=== PATIENT | male | born 1960 | race Caucasian/White ===

== ENCOUNTER → 2018-02-08 13:00 | Outpatient (CLI) | payer MEDICARE, MEDICAID, SELFPAY ==
--- NOTE | 2018-02-08 13:19 | RAD_ITS ---
STUDY: X-RAY CHEST REASON FOR EXAM: Male, 57 years old. Pre-op. No chest complaints. TECHNIQUE: PA and lateral views of the chest. COMPARISON: February 26, 2015. FINDINGS: The lungs are well-expanded. There is minimal linear density at the right lung base unchanged from prior study suggesting persistent atelectasis versus scarring. There is no demonstrated pleural abnormality. Normal size heart. Normal mediastinum and alexander. Normal visualized pulmonary arteries. Normal visualized aortic arch and descending thoracic aorta. There are diffuse degenerative changes of the visualized thoracic spine. Normal visualized ribs, clavicles, and shoulders. There is no demonstrated abnormality of the visualized soft tissue structures of the upper abdomen. RAD/Chest PA and Lateral IMPRESSION: No acute cardiopulmonary disease or interval change. Electronically Signed: Shakir Moore DO at 15:56 EDT Tel [phone], Service support ,
[2018-02-08 15:38] LABS: Anion Gap 9 (5-15); BUN 5 mg/dL (7-18); BUN/Creat Ratio 7.3 RATIO (10-20); Calcium,Total 8.6 mg/dL (8.5-10.1); Chloride 95 mmol/L (98-107); Creatinine, Serum 0.68 mg/dL (0.70-1.30); EST Glomerular Filtration Rate 126 mL/min (>60); Est Glom Filt Rate - Afr Amer 153 mL/min (>60); Glucose 232 mg/dL (74-106); Sodium Level 132 mmol/L (136-145)
[2018-02-08 15:45] LABS: Absolute Lymphocyte Count 5.95 X10^3/ul (0.83-4.51); Absolute Neutrophil Count 7.9 X10^3/uL (2.0-7.7); Basophil# 0.02 X10^3/uL; Basophil% 0.1 % (0-1); Eosinophil# 0.34 X10^3/uL; Eosinophils% 2.3 % (0-5); Hematocrit 48.6 % (40-54); Lymphocyte # 5.95 X10^3/ul (4.0); Lymphocyte % 39.8 % (19-41); Mean Corp Hgb Conc 32.9 g/gl (32-36); Mean Corpuscular Hgb 28.5 pg (27.0-32.0); Mean Corpuscular Volume 86.5 fL (80-94); Mean Platelet Vol. 9.8 fl (6.2-12.0); Monocyte# 0.73 X10^3/uL; Monocyte% 4.9 % (0-10); Neutrophil # 7.88 X10^3/uL (2.7-7.7); Neutrophil % 52.8 % (47-70); Platelet Count 187 K/mm3 (150-450); RBC Distribution Width SD 47.9 fl (35.1-43.9); Red Blood Count 5.62 M/mm3 (4.6-6.2); White Blood Count 14.9 K/mm3 (4.4-11.0)
[2018-02-08 15:50] LABS: Differential Indicated SCAN CRITERIA MET; POSITIVE COUNT NO; POSITIVE DIFFERENTIAL YES; POSITIVE MORPHOLOGY NO
[2018-02-08 16:11] LABS: Differential Comment SCANNED
== END ==
PROVIDERS: Family Provider Family Medicine; PCP Family Medicine; Visit Provider Family Medicine
DX: J44.9 Chronic obstructive pulmonary disease, unspecified (principal); E11.65 Type 2 diabetes mellitus with hyperglycemia; I25.10 Atherosclerotic heart disease of native coronary artery without angina pectoris
CPT/HCPCS: 36415; 71046; 80048; 85025

== ENCOUNTER 2019-02-05 11:54 | Emergency (ER) | payer MEDICARE, MEDICAID, SELFPAY ==
[2018-08-25 09:45] VITALS: BMI 29.8
[2019-02-05 11:58] VITALS: BP 150/75; PULSE 107; RESP 16; TEMP 36.6; O2SAT 96; BMI 29.7
--- NOTE | 2019-02-05 12:47 | EKG12_ITS ---
Test Reason : CHEST OTHER Blood Pressure : / mmHG Vent. Rate : 090 BPM Atrial Rate : 090 BPM P-R Int : 160 ms QRS Dur : 080 ms QT Int : 368 ms P-R-T Axes : 033 008 025 degrees QTc Int : 450 ms Normal sinus rhythm Normal ECG Confirmed by YUSRA BRANTLEY ([id number]), video effects editor ANTONIO STILES ([id number]) on 02/08/2019 1:47:41 PM Referred By: Confirmed By:YUSRA BRANTLEY
--- NOTE | 2019-02-05 13:04 | RAD_ITS ---
STUDY: X-RAY CHEST REASON FOR EXAM: Male, 58 years old. TECHNIQUE: 2 views COMPARISON: February 08, 2018 FINDINGS: The lungs are clear and expanded. There is no demonstrated pleural abnormality. Normal size heart. Normal mediastinum and alexander. Normal visualized pulmonary arteries. Normal visualized aortic arch and descending thoracic aorta. Normal visualized thoracic spine. Normal visualized ribs, clavicles, and shoulders. There is no demonstrated abnormality of the visualized soft tissue structures of the upper abdomen. RAD/Chest PA and Lateral IMPRESSION: Normal x-ray examination of the chest unchanged since February 08, 2018. Electronically Signed: Jelly Loza, at 13:52 EDT Tel , Service support ,
[2019-02-05 13:14] LABS: Absolute Neutrophil Count 7.4 X10^3/uL (2.0-7.7); Basophil# 0.03 X10^3/uL; Basophil% 0.3 % (0-1); Eosinophil# 0.35 X10^3/uL; Eosinophils% 2.9 % (0-5); Hematocrit 44.6 % (40-54); Hemoglobin 15.3 g/dl (13.0-16.5); Lymphocyte % 28.4 % (19-41); Mean Corp Hgb Conc 34.3 g/gl (32-36); Mean Corpuscular Hgb 29.7 pg (27.0-32.0); Mean Corpuscular Volume 86.4 fL (80-94); Mean Platelet Vol. 11.1 fl (6.2-12.0); Monocyte# 0.82 X10^3/uL; Monocyte% 6.8 % (0-10); Neutrophil # 7.35 X10^3/uL (2.7-7.7); Neutrophil % 61.3 % (47-70); POSITIVE COUNT NO; POSITIVE DIFFERENTIAL NO; POSITIVE MORPHOLOGY NO; Platelet Count 192 K/mm3 (150-450); RBC Distribution Width CV 14.8 % (11.6-14.6); RBC Distribution Width SD 46.7 fl (35.1-43.9); Red Blood Count 5.16 M/mm3 (4.6-6.2)
--- NOTE | 2019-02-05 13:21 | ED.VISSUMM ---
- ER Visit Summary Date of Service: 02/05/19 Chief Complaint: Chest tightness History of Present Illness: The patient is a 58 M who presents with a four-day history of chest tightness. Patient has a history of hypertension diabetes hypercholesterolemia and known coronary artery disease that is managed with medical therapy. He is a smoker. He states that approximately 4 days ago while ambulating without his cane he lost his balance and fell into the wall. Scraped his left hand and right forearm. Proceeded down to the ground striking his chest. He denies striking his head and neck. Since that time he notes a chest tightness. States it began medially after the fall and is been progressive throughout that first day and now constant. He notes no change in his chronic cough. No fevers. No dyspnea on exertion. Physical Examination: Afebrile vital signs are stable Gen: Well-nourished well-developed Head: Normocephalic atraumatic Eyes: Perrl EOMI ENT: TMs clear no rhinorrhea moist mucous membranes Neck: Supple no lymphadenopathy no JVD nontender CVS: Regular rate rhythm no murmurs normal S1-S2 Respiratory: No distress clear to auscultation bilaterally chest nontender no contusions noted on the chest wall Abdomen: Soft nontender nondistended normal bowel sounds no masses Back: Nontender Extremity: Nontender no edema Skin: Normal color no rash Neuro: alert orientated ?3 CN II-XII intact normal strength sensation Psych: Normal affect normal mood Test Results: EKG demonstrated normal sinus rhythm at a rate of 90. White count nonspecifically elevated at 12. Troponin less than 0.015. Glucose 327. Chest x-ray showed no acute findings or change from prior. Emergency Department Course and Treatment: At this point patient has had 4 days of constant symptoms. His troponin is negative. His EKG demonstrates no concerning features of ACS. Chest x-ray demonstrates no pulmonary embolism widened mediastinum or evidence of pulmonary contusion. There is no pleural effusions or obvious rib fractures. I do not have a clear etiology for the patient's discomfort in his chest pain do not find evidence of any emergent condition that should require hospitalization. Patient encouraged to follow-up with his doctor if symptoms persist. Impression: 1. Acute chest pain This note was generated with [employer] dictation software. It may contain incorrect words, spelling, and punctuation that were not noted in review of the chart prior to signing ED Disposition - Plan for ED Patient: Disposition: Home or Assisted Living Instructions: CHEST PAIN, Uncertain Cause Referrals: Edilia Remy MD [Primary Care Provider] - 3-5 Days if not improving
[2019-02-05 13:26] LABS: Anion Gap 5 (5-15); BUN 7 mg/dL (7-18); BUN/Creat Ratio 9.8 RATIO (10-20); Calcium,Total 8.6 mg/dL (8.5-10.1); Chloride 99 mmol/L (98-107); Creatinine, Serum 0.72 mg/dL (0.70-1.30); EST Glomerular Filtration Rate 120 mL/min (>60); Est Glom Filt Rate - Afr Amer 145 mL/min (>60); Estimated Creatinine Clearance 119.11 ml/min; Glucose 327 mg/dL (74-106); Potassium 4.1 mmol/L (3.5-5.1); Sodium Level 132 mmol/L (136-145)
[2019-02-05 14:29] VITALS: BP 166/94; PULSE 90; RESP 16; O2SAT 96
== END 2019-02-05 14:30 | disposition home or self-care (01) ==
PROVIDERS: Emergency Provider Emergency Medicine; Family Provider Family Medicine; PCP Family Medicine
DX: R07.89 Other chest pain (principal); W19.XXXA Unspecified fall, initial encounter; Y93.9 Activity, unspecified; Y92.9 Unspecified place or not applicable; R05 Cough; I10 Essential (primary) hypertension; E11.9 Type 2 diabetes mellitus without complications; E78.00 Pure hypercholesterolemia, unspecified; I25.10 Atherosclerotic heart disease of native coronary artery without angina pectoris; Z79.82 Long term (current) use of aspirin; Z79.84 Long term (current) use of oral hypoglycemic drugs; Z79.899 Other long term (current) drug therapy; F17.200 Nicotine dependence, unspecified, uncomplicated
CPT/HCPCS: 71046; 80048; 84484; 85025; 93005; 99284; A4216

== ENCOUNTER 2019-03-20 17:02 | Emergency (ER) | payer MEDICARE, OTHER, SELFPAY ==
[2019-02-13 09:35] VITALS: BMI 29.7
[2019-03-20 17:09] VITALS: BP 160/90; PULSE 94; RESP 18; TEMP 36.7; O2SAT 95; BMI 31.9
--- NOTE | 2019-03-20 17:47 | EKG12_ITS ---
Test Reason : CP Blood Pressure : / mmHG Vent. Rate : 093 BPM Atrial Rate : 093 BPM P-R Int : 152 ms QRS Dur : 084 ms QT Int : 374 ms P-R-T Axes : 036 022 013 degrees QTc Int : 465 ms Normal sinus rhythm Low Voltage QRS (Limb Leads) Septal LA, age undetermined, cannot be excluded Confirmed by LIBAN GAN, NATI ([id number]), associate editor MARIA R DALY ([id number]) on 03/22/2019 10:11:49 AM Referred By: CK Confirmed By:NATI LOUIE MD
--- NOTE | 2019-03-20 17:48 | ED.VIS.GEN ---
History of Present Illness Chief Complaint: Chest Pain Informant: Patient Onset: Today Current Severity: Mild Maximum Severity: Mild Narrative: Patient presents with a 2-hour history of back pain that radiates through to his chest. He has chronic back pain but states it does not usually radiate to his chest. He reports that 2 years ago he had a heart cath performed at [place]. The doctor there told him he needed to have a cardiac bypass surgery. Information was reviewed with Dr. Lu and Dr. Lu did not feel the patient needed acute intervention. Patient has been following with Dr. uL since that time. He has not had repeat stress test or imaging. Patient denies any recent change in activity tolerance. Past Medical History - Allergies and Home Meds Allergies/Adverse Reactions: Allergies bee pollen Adverse Reaction (Severe, Verified 02/05/19 11:59) Unknown adhesive tape Adverse Reaction (Intermediate, Verified 02/05/19 11:59) Unknown hornets Adverse Reaction (Severe, Uncoded 02/05/19 11:59) Unknown wasps Adverse Reaction (Severe, Uncoded 02/05/19 11:59) Unknown Primary Care Physician: Edilia Remy MD [Primary Care Provider] - Doctors: Dr. Lu Prior records reviewed: Yes Past Medical History: - - Reviewed Lives: Spouse/ Significant Other Smoking Status: Current every day smoker Review of Systems General: Denies: Chills, Fever Eyes: Denies: Visual changes - bilaterally ENT: Denies: Bilateral ear pain Cardiovascular: Reports: Chest pain Respiratory: Denies: Dyspnea, Cough Gastrointestinal: Denies: Abdominal pain, Nausea, Vomiting Genitourinary: Denies: Dysuria Musculoskeletal: Reports: Back pain. Denies: Myalgias Skin: Denies: Rash Neurological: Denies: Headache, Weakness, Parasthesia Endocrine: Denies: Polyuria, Polydipsia Hematologic: Denies: Easy bruising Allergy: Denies: Uticaria Physical Exam Vital Signs/Narrative: Vital Signs Temp Pulse Resp BP Pulse Ox 03/20/19 17:09 98.0 F 94 18 160/90 H 95 Inital Vital Signs reviewed: Yes General: Well nourished, Well developed Head: Normocephalic ENT: Moist mucous membranes Neck: Supple Cardiovascular: Regular rate, Regular rhythm Respiratory: No distress, CTA bilaterally. Negative for: Chest tenderness Abdomen: Soft, Nontender Back: - - Tenderness in the left thoracic paraspinal muscles. Extremities: Nontender Skin: Normal color Neurological: Alert, Oriented x3 Psychological: Normal affect Diagnostic/Tx/Re-eval Impressions Chest X-Ray 03/20/19 17:50 IMPRESSION: 1. No acute cardiorespiratory disease. [ ] Electronically Signed: Aminah Elise, at 18:17 EDT Tel , Service support , 03/20/19 17:50 Chest 1 View (Portable) [RAD] Stat Laboratory Results 03/20/19 03/20/19 18:50 18:50 WBC 10.5 RBC 5.39 Hgb 15.9 Hct 48.1 MCV 89.2 MCH 29.5 MCHC 33.1 RDW Std Deviation 44.4 H RDW Coeff of Parul 13.7 Plt Count 174 MPV 11.8 Immature Gran % (Auto) 0.400 Neut % (Auto) 52.7 Lymph % (Auto) 38.7 [place] % (Auto) 5.2 Eos % (Auto) 2.7 Baso % (Auto) 0.3 Absolute Neuts (auto) 5.6 Absolute Lymphs (auto) 4.08 Nucleated RBC % 0 Sodium 138 Potassium 4.6 Chloride 104 Carbon Dioxide 31.0 Anion Gap 3 L BUN 10 Creatinine 0.80 Estim Creat Clear Calc 107.20 Est GFR (MDRD) Af Amer 128 Est GFR (MDRD) Non-Af 106 BUN/Creatinine Ratio 12.5 Glucose 270 H Calcium 8.9 Troponin I < 0.015 - EKG Initial EKG Interpretation: Sinus Rhythm - Sinus at 93 bpm with no acute ischemia. - Medical Decision Making Patient presents with back pain radiating in his chest. He does have known cardiac disease. Patient was hypertensive but refused blood pressure medication stating that his doctor told him not to worry about his blood pressure unless it is over 200 systolic. On repeat evaluation patient is sitting at bedside. He states he is ready to leave. I discussed with him that my preference is to keep the patient and do further testing for his heart. He is refusing at this time. He will sign out AGAINST MEDICAL ADVICE. He was encouraged to return if he changes his mind or has any other concerns. ED Disposition - Plan for ED Patient: Disposition: Home or Assisted Living Diagnosis: Chest pain Instructions: CHEST PAIN, Uncertain Cause Referrals: Emmanuel Lu MD [STAFF PHYSICIAN] - As soon as possible
--- NOTE | 2019-03-20 17:50 | RAD_ITS ---
STUDY: X-RAY CHEST REASON FOR EXAM: Male, 58 years old. Chest pain TECHNIQUE: Frontal view of the chest was performed COMPARISON: 05 February 2019 FINDINGS: Lungs are clear. There is no pneumothorax, pulmonary edema, pleural effusions or cardiomegaly. Osseous structures are intact. There is no gas under the diaphragms. [ ] RAD/Chest 1 View (Portable) IMPRESSION: 1. No acute cardiorespiratory disease. [ ] Electronically Signed: Aminah Elise, at 18:17 EDT Tel , Service support ,
[2019-03-20 18:48] VITALS: BP 181/99; PULSE 84; RESP 13; O2SAT 96
[2019-03-20] MEDS: 0.9% Normal Saline 1,000 ML 150 ML IV (18:52)
[2019-03-20] MEDS: Aspirin 81 MG TAB.CHEW 243 MG PO (18:52)
[2019-03-20 19:02] LABS: Absolute Lymphocyte Count 4.08 X10^3/uL (0.83-4.51); Absolute Neutrophil Count 5.6 X10^3/uL (2.0-7.7); Basophil# 0.03 X10^3/uL; Basophil% 0.3 % (0-1); Eosinophil# 0.28 X10^3/uL; Eosinophils% 2.7 % (0-5); Hematocrit 48.1 % (40-54); Hemoglobin 15.9 g/dL (13.0-16.5); Lymphocyte # 4.08 X10^3/ul (4.0); Lymphocyte % 38.7 % (19-41); Mean Corp Hgb Conc 33.1 g/dL (32-36); Mean Corpuscular Hgb 29.5 pg (27.0-32.0); Mean Corpuscular Volume 89.2 fL (80-94); Mean Platelet Vol. 11.8 fl (6.2-12.0); Monocyte# 0.55 X10^3/uL; Monocyte% 5.2 % (0-10); NRBC Flagged by Analyzer 0 % (0-5); Neutrophil # 5.55 X10^3/uL (2.7-7.7); Neutrophil % 52.7 % (47-70); Platelet Count 174 K/mm3 (150-450); RBC Distribution Width CV 13.7 % (11.6-14.6); RBC Distribution Width SD 44.4 fl (35.1-43.9); Red Blood Count 5.39 M/mm3 (4.6-6.2); White Blood Count 10.5 K/mm3 (4.4-11.0)
[2019-03-20 19:03] VITALS: BP 181/83; PULSE 92; RESP 22; O2SAT 98
[2019-03-20 19:45] LABS: Anion Gap 3 (5-15); BUN 10 mg/dL (7-18); BUN/Creat Ratio 12.5 RATIO (10-20); Calcium,Total 8.9 mg/dL (8.5-10.1); Chloride 104 mmol/L (98-107); EST Glomerular Filtration Rate 106 mL/min (>60); Est Glom Filt Rate - Afr Amer 128 mL/min (>60); Glucose 270 mg/dL (74-106); Potassium 4.6 mmol/L (3.5-5.1); Sodium Level 138 mmol/L (136-145)
[2019-03-20 20:06] VITALS: BP 174/101; PULSE 87; RESP 20; O2SAT 98
[2019-03-20 20:36] VITALS: BP 200/98; PULSE 83; RESP 18; O2SAT 99
== END 2019-03-20 20:37 | disposition home or self-care (01) ==
PROVIDERS: Emergency Provider Emergency Medicine; Family Provider Family Medicine; PCP Family Medicine
DX: R07.9 Chest pain, unspecified (principal); I11.9 Hypertensive heart disease without heart failure; M54.9 Dorsalgia, unspecified; G89.29 Other chronic pain; Z53.21 Procedure and treatment not carried out due to patient leaving prior to being seen by health care provider; Z79.82 Long term (current) use of aspirin; Z79.899 Other long term (current) drug therapy; F17.200 Nicotine dependence, unspecified, uncomplicated
CPT/HCPCS: 71045; 80048; 84484; 85025; 93005; 96360; 96361; 99285; J7030; A4216

== ENCOUNTER → 2019-03-28 | Outpatient (CLI) | payer MEDICARE, OTHER, SELFPAY ==
[2019-02-13 09:35] VITALS: BMI 29.7
[2019-03-28 09:47] VITALS: BMI 31.9
--- NOTE | 2019-03-28 13:39 | ART_ITS ---
Reason For Study: atherosclerosis of the Aorta Left Segmental Pressures Left brachial= 163mmHg. Left posterior tibial artery = 170mmHg. Left dorsalis pedis artery = 159mmHg. Left digit = 164 mmHg. The left dorsalis pedis waveforms are triphasic. The left posterior tibial artery waveforms are triphasic. Right Segmental Pressures Right brachial= 163mmHg. Right posterior tibial artery = 203mmHg. Right dorsalis pedis artery = 173mmHg. Right digit = 145 mmHg. The right dorsalis pedis waveforms are triphasic. The right posterior tibial artery waveforms are triphasic. Indices The right ankle brachial index by the dorsalis pedis is 1.06. The right ankle brachial index by the posterior tibial artery is 1.25. The right digital-brachial index is .89. The left ankle brachial index by the dorsalis pedis is .98. The left ankle brachial index by the posterior tibial artery is 1.04. The left digital-brachial index is 1.01. Interpretation Summary Triphasic Doppler waveforms are noted at ankle level bilaterally. Pulse-volume recording waveform amplitudes appear satisfactory at all levels bilaterally, including low-thigh, calf, ankle, and digital levels. Resting ankle-brachial indices are normal bilaterally. Digital-brachial indices are normal bilaterally. There is no evidence of significant arterial occlusive disease in the lower extremities bilaterally. Ordering Physician: DANYELLE POOL Performed By: LEVY STROUD T
== END | disposition home or self-care (01) ==
LOC: CVS 13:35
PROVIDERS: Family Provider Family Medicine; PCP Family Medicine
DX: M51.36 Other intervertebral disc degeneration, lumbar region (principal); F17.200 Nicotine dependence, unspecified, uncomplicated; I70.0 Atherosclerosis of aorta; M99.53 Intervertebral disc stenosis of neural canal of lumbar region
CPT/HCPCS: 93923

== ENCOUNTER → 2019-03-28 | Outpatient (CLI) | payer MEDICARE, OTHER, SELFPAY ==
[2019-03-28 09:47] VITALS: BMI 31.9
--- NOTE | 2019-03-28 10:03 | RAD_ITS ---
STUDY: X-RAY - RIGHT SHOULDER REASON FOR EXAM: Right shoulder pain, fall one month ago. TECHNIQUE: 4 view(s) of the shoulder. COMPARISON: None. FINDINGS: Normal glenohumeral articulation. There is acromioclavicular arthrosis. Normal acromion. Normal humeral head and visualized proximal humerus. The soft tissue structures are unremarkable. Normal visualized pulmonary apex. RAD/Shoulder min 2 Views IMPRESSION: Acromioclavicular arthrosis. Electronically Signed: Lenard Martin MD at 10:41 EDT Tel , Service support ,
== END | disposition home or self-care (01) ==
LOC: HPRAD 10:03
PROVIDERS: Family Provider Family Medicine; PCP Family Medicine; Referring Provider Orthopaedic Surgery; Visit Provider Orthopaedic Surgery
DX: M25.511 Pain in right shoulder (principal); M51.36 Other intervertebral disc degeneration, lumbar region; F17.200 Nicotine dependence, unspecified, uncomplicated; I70.0 Atherosclerosis of aorta; M99.53 Intervertebral disc stenosis of neural canal of lumbar region
CPT/HCPCS: 73030; 93923

== ENCOUNTER → 2019-08-24 08:50 | Outpatient (CLI) | payer MEDICARE, SELFPAY ==
[2019-04-21 12:43] VITALS: BMI 31.5
[2019-08-24 12:44] LABS: ALB/GLOB Ratio 0.8 RATIO (0.9-2.4); AST(SGOT) 19 U/L (15-37); Alanine Aminotransfer ALT/SGPT 36 U/L (16-61); Albumin, Serum 3.6 g/dL (3.2-5.0); Alkaline Phosphatase 102 U/L (45-117); Anion Gap 5 (5-15); BUN 10 mg/dL (7-18); BUN/Creat Ratio 12.3 RATIO (10-20); Calcium,Total 9.1 mg/dL (8.5-10.1); Chloride 100 mmol/L (98-107); Cholesterol 111 mg/dL (200); Creatinine, Serum 0.82 mg/dL (0.70-1.30); EST Glomerular Filtration Rate 103 mL/min (>60); Est Glom Filt Rate - Afr Amer 124 mL/min (>60); Globulin 4.5 g/dL (2.2-4.2); Glucose 172 mg/dL (74-106); High Density Lipoprotein 24 mg/dL; Protein, Total 8.1 g/dL (6.4-8.2); Sodium Level 133 mmol/L (136-145); Triglycerides 644 mg/dL
[2019-08-24 12:54] LABS: Microalbumin,Random Urine 10.3 mg/L (NO RANGE EST.); Microalbumin:Creatinine Ratio 24.6 mg/g CRE (<30 mg/g CRE)
== END ==
LOC: BFHLAB 08:51
PROVIDERS: Family Provider Family Medicine; PCP Family Medicine; Visit Provider Family Medicine
DX: E11.65 Type 2 diabetes mellitus with hyperglycemia (principal)
CPT/HCPCS: 36415; 80053; 80061; 82043; 82570

== ENCOUNTER → 2020-03-05 11:55 | Outpatient (CLI) | payer MEDICARE, SELFPAY ==
[2019-04-21 12:43] VITALS: BMI 31.5
[2020-03-05 15:15] LABS: Absolute Lymphocyte Count 4.25 X10^3/uL (0.83-4.51); Absolute Neutrophil Count 6.8 X10^3/uL (2.0-7.7); Basophil# 0.04 X10^3/uL; Basophil% 0.3 % (0-1); Eosinophil# 0.46 X10^3/uL; Eosinophils% 3.8 % (0-5); Hematocrit 47.5 % (40-54); Hemoglobin 15.4 g/dL (13.0-16.5); Lymphocyte # 4.25 X10^3/ul (4.0); Lymphocyte % 34.8 % (19-41); Mean Corp Hgb Conc 32.4 g/dL (32-36); Mean Corpuscular Hgb 29.4 pg (27.0-32.0); Mean Corpuscular Volume 90.6 fL (80-94); Mean Platelet Vol. 12.4 fl (6.2-12.0); Monocyte# 0.65 X10^3/uL; Monocyte% 5.3 % (0-10); NRBC Flagged by Analyzer 0 % (0-5); Neutrophil # 6.75 X10^3/uL (2.7-7.7); Neutrophil % 55.4 % (47-70); Platelet Count 204 K/mm3 (150-450); RBC Distribution Width SD 48.7 fl (35.1-43.9); Red Blood Count 5.24 M/mm3 (4.6-6.2); White Blood Count 12.2 K/mm3 (4.4-11.0)
[2020-03-05 15:48] LABS: ALB/GLOB Ratio 0.9 RATIO (0.9-2.4); AST(SGOT) 14 U/L (15-37); Alanine Aminotransfer ALT/SGPT 22 U/L (16-61); Albumin, Serum 4.1 g/dL (3.2-5.0); Alkaline Phosphatase 97 U/L (45-117); Anion Gap 4 (5-15); BUN 9 mg/dL (7-18); BUN/Creat Ratio 14.1 RATIO (10-20); Calcium,Total 9.2 mg/dL (8.5-10.1); Chloride 101 mmol/L (98-107); Cholesterol 115 mg/dL (200); Creatinine, Serum 0.64 mg/dL (0.70-1.30); EST Glomerular Filtration Rate 136 mL/min (>60); Est Glom Filt Rate - Afr Amer 165 mL/min (>60); Globulin 4.5 g/dL (2.2-4.2); Glucose 120 mg/dL (74-106); High Density Lipoprotein 31 mg/dL; Potassium 4.1 mmol/L (3.5-5.1); Protein, Total 8.6 g/dL (6.4-8.2); Sodium Level 137 mmol/L (136-145); Triglycerides 259 mg/dL; Very Low Density Lipoprotein 52 mg/dL (5-40)
== END ==
LOC: BFHLAB 11:56
PROVIDERS: PCP Family Medicine; Visit Provider Family Medicine
DX: E11.65 Type 2 diabetes mellitus with hyperglycemia (principal); I25.10 Atherosclerotic heart disease of native coronary artery without angina pectoris
CPT/HCPCS: 36415; 80053; 80061; 85025

== ENCOUNTER → 2020-09-05 10:07 | Outpatient (CLI) | payer MEDICARE, SELFPAY ==
[2019-04-21 12:43] VITALS: BMI 31.5
[2020-09-05 12:30] LABS: Absolute Lymphocyte Count 3.69 X10^3/uL (0.83-4.51); Absolute Neutrophil Count 5.8 X10^3/uL (2.0-7.7); Basophil# 0.04 X10^3/uL; Basophil% 0.4 % (0-1); Eosinophil# 0.34 X10^3/uL; Eosinophils% 3.3 % (0-5); Hematocrit 46.8 % (40-54); Hemoglobin 15.4 g/dL (13.0-16.5); Lymphocyte # 3.69 X10^3/ul (4.0); Lymphocyte % 35.4 % (19-41); Mean Corp Hgb Conc 32.9 g/dL (32-36); Mean Corpuscular Hgb 29.6 pg (27.0-32.0); Mean Platelet Vol. 11.7 fl (6.2-12.0); Monocyte# 0.53 X10^3/uL; Monocyte% 5.1 % (0-10); NRBC Flagged by Analyzer 0 % (0-5); Neutrophil # 5.77 X10^3/uL (2.7-7.7); Neutrophil % 55.4 % (47-70); Platelet Count 225 K/mm3 (150-450); RBC Distribution Width CV 15.2 % (11.6-14.6); RBC Distribution Width SD 49.9 fl (35.1-43.9); White Blood Count 10.4 K/mm3 (4.4-11.0)
[2020-09-05 12:57] LABS: ALB/GLOB Ratio 0.8 RATIO (0.9-2.4); AST(SGOT) 17 U/L (15-37); Alanine Aminotransfer ALT/SGPT 24 U/L (16-61); Albumin, Serum 3.8 g/dL (3.2-5.0); Alkaline Phosphatase 120 U/L (45-117); Anion Gap 5 (5-15); BUN 7 mg/dL (7-18); BUN/Creat Ratio 9.1 RATIO (10-20); Calcium,Total 8.7 mg/dL (8.5-10.1); Chloride 102 mmol/L (98-107); Creatinine, Serum 0.77 mg/dL (0.70-1.30); EST Glomerular Filtration Rate 110 mL/min (>60); Est Glom Filt Rate - Afr Amer 133 mL/min (>60); Globulin 4.5 g/dL (2.2-4.2); Glucose 146 mg/dL (74-106); Potassium 4.2 mmol/L (3.5-5.1); Protein, Total 8.3 g/dL (6.4-8.2); Sodium Level 137 mmol/L (136-145)
== END ==
PROVIDERS: PCP Family Medicine; Visit Provider Family Medicine
DX: I25.10 Atherosclerotic heart disease of native coronary artery without angina pectoris (principal); E11.65 Type 2 diabetes mellitus with hyperglycemia
CPT/HCPCS: 36415; 80053; 85025

== ENCOUNTER → 2022-11-18 | Outpatient (CLI) | payer MEDICARE, SELFPAY ==
--- NOTE | 2022-11-18 07:55 | CT_ITS ---
STUDY: LOW DOSE CT LUNG CANCER SCREENING REASON FOR EXAM: Male, 62 years old. Current smoker. Patient smokes between 2 and 3 packs per day for 49 years. RADIATION DOSAGE (If Supplied By Facility): CTDIvol = ( 4.02 ) mGy, DLP = ( 126.37 ) mGycm TECHNIQUE: No contrast was administered. Low dose technique was utilized (average mAS-38 and kVp 120). 1.25 mm axial source images with a slice interval of 1.25-mm were reconstructed in lung windows. 2.5 mm axial source images with a slice interval of 2.5-mm were reconstructed in lung windows. 5.0 mm axial source images with a slice interval of 5.0-mm were reconstructed in soft tissue windows. COMPARISON: None. NODULES: No suspicious nodules are seen. Emphysema: Hyperinflation. Emphysematous changes. Linear scarring at the lung bases in keeping with fibrosis. Endobronchial lesion: Unremarkable. Aorta: Atherosclerotic plaque formation of the aortic arch. CORONARY ARTERIES: Coronary artery calcification is seen. Heart: Unremarkable. Pulmonary artery: Unremarkable Mediastinal nodes: Benign-appearing mediastinal lymph nodes. Other chest and abdominal findings: CT/Low Dose CT Lung Screening IMPRESSION: Lung-RADS category 2 - Continue annual screening with LDCT in 12 months. IMPORTANT NOTES FOR USE: ACR Lung-RADS Version 1.1 Assessment Categories Release Date: 2018 Category: Coded 0-4 bases on nodule(s) with highest degree of suspicion. Negative screen is defined as categories 1 and 2; a positive screen is defined as categories 3 and 4. Category 3 and 4A nodules that are unchanged on interval CT should be coded as category 2, and individuals returned to screening in 12 months. Category 4X: Category 3 or 4 nodules with additional imaging findings that increase the suspicion of lung cancer, such as spiculation, GGN that doubles in size in 1 year, enlarged lymph notes, etc. Category Modifiers: S (significant finding unrelated to lung cancer) Electronically Signed: Yosi Calderon MD at 15:05 EDT ,
== END | disposition home or self-care (01) ==
LOC: CT 07:50
PROVIDERS: PCP Family Medicine; Visit Provider Family Medicine
DX: F17.210 Nicotine dependence, cigarettes, uncomplicated (principal)
CPT/HCPCS: 71271

== ENCOUNTER 2022-12-17 09:00 | Outpatient (RCR) | payer MEDICARE, SELFPAY ==
--- NOTE | 2022-11-24 16:46 | HP.OTEVAL ---
Patient's Visit Information JEANNE RIVERS is a 62 year old M, referred to Occupational Therapy by Dr. Que Turcios MD, with a diagnosis of right wrist pain. Date of Evaluation: 11/18/22 Occupational Therapist: Sirisha Khan, KATHLEEN/Axel, CHT - Subjective This 62 year old male was seen for OT eval with dx of right wrist pain. Pt states he went deer hunting this season. pt states when he pulled the trigger his gun kicked back hurt his wrist . and thumb Pt states this was back in Jul. Pt states he continues to have wrist pain. Pt states pain with driving and daily tasks.- pt states he has a wrist brace but it bothers him more. pt states he will put hector wrap on to decrease pain. pt is right handed. 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 pt states he is driving with his left because his right wrist hurts. pt would like to return to using his right hand with ADLs and driving. - Pain right hand 0 Pain Intensity Range: 8, 9 - ROM Forearm: right WNL left WNL Wrist: right 45/40 left 55/60 ROM Comments: pt reports pain around wrist. right RD [address] 10 UD 25 - Strength Director Financial Planning: right 20# left 75# Lateral Pinch: right 10 left 16# Tripod Pinch: right 6# left 14# Strength Comments: pain with resistive hospital staff pharmacist and pinch testing - Sensation Sensation Comments: denies - Quick DASH-Disab of Arm,Shoulder& Hand Quick DASH Score: 58.3325 - Goals Goal:: pt will demo a increase in right hospital staff pharmacist strength to 40# or greater by d.c to increase pts ind. with ADL and IADLs. Goal:: pt will demo increase in right wrist ROM by 20* without pain to increase pts ind. with ADls by d.c Goal:: pt will report a pain no greater than 3/10 with use of right hand with ADLs and IADLs by d.c Goal:: Pt will demo understanding of work/lifting and carry ergonomics to decrease stress on tendons to increase pts independent with ADLs, IADLS and work tasks by d/c. Pt will demo understanding of using supportive bracing 80% of workday/ADLS to decrease stress on tendon origin to allow healing and decrease pain by end of 2nd session. - Rehabilitation General Assessment: pt demo painful ROM and weakness limiting pt with ADLS and work tasks. pt tender around right CMC and panful with TFCC and proximal row palpation-no palpation instability of carpal right it actually tighter than left_ possible strain in Dec. with out proper healing/support No pt demo painful right wrist and right hospital staff pharmacist weakness with ADls. Pt demo need for skilled OT services 2x week for 4 weeks to decrease pain, ed. pt on joint protection halina. use of bracing and return pt to [place] level with ADLs and IADLS. PT demo understanding and agrees with POC. Rehabilitation Potential: Good - Anticipated Interventions A/AAROM/PROM, Strengthening, Modalities, Orthoses, Joint Protection/Energy Conservation, Ergonomic Education, Education re assistive Equipment, Education re Diagnosis, Home Program - Visit Plan Frequency: 2x /Week Duration: 4 Weeks TEXT: Thank you for the opportunity to evaluate your patient. For Medicare and Medicare HMO plans, please review the plan of care and approve it. It will need to be FAXED BACK to us at [phone] for Medicare purposes. Please let me know if there are questions or concerns regarding this plan of care. Physician Signature: Date:
--- NOTE | 2022-12-17 09:23 | HP.OTDCSUM_ITS ---
It has been my pleasure to treat JEANNE RIVERS under orders from Dr. Que Turcios MD, for the diagnosis of right wrist pain for a total of 8 visit(s). Please see the following information for a summary of their discharge status. % Improvement: 10 Objective/Function: pt demo with a decrease in right wrist ROM from 45/40 to 40/30 at 15* loss of ROM pt has pain with ROM. pt demo full forearm supination/pronation (not pain). right pattern mechanic strength did go up from 25# to 40# left is 75#. pt has pain on ulnar side. pt states wrist pain does continue to stop him with all his ADLs and IADLs. pt has been ed. on ad. eq. to decrease stress on joints. therapist ed. pt on use of steering knob, wrist brace and decrease prolonged pattern mechanic on objects. Patient Goals: Decrease Pain, Use Hand/Wrist/Arm Normally Again, Be More Independent in ADLS Goal:: pt will demo a increase in right pattern mechanic strength to 40# or greater by d.c to increase pts ind. with ADL and IADLs.( goal met but painful) Goal:: pt will demo increase in right wrist ROM by 20* without pain to increase pts ind. with ADls by d.c (pt decreased in ROM) Goal:: pt will report a pain no greater than 3/10 with use of right hand with ADLs and IADLs by d.c ( did not meet) Goal:: Pt will demo understanding of work/lifting and carry ergonomics to decrease stress on tendons to increase pts independent with ADLs, IADLS and work tasks by d/c. Pt will demo understanding of using supportive bracing 80% of workday/ADLS to decrease stress on tendon origin to allow healing and decrease pain by end of 2nd session. Plan: D/C Discharge Comments: due to limited gains in progress therapist d/c pt to return to the for further evaluation. pt demo understanding to schedule with . pt agrees with POC. If there are questions or concerns regarding this patient's occupational therapy, please fell free to call me at [phone]. Thank you for the referral of this patient. Sincerely, Sirisha Khan, OTR/L, CHT
== END 2022-12-17 14:33 | disposition home or self-care (01) ==
LOC: OT 09:00
PROVIDERS: PCP Family Medicine; Referring Provider Orthopaedic Surgery Sports Medicine; Visit Provider Orthopaedic Surgery Sports Medicine
DX: M25.531 Pain in right wrist (principal)
CPT/HCPCS: 97035; 97110; 97166; 97530

== ENCOUNTER 2023-05-14 22:40 | Emergency (ER) | payer MEDICARE, SELFPAY ==
[2023-05-14 22:40] VITALS: BP 171/92; PULSE 99; RESP 18; TEMP 36.1; O2SAT 95; BMI 34.0
[2023-05-14 22:43] VITALS: BP 171/92; PULSE 96; RESP 16; TEMP 36.1; O2SAT 99
--- NOTE | 2023-05-14 22:55 | CT_ITS ---
INDICATION: RLQ pain -- IV PO Contrast EXAMINATION: CT Abdomen And Pelvis W/ Contrast Injection TECHNIQUE: Helically acquired images were obtained of the abdomen and pelvis with sagittal and coronal reconstructed images. Individualized dose optimization techniques were used for this CT. IV contrast dosage and agent: 100 mL of Isovue-370. Oral contrast: Contrast seen in the small bowel. No contrast in the colon. COMPARISON: 12/12/2014 CT. FINDINGS: VESSELS: No abdominal aortic aneurysm or dissection. LIVER: No evidence of a mass. No intrahepatic or extrahepatic biliary duct dilation. Nodular contour of the liver. Calcifications consistent with benign old granulomatous disease. Diffuse decreased attenuation. Left lobe hepatic cyst. GALLBLADDER: No calcified stones. Gallbladder wall thickening. PANCREAS: No focal solid or cystic mass. No evidence of pancreatitis. SPLEEN: Calcifications consistent with benign old granulomatous disease. ADRENAL GLANDS: Normal. KIDNEYS AND URETERS: No urinary tract stone. No hydronephrosis or hydroureter. No significant asymmetric perinephric stranding. URINARY BLADDER: Unremarkable. BOWEL: Diverticulosis with no evidence of diverticulitis. Appendix appears normal. No evidence of bowel obstruction. REPRODUCTIVE ORGANS: No evidence of a pelvic mass. PERITONEUM: No intraabdominal free fluid or free air. LYMPH NODES: No pathologically enlarged mesenteric or retroperitoneal lymph nodes. ABDOMINAL WALL: No abdominal or pelvic wall hernia. BONES: No acute abnormality. LOWER CHEST: Mild diffuse septal thickening. Small bilateral pleural effusions. CT/Abdomen/Pelvis WITH Contrast IMPRESSION: 1. Gallbladder wall thickening. Recommend follow-up with right upper quadrant ultrasound if there is a clinical concern for cholecystitis. 2. Normal appendix. 3. Nodular contour of the liver which may represent hepatic cirrhosis. 4. Fatty infiltration of the liver. 5. Small bilateral pleural effusions and probable interstitial edema. Electronically Signed: Andrez Ron DO at 1:24 EDT ,
--- NOTE | 2023-05-14 22:56 | EDS_ITS ---
HPI HPI - GI History of Present Illness Chief Complaint: Abd Pain Informant: patient Narrative Narrative: Presents the ED for evaluation of worsening right lower quadrant pain. States that pain for months, he states he was at [facility] emergency department 2 days ago had image studies told he had UTIs on potassium replacement. Is currently taking Keflex. Denies any dysuria. Denies any abdominal surgeries. He states he was told to follow-up with his PCP. However there is discussion reason to return to the ED stating the pain is worsening. Denies fevers however states he does not run fevers with infections. Denies vomiting or diarrhea. 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 Nicotine abuse Right carpal tunnel syndrome Right wrist pain Home Medications cyclobenzaprine 10 mg tablet 10 mg PO BID muscle spasms 02/27/15 [History Last Taken 03/20/19] gabapentin 300 mg capsule 300 mg PO TIDCM 02/27/15 [History Last Taken 03/19/19] aspirin 81 mg tablet,delayed release (Adult Aspirin Regimen) 81 mg PO DAILY 01/14/18 [History Last Taken 03/20/19] lisinopril 20 mg tablet 20 mg PO DAILY bp 01/14/18 [History Last Taken 03/20/19] morphine 15 mg tablet,extended release 15 mg PO Q12H 01/14/18 [History Last Taken 03/19/19] pioglitazone 15 mg tablet (Actos) 15 mg PO DAILY 01/14/18 [History Last Taken 03/20/19] glipizide 5 mg tablet 5 mg PO BID 08/25/18 [History Last Taken 03/20/19] albuterol sulfate 90 mcg/actuation aerosol inhaler 2 puff inhalation BID sob 03/20/19 [History Last Taken 03/20/19] lidocaine 5 % topical ointment 1 applic topical TID #30 grams 05/08/19 [Rx Last Taken Unknown] atorvastatin 40 mg tablet 40 mg PO DAILY #90 tabs 10/21/22 [Rx Last Taken Unknown] oxycodone-acetaminophen 5 mg-325 mg tablet (Percocet) 1 tab PO Q6H pain 3 days #12 tabs 05/15/23 [Rx Last Taken Unknown] Allergy/AdvReac Type Severity Reaction Status Date / Time bee pollen AdvReac Severe Unknown Verified 05/14/23 22:40 hornet venom AdvReac Severe NEEDS Verified 05/14/23 22:40 FOLLOW-UP venom-wasp [wasp venom] AdvReac Severe NEEDS Verified 05/14/23 22:40 FOLLOW-UP adhesive tape AdvReac Intermediate Unknown Verified 05/14/23 22:40 Family History Mother Diabetes Hypertension Father Diabetes Hypertension Brother Hypertension Surgical History H/O repair of rotator cuff S/P right knee arthroscopy Social History Smoking Status: Never smoker alcohol intake: never caffeine: Yes Type: carbonated beverages Number of servings: 6 what type of physical activity do you participate in: none ROS ROS ED Constitutional Constitutional ED: Denies chills, fever(s) or sweats Eyes Eyes: Denies change in vision ENT ENT ED: Denies dysphagia or sore throat Cardiovascular Cardiovascular: Denies chest pain, leg edema, palpitations or racing heartbeat Respiratory/Chest Respiratory/Chest: Denies cough, dyspnea or dyspnea on exertion Gastrointestinal Gastrointestinal: Reports abdominal pain; Denies diarrhea, nausea or vomiting Genitourinary Genitourinary ED: Denies dysuria, hematuria or urinary frequency Musculoskeletal Musculoskeletal: Denies back pain, extremity pain or neck pain Integumentary Denies rash or wounds Neurologic Neurologic: Denies headache(s), paresthesias or weakness EXAM Physical Exam Const Vital Signs: 05/14/23 22:40 05/14/23 22:43 05/15/23 00:53 Temperature 96.9 F L 96.9 F L 98.5 F Temperature Source Temporal Temporal Oral Pulse Rate 99 96 92 Respiratory Rate 18 16 18 Blood Pressure 171/92 H 171/92 H 140/89 H Blood Pressure Mean 118 118 106 Pulse Ox 95 99 92 Oxygen Delivery Method Room Air Positive well nourished and well developed General Appearance ED: well developed and NAD HEENT Reports moist mucous membranes normocephalic and atraumatic Eyes PERRL, EOMs intact bilaterally and conjunctivae normal General Eye ED: Yes normal appearance of both eyes Neck no lymphadenopathy and supple General: Negative for tenderness Chest Wall Chest: Negative for tenderness Resp normal respiratory effort and normal air movement Effort and Inspection: symmetric chest movement; Negative for respiratory distress Cardio regular rate, regular rhythm and no murmurs Peripheral Pulses: pulses 2+ throughout GI normal to inspection, nondistended, normoactive bowel sounds GI Narrative: Tender palpation right lower quadrant, no rash, no hernias. Palpation: Negative for guarding or rebound tenderness present Back/Spine no CVA tenderness and no thoracic nor lumbar tenderness Extremity normal to inspection General Extremety ED: Negative for edema or tenderness General Extremity: Negative for edema Neuro oriented x3 and no sensory deficits noted Sensorium / Orientation: awake and alert Skin no rashes or lesions noted and no wounds MDM MDM MDM Narrative Medical decision making narrative: Interventions / MDM: Differential diagnosis: Abdominal pain Diagnosis considered but do not suspect: Appendicitis however negative CT scan; shingles however 2 months of symptoms without a rash My EKG interpretation: N/A Imaging independently reviewed and interpreted by myself: CT abdomen pelvis with p.o. and IV contrast: Normal appendix. Thickening around the gallbladder. External documents reviewed: I obtained records through [facility] confirms he was seen yesterday morning at 3 AM at [facility]. Similar story, CT abdomen pelvis had a retrocecal appendix that was normal. CT scan noting only mild lobulated prostate. He also had a right upper quadrant ultrasound that was normal with normal structures with CBD 3.6 mm. Test considered but not ordered:N/A ED course: Patient nontoxic reports worsening pain right lower quadrant since being seen 2 days ago but has pain for months. Reported no acute findings, discussed with patient due to worsening pain right lower quadrant need to reimage. He understands this. Contrast studies obtained with labs urine. Morphine for pain control. Patient labs stable slightly elevated glucose 218 normal WBC of 9.1. Urine with leukocytes 100, significant proving from his labs 2 days ago, from records note cultures pending. However with improving urine likely sensitive. CT scan results normal appendix noted thickening gallbladder however normal gallbladder ultrasound from 2 days ago with no gallstones. Normal, bile duct also. No pain in the right upper quadrant. 0145: Symptoms controlled soft abdomen on reevaluation. 2 months of ongoing symptoms, GI follow-up given. Short prescription for pain control as he currently does not follow pain management. Last time seen 2 years ago for back pain. He will finish his antibiotics. All questions were answered. Re-evaluation: stable Disposition discussed with patient/family/significant other: Patient and significant other Case discussed with consulting clinician: N/A This note was generated with [employer] dictation software. It may contain incorrect words, spelling, and punctuation that were not noted in checking the note before signing. Lab Data Attestation: I reviewed the patient's lab results. Labs: Laboratory Results - last 24 hr 05/14/23 05/14/23 23:00 23:11 WBC 9.1 RBC 4.61 Hgb 13.2 Hct 42.3 MCV 91.8 MCH 28.6 MCHC 31.2 L RDW Std Deviation 50.4 H RDW Coeff of Parul 15.0 H Plt Count 182 MPV 11.3 Immature Gran % (Auto) 0.300 Neut % (Auto) 60.2 Lymph % (Auto) 31.8 [place] % (Auto) 6.0 Eos % (Auto) 1.4 Baso % (Auto) 0.3 Absolute Neuts (auto) 5.5 Absolute Lymphs (auto) 2.88 Nucleated RBC % 0 Sodium 135 L Potassium 3.2 L Chloride 99 Carbon Dioxide 32.0 Anion Gap 4 L BUN 11 Creatinine 0.83 Estim Creat Clear Calc 97.02 Est GFR (MDRD) Af Amer 120 Est GFR (MDRD) Non-Af 99 BUN/Creatinine Ratio 13.2 Glucose 218 H Calcium 8.5 Total Bilirubin 0.50 AST 16 ALT 17 Alkaline Phosphatase 121 H Total Protein 7.8 Albumin 3.1 L Globulin 4.7 H Albumin/Globulin Ratio 0.7 L Lipase 45 Urine Color Yellow Urine Clarity Clear Urine pH 6.5 Ur Specific [place] 1.015 Urine Protein 30 H Urine Glucose (UA) Normal Urine Ketones Negative Urine Occult Blood 10 H Urine Nitrite Negative Urine Bilirubin Negative Urine Urobilinogen 4 H Ur Leukocyte Esterase 100 H Urine RBC 0 SEEN Urine WBC 0-5 SEEN Ur Squamous Epith Cells 0 SEEN Urine Bacteria 0 SEEN Urine Mucus 0 SEEN Radiography Diagnostic Testing: Clinical Impression(s) from Imaging Studies Abdomen/Pelvis CT 05/14/23 22:55 IMPRESSION: 1. Gallbladder wall thickening. Recommend follow-up with right upper quadrant ultrasound if there is a clinical concern for cholecystitis. 2. Normal appendix. 3. Nodular contour of the liver which may represent hepatic cirrhosis. 4. Fatty infiltration of the liver. 5. Small bilateral pleural effusions and probable interstitial edema. Electronically Signed: Andrez Ron DO at 1:24 EDT Reading Location ID and State: [facility] / [place] Tel , Service support , Discharge Plan Triage Chief Complaint: Abd Pain ED Provider: Ortega Diana Dx/Rx/DC Orders Clinical Impression: Diabetes, Abdominal pain Instructions: ED Abdominal Pain Unkn Cause Male... Prescriptions: New oxycodone-acetaminophen [Percocet] 5-325 mg tablet 1 tab PO Q6H 3 Days Qty: 12 0RF No Action aspirin [Adult Aspirin Regimen] 81 mg tablet,delayed release (DR/EC) 81 mg PO DAILY lisinopril 20 mg tablet 20 mg PO DAILY morphine 15 mg tablet extended release 15 mg PO Q12H pioglitazone [Actos] 15 mg tablet 15 mg PO DAILY cyclobenzaprine 10 MG tablet 10 mg PO BID gabapentin 300 MG capsule 300 mg PO TIDCM glipizide 5 mg tablet 5 mg PO BID albuterol sulfate 18 GM HFA aerosol inhaler 2 puff inhalation BID Patient Comments: INHALE 2 PUFFS EVERY 4 HOURS NEEDED lidocaine 5 % ointment 1 applic TOPICAL TID Qty: 30 1RF atorvastatin 40 mg tablet 40 mg PO DAILY Qty: 90 3RF Primary Care Provider: Edilia Remy Referrals: Edilia Remy MD [Primary Care Provider] - 3-5 Days Marty Paz DO [Med Staff - Active Staff] - 1-2 Weeks Activity Restrictions/Additional Instructions: Your CT scan abdomen pelvis today normal appendix. Reported slight thickened gallbladder however ultrasound from 2 days ago reviewed normal gallbladder structures. Take and finish your antibiotics for your continued treatment for your UTI findings. You have been having pain for [address] scans[address] Follow-up with GI as an outpatient. Disposition Disposition: Home, Self Care
[2023-05-14 23:06] LABS: Bacteria 0 SEEN /hpf (None Seen); Mucous, Urine 0 SEEN /hpf (<or=2+); Red Blood Cells-Urine 0 SEEN /hpf (0-5); Squamous Epithelial Cells - UA 0 SEEN /hpf (0-5)
[2023-05-14] MEDS: Morphine 4 MG/ML Syringe IV (23:12)
[2023-05-14] MEDS: 0.9% Normal Saline (1000mL) 1,000 ML 125 ML IV (23:16)
[2023-05-14 23:19] LABS: Absolute Lymphocyte Count 2.88 X10^3/uL (0.83-4.51); Absolute Neutrophil Count 5.5 X10^3/uL (2.0-7.7); Basophil# 0.03 X10^3/uL; Basophil% 0.3 % (0-1); Eosinophil# 0.13 X10^3/uL; Eosinophils% 1.4 % (0-5); Hematocrit 42.3 % (40-54); Hemoglobin 13.2 g/dL (13.0-16.5); Lymphocyte # 2.88 X10^3/ul (0.83-4.51); Lymphocyte % 31.8 % (19-41); Mean Corp Hgb Conc 31.2 g/dL (32-36); Mean Corpuscular Hgb 28.6 pg (27.0-32.0); Mean Corpuscular Volume 91.8 fL (80-94); Mean Platelet Vol. 11.3 fl (6.2-12.0); Monocyte# 0.54 X10^3/uL; NRBC Flagged by Analyzer 0 % (0-5); Neutrophil # 5.46 X10^3/uL (2.7-7.7); Neutrophil % 60.2 % (47-70); Platelet Count 182 K/mm3 (150-450); RBC Distribution Width SD 50.4 fl (35.1-43.9); Red Blood Count 4.61 M/mm3 (4.6-6.2); White Blood Count 9.1 K/mm3 (4.4-11.0)
[2023-05-14 23:22] LABS: Glucose, Dipstick Normal (Normal); Ketone-Dipstick Negative (Negative); Leukocyte Esterase-Dipstick 100 /ul (Negative); Nitrite-Dipstick Negative (Negative); Occult Blood-Urine 10 /ul (Negative); Protein-Dipstick 30 mg/dl (Negative); Specific Gravity, Urine 1.015 (1.002-1.030); Urine Bilirubin Dipstick Negative (Negative); Urine Urobilinogen 4 mg/dl (Normal); Urine pH 6.5 (5.0 - 8.0)
[2023-05-14 23:23] LABS: Color, Urine Yellow (Yellow); Urine Clarity Clear (Clear)
[2023-05-14 23:30] LABS: White Blood Cells 0-5 SEEN /hpf (0-5)
[2023-05-14 23:35] LABS: ALB/GLOB Ratio 0.7 RATIO (0.9-2.4); AST(SGOT) 16 U/L (15-37); Alanine Aminotransfer ALT/SGPT 17 U/L (16-61); Albumin, Serum 3.1 g/dL (3.2-5.0); Alkaline Phosphatase 121 U/L (45-117); Anion Gap 4 (5-15); BUN 11 mg/dL (7-18); BUN/Creat Ratio 13.2 RATIO (10-20); Calcium,Total 8.5 mg/dL (8.5-10.1); Chloride 99 mmol/L (98-107); Creatinine, Serum 0.83 mg/dL (0.70-1.30); EST Glomerular Filtration Rate 99 mL/min (>60); Est Glom Filt Rate - Afr Amer 120 mL/min (>60); Estimated Creatinine Clearance 97.02 ml/min; Globulin 4.7 g/dL (2.2-4.2); Glucose 218 mg/dL (74-106); Lipase 45 U/L (13-75); Potassium 3.2 mmol/L (3.5-5.1); Protein, Total 7.8 g/dL (6.4-8.2); Sodium Level 135 mmol/L (136-145)
[2023-05-15 00:53] VITALS: BP 140/89; PULSE 92; RESP 18; TEMP 36.9; O2SAT 92
== END 2023-05-15 01:50 | disposition home or self-care (01) ==
PROVIDERS: Emergency Provider Emergency Medicine; PCP Family Medicine; Visit Provider Emergency Medicine
DX: R10.31 Right lower quadrant pain (principal); E11.9 Type 2 diabetes mellitus without complications; I10 Essential (primary) hypertension; I25.10 Atherosclerotic heart disease of native coronary artery without angina pectoris; E78.5 Hyperlipidemia, unspecified; Z79.899 Other long term (current) drug therapy; Z79.82 Long term (current) use of aspirin
CPT/HCPCS: 74177; 80053; 81001; 83690; 85025; 96361; 96374; 99282; J7030; Q9967; A4216

== ENCOUNTER 2023-05-29 09:08 | Emergency (ER) | payer MEDICARE, SELFPAY ==
[2023-05-29 09:10] VITALS: BP 166/104; PULSE 91; RESP 20; TEMP 36.4; O2SAT 98
[2023-05-29 09:21] VITALS: BMI 33.4
--- NOTE | 2023-05-29 09:31 | ED.RN ---
Patient states history of anxiety 20 years ago and feels the same today. States he has increased stress due to a new truck purchase. Denies cp, sob or any other concern. States he has not been sleeping well in the last few days.
--- NOTE | 2023-05-29 09:38 | CT_ITS ---
INDICATION: headache EXAMINATION: CT BRAIN - CT Head or Brain W/O Contrast Injection TECHNIQUE: Multiple axial images were obtained of the head without intravenous contrast. A radiation dose optimization technique was used for this scan. IV Contrast dosage and agent: None. RADIATION DOSAGE (If Supplied By Facility): CTDIvol = ( 44.99 ) mGy, DLP = ( 812.98 ) mGycm COMPARISON: FINDINGS: BRAIN PARENCHYMA: No intra- or extra-axial hemorrhage. No evidence of acute infarct. No intracranial mass or mass effect. There is preservation of the garcia/white matter interface. Posterior fossa structures are unremarkable. Chronic microvascular ischemic change periventricular white matter. CSF SPACES: Appropriate for age. No hydrocephalus. Basal cisterns are patent. CALVARIUM, SKULL BASE, PARANASAL SINUSES AND MASTOID AIR CELLS: Clear. No discrete lytic or blastic abnormalities. ORBITS: Both globes, extraocular muscles, optic nerves and retrobulbar fat appear unremarkable. ASPECTS Score for Acute Strokes: 10 CT/Brain/Head without Contrast IMPRESSION: Moderate chronic microvascular ischemic change. Electronically Signed: Felton Cornelius MD at 10:56 EDT ,
--- NOTE | 2023-05-29 09:39 | EDS_ITS ---
HPI History of Present Illness Chief Complaint: General Illness Informant: patient and spouse/S.O. Narrative Narrative: 63-year-old male presenting to the emergency department with multiple complaints. Issue #1 is that he continues to have right lower abdominal pain x3 months. He states the pain is continued to worsen. He notes that is constant. It is worse with coughing and bending over. He has had several CAT scans that have been negative and blood and urine test which at one point showed a urinary tract infection. He states he saw his doctor earlier this week and they poked in parotid but nothing more. He states that last evening around 1730 hrs. he developed a generalized headache. He has not taken anything for this headache because my body is unlike any other person and that regular medicines do not work for me. Only morphine seems to help me. The patient states that because of his pain he was unable to sleep last night. He states he does not get fevers. He states the last time he had a headache like this he was very anxious and that was about 20 years ago. He states he has been having some stress because he bought a new truck and he is worried about being able to care for it. He denies any rashes. There are no new abdominal symptoms other than the pain seems to be getting worse over 3 months. He notes that he is at diabetic with a history of hypertension. Noted history of hypercholesterolemia. 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 Nicotine abuse Right carpal tunnel syndrome Right wrist pain Home Medications cyclobenzaprine 10 mg tablet 10 mg PO BID muscle spasms 02/27/15 [History Last Taken 03/20/19] gabapentin 300 mg capsule 300 mg PO TIDCM 02/27/15 [History Last Taken 03/19/19] aspirin 81 mg tablet,delayed release (Adult Aspirin Regimen) 81 mg PO DAILY 01/14/18 [History Last Taken 03/20/19] lisinopril 20 mg tablet 20 mg PO DAILY bp 01/14/18 [History Last Taken 03/20/19] morphine 15 mg tablet,extended release 15 mg PO Q12H 01/14/18 [History Last Taken 03/19/19] pioglitazone 15 mg tablet (Actos) 15 mg PO DAILY 01/14/18 [History Last Taken 03/20/19] glipizide 5 mg tablet 5 mg PO BID 08/25/18 [History Last Taken 03/20/19] albuterol sulfate 90 mcg/actuation aerosol inhaler 2 puff inhalation BID sob 03/20/19 [History Last Taken 03/20/19] lidocaine 5 % topical ointment 1 applic topical TID #30 grams 05/08/19 [Rx Last Taken Unknown] atorvastatin 40 mg tablet 40 mg PO DAILY #90 tabs 10/21/22 [Rx Last Taken Unknown] oxycodone-acetaminophen 5 mg-325 mg tablet (Percocet) 1 tab PO Q6H pain 3 days #12 tabs 05/15/23 [Rx Last Taken Unknown] potassium chloride 20 mEq tablet,extended release 40 meq (2 x 20 mEq) PO DAILY #14 tabs 05/29/23 [Rx Last Taken Unknown] Allergy/AdvReac Type Severity Reaction Status Date / Time bee pollen AdvReac Severe Unknown Verified 05/29/23 09:13 hornet venom AdvReac Severe NEEDS Verified 05/29/23 09:13 FOLLOW-UP venom-wasp [wasp venom] AdvReac Severe NEEDS Verified 05/29/23 09:13 FOLLOW-UP adhesive tape AdvReac Intermediate Unknown Verified 05/29/23 09:13 Family History Mother Diabetes Hypertension Father Diabetes Hypertension Brother Hypertension Surgical History H/O repair of rotator cuff S/P right knee arthroscopy Social History Smoking Status: Never smoker alcohol intake: never caffeine: Yes Type: carbonated beverages Number of servings: 6 what type of physical activity do you participate in: none ROS ROS ED Constitutional Constitutional ED: Denies chills, fever(s) or weight loss Eyes Eyes: Denies blurry vision, change in vision or diplopia ENT ENT ED: Denies ear pain, rhinorrhea or sore throat Cardiovascular Cardiovascular: Denies chest pain, orthopnea, palpitations or racing heartbeat Respiratory/Chest Respiratory/Chest: Denies cough, dyspnea or orthopnea Gastrointestinal Gastrointestinal: Reports abdominal pain; Denies constipation, diarrhea, melena, nausea or vomiting Genitourinary Genitourinary ED: Denies dysuria, hematuria or urinary frequency Musculoskeletal Musculoskeletal: Denies arthralgias or myalgias Integumentary Denies abscess or rash Neurologic Neurologic: Reports headache(s); Denies paresthesias or weakness Psychiatric Psychiatric: Reports anxiety; Denies depression, suicidal ideation or suicidal thoughts Endocrine Endocrinology: Denies polydipsia, polyphagia or polyuria Allergic/Immunologic Allergic/Immunologic ED: Denies mouth swelling, tongue swelling or urticaria EXAM Physical Exam Const Vital Signs: 05/29/23 09:10 05/29/23 09:21 05/29/23 11:26 Temperature 97.6 F L Temperature Source Temporal Pulse Rate 91 92 Respiratory Rate 20 H 15 Respiratory Effort Normal Respiratory Pattern Normal Blood Pressure 166/104 H 161/104 H Blood Pressure Mean 124 123 Pulse Ox 98 98 Oxygen Delivery Method Room Air Room Air Positive well nourished and well developed General Appearance ED: well developed HEENT Reports normocephalic, head/scalp atraumatic and moist mucous membranes Eyes PERRL and EOMs intact bilaterally Neck no lymphadenopathy, supple and no JVD Resp normal respiratory effort and clear to auscultation bilaterally Cardio regular rate, regular rhythm and no murmurs GI Inspection: Negative for abdominal distention Auscultation: normoactive bowel sounds Palpation: soft and tender RLQ; Negative for guarding or rebound tenderness present Back/Spine no CVA tenderness and normal ROM Extremity normal to inspection General Extremety ED: Negative for edema General Extremity: Negative for edema Neuro oriented x3, CN's II-XII intact bilaterally and no sensory deficits noted Sensorium / Orientation: alert Motor Exam: strength 5/5 throughout; Negative for general weakness Psych mental status grossly normal Mood & Affect: Negative for depressed or tearful Skin no rashes or lesions noted and no wounds MDM MDM MDM Narrative Medical decision making narrative: White count is normal at 6.4. CMP shows a potassium of 2.9 anion gap of 6 BUN of 3. Liver enzymes are normal except for alk phos of 125. Urinalysis is normal. Glucose 203. CT of the brain was obtained which demonstrates no acute findings. The patient informed me on repeat examination that he is feeling some chest pressure. He again reiterates that he is feeling anxious. EKG was obtained which demonstrates a normal sinus rhythm with no concerning ACS findings. Patient states he has had this chest pressure at times of anxiety in his life but not recently. He was advised that should his anxiety continue to progress and start interfere or with daily life he may require a daily medication at minimum a visit with his doctor. His abdominal pain is chronic (greater than 3 months in duration) and constant. He has a normal white count of 6.4. He had 2 prior CTs for the same pain and I do not think we need to repeat imaging today. Patient states that regular pain medication does not help him but morphine does. I do not think it is appropriate to prescribe morphine for his chronic abdominal pain and his acute headache today. I would recommend ibuprofen or Tylenol. I will write for potassium supplementation. History & Record Review Additional record(s) reviewed:: Prior outpatient record, Prior ED visit and Prior labs Lab Data Attestation: I reviewed the patient's lab results. Labs: Laboratory Results - last 24 hr 05/29/23 05/29/23 10:05 10:20 WBC 6.4 RBC 4.88 Hgb 13.8 Hct 44.3 MCV 90.8 MCH 28.3 MCHC 31.2 L RDW Std Deviation 48.9 H RDW Coeff of Parul 14.6 Plt Count 172 MPV 11.5 Immature Gran % (Auto) 0.200 Neut % (Auto) 63.1 Lymph % (Auto) 27.5 [place] % (Auto) 7.3 Eos % (Auto) 1.4 Baso % (Auto) 0.5 Absolute Neuts (auto) 4.0 Absolute Lymphs (auto) 1.76 Nucleated RBC % 0 Sodium 136 Potassium 2.9 L Chloride 98 Carbon Dioxide 32.0 Anion Gap 6 BUN 3 L Creatinine 0.79 Estim Creat Clear Calc 101.94 Est GFR (MDRD) Af Amer 127 Est GFR (MDRD) Non-Af 105 BUN/Creatinine Ratio 3.8 L Glucose 203 H Calcium 8.7 Total Bilirubin 0.50 AST 14 L ALT 17 Alkaline Phosphatase 125 H Total Protein 8.2 Albumin 3.2 Globulin 5.0 H Albumin/Globulin Ratio 0.6 L Urine Color Yellow Urine Clarity Clear Urine pH 7.0 Ur Specific [place] 1.005 Urine Protein 30 H Urine Glucose (UA) Normal Urine Ketones Negative Urine Occult Blood 10 H Urine Nitrite Negative Urine Bilirubin Negative Urine Urobilinogen Normal Ur Leukocyte Esterase Negative Urine RBC 0 SEEN Urine WBC 0 SEEN Ur Squamous Epith Cells 0 SEEN Urine Bacteria 0 SEEN Urine Mucus 0 SEEN Radiography Diagnostic Testing: Clinical Impression(s) from Imaging Studies Brain CT 05/29/23 09:38 IMPRESSION: Moderate chronic microvascular ischemic change. Electronically Signed: Felton Cornelius MD at 10:56 EDT Reading Location ID and State: [facility] / [place] Tel , Service support , EKG Initial EKG: Attestation: I personally reviewed and interpreted this EKG as follows: Comments: Normal sinus rhythm with a ventricular rate of 89 bpm. No concerning features of ACS noted. Discharge Plan Triage Chief Complaint: General Illness ED Provider: Joss Orozco Dx/Rx/DC Orders Clinical Impression: Headache, Abdominal pain, chronic, right lower quadrant, Hypokalemia Instructions: Abdominal Pain, Hypokalemia Dc Prescriptions: New potassium chloride 20 mEq tablet extended release 40 meq PO DAILY Qty: 14 0RF No Action aspirin [Adult Aspirin Regimen] 81 mg tablet,delayed release (DR/EC) 81 mg PO DAILY lisinopril 20 mg tablet 20 mg PO DAILY morphine 15 mg tablet extended release 15 mg PO Q12H pioglitazone [Actos] 15 mg tablet 15 mg PO DAILY cyclobenzaprine 10 MG tablet 10 mg PO BID gabapentin 300 MG capsule 300 mg PO TIDCM glipizide 5 mg tablet 5 mg PO BID albuterol sulfate 18 GM HFA aerosol inhaler 2 puff inhalation BID Patient Comments: INHALE 2 PUFFS EVERY 4 HOURS NEEDED oxycodone-acetaminophen [Percocet] 5-325 mg tablet 1 tab PO Q6H 3 Days Qty: 12 0RF lidocaine 5 % ointment 1 applic TOPICAL TID Qty: 30 1RF atorvastatin 40 mg tablet 40 mg PO DAILY Qty: 90 3RF Primary Care Provider: Edilia Remy Referrals: Edilia Remy MD [Primary Care Provider] - 3-5 Days Disposition Disposition: Home, Self Care
[2023-05-29] MEDS: Ketorolac 30 MG/ML Syringe IV (10:06)
[2023-05-29 10:21] LABS: Absolute Lymphocyte Count 1.76 X10^3/uL (0.83-4.51); Basophil# 0.03 X10^3/uL; Basophil% 0.5 % (0-1); Eosinophil# 0.09 X10^3/uL; Eosinophils% 1.4 % (0-5); Hematocrit 44.3 % (40-54); Hemoglobin 13.8 g/dL (13.0-16.5); Lymphocyte # 1.76 X10^3/ul (0.83-4.51); Lymphocyte % 27.5 % (19-41); Mean Corp Hgb Conc 31.2 g/dL (32-36); Mean Corpuscular Hgb 28.3 pg (27.0-32.0); Mean Corpuscular Volume 90.8 fL (80-94); Mean Platelet Vol. 11.5 fl (6.2-12.0); Monocyte# 0.47 X10^3/uL; Monocyte% 7.3 % (0-10); NRBC Flagged by Analyzer 0 % (0-5); Neutrophil # 4.04 X10^3/uL (2.7-7.7); Neutrophil % 63.1 % (47-70); Platelet Count 172 K/mm3 (150-450); RBC Distribution Width CV 14.6 % (11.6-14.6); RBC Distribution Width SD 48.9 fl (35.1-43.9); Red Blood Count 4.88 M/mm3 (4.6-6.2); White Blood Count 6.4 K/mm3 (4.4-11.0)
[2023-05-29 10:26] LABS: ALB/GLOB Ratio 0.6 RATIO (0.9-2.4); AST(SGOT) 14 U/L (15-37); Alanine Aminotransfer ALT/SGPT 17 U/L (16-61); Albumin, Serum 3.2 g/dL (3.2-5.0); Alkaline Phosphatase 125 U/L (45-117); Anion Gap 6 (5-15); BUN 3 mg/dL (7-18); BUN/Creat Ratio 3.8 RATIO (10-20); Calcium,Total 8.7 mg/dL (8.5-10.1); Chloride 98 mmol/L (98-107); Creatinine, Serum 0.79 mg/dL (0.70-1.30); EST Glomerular Filtration Rate 105 mL/min (>60); Est Glom Filt Rate - Afr Amer 127 mL/min (>60); Estimated Creatinine Clearance 101.94 ml/min; Glucose 203 mg/dL (74-106); Potassium 2.9 mmol/L (3.5-5.1); Protein, Total 8.2 g/dL (6.4-8.2); Sodium Level 136 mmol/L (136-145)
[2023-05-29 10:28] LABS: Bacteria 0 SEEN /hpf (None Seen); Mucous, Urine 0 SEEN /hpf (<or=2+); Red Blood Cells-Urine 0 SEEN /hpf (0-5); Squamous Epithelial Cells - UA 0 SEEN /hpf (0-5); White Blood Cells 0 SEEN /hpf (0-5)
[2023-05-29 11:03] LABS: Color, Urine Yellow (Yellow); Glucose, Dipstick Normal (Normal); Ketone-Dipstick Negative (Negative); Leukocyte Esterase-Dipstick Negative /ul (Negative); Nitrite-Dipstick Negative (Negative); Occult Blood-Urine 10 /ul (Negative); Protein-Dipstick 30 mg/dl (Negative); Specific Gravity, Urine 1.005 (1.002-1.030); Urine Bilirubin Dipstick Negative (Negative); Urine Clarity Clear (Clear); Urine Urobilinogen Normal (Normal)
[2023-05-29 11:26] VITALS: BP 161/104; PULSE 92; RESP 15; O2SAT 98
--- NOTE | 2023-05-29 11:35 | EKG12_ITS ---
Test Reason : CP Blood Pressure : / mmHG Vent. Rate : 089 BPM Atrial Rate : 089 BPM P-R Int : 176 ms QRS Dur : 088 ms QT Int : 408 ms P-R-T Axes : 025 -11 043 degrees QTc Int : 496 ms Normal sinus rhythm Inferior infarct , age undetermined Cannot rule out Anterior infarct , age undetermined Abnormal ECG Confirmed by SHRUTI GAN, CIRA ([id number]), medical transcription editor ANTONIO STILES ([id number]) on 05/31/2023 2:25:47 PM Referred By: Confirmed By:CIRA BAHENA MD
[2023-05-29 11:57] VITALS: BP 147/87; PULSE 92; RESP 14; O2SAT 97
== END 2023-05-29 12:18 | disposition home or self-care (01) ==
PROVIDERS: Emergency Provider Emergency Medicine; PCP Family Medicine; Visit Provider Emergency Medicine
DX: E87.6 Hypokalemia (principal); E11.9 Type 2 diabetes mellitus without complications; R51.9 Headache, unspecified; I25.10 Atherosclerotic heart disease of native coronary artery without angina pectoris; I10 Essential (primary) hypertension; R10.31 Right lower quadrant pain; E78.00 Pure hypercholesterolemia, unspecified; Z79.82 Long term (current) use of aspirin; Z79.899 Other long term (current) drug therapy
CPT/HCPCS: 70450; 80053; 81001; 85025; 93005; 96374; 99282; A4216

== ENCOUNTER → 2023-06-03 | Outpatient (CLI) | payer MEDICARE, SELFPAY ==
--- NOTE | 2023-06-03 14:09 | VDLE_ITS ---
Reason For Study: Left leg edema RIGHT LEFT CFV is compressible, spontaneous, phasic, GSV is normal. competent and demonstrates normal CFV is compressible, spontaneous, phasic, augmentation. competent, and demonstrates normal Procedure augmentation. This is a venous duplex using B-mode, color FV is compressible, spontaneous, phasic, flow and spectral Doppler. competent and demonstrates normal Exam performed in department. augmentation. A preliminary report was called and/or faxed POP V is compressible, spontaneous, phasic, to Dr. Remy. competent and demonstrates normal augmentation. T/P Trunk is compressible. PTV is compressible. LT PerV is compressible. VL/Venous Duplex US, Unilateral Interpretation Summary There is no evidence of left lower extremity deep vein thrombosis. Left great s aphenous vein appears patent and compressible segmentally. Normal flow patterns right common femoral vein Ordering Physician: Edilia Remy Referring Physician: Edilia Remy Performed By: Myrna Alejandro RVT
== END | disposition home or self-care (01) ==
LOC: CVS 14:08
PROVIDERS: PCP Family Medicine; Referring Provider Family Medicine; Visit Provider Family Medicine
DX: R60.0 Localized edema (principal)
CPT/HCPCS: 93971

== ENCOUNTER → 2023-11-02 | Outpatient (CLI) | payer MEDICARE, SELFPAY ==
--- NOTE | 2023-11-02 07:31 | US_ITS ---
INDICATION: RUQ abd pain EXAMINATION: Ultrasound US Abdomen Limited (quadrant) TECHNIQUE: Conte scale and color doppler imaging was performed of the right upper quadrant. COMPARISON: CT scan of the abdomen and pelvis of 05/15/2023. FINDINGS: LIVER: The liver is somewhat heterogeneous in texture which may reflect fatty infiltration measuring about 17.8 cm in length. There is a 2 x 1.5 x 1.7 cm hypoechoic lesion in the left lobe of the liver. There is no free fluid. GALLBLADDER AND BILIARY TREE: Distended gallbladder without evidence of gallstones. The gallbladder wall is mildly thickened measuring about 4 mm. The proximal common bile duct measures 6 mm, which is within normal limits for the patient''s age. Sonographic Chapa''s sign: Negative. PANCREAS: The pancreas is obscured by bowel gas and not visualized. RIGHT KIDNEY: The right kidney measures about 14 cm in length. The renal cortex measures about 1.8 cm. No evidence of hydronephrosis. US/Gallbladder IMPRESSION: 1. Heterogeneous liver likely due to fatty infiltration. 2. Distended gallbladder with mild thickening of the gallbladder wall without evidence of gallstones. Electronically Signed: Edgardo Jasso MD at 14:43 EDT ,
== END | disposition home or self-care (01) ==
PROVIDERS: PCP Family Medicine; Referring Provider Surgery; Visit Provider Surgery
DX: R10.11 Right upper quadrant pain (principal)
CPT/HCPCS: 76705

== ENCOUNTER → 2023-11-17 | Outpatient (CLI) | payer MEDICARE, SELFPAY | END | disposition home or self-care (01) | PROVIDERS: PCP Family Medicine; Referring Provider Surgery; Visit Provider Surgery | DX: K82.8 Other specified diseases of gallbladder (principal) ==

== ENCOUNTER → 2024-03-30 | Outpatient (CLI) | payer MEDICARE, SELFPAY ==
--- NOTE | 2024-03-29 12:00 | LES_PTH ---
PATIENT: JEANNE RIVERS LOC: [facility] U#:[id number] AGE/SX: 63/M ROOM: RE03/30/[address]: Dr. Edilia Remy MD : 1960 BED: DIS: 03/30/2024 SPEC #: [id number] RECD: 03/30/24 15:00 STATUS: DAWN NEVESJuan Carlos #: [id number] FABBY: 03/29/24 12:[address]: Edilia Remy DEPT: SURGICAL PATHOLOGY RECD BY: Court Romero Tissues: Skin of scalp, NOS Procedures: Surgery Specimen Level IV HEADER OPERATION: Shave biopsy scalp PRE-OP DIAGNOSIS: Irritated nevus TISSUE SUBMITTED: Scalp lesion MICROSCOPIC DIAGNOSIS Scalp lesion, shave biopsy: Moderate chronic inflammation, mild acute inflammation and focal changes suggestive of granuloma formation. Focal acanthosis and hyperkeratosis. Mild solar elastosis. Negative for malignancy. See comment. SJ/mr 04/03/2024 COMMENT Special stains for acid fast bacilli and fungi are negative for organisms; matched controls are appropriate. Clinical correlation and appropriate follow up are necessary. MICROSCOPIC DESCRIPTION Slides are reviewed. GROSS DESCRIPTION Received in fixative is one container labeled with the patient's name and designated Scalp lesion. The specimen consists of shave biopsy of gil-white skin measuring 0.6 x 0.3 x 0.1cm. The specimen is inked, serially sectioned and submitted entirely in one cassette. . 03/31/2024 TC:3 CPT:87776,83923g1
== END | disposition home or self-care (01) ==
LOC: LABSPEC 15:46
PROVIDERS: PCP Family Medicine; Referring Provider Family Medicine; Visit Provider Family Medicine
DX: R69 Illness, unspecified (principal)
CPT/HCPCS: 88305

== ENCOUNTER → 2024-06-23 | Outpatient (CLI) | payer MEDICARE, SELFPAY ==
[2024-06-23 17:25] LABS: Absolute Lymphocyte Count 2.37 X10^3/uL (0.83-4.51); Absolute Neutrophil Count 6.2 X10^3/uL (2.0-7.7); Basophil# 0.02 X10^3/uL; Basophil% 0.2 % (0-1); Eosinophil# 0.12 X10^3/uL; Eosinophils% 1.3 % (0-5); Hematocrit 44.1 % (40-54); Hemoglobin 14.3 g/dL (13.0-16.5); Lymphocyte # 2.37 X10^3/ul (0.83-4.51); Lymphocyte % 25.6 % (19-41); Mean Corp Hgb Conc 32.4 g/dL (32-36); Mean Corpuscular Hgb 30.3 pg (27.0-32.0); Mean Corpuscular Volume 93.4 fL (80-94); Monocyte# 0.52 X10^3/uL; Monocyte% 5.6 % (0-10); NRBC Flagged by Analyzer 0 % (0-5); Neutrophil # 6.19 X10^3/uL (2.7-7.7); Neutrophil % 66.9 % (47-70); Platelet Count 196 K/mm3 (150-450); RBC Distribution Width CV 15.5 % (11.6-14.6); RBC Distribution Width SD 53.5 fl (35.1-43.9); Red Blood Count 4.72 M/mm3 (4.6-6.2); White Blood Count 9.3 K/mm3 (4.4-11.0)
[2024-06-23 17:41] LABS: ALB/GLOB Ratio 0.7 RATIO (0.9-2.4); AST(SGOT) 21 U/L (15-37); Alanine Aminotransfer ALT/SGPT 27 U/L (16-61); Albumin, Serum 3.2 g/dL (3.2-5.0); Alkaline Phosphatase 106 U/L (45-117); Anion Gap 5 (5-15); BUN 13 mg/dL (7-18); BUN/Creat Ratio 13.4 RATIO (10-20); Calcium,Total 8.6 mg/dL (8.5-10.1); Chloride 98 mmol/L (98-107); Creatinine, Serum 0.97 mg/dL (0.70-1.30); EST Glomerular Filtration Rate 83 mL/min (>60); Est Glom Filt Rate - Afr Amer 100 mL/min (>60); Globulin 4.4 g/dL (2.2-4.2); Glucose 201 mg/dL (74-106); Lipase 38 U/L (13-75); Potassium 3.8 mmol/L (3.5-5.1); Protein, Total 7.6 g/dL (6.4-8.2); Sodium Level 132 mmol/L (136-145)
[2024-06-23 18:35] LABS: Hemoglobin A1c 8.2 % (3.8-5.6)
== END | disposition home or self-care (01) ==
LOC: BFHLAB 14:27
PROVIDERS: PCP Family Medicine; Referring Provider Family Medicine; Visit Provider Family Medicine
DX: R10.11 Right upper quadrant pain (principal); E11.65 Type 2 diabetes mellitus with hyperglycemia
CPT/HCPCS: 36415; 80053; 83036; 83690; 85025

== ENCOUNTER → 2024-06-29 | Outpatient (CLI) | payer MEDICARE, SELFPAY ==
--- NOTE | 2024-06-29 13:54 | CT_ITS ---
STUDY: CT ABDOMEN AND PELVIS WITHOUT CONTRAST REASON FOR EXAM: Male, 64 years old. RUQ ABD PAIN/DISTENTION,EARLY SATIETY,POSS ASCITES RADIATION DOSAGE (If Supplied By Facility): CTDIvol = ( 21.89 ) mGy, DLP = ( 1263.12 ) mGycm TECHNIQUE: Transaxial images were obtained from the dome of the diaphragm to the symphysis pubis without oral contrast, and without intravenous contrast. Sagittal and coronal images were reconstructed. Individualized dose optimization techniques were used for this CT. COMPARISON: None. FINDINGS: The visualized lung bases are unremarkable. The visualized portions of the heart are within normal limits. Granulomatous calcifications in the spleen and liver. Slightly heterogeneous hypoattenuated left hepatic 1.7 cm nodule. Correlate with ultrasound if needed. Normal gallbladder and extrahepatic biliary system. Normal spleen. Calcification in the pancreas. Normal bilateral adrenal glands. Normal right kidney. Normal left kidney. Normal visualized stomach. Normal small intestine. Diverticulosis of the colon. The appendix is visualized and appears normal. Calcified abdominal aorta. Normal inferior vena cava. Normal retroperitoneum. Normal urinary bladder. Normal abdominal wall. Normal osseous structures. CT/Abdomen/Pelvis without Cont IMPRESSION: heterogeneous hypoattenuated left hepatic 1.7 cm nodule. Correlate with ultrasound if needed. Diverticulosis. Electronically Signed: Santos Morse DO at 9:52 EST ,
== END | disposition home or self-care (01) ==
PROVIDERS: PCP Family Medicine; Referring Provider Family Medicine; Visit Provider Family Medicine
DX: R10.11 Right upper quadrant pain (principal); R14.0 Abdominal distension (gaseous)
CPT/HCPCS: 74176

== ENCOUNTER → 2024-08-17 | Outpatient (CLI) | payer MEDICARE, SELFPAY ==
[2024-08-17 16:24] LABS: Absolute Lymphocyte Count 2.69 X10^3/uL (0.83-4.51); Absolute Neutrophil Count 6.3 X10^3/uL (2.0-7.7); Basophil# 0.05 X10^3/uL; Basophil% 0.5 % (0-1); Eosinophil# 0.19 X10^3/uL; Hematocrit 48.3 % (40-54); Hemoglobin 15.5 g/dL (13.0-16.5); Lymphocyte # 2.69 X10^3/ul (0.83-4.51); Lymphocyte % 27.9 % (19-41); Mean Corp Hgb Conc 32.1 g/dL (32-36); Mean Corpuscular Hgb 29.9 pg (27.0-32.0); Mean Corpuscular Volume 93.2 fL (80-94); Mean Platelet Vol. 10.2 fl (6.2-12.0); Monocyte# 0.43 X10^3/uL; Monocyte% 4.5 % (0-10); NRBC Flagged by Analyzer 0 % (0-5); Neutrophil # 6.27 X10^3/uL (2.7-7.7); Neutrophil % 64.9 % (47-70); Platelet Count 216 K/mm3 (150-450); RBC Distribution Width CV 15.7 % (11.6-14.6); RBC Distribution Width SD 53.5 fl (35.1-43.9); Red Blood Count 5.18 M/mm3 (4.6-6.2); White Blood Count 9.7 K/mm3 (4.4-11.0)
[2024-08-17 16:34] LABS: Erythrocyte Sedimentation Rate 23 mm/hr (0-20)
[2024-08-17 16:37] LABS: Prothrombin Time (Protime)PT. 13.8 SECONDS (11.7-14.9)
[2024-08-17 17:12] LABS: ALB/GLOB Ratio 0.7 RATIO (0.9-2.4); AST(SGOT) 22 U/L (15-37); Alanine Aminotransfer ALT/SGPT 29 U/L (16-61); Albumin, Serum 3.5 g/dL (3.2-5.0); Alkaline Phosphatase 104 U/L (45-117); Anion Gap 5 (5-15); BUN 13 mg/dL (7-18); BUN/Creat Ratio 11.9 RATIO (10-20); CRP < 2.90 mg/L (0.0-3.0); Calcium,Total 8.9 mg/dL (8.5-10.1); Chloride 95 mmol/L (98-107); Cholesterol 109 mg/dL (200); Creatinine, Serum 1.09 mg/dL (0.70-1.30); EST Glomerular Filtration Rate 72 mL/min (>60); Est Glom Filt Rate - Afr Amer 88 mL/min (>60); Ferritin 51 ng/mL (26-388); Globulin 4.9 g/dL (2.2-4.2); Glucose 225 mg/dL (74-106); High Density Lipoprotein 38 mg/dL; Iron Binding Capacity,Total 394 ug/dL (250-450); LDH 247 U/L (87-241); Potassium 3.7 mmol/L (3.5-5.1); Protein, Total 8.4 g/dL (6.4-8.2); Sodium Level 134 mmol/L (136-145); Triglycerides 242 mg/dL; Very Low Density Lipoprotein 48 mg/dL (5-40)
[2024-08-17 17:14] LABS: Hemoglobin A1c 8.2 % (3.8-5.6)
[2024-08-21 14:07] LABS: Anti-Centromere B Ab <0.2 AI (0.0-0.9); Anti-Chromatin <0.2 AI (0.0-0.9); Anti-Jo <0.2 AI (0.0-0.9); Anti-Mitochondrial AB 57.8 Units (0.0-20.0); Anti-Scleroderma-70 AB <0.2 AI (0.0-0.9); Anti-dsDNA Ab <1 IU/mL (0-9); RNP Ab 0.2 AI (0.0-0.9); SJOGREN'S Anti-SS-A test < 0.2 AI (0.0-0.9); SJOGREN'S Anti-SS-B test < 0.2 AI (0.0-0.9); Smith Ab <0.2 AI (0.0-0.9)
[2024-08-23 02:07] LABS: Angiotensin Convert Enzyme < 15 U/L (14-82); Anti-Smooth Muscle ABS 4 Units (0-19); Ceruloplasmin 29.5 mg/dL (16.0-31.0); Copper, Serum or Plasma 100 ug/dL (69-132); Cytoplasmic Ab (C-ANCA) <1:20 titer (Neg:<1:20); HEPATITIS B SURFACE AG Negative (Negative); Haptoglobin 266 mg/dL (32-363); Hep C Antibodies Non Reactive (Non Reactive); Hepatitis A IgM Antibody Negative (Negative); Hepatitis B Core AB IgM Negative (Negative); Perinuclear Ab (P-ANCA) <1:20 titer (Neg:<1:20); Transferrin 307 mg/dL (177-329)
== END | disposition home or self-care (01) ==
LOC: LAB 15:52
PROVIDERS: PCP Family Medicine; Referring Provider Student in an Organized Health Care Education/Training Program; Visit Provider Student in an Organized Health Care Education/Training Program
DX: K76.0 Fatty (change of) liver, not elsewhere classified (principal); E11.9 Type 2 diabetes mellitus without complications; R10.11 Right upper quadrant pain
CPT/HCPCS: 36415; 80053; 80061; 80074; 82140; 82164; 82390; 82525; 82728; 83010; 83036; 83516; 83550; 83615; 84466; 85025; 85610; 85652; 86037; 86140; 86225; 86235

== ENCOUNTER → 2024-08-29 | Outpatient (CLI) | payer MEDICARE, SELFPAY ==
--- NOTE | 2024-08-29 08:41 | US_ITS ---
STUDY: ABDOMINAL ULTRASOUND - RIGHT UPPER QUADRANT; ELASTOGRAPHY REASON FOR VISIT: Male, 64 years old. Fatty infiltration of the liver. TECHNIQUE: Ultrasound evaluation of the right upper quadrant was performed with real-time and static garcia-scale imaging. Point quantification shear wave elastography was performed (Addepar). TECHNICAL QUALITY: Adequate. COMPARISON: Comparison is made with prior study dated November 02, 2023. FINDINGS: Liver: The liver is mildly enlarged and measures 18.1 cm. There is increased echogenicity consistent with fatty infiltration. The bile ducts are within normal limits. There is hepatic color flow. The direction of portal flow is hepatopetal. There is no demonstrated mass lesion. Median liver stiffness measured 10.5 kPa. Gallbladder: Normal distended gallbladder. The gallbladder wall measures 3 mm. There is a negative sonographic Chapa''s sign. There is no pericholecystic fluid. There are no gallstones. Common Bile Duct (C.B.D.): The common bile duct measures 6 mm. Pancreas: There is normal echogenicity of the visualized pancreas. There is no demonstrated pancreatic mass or cyst. Right Kidney: Normal size of the right kidney. The right kidney measures 13.6 cm x 6.7 cm x 5.9 cm. Normal renal cortex. The right cortex measures 1.4 cm. There is no demonstrated renal mass or cyst. There is no right hydronephrosis. US/ABD Limited w/ Elastography IMPRESSION: 1. Liver stiffness measures 10.5 kPa compatible with F2-F3 (Mild to moderate liver fibrosis) Metavir score. Electronically Signed: Yosi Calderon MD at 14:35 EST ,
== END | disposition home or self-care (01) ==
LOC: US 08:37
PROVIDERS: PCP Family Medicine; Referring Provider Student in an Organized Health Care Education/Training Program; Visit Provider Student in an Organized Health Care Education/Training Program
DX: K76.0 Fatty (change of) liver, not elsewhere classified (principal)
CPT/HCPCS: 76705; 76981

== ENCOUNTER → 2024-09-14 | Outpatient (CLI) | payer MEDICARE, SELFPAY ==
[2024-09-14] VITALS (13 sets, daily range): BP systolic 138–197; BP diastolic 53–93; PULSE 87–93; RESP 11–15; TEMP 36.4; O2SAT 88–99; BMI 36.4
[2024-09-14 09:06] LABS: Platelet Count 171 K/mm3 (150-450)
[2024-09-14 09:35] LABS: Partial Thromboplast Time 31.4 Seconds (24.1-36.2); Prothrombin Time (Protime)PT. 13.3 SECONDS (11.7-14.9)
[2024-09-14] MEDS: Midazolam 2 MG/2 ML Syringe IV ×2 (10:36→10:50)
[2024-09-14] MEDS: fentaNYL 100 MCG/2 ML Ampul IV ×2 (10:38→10:52)
[2024-09-14] MEDS: 0.9% Saline Lock 10 ML Syringe IV ×2 (10:42→10:54)
[2024-09-14] MEDS: Lidocaine 2% (20 ml mdv) 20 ML Vial INFILT (10:50)
--- NOTE | 2024-09-14 10:55 | LIVB_PTH ---
PATIENT: JEANNE RIVERS LOC: CT U#:[id number] AGE/SX: 64/M ROOM: RE09/14/[address]: GORDON Vieira : 1960 BED: DIS: 09/14/2024 SPEC #: [id number] RECD: 09/14/24 11:10 STATUS: DAWN REJuan Carlos #: [id number] FABBY: 09/14/24 10:[address]: Marjorie Marti DEPT: SURGICAL PATHOLOGY RECD BY: Court Romero ENTERED: 09/14/24 11:33 SP TYPE: LIVER BX OTHR DR: Dr. Edilia Remy MD Tissues: Liver, NOS Procedures: Surgery Specimen Level V HEADER OPERATION: CT guided liver biopsy PRE-OP DIAGNOSIS: Fatty liver TISSUE SUBMITTED: 18 cores x4 cores MICROSCOPIC DIAGNOSIS Liver Core Biopsies, CT Guided: a. 3 Large liver core biopsies and smaller fragments with adequate portal tracts for evaluation b. Predominant Pattern: Steatotic, both macro- and micro- c. Lymphocytic inflammation in portal tracts with very little interface hepatitis (Stage 2) d. Bridging Fibrosis (Grade 3) e. Occasional bile duct proliferation is present f. No hepatocyte necrosis or malignancy (See Microscopic Description and Comment) FLOYD, 09/14/2024 COMMENT The differential diagnosis for the steatotic pattern includes non-alcoholic steatohepatitis (MAJOR), drug induced hepatitis, and Stanley disease. Correlation should be made with patient history, radiologic studies, and laboratory findings. Dr. Amalia Harrison has reviewed this case and agrees with the diagnosis. MICROSCOPIC DESCRIPTION Slides are reviewed. No cholestasis identified. A reticulin stain with controls shows the hepatocyte plates to be of appropriate thickness. An Iron stain with controls shows no iron deposition. PAS stains with and without diastase and appropriate controls shows glycogen and no PAS positive/diastase resistant material. A trichrome stain shows some periportal fibrosis. GROSS DESCRIPTION Received in fixative is one container labeled with the patient's name and designated Liver biopsy. The specimen consists of three cores of red tissue and several smaller fragments. The main cores measure in aggregate 1.3 x 0.1cm, 1.5 x 0.1cm and 1.3 x 0.1cm. The smaller fragments measuring in aggregate 1 x 0.5 x 0.1cm. The entire specimen is submitted in two cassettes. 09/14/2024 TC:3 CPT:68769
--- NOTE | 2024-09-14 11:04 | OP.PCM_ITS ---
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 Fatty liver. PROVIDER: Leydi Moncada CNP CONSENT: Written informed consent was obtained having explained the risks, benefits and alternatives in detail with the patient who accepted the risks and agreed to proceed. Laboratory review and clinical assessment was performed. PRE-PROCEDURE SEDATION ASSESSMENT: Current history and physical dictated by referring provider and reviewed. No clinical changes since date of exam. Patient has a Mallampati Score of Class 3 and ASA Class of 3. PROCEDURAL SEDATION PROTOCOL: The Drugs used were: 2 mg Versed, IV, and 100 mcg Fentanyl, IV. The sedation time was: starting at 10:36 AM and terminated at 10:57 AM. The procedural sedation protocol was independently monitored by the department nurse. RADIATION DOSAGE (If Supplied By Facility): CTDIvol = 22.06 mGy, DLP = 556.51 mGycm Individualized dose optimization techniques were used for this CT. TECHNIQUE The patient was placed in a supine position. Using CT image guidance with image documentation, a suitable location in the left lobe of the liver was identified. The skin surface was prepped with chlorhexidine and draped in a sterile fashion. 2% lidocaine was used for local anesthesia. Using an anterior approach, puncture of the liver was uneventful with an 18-gauge core needle system. 4, 18-gauge core samples were obtained, and submitted in formalin to the pathologist for further assessment. The needle was removed. An occlusive sterile dressing was applied. Patient tolerated the procedure well, and returned to the holding bay for nursing monitoring. IMPRESSION: CT directed core needle biopsy of the liver, using CT image guidance with image documentation as described. Procedural Sedation protocol utilized with independent monitoring. Surgical Findings: None Complications Complications: No
== END | disposition home or self-care (01) ==
PROVIDERS: Nurse Practitioner Acute Care; PCP Family Medicine; Referring Provider Student in an Organized Health Care Education/Training Program; Visit Provider Student in an Organized Health Care Education/Training Program
DX: K76.0 Fatty (change of) liver, not elsewhere classified (principal)
CPT/HCPCS: 47000; 36415; 77012; 85049; 85610; 85730; 88307; 99156; A4216

== ENCOUNTER 2024-09-21 12:27 | Emergency (ER) | payer MEDICARE, SELFPAY ==
[2024-09-21 12:28] VITALS: BP 130/78; PULSE 98; RESP 18; TEMP 36.6; O2SAT 100; BMI 36.7
--- NOTE | 2024-09-21 14:14 | CT_ITS ---
EXAM: CT Abdomen and Pelvis With Intravenous Contrast CLINICAL INDICATION: TECHNIQUE: Axial computed tomography images of the abdomen and pelvis with intravenous contrast. This CT exam was performed using one or more of the following dose reduction techniques: automated exposure control, adjustment of the mA and/or kV according to patient size, and/or use of iterative reconstruction technique. COMPARISON: No relevant prior studies available. FINDINGS: LUNG BASES: Unremarkable. No mass. No consolidation. ABDOMEN: LIVER: Hepatomegaly with fatty infiltration. GALLBLADDER AND BILE DUCTS: Unremarkable. No calcified stones. No ductal dilation. PANCREAS: Unremarkable. No mass. No ductal dilation. SPLEEN: Unremarkable. No splenomegaly. ADRENALS: Unremarkable. No mass. KIDNEYS AND URETERS: Unremarkable. No stones within either kidney. No hydronephrosis. STOMACH AND BOWEL: Colonic diverticulosis without acute diverticulitis. No obstruction. PELVIS: APPENDIX: No findings to suggest acute appendicitis. BLADDER: Unremarkable. No mass. REPRODUCTIVE: Unremarkable as visualized. ABDOMEN and PELVIS: INTRAPERITONEAL SPACE: Unremarkable. No free air. No significant fluid collection. BONES/JOINTS: No acute fracture. No dislocation. SOFT TISSUES: Umbilical hernia containing fat. VASCULATURE: Scattered calcified atherosclerotic disease of aorta. No abdominal aortic aneurysm. LYMPH NODES: Unremarkable. No enlarged lymph nodes. CT/Abdomen/Pelvis W IV Cont ONLY IMPRESSION: 1. Hepatomegaly with fatty infiltration. 2. Umbilical hernia containing fat. 3. No obstructive uropathy. 4. Colonic diverticulosis without acute diverticulitis. Reading Location: [facility]
[2024-09-21] MEDS: Morphine 4 MG/ML Syringe IV ×2 (14:24→17:05)
[2024-09-21 14:27] VITALS: BP 152/82; PULSE 88; RESP 18; O2SAT 96
[2024-09-21 14:35] LABS: Absolute Lymphocyte Count 2.45 X10^3/uL (0.83-4.51); Absolute Neutrophil Count 5.6 X10^3/uL (2.0-7.7); Basophil# 0.03 X10^3/uL; Basophil% 0.3 % (0-1); Eosinophil# 0.16 X10^3/uL; Eosinophils% 1.8 % (0-5); Hematocrit 47.1 % (40-54); Hemoglobin 15.1 g/dL (13.0-16.5); Lymphocyte # 2.45 X10^3/ul (0.83-4.51); Lymphocyte % 28.2 % (19-41); Mean Corp Hgb Conc 32.1 g/dL (32-36); Mean Corpuscular Hgb 30.2 pg (27.0-32.0); Mean Corpuscular Volume 94.2 fL (80-94); Mean Platelet Vol. 10.7 fl (6.2-12.0); Monocyte# 0.45 X10^3/uL; Monocyte% 5.2 % (0-10); NRBC Flagged by Analyzer 0 % (0-5); Neutrophil # 5.58 X10^3/uL (2.7-7.7); Neutrophil % 64.3 % (47-70); Platelet Count 175 K/mm3 (150-450); RBC Distribution Width CV 15.1 % (11.6-14.6); RBC Distribution Width SD 52.6 fl (35.1-43.9); White Blood Count 8.7 K/mm3 (4.4-11.0)
[2024-09-21 14:50] LABS: AST(SGOT) 21 U/L (15-37); Alanine Aminotransfer ALT/SGPT 31 U/L (16-61); Albumin, Serum 3.4 g/dL (3.2-5.0); Alkaline Phosphatase 108 U/L (45-117); Anion Gap 7 (5-15); BUN 12 mg/dL (7-18); BUN/Creat Ratio 11.1 RATIO (10-20); Bilirubin, Direct 0.14 mg/dL (0.00-0.30); Calcium,Total 9.1 mg/dL (8.5-10.1); Chloride 95 mmol/L (98-107); Creatinine, Serum 1.08 mg/dL (0.70-1.30); EST Glomerular Filtration Rate 73 mL/min (>60); Est Glom Filt Rate - Afr Amer 88 mL/min (>60); Estimated Creatinine Clearance 91.52 ml/min; Globulin 4.7 g/dL (2.2-4.2); Glucose 236 mg/dL (74-106); Potassium 4.5 mmol/L (3.5-5.1); Protein, Total 8.1 g/dL (6.4-8.2); Sodium Level 135 mmol/L (136-145)
--- NOTE | 2024-09-21 15:48 | ED.RN ---
PT. 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 PT. RESPONSE I CAN'T NOT DRINK. MY MOUTH GETS REALLY DRY. OFFERED MOUTH SWABS BUT DECLINED AT THIS TIME.
[2024-09-21 16:00] VITALS: BP 145/69; PULSE 88; RESP 16; O2SAT 98
[2024-09-21 16:12] LABS: Bacteria 0 SEEN /hpf (None Seen); Mucous, Urine 0 SEEN /hpf (<or=2+); Red Blood Cells-Urine 0 SEEN /hpf (0-5); Squamous Epithelial Cells - UA 0 SEEN /hpf (0-5)
[2024-09-21 16:18] LABS: Color, Urine Yellow (Yellow); Glucose, Dipstick Normal (Normal); Ketone-Dipstick Negative (Negative); Leukocyte Esterase-Dipstick 25 /ul (Negative); Nitrite-Dipstick Negative (Negative); Occult Blood-Urine Negative /ul (Negative); Protein-Dipstick 15 mg/dl (Negative); Specific Gravity, Urine 1.005 (1.002-1.030); Urine Bilirubin Dipstick Negative (Negative); Urine Clarity Clear (Clear); Urine Urobilinogen Normal (Normal)
[2024-09-21 16:29] LABS: White Blood Cells 0-5 SEEN /hpf (0-5)
--- NOTE | 2024-09-21 16:55 | EDS_ITS ---
HPI HPI - GI History of Present Illness Chief Complaint: Abd Pain Informant: patient Narrative Narrative: Patient is a 64-year-old male with history of fatty liver, type 2 diabetes mellitus, hyperlipidemia, hypertension, coronary artery disease presenting with right-sided abdominal pain. Patient states he had a recent liver biopsy is concerned he could have some type of internal bleeding or trauma to his liver which is causing his pain. The pain seems to move to his right lower abdomen. He notes the next day after the biopsy he had a headache and abdominal pain has been worsening. He states his blood pressures been a lot higher than normal. He has had continued stabbing and sharp right upper quadrant/flank pain and came in for further evaluation. He states his body does not normally react like others would and he is worried that he could have some infection or internal bleeding. He denies any urinary symptoms. No fever or chills reported. Denies any changes bowel movements. No nausea or vomiting reported. No other complaints or concerns reported at this time. Does not report any association of pain with eating. [facility] Medical History RUQ abdominal pain Right carpal tunnel syndrome Right wrist pain FDC use of drug Diabetes mellitus type II, controlled Nicotine abuse HLD (hyperlipidemia) Essential (primary) hypertension Atherosclerotic heart disease of [place] coronary artery with other forms of angina pectoris Home Medications ?Medication ?Instructions ?Recorded ?Last Taken ?Type cyclobenzaprine 10 mg tablet 10 mg PO BID muscle spasm s 02/27/15 03/20/19 History aspirin 81 mg tablet,delayed 81 mg PO DAILY 01/14/18 0 03/20/19 History release (Adult Aspirin Regimen) lisinopril 20 mg tablet 20 mg PO DAILY bp 01/14/18 0 03/20/19 History pioglitazone 15 mg tablet (Actos) 15 mg PO DAILY 01/1403/20/19 History glipizide 5 mg tablet 5 mg PO BID 08/25/18 9 History albuterol sulfate 90 mcg/actuation 2 puff inhalation B ID sob 03/20/19 03/20/19 History aerosol inhaler atorvastatin 40 mg tablet 40 mg PO DAILY #90 tabs 04/07 Unknown Rx albuterol sulfate 90 mcg/actuation 2 puff inhalation Q 6H PRN 06/18/23 Unknown History aerosol inhaler (Ventolin HFA) shortness of breath or wheezing Held on 09/14/24. Instructions: Order Completed furosemide 20 mg tablet (Lasix) 20 mg PO BID 10/27/23 Unknown History dicyclomine 10 mg capsule 10 mg PO BID PRN abdominal p ain 08/17/24 Unknown Rx #20 caps pantoprazole 40 mg tablet,delayed 40 mg PO QDAY #60 ta bs 09/08/24 Unknown Rx release Allergy/AdvReac Type Severity Reaction Status Date / Time bee pollen AdvReac Severe Anaphylaxis Verified 09/21/24 12:32 hornet venom AdvReac Severe Anaphylaxis Verified 09/21/24 12:32 venom-wasp (wasp venom) AdvReac Severe Anaphylaxis Verified 09/21/24 12:32 adhesive tape AdvReac Intermediate Rash Verified 09/21/24 12:32 Family History Mother Diabetes Hypertension Father Diabetes Hypertension Brother Hypertension Heart disease Surgical History History of carpal tunnel surgery S/P right knee arthroscopy H/O repair of rotator cuff Social History household members: spouse current occupational status: disabled Smoking Status: Current every day smoker tobacco type: cigarettes alcohol intake: never caffeine: Yes Type: carbonated beverages Number of servings: 6 what type of physical activity do you participate in: none ROS ROS ED Constitutional Constitutional ED: Denies chills or fever(s) Cardiovascular Cardiovascular: Denies chest pain Respiratory/Chest Respiratory/Chest: Denies cough or dyspnea Gastrointestinal Gastrointestinal: Reports abdominal pain; Denies diarrhea, nausea or vomiting Genitourinary Genitourinary ED: Denies dysuria or hematuria Musculoskeletal Musculoskeletal: Reports back pain; Denies arthralgias or myalgias Integumentary Denies rash Neurologic Neurologic: Denies paresthesias or weakness Hematologic/Lymphatic Hematologic/Lymphatic: Denies easy bleeding or easy bruising EXAM Physical Exam Const Vital Signs: 09/21/24 12:28 09/21/24 14:27 09/21/24 16:00 Temperature 97.8 F Temperature Source Temporal Pulse Rate 98 88 88 Respiratory Rate 18 18 16 Blood Pressure 130/78 H 152/82 H 145/69 H Blood Pressure Mean 95 105 94 Pulse Ox 100 96 98 Oxygen Delivery Method Room Air Room Air Room Air Positive well nourished and well developed General Appearance ED: well developed and NAD; Negative for pallor HEENT Reports moist mucous membranes Eyes PERRL Neck supple and no JVD Resp normal respiratory effort and clear to auscultation bilaterally Cardio regular rate and regular rhythm Cardio Narrative: 2+ radial and DP pulses GI GI Narrative: Protuberant abdomen. No mass, hernia or fluid wave appreciated. Auscultation: normoactive bowel sounds Palpation: soft and tender RLQ and RUQ; Negative for guarding or rigid Back/Spine General Back: CVA tenderness right Neuro Sensorium / Orientation: alert, oriented to person, oriented to place and orien spenser to time Motor Exam: general weakness Psych mental status grossly normal and thought process normal Skin Skin Narrative: Pinpoint biopsy site of the upper abdomen to the right of midline with some minimal surrounding bruising but no associated hematoma, drainage or erythema. General Skin Exam: Negative for jaundice or pallor MDM MDM MDM Narrative Medical decision making narrative: Patient evaluated for abdominal pain. Differential includes hemorrhage of the liver, abdominal wall hematoma, intra- abdominal infection, cholecystitis, renal colic, anemia and acute decompensated liver disease, as well as muscle skeletal pain. The pain is worse with movement as well as direct palpation. Patient is given morphine for pain control with improvement. CBC, BMP, liver panel and urinalysis is obtained. These are all largely normal. Patient is not have a leukocytosis and his hemoglobin is 15.1 so very low suspicion for an acute intra-abdominal infection as well as any signs of hemorrhage. BMP and liver panel largely normal. He has some chronic appearing elevation of his bicarb with a normal anion gap, normal bilirubin. Urinalysis not consistent with blood or infection. CT abdomen pelvis shows hepatomegaly with fatty infiltration, umbilical hernia containing fat and no obstructive uropathy with no findings of acute diverticulitis. Patient is reevaluated. He states he is feeling much better. He then goes on to tell me that he has had a more of a longstanding issue with his right side abdominal pain that like it really works from his morphine. Sounds like he was in pain management at 1 point and has previously been on morphine sulfate. I did agency legal counsel the patient that I would not prescribe him morphine. At this time I suspect the pain is more muscle skeletal or possible thoracic radiculopathy. He does not have any overlying rash concerning for shingles. Will be given a second dose of morphine for his request and discharged home. Counseled need to follow-up with his primary care doctor or pain management. Exact cause of his pain is not clear at this time I do think it safe for him to be discharged home with her does not appear to be complication associate with his recent biopsy. He verbalized agreement understand with this plan. Discharged home in stable condition. Lab Data Attestation: I reviewed the patient's lab results. Labs: Laboratory Results - last 24 hr 09/21/24 09/21/24 13:45 16:05 WBC 8.7 RBC 5.00 Hgb 15.1 Hct 47.1 MCV 94.2 H MCH 30.2 MCHC 32.1 RDW Std Deviation 52.6 H RDW Coeff of Parul 15.1 H Plt Count 175 MPV 10.7 Immature Gran % (Auto) 0.200 Neut % (Auto) 64.3 Lymph % (Auto) 28.2 [place] % (Auto) 5.2 Eos % (Auto) 1.8 Baso % (Auto) 0.3 Absolute Neuts (auto) 5.6 Absolute Lymphs (auto) 2.45 Nucleated RBC % 0 Sodium 135 L Potassium 4.5 Chloride 95 L Carbon Dioxide 33.0 H Anion Gap 7 BUN 12 Creatinine 1.08 Estim Creat Clear Calc 91.52 Est GFR (MDRD) Af Amer 88 Est GFR (MDRD) Non-Af 73 BUN/Creatinine Ratio 11.1 Glucose 236 H Calcium 9.1 Total Bilirubin 0.40 Direct Bilirubin 0.14 AST 21 ALT 31 Alkaline Phosphatase 108 Total Protein 8.1 Albumin 3.4 Globulin 4.7 H Urine Color Yellow Urine Clarity Clear Urine pH 7.0 Ur Specific [place] 1.005 Urine Protein 15 H Urine Glucose (UA) Normal Urine Ketones Negative Urine Occult Blood Negative Urine Nitrite Negative Urine Bilirubin Negative Urine Urobilinogen Normal Ur Leukocyte Esterase 25 H Urine RBC 0 SEEN Urine WBC 0-5 SEEN Ur Squamous Epith Cells 0 SEEN Urine Bacteria 0 SEEN Urine Mucus 0 SEEN Radiography Diagnostic Testing: Clinical Impression(s) from Imaging Studies Abdomen/Pelvis CT 09/21/24 14:14 IMPRESSION: 1. Hepatomegaly with fatty infiltration. 2. Umbilical hernia containing fat. 3. No obstructive uropathy. 4. Colonic diverticulosis without acute diverticulitis. Reading Location: [facility] Discharge Plan Triage Chief Complaint: Abd Pain ED Provider: Dunia Swenson Dx/Rx/DC Orders Clinical Impression: Right sided abdominal pain Instructions: ED Flank Pain, Uncertain Cause, ED Abdominal Pain Unkn Cause Male... Prescriptions: No Action aspirin [Adult Aspirin Regimen] 81 mg tablet,delayed release (DR/EC) 81 mg PO DAILY lisinopril 20 mg tablet 20 mg PO DAILY pioglitazone [Actos] 15 mg tablet 15 mg PO DAILY albuterol sulfate [Ventolin HFA] 90 mcg/actuation HFA aerosol inhaler 2 puff inhalation Q6H PRN (Reason: shortness of breath or wheezing) furosemide [Lasix] 20 mg tablet 20 mg PO BID dicyclomine 10 mg capsule 10 mg PO BID PRN (Reason: abdominal pain) Qty: 20 2RF cyclobenzaprine 10 MG tablet 10 mg PO BID glipizide 5 mg tablet 5 mg PO BID albuterol sulfate 18 GM HFA aerosol inhaler 2 puff inhalation BID Patient Comments: INHALE 2 PUFFS EVERY 4 HOURS NEEDED atorvastatin 40 mg tablet 40 mg PO DAILY Qty: 90 3RF pantoprazole 40 mg tablet,delayed release (DR/EC) 40 mg PO QDAY Qty: 60 1RF Primary Care Provider: Edilia Remy Referrals: Edilia Remy MD [Primary Care Provider] - Activity Restrictions/Additional Instructions: Please follow-up with your primary care doctor. The cause of your symptoms is not clear today however there is not appear to be any acute complication from your recent biopsy. There does not appear to be any acute kidney stone or bladder/kidney infection. 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 Print Language: Maori Disposition Disposition: Home, Self Care
[2024-09-21 17:04] VITALS: BP 133/85; PULSE 78; RESP 14; TEMP 36.6; O2SAT 97
[2024-09-21 17:13] LABS: Lipase 42 U/L (73-393)
== END 2024-09-21 17:26 | disposition home or self-care (01) ==
PROVIDERS: Emergency Provider Emergency Medicine; PCP Family Medicine; Referring Provider Emergency Medicine; Visit Provider Emergency Medicine
DX: R10.11 Right upper quadrant pain (principal); E11.9 Type 2 diabetes mellitus without complications; I10 Essential (primary) hypertension; F17.210 Nicotine dependence, cigarettes, uncomplicated; I25.10 Atherosclerotic heart disease of native coronary artery without angina pectoris; E78.5 Hyperlipidemia, unspecified; Z79.899 Other long term (current) drug therapy; Z79.82 Long term (current) use of aspirin; Z79.84 Long term (current) use of oral hypoglycemic drugs
CPT/HCPCS: 74177; 80048; 80076; 81001; 83690; 85025; 96374; 96375; 99283; Q9967; A4216

== ENCOUNTER 2024-11-10 12:07 | Day surgery (SDC) | payer MEDICARE, SELFPAY ==
--- NOTE | 2024-11-07 12:57 | PAT.ANE_ITS ---
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 When Was Last Pacemaker Check QUESTION #4 FULL TEXT: You/Your Family Experience fever (hyperthermia) with Anesthesia Last Oral Intake Last Oral intake: Last Oral Intake NPO since Meds taken in AM with sips of water? 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 PONV - operations support manager: PONV - operations support manager Female No 11/07/24 12:35 HX of Motion Sickness No 11/07/24 12:35 HX of N/V After Surgery No 11/07/24 12:35 Non-Smoker No 11/07/24 12:35 Duration of Surgery greater No 11/07/24 12:35 than 60 minutes Number of Risk Factors PONV Score Height & Weight Height & Weight: Anesthesia: Height & Weight Height 5 ft 11.5 in 09/21/24 12:28 Respiratory Assessment Respiratory Assessment - operations support manager: Respiratory Tract Infection Hx - operations support manager Hx Respiratory Tract Infection No 11/07/24 12:35 STOP Sleep Apnea STOP Sleep Apnea - operations support manager: STOP Sleep Apnea - operations support manager Hx Hypertension Yes: CONTROLLED WITH MED 11/07/24 12:35 Hx Sleep Apnea No 11/07/24 12:35 CPAP No 02/13/19 09:35 BIPAP No 02/13/19 09:35 Do you snore loudly (louder No 11/07/24 12:35 than talking or can be heard Do you often feel tired/ No 11/07/24 12:35 fatigued/ sleepy during daytime? Has anyone observed you stop Yes 11/07/24 12:35 breathing during sleep? STOP Results Positive 11/07/24 12:35 QUESTION #5 FULL TEXT : Do you snore loudly (louder than talking or can be heard through closed doors)? 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 confused, unrespo /Reproduction History /Reproductive History - operations support manager: /Reproductive Hx- operations support manager Hx Now No 11/07/24 12:35 Gestational Age (in weeks): EDC: Hx Hx Para Hx Section SAB No 11/07/24 12:35 PFSH Medical History (Updated 11/07/24 @ 12:45 by Ca Grimaldo) Loss of hearing Diabetes Ambulates with cane Arthritis Fatty liver Easy bruising Back pain Migraine headache Dietary restriction History of diverticulitis Gastric reflux COPD (chronic obstructive pulmonary disease) Shortness of breath on exertion Smoker History of pain when walking History of edema Cellulitis Cardiology follow-up encounter RUQ abdominal pain shelter use of drug Nicotine abuse HLD (hyperlipidemia) Essential (primary) hypertension Atherosclerotic heart disease of [place] coronary artery with other forms of angina pectoris Home Medications ?Medication ?Instructions ?Recorded ?Last Taken ?Type cyclobenzaprine 10 mg tablet 10 mg PO BID muscle spasm s 02/27/15 03/20/19 History aspirin 81 mg tablet,delayed 81 mg PO DAILY 01/14/18 0 03/20/19 History release (Adult Aspirin Regimen) lisinopril 20 mg tablet 20 mg PO DAILY bp 01/14/18 0 03/20/19 History pioglitazone 15 mg tablet (Actos) 15 mg PO DAILY 01/1403/20/19 History glipizide 5 mg tablet 5 mg PO BID 08/25/18 9 History albuterol sulfate 90 mcg/actuation 2 puff inhalation B ID PRN sob 03/20/19 03/20/19 History aerosol inhaler furosemide 20 mg tablet (Lasix) 20 mg PO BID 10/27/23 Unknown History pantoprazole 40 mg tablet,delayed 40 mg PO QDAY #60 ta bs 09/08/24 Unknown Rx release atorvastatin 40 mg tablet 40 mg PO QHS 11/07/24 Unknow n History Allergy/AdvReac Type Severity Reaction Status Date / Time bee pollen AdvReac Severe Anaphylaxis Verified 11/07/24 12:33 hornet venom AdvReac Severe Anaphylaxis Verified 11/07/24 12:33 venom-wasp (wasp venom) AdvReac Severe Anaphylaxis Verified 11/07/24 12:33 adhesive tape AdvReac Intermediate Rash Verified 11/07/24 12:33 Family History Mother Diabetes Hypertension Father Diabetes Hypertension Brother Hypertension Heart disease Surgical History (Updated 11/07/24 @ 12:45 by Ca Grimaldo) History of carpal tunnel surgery of right wrist S/P right knee arthroscopy H/O repair of rotator cuff Social History household members: spouse current occupational status: disabled Smoking Status: Current every day smoker tobacco type: cigarettes alcohol intake: never caffeine: Yes Type: carbonated beverages Number of servings: 6 what type of physical activity do you participate in: none Audit: Pertinent Findings Pertinent Findings EKG Perinent findings: May 29, 2023. Normal sinus rhythm. Inferior infarct, age undetermined. Cannot rule out anterior infarct, age undetermined. No change in EKG from March 20, 2019. Consult pertinent findings: April 05, 2019. 1. ONE episode of chest pain is concerning for progressive coronary artery disease. Patient seen in the ED. Cardiac enzymes and EKG were negative. Patient refused stress test. He has a negative stress test in the past. 2. [id number]. Recommendation Anesthesia Recommendation Anesthesia recommendation: OPTIMIZED for anesthesia
[2024-11-10] VITALS (8 sets, daily range): BP systolic 110–163; BP diastolic 68–86; PULSE 94–105; RESP 14–18; TEMP 36.4–36.7; O2SAT 84–96; BMI 36.1
--- NOTE | 2024-11-10 12:28 | PRE.ANES_ITS ---
ASA Classification* ASA Classification ASA Classification: 3 Assessment & Plan Anesthesia* Anesthesia Assessment Anesthesia Assessment: Discussed sedation and/or anesthesia options, risks, benefits, and alternatives with patient/parents/legal guardian/POA. Questions invited. The patient/parents/legal guardian/POA seems to understand and agrees to proceed with anesthesia plan. Reviewed the physical assessment, medical history, allergy history and patient home medications list prior to surgery/procedure/anesthetic and documented any changes. Performed airway and anesthesia risk assessments. Anesthesia Type Anesthesia Type: MAC Anesthesia Focused Assessment* Airway Assessment Mouth opens: >3 cm Mallampati Score: II Focused Labs Anesthesia Preop lab: CBC WBC 8.7 K/mm3 (4.4-11.0) 09/21/24 13:45 09/21/24 RBC 5.00 M/mm3 (4.6-6.2) 09/21/24 13:45 09/21/24 Hgb 15.1 g/dL (13.0-16.5) 09/21/24 13:45 09/21/24 Hct 47.1 % (40-54) 09/21/24 13:45 09/21/24 Plt Count 175 K/mm3 (150-450) 09/21/24 13:45 09/21/24 CHEMISTRY Potassium 4.5 mmol/L (3.5-5.1) 09/21/24 13:45 09/21/24 Sodium 135 mmol/L (136-145) L 09/21/24 13:45 09/21/24 BUN 12 mg/dL (7-18) 09/21/24 13:45 09/21/24 Creatinine 1.08 mg/dL (0.70-1.30) 09/21/24 13:45 09/21/24 Glucose 236 mg/dL (74-106) H 09/21/24 13:45 09/21/24 POC Glucose 198 mg/dL (70-110) H 02/26/15 20:37 02/26/15 COAG PT 13.3 SECONDS (11.7-14.9) 09/14/24 08:48 Pre-Assessment Diagnosis/Proposed Procedure Planned Operative Procedure(s): EGD Anesthesia History Anesthesia History - communications station manager: Anesthesia History - communications station manager Hx Hospitalization No 11/07/24 12:35 Any Problems With Anesthesia No 11/07/24 12:35 Cholinesterase deficiency No 11/07/24 12:35 You/Your Family Experience No 11/07/24 12:35 fever (hyperthermia) with Relationship Recent Exposure to Contagious No 02/13/19 09:35 Disease Does patient have nerve No 11/07/24 12:35 stimulator Patient instructed to have device shut off --Does patient have Pacemaker or ICD? When Was Last Pacemaker Check QUESTION #4 FULL TEXT: You/Your Family Experience fever (hyperthermia) with Anesthesia Last Oral Intake Last Oral intake: Last Oral Intake NPO since Meds taken in AM with sips of water? 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 PONV - communications station manager: PONV - communications station manager Female No 11/07/24 12:35 HX of Motion Sickness No 11/07/24 12:35 HX of N/V After Surgery No 11/07/24 12:35 Non-Smoker No 11/07/24 12:35 Duration of Surgery greater No 11/07/24 12:35 than 60 minutes Number of Risk Factors PONV Score Height & Weight Height & Weight: Anesthesia: Height & Weight Height 5 ft 11.5 in 09/21/24 12:28 Respiratory Assessment Respiratory Assessment - communications station manager: Respiratory Tract Infection Hx - communications station manager Hx Respiratory Tract Infection No 11/07/24 12:35 STOP Sleep Apnea STOP Sleep Apnea - communications station manager: STOP Sleep Apnea - communications station manager Hx Hypertension Yes: CONTROLLED WITH MED 11/07/24 12:35 Hx Sleep Apnea No 11/07/24 12:35 CPAP No 02/13/19 09:35 BIPAP No 02/13/19 09:35 Do you snore loudly (louder No 11/07/24 12:35 than talking or can be heard Do you often feel tired/ No 11/07/24 12:35 fatigued/ sleepy during daytime? Has anyone observed you stop Yes 11/07/24 12:35 breathing during sleep? STOP Results Positive 11/07/24 12:35 QUESTION #5 FULL TEXT : Do you snore loudly (louder than talking or can be heard through closed doors)? Tobacco Use History Tobacco Use History - communications station manager: Tobacco Use History - communications station manager Tobacco Use Smoking Status Current every day smoker 11/07/24 12:35 Hx Tobacco Use Yes 11/07/24 12:35 Years Smoking Packs Smoked per Day Smoking Cessation Date was within the last 15 years Hx Smoking Cessation Date Hx Smoking Cessation Counseling Hematologic Medial History Hematologic Hx - communications station manager: Hematologic Medical Hx - supervisor endless track vehicle Hx of Blood Transfusion No 11/07/24 12:35 Hx of Transfusion in last 3 No 11/07/24 12:35 Months Date of Last Transfusion (if within last 3 months) Ever experience any problems No 11/07/24 12:35 with transfusion(s)? 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 confused, unrespo /Reproduction History /Reproductive History - communications station manager: /Reproductive Hx- communications station manager Hx Now No 11/07/24 12:35 Gestational Age (in weeks): EDC: Hx Hx Para Hx Section SAB No 11/07/24 12:35 PFSH Medical History Loss of hearing Diabetes Ambulates with cane Arthritis Fatty liver Easy bruising Back pain Migraine headache Dietary restriction History of diverticulitis Gastric reflux COPD (chronic obstructive pulmonary disease) Shortness of breath on exertion Smoker History of pain when walking History of edema Cellulitis Cardiology follow-up encounter 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 Nicotine abuse HLD (hyperlipidemia) Essential (primary) hypertension Atherosclerotic heart disease of [place] coronary artery with other forms of angina pectoris Home Medications ?Medication ?Instructions ?Recorded ?Last Taken ?Type cyclobenzaprine 10 mg tablet 10 mg PO BID muscle spasm s 02/27/15 03/20/19 History aspirin 81 mg tablet,delayed 81 mg PO DAILY 01/14/18 0 03/20/19 History release (Adult Aspirin Regimen) lisinopril 20 mg tablet 20 mg PO DAILY bp 01/14/18 0 03/20/19 History pioglitazone 15 mg tablet (Actos) 15 mg PO DAILY 01/1403/20/19 History glipizide 5 mg tablet 5 mg PO BID 08/25/18 9 History albuterol sulfate 90 mcg/actuation 2 puff inhalation B ID PRN sob 03/20/19 03/20/19 History aerosol inhaler furosemide 20 mg tablet (Lasix) 20 mg PO BID 10/27/23 Unknown History pantoprazole 40 mg tablet,delayed 40 mg PO QDAY #60 ta bs 09/08/24 Unknown Rx release atorvastatin 40 mg tablet 40 mg PO QHS 11/07/24 Unknow n History Allergy/AdvReac Type Severity Reaction Status Date / Time bee pollen AdvReac Severe Anaphylaxis Verified 11/07/24 12:33 hornet venom AdvReac Severe Anaphylaxis Verified 11/07/24 12:33 venom-wasp (wasp venom) AdvReac Severe Anaphylaxis Verified 11/07/24 12:33 adhesive tape AdvReac Intermediate Rash Verified 11/07/24 12:33 Family History Mother Diabetes Hypertension Father Diabetes Hypertension Brother Hypertension Heart disease Surgical History History of carpal tunnel surgery of right wrist S/P right knee arthroscopy H/O repair of rotator cuff Social History household members: spouse current occupational status: disabled Smoking Status: Current every day smoker tobacco type: cigarettes alcohol intake: never caffeine: Yes Type: carbonated beverages Number of servings: 6 what type of physical activity do you participate in: none Review of Systems (Anesthesia) ROS Narrative System reviewed and no additional complaints, except as documented.
[2024-11-10 13:19] LABS: Bedside Glucose 215 mg/dL (74-106)
--- NOTE | 2024-11-10 13:30 | EGD_PTH ---
PATIENT: JEANNE RIVERS LOC: EN U#:[id number] AGE/SX: 64/M ROOM: RE11/10/[address]: Dr. Marty Paz DO : 1960 BED: DIS: 11/10/2024 SPEC #: [id number] RECD: 11/10/24 17:05 STATUS: DAWN REQ #: [id number] FABBY: 11/10/24 13:[address]: Marty Paz DEPT: SURGICAL PATHOLOGY RECD BY: Court Romero ENTERED: 11/13/24 07:56 SP TYPE: EGD BIOPSY OT DR: Dr. Edilia Remy MD Tissues: Gastric mucous membrane Procedures: Immunohistochemical Stains Surgery Specimen Level IV HEADER OPERATION: EGD with biopsy PRE-OP DIAGNOSIS: Fatty liver, hernia, abdominal pain, right upper quadrant abdominal pain TISSUE SUBMITTED: A- Gastric body biopsy MICROSCOPIC DIAGNOSIS A. Stomach, antrum, biopsy: * Oxyntic mucosa with slight chronic inflammation. * Negative for Helicobacter-like organisms (H&E). MICROSCOPIC DESCRIPTION Slides are reviewed. GROSS DESCRIPTION A. Received in formalin in a container labeled with the patient's name, date of , and gastric body biopsy are 3 gil-pink fragments of mucosa ranging from 0.2 x 0.2 x 0.1 cm to 0.5 x 0.3 x 0.2 cm. Entirely submitted in A1. [facility] 11-13-2024 CPT:91250,38838
--- NOTE | 2024-11-10 13:52 | PCM.HP.STD ---
HPI - General General Date of Admission: 11/10/24 Date of Service: 11/10/24 Chief Complaint: Abdominal pain HPI Narrative JEANNE RIVERS, is a 64 M who presents for the evaluation of abdominal pain. Pt has had abd pain for 6 months now after getting into his trunk. Pain is constant but can become worse at times with certain movements. It is not associated with eating food. He feels his abd is bloated and hard. He is gaining weigh but has not had any changed in his diet or lifestyle. He tells me he was an alcoholic in the past but no longer drinks. He does smoke cigarettes. He denies all other GI symptoms including n/v, constipation, diarrhea, melena, or heartburn. CT abd/pelvis 06.29.24;heterogeneous hypoattenuated left hepatic 1.7 cm nodule. Correlate with ultrasound if needed. Diverticulosis. Ammonia Today K76.0 - Fatty (change of) liver, not elsewhere classified DIDI Comprehensive Panel Today K76.0 - Fatty (change of) liver, not elsewhere classified ANCA Today K76.0 - Fatty (change of) liver, not elsewhere classified Angiotensin Convert Enzyme Today K76.0 - Fatty (change of) liver, not elsewhere classified Anti-Mitochondrial AB Today K76.0 - Fatty (change of) liver, not elsewhere classified Anti-Smooth Muscle ABS Today K76.0 - Fatty (change of) liver, not elsewhere classified CBC W/Diff, Automated Today K76.0 - Fatty (change of) liver, not elsewhere classified, R10.11 - Right upper quadrant pain Hemoglobin A1c Today E11.9 - Type 2 diabetes mellitus without complications, K76.0 - Fatty (change of) liver, not elsewhere classified Haptoglobin Today K76.0 - Fatty (change of) liver, not elsewhere classified Ferritin Today E11.9 - Type 2 diabetes mellitus without complications, K76.0 - Fatty (change of) liver, not elsewhere classified Erythrocyte Sed Rate Today K76.0 - Fatty (change of) liver, not elsewhere classified CRP Today K76.0 - Fatty (change of) liver, not elsewhere classified Copper, Serum or Plasma Today K76.0 - Fatty (change of) liver, not elsewhere classified Comprehensive Metabolic Profil Today K76.0 - Fatty (change of) liver, not elsewhere classified Ceruloplasmin Today K76.0 - Fatty (change of) liver, not elsewhere classified Hepatitis Panel Acute Today K76.0 - Fatty (change of) liver, not elsewhere classified, R10.11 - Right upper quadrant pain LDH Today K76.0 - Fatty (change of) liver, not elsewhere classified Iron Binding Capacity,Total Today K76.0 - Fatty (change of) liver, not elsewhere classified Transferrin Today K76.0 - Fatty (change of) liver, not elsewhere classified Prothrombin Time w/INR Today K76.0 - Fatty (change of) liver, not elsewhere classified Lipid Profile Today K76.0 - Fatty (change of) liver, not elsewhere classified ABD Limited w/ Elastography Today K76.0 - Fatty (change of) liver, not elsewhere classified Medications: New dicyclomine 10 mg PO BID PRN 20 caps 2RF abdominal pain PFSH Medical History Loss of hearing Diabetes Ambulates with cane Arthritis Fatty liver Easy bruising Back pain Migraine headache Dietary restriction History of diverticulitis Gastric reflux COPD (chronic obstructive pulmonary disease) Shortness of breath on exertion Smoker History of pain when walking History of edema Cellulitis Cardiology follow-up encounter 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 Nicotine abuse HLD (hyperlipidemia) Essential (primary) hypertension Atherosclerotic heart disease of [place] coronary artery with other forms of angina pectoris Home Medications ?Medication ?Instructions ?Recorded ?Last Taken ?Type cyclobenzaprine 10 mg tablet 10 mg PO BID muscle spasms 02/27/15 11/10/24 10:30 History aspirin 81 mg tablet,delayed 81 mg PO DAILY 01/14/18 11/09/24 History release (Adult Aspirin Regimen) lisinopril 20 mg tablet 20 mg PO DAILY bp 01/14/18 11/10/24 10:30 History pioglitazone 15 mg tablet (Actos) 15 mg PO DAILY 01/14/18 03/20/19 History glipizide 5 mg tablet 5 mg PO BID 08/25/18 03/20/19 History albuterol sulfate 90 mcg/actuation 2 puff inhalation BID PRN sob 03/20/19 03/20/19 History aerosol inhaler furosemide 20 mg tablet (Lasix) 20 mg PO BID 10/27/23 Unknown History pantoprazole 40 mg tablet,delayed 40 mg PO QDAY #60 tabs 09/08/24 Unknown Rx release atorvastatin 40 mg tablet 40 mg PO QHS 11/07/24 Unknown History Allergy/AdvReac Type Severity Reaction Status Date / Time bee pollen AdvReac Severe Anaphylaxis Verified 11/10/24 12:42 hornet venom AdvReac Severe Anaphylaxis Verified 11/10/24 12:42 venom-wasp (wasp venom) AdvReac Severe Anaphylaxis Verified 11/10/24 12:42 adhesive tape AdvReac Intermediate Rash Verified 11/10/24 12:42 Family History Mother Diabetes Hypertension Father Diabetes Hypertension Brother Hypertension Heart disease Surgical History History of carpal tunnel surgery of right wrist S/P right knee arthroscopy H/O repair of rotator cuff Social History household members: spouse current occupational status: disabled Smoking Status: Current every day smoker tobacco type: cigarettes alcohol intake: never caffeine: Yes Type: carbonated beverages Number of servings: 6 what type of physical activity do you participate in: none ROS Constitutional Constitutional: Denies fatigue, fever(s), poor appetite, weight gain or weight loss Gastrointestinal Gastrointestinal: Denies belching, bloating, change in bowel habits, change in stool character, chewing difficulty, coffee ground emesis, constipation, cramping, diarrhea, dyspepsia, dysphagia, early satiety, excessive flatus, fecal incontinence, heartburn, hematemesis, hematochezia, hemorrhoids, loose stools, melena, nausea, odynophagia, rectal bleeding, tenesmus, vomiting or weight changes Vital Signs Vital Signs Vital Signs: 11/10/24 12:44 11/10/24 12:44 Temperature 97.5 F L Temperature Source Temporal Pulse Rate 95 Respiratory Rate 16 Respiratory Pattern Normal Blood Pressure 163/86 H Blood Pressure Mean 111 Blood Pressure Source Monitor Blood Pressure Position Semi-Fowlers Blood Pressure Location Left Arm Pulse Ox 96 Oxygen Delivery Method Room Air Weight Weight: 259 lb 0.69 oz Body Mass Index (BMI) 36.1 Physical Exam Const alert, oriented x3, no apparent distress and healthy appearing General Appearance: cooperative GI normal to inspection, nondistended, normoactive bowel sounds, soft to palpation, non-tender and non-distended Percussion: normal to percussion Rectal Exam: deferred Results Lab / Micro Data Labs: Laboratory Results - last 24 hr 11/10/24 12:46: POC Glucose 215 H Assessment & Plan Assessment/Plan (1) Fatty liver: (2) Hernia: (3) Abdominal pain: (4) RUQ abdominal pain: PLAN: Assessment and Plan Assessment and Plan (1) Fatty liver: Status: Acute (2) RUQ abdominal pain: Status: Acute Plan: This is a 64 yo male pt here today for abd pain. Pt has had abd pain for about 6 months now. Recent imaging of the abd showed a cyst on the liver. Gallbladder US with moderate thickening. On exam, pt abd is hard and distended. I have concern for cirrhosis as he tells me he was an alcoholic years ago. He is no longer drinking. Will order work up for liver and elastography. His pain is exacerbated by certain movements and coughing. His pain may be musculoskeletal in nature but the etiology is not clear. Will trial dicyclomine for his pain. -Liver work up -Liver elastography -Start dicyclomine for pain -f/u in 3 months Orders: Orders
--- NOTE | 2024-11-10 14:23 | OP.EGD_ITS ---
Patient Name: Cheo Dias Procedure Date: 11/10/2024 1:54 PM Date of : 1960 Age: 64 Procedure: Upper GI endoscopy Indications: Epigastric abdominal pain Providers: Marty Paz DO Referring MD: Edilia Remy Medicines: Monitored Anesthesia Care Patient Profile: This is a 64 year old male. Refer to note in patient chart for documentation of history and physical. Patient has symptoms of acute right upper quadrant abdominal pain, chronic right lower quadrant abdominal pain and acute epigastric abdominal pain. Complications: No immediate complications. Procedure: Pre-Anesthesia Assessment: - Prior to the procedure, a History and Physical was performed, and patient medications and allergies were reviewed. The patient is competent. The risks and benefits of the procedure and the sedation options and risks were discussed with the patient. All questions were answered and informed consent was obtained. Patient identification and proposed procedure were verified by the physician. Mental Status Examination: alert and oriented. Airway Examination: normal oropharyngeal airway and neck mobility. Respiratory Examination: clear to auscultation. CV Examination: normal. ASA Grade Assessment: II - A patient with mild systemic disease. After reviewing the risks and benefits, the patient was deemed in satisfactory condition to undergo the procedure. The anesthesia plan was to use moderate sedation / analgesia (conscious sedation). Immediately prior to administration of medications, the patient was re-assessed for adequacy to receive sedatives. The heart rate, respiratory rate, oxygen saturations, blood pressure, adequacy of pulmonary ventilation, and response to care were monitored throughout the procedure. The physical status of the patient was re-assessed after the procedure. After obtaining informed consent, the endoscope was passed under direct vision. Throughout the procedure, the patient's blood pressure, pulse, and oxygen saturations were monitored continuously. The Endoscope was introduced through the mouth, and advanced to the third part of the duodenum. Small bowel enteroscopy was deemed necessary. The patient tolerated the procedure well. Scope In: 2:06:23 PM Scope Out: 2:09:28 PM Total Procedure Duration Time 0 hours 3 minutes 5 seconds Findings: No gross lesions were noted in the entire esophagus. Multiple dispersed 5 mm erosions with no stigmata of recent bleeding were found in the entire examined stomach. Biopsies were taken with a cold forceps for histology. Biopsies were taken with a cold forceps for histology. Verification of patient identification for the specimen was done. Biopsies were taken with a cold forceps for Helicobacter pylori testing. Verification of patient identification for the specimen was done. Estimated blood loss was minimal. Moderate portal hypertensive gastropathy was found in the entire examined stomach. No gross lesions were noted in the third portion of the duodenum. Impression: - No gross lesions in the entire esophagus. - Erosive gastropathy with no stigmata of recent bleeding. Biopsied. - Portal hypertensive gastropathy. - No gross lesions in the third portion of the duodenum. Recommendation: - Discharge patient to home. - Resume previous diet. - Continue present medications. - Await pathology results. Procedure Code(s): --- Professional --- 90198, Small intestinal endoscopy, enteroscopy beyond second portion of duodenum, not including ileum; with biopsy, single or multiple CPT copyright 2021 [employer]. All rights reserved. The codes documented in this report are preliminary and upon machining manager review may be revised to meet current compliance requirements. Marty Paz DO 11/10/2024 2:23:08 PM This report has been signed electronically. Number of Addenda: 0 Note Initiated On: 11/10/2024 1:54 PM
--- NOTE | 2024-11-10 14:23 | OP.CCLET_ITS ---
11/10/2024 Edilia Remy [id number] [facility] [address] [address] Re : Upper GI endoscopy procedure for Cheo Dias Dear Dr. Remy This procedure was performed on Sunday, November 10, 2024. My impressions and recommendations are as follows: Impressions : - No gross lesions in the entire esophagus. - Erosive gastropathy with no stigmata of recent bleeding. Biopsied. - Portal hypertensive gastropathy. - No gross lesions in the third portion of the duodenum. Recommendations : - Discharge patient to home. - Resume previous diet. - Continue present medications. - Await pathology results. My findings are described in the full procedure note, which is enclosed. If I can be of further assistance, please feel free to contact me at . Sincerely, Marty Paz, 11/10/2024 2:23:08 PM This report has been signed electronically.
--- NOTE | 2024-11-10 14:27 | PCM.POST.ANE ---
Anesthesia: Postop Eval I Current Vital Signs Temperature: 98.1 F Pulse Rate: 104 Blood Pressure: 135/78 Respiratory Rate: 18 Pulse Ox: 94 Oxygen Delivery Method: Room Air Assessment Airway patent: Yes Spontaneous unlabored respirations: Yes Mental status: Asleep nausea: No Vomiting: No Anesthesia Complication: No Fluid Hydration Crystalloid volume administer (ml): 30 Total IV fluid infused: 30 Progress Note Anesthesia document: Postop Eval 1 completed: Yes
--- NOTE | 2024-11-10 14:36 | PCM.POSTANE2 ---
Anesthesia Postop Eval I Sum Postop Eval Completion status Anesthesia document: Postop Eval 1 completed: Yes Anesthesia Postop Eval I Summary Anesthesia Postop Eval I Summary: Anesthesia Postop Eval I: Assessment Summary Airway patent Yes 11/10/24 14:28 [email or web address] Spontaneous unlabored Yes 11/10/24 14:28 [email or web address] respirations Mental status Asleep 11/10/24 14:28 [email or web address] nausea No 11/10/24 14:28 [email or web address] Vomiting No 11/10/24 14:28 [email or web address] Anesthesia Postop Eval I: Fluid Summary Crystalloid volume administer 30 11/10/24 14:28 [email or web address] (ml) Colloids volume administered ( ml) Blood Product volume administered (ml) Total IV fluid infused 30 11/10/24 14:28 [email or web address] Anesthesia Postop Eval I: Summary Notes Anesthesia Complication No 11/10/24 14:28 [email or web address] Anesthesia Complication Comment: Post-operative progress note Anesthesia: Postop Eval II Evaluation Mental status: Awake Pain Level: 0 nausea: No Vomiting: No
== END 2024-11-10 15:00 | disposition home or self-care (01) ==
LOC: EN 12:08 → AC 12:14
PROVIDERS: PCP Family Medicine; Referring Provider Family Medicine; Visit Provider Internal Medicine Gastroenterology
PROC: 0DJ08ZZ Inspection of Upper Intestinal Tract, Via Natural or Artificial Opening Endoscopic (ICD-10-PCS; CPT 43235; principal; 2024-11-10 13:25)
DX: R10.11 Right upper quadrant pain (principal); K76.6 Portal hypertension; J44.9 Chronic obstructive pulmonary disease, unspecified; E11.9 Type 2 diabetes mellitus without complications; R10.13 Epigastric pain; K76.0 Fatty (change of) liver, not elsewhere classified; Z79.82 Long term (current) use of aspirin; Z79.84 Long term (current) use of oral hypoglycemic drugs; E78.5 Hyperlipidemia, unspecified; I25.10 Atherosclerotic heart disease of native coronary artery without angina pectoris; F17.210 Nicotine dependence, cigarettes, uncomplicated; I10 Essential (primary) hypertension; Z79.899 Other long term (current) drug therapy; K21.9 Gastro-esophageal reflux disease without esophagitis; K46.9 Unspecified abdominal hernia without obstruction or gangrene; K31.89 Other diseases of stomach and duodenum; K29.50 Unspecified chronic gastritis without bleeding
CPT/HCPCS: 43239; 82962; 88305; 88342; A4216; J2405

== ENCOUNTER 2024-11-11 17:19 | Emergency (ER) | payer MEDICARE, SELFPAY ==
[2024-11-11 17:19] VITALS: BP 136/67; PULSE 108; RESP 18; TEMP 37.1; O2SAT 92; BMI 36.7
--- NOTE | 2024-11-11 17:29 | CT_ITS ---
PROCEDURE: ABDOMEN/PELVIS W IV CONT ONLY 11/11/2024 REASON FOR EXAM: ABD PAIN TECHNIQUE: Abdomen and pelvis CT with intravenous contrast. Coronal and Sagittal reconstruction series were provided. One or more dose reduction techniques were used (e.g., Automated exposure control, adjustment of the mA and/or kV according to patient size, use of iterative reconstruction technique. COMPARISON: 09/21/2024; 06/29/2024 FINDINGS: Lower chest: Mild peripheral interstitial opacities in the lung bases. Liver: Lesion in the left hepatic lobe with poorly defined subtle enhancement and a cluster of hypodense cystic components which was seen on the July 05, 2024 exam and does not appear significantly changed. There is an area of adjacent hepatic capsular retraction. Hepatic steatosis is present. Irregular hepatic contour, suggestive of cirrhosis. Biliary/gallbladder: Unremarkable. Pancreas: Unremarkable. Spleen: A couple of punctate hypodense lesions are present in the spleen, likely due to remote granulomatous disease. Adrenal glands: Unremarkable. Kidneys: There is a small cyst in the left kidney which appear stable. Gastrointestinal/peritoneum: No acute abnormality.Moderate colonic diverticulosis is present.The appendix is unremarkable.No free air or free fluid. Vascular: Advanced scattered atherosclerotic calcifications. Lymph nodes: No enlarged lymph nodes by CT size criteria. Pelvic organs: Unremarkable. Bladder: Unremarkable. Bones: Mild to moderate multilevel degenerative changes are present. Soft tissues: Unremarkable. CT/Abdomen/Pelvis W IV Cont ONLY IMPRESSION: 1. No acute abnormality of the abdomen and pelvis. 2. Hepatic steatosis with an irregular hepatic contour, suggestive of cirrhosis . 3. Poorly defined subtly enhancing lesion in the left hepatic lobe with cluster ed cystic change and adjacent capsular retraction. Benign or malignant considerations are possible, however, cholangiocarcinoma ca n have this appearance. In the setting of cirrhosis, HCC should also be excluded. Multiphase CT or MRI evaluation or bio psy is recommended. 4. Moderate colonic diverticulosis. 5. Peripheral interstitial opacities in the lung bases, which may be due to int erstitial edema or fibrotic change. Reading Location: [facility]
--- NOTE | 2024-11-11 17:30 | EDS_ITS ---
HPI HPI - GI History of Present Illness Chief Complaint: Abd Pain Informant: patient Narrative Narrative: Referred in after discussing with GI today for worsening abdominal pain. He status post upper endoscopy yesterday that was an elective procedure. He was not an ERCP. He did not have a bowel movement since prior to procedure. He is passing gas. No abdominal surgeries. Denies any sick alcohol history. No history of pancreatitis. Denies nausea or vomiting. Denies fevers. He states he was not started on any medications post his procedure. [facility] Medical History Loss of hearing Diabetes Ambulates with cane Arthritis Fatty liver Easy bruising Back pain Migraine headache Dietary restriction History of diverticulitis Gastric reflux COPD (chronic obstructive pulmonary disease) Shortness of breath on exertion Smoker History of pain when walking History of edema Cellulitis Cardiology follow-up encounter RUQ abdominal pain snf use of drug Nicotine abuse HLD (hyperlipidemia) Essential (primary) hypertension Atherosclerotic heart disease of [place] coronary artery with other forms of angina pectoris Home Medications ?Medication ?Instructions ?Recorded ?Last Taken ?Type cyclobenzaprine 10 mg tablet 10 mg PO BID muscle spasm s 02/27/15 11/10/24 10:30 History aspirin 81 mg tablet,delayed 81 mg PO DAILY 01/14/18 0 11/09/24 History release (Adult Aspirin Regimen) lisinopril 20 mg tablet 20 mg PO DAILY bp 01/14/18 0 11/10/24 10:30 History pioglitazone 15 mg tablet (Actos) 15 mg PO DAILY 01/1403/20/19 History glipizide 5 mg tablet 5 mg PO BID 08/25/18 9 History albuterol sulfate 90 mcg/actuation 2 puff inhalation B ID PRN sob 03/20/19 03/20/19 History aerosol inhaler furosemide 20 mg tablet (Lasix) 20 mg PO BID 10/27/23 Unknown History pantoprazole 40 mg tablet,delayed 40 mg PO QDAY #60 ta bs 09/08/24 Unknown Rx release atorvastatin 40 mg tablet 40 mg PO QHS 11/07/24 Unknow n History sucralfate 1 gram tablet (Carafate) 1 g PO BID #30 tab s 11/11/24 Unknown Rx Allergy/AdvReac Type Severity Reaction Status Date / Time bee pollen AdvReac Severe Anaphylaxis Verified 11/11/24 17:20 hornet venom AdvReac Severe Anaphylaxis Verified 11/11/24 17:20 venom-wasp (wasp venom) AdvReac Severe Anaphylaxis Verified 11/11/24 17:20 adhesive tape AdvReac Intermediate Rash Verified 11/11/24 17:20 Family History Mother Diabetes Hypertension Father Diabetes Hypertension Brother Hypertension Heart disease Surgical History History of carpal tunnel surgery of right wrist S/P right knee arthroscopy H/O repair of rotator cuff Social History household members: spouse current occupational status: disabled Smoking Status: Current every day smoker tobacco type: cigarettes alcohol intake: never caffeine: Yes Type: carbonated beverages Number of servings: 6 what type of physical activity do you participate in: none ROS ROS ED Constitutional Constitutional ED: Denies chills, fever(s) or sweats ENT ENT ED: Denies sore throat Cardiovascular Cardiovascular: Denies chest pain, leg edema, palpitations or racing heartbeat Respiratory/Chest Respiratory/Chest: Denies cough, dyspnea or dyspnea on exertion Gastrointestinal Gastrointestinal: Reports abdominal pain; Denies diarrhea, nausea or vomiting Genitourinary Genitourinary ED: Denies dysuria, hematuria or urinary frequency Musculoskeletal Musculoskeletal: Denies back pain, extremity pain or neck pain Integumentary Denies rash or wounds Neurologic Neurologic: Denies headache(s), paresthesias or weakness EXAM Physical Exam Const Vital Signs: 11/11/24 17:19 11/11/24 19:19 Temperature 98.7 F 98.3 F Temperature Source Oral Oral Pulse Rate 108 H Respiratory Rate 18 22 H Blood Pressure 136/67 H 156/89 H Blood Pressure Mean 90 111 Pulse Ox 92 90 Oxygen Delivery Method Room Air Room Air Positive well nourished and well developed General Appearance ED: well developed and NAD HEENT Reports moist mucous membranes normocephalic and atraumatic Eyes General Eye ED: Yes normal appearance of both eyes Neck full ROM Chest Wall Chest: Negative for tenderness Resp normal respiratory effort and normal air movement Effort and Inspection: symmetric chest movement; Negative for respiratory distress Cardio regular rate, regular rhythm and no murmurs Peripheral Pulses: pulses 2+ throughout GI normal to inspection, nondistended, normoactive bowel sounds GI Narrative: Mid abdominal and epigastric tenderness. No guarding or rebound. Negative Chapa's or McBurney's tenderness. Palpation: Negative for guarding or rebound tenderness present Extremity normal to inspection General Extremety ED: Negative for edema or tenderness General Extremity: Negative for edema Neuro oriented x3 and no sensory deficits noted Sensorium / Orientation: awake and alert Skin no rashes or lesions noted and no wounds MDM MDM MDM Narrative Medical decision making narrative: Interventions / MDM: Differential diagnosis: Postprocedure abdominal pain, gastritis, hepatic cyst, fatty liver Diagnosis considered but do not suspect: Pneumoperitoneum however CT negative. Pancreatitis however labs and CT negative. My EKG interpretation: N/A Imaging independently reviewed and interpreted by myself: CT abdomen pelvis with IV contrast: No pneumoperitoneum no ascites. Reported hepatic steatosis contour suggestive of cirrhosis per radiology. Stable hepatic cyst. Per radiology hepatocellular carcinoma should be ruled out. External documents reviewed: EGD procedure performed from yesterday erosive gastroscopy and no stigmata of bleeding with multiple biopsies from cold forceps were taken. Test considered but not ordered:N/A ED course: Worse abdominal pain post endoscopy. Will check abdominal labs, CT scan ordered for any complications. IV fluids given. Patient declines any medications. 1930: Abdominal labs were normal. Normal lipase and liver enzymes. White count normal hemoglobin normal. CT scan negative for any complicated issues with EGD and biopsy. Reported hepatic steatosis contour suggestive of cirrhosis with stable liver cysts. Reported hepatic cellular carcinoma should be excluded. He does not drink alcohol. I did update his GI doctor Dr. Paz of the report today. He will follow-up with this. Per patient's spouse he had liver biopsy performed 3 weeks ago was reported stage III liver disease from his diabetes. Will place him on Carafate twice a day. He will follow-up with GI as an outpatient. All questions were answered. Re-evaluation: stable Disposition discussed with patient/family/significant other: Patient and spouse Case discussed with consulting clinician: Gastroenterology This note was generated with [employer] dictation software. It may contain incorrect words, spelling, and punctuation that were not noted in checking the note before signing. Lab Data Attestation: I reviewed the patient's lab results. Labs: Laboratory Results - last 24 hr 11/11/24 17:47 WBC 9.6 RBC 4.50 L Hgb 14.0 Hct 41.3 MCV 91.8 MCH 31.1 MCHC 33.9 RDW Std Deviation 50.2 H RDW Coeff of Parul 15.0 H Plt Count 173 MPV 10.6 Immature Gran % (Auto) 0.700 Neut % (Auto) 62.8 Lymph % (Auto) 27.9 Schleicher % (Auto) 5.5 Eos % (Auto) 2.7 Baso % (Auto) 0.4 Absolute Neuts (auto) 6.0 Absolute Lymphs (auto) 2.66 Nucleated RBC % 0 Sodium 136 Potassium 4.2 Chloride 96 L Carbon Dioxide 28.4 Anion Gap 12 BUN 12 Creatinine 0.97 Estim Creat Clear Calc 101.19 Est GFR (MDRD) Non-Af 87 BUN/Creatinine Ratio 12.7 Glucose 205 H Calcium 8.4 Total Bilirubin 0.41 Direct Bilirubin 0.21 AST 27 ALT 21 Alkaline Phosphatase 109 Total Protein 7.3 Albumin 3.7 Globulin 3.6 Lipase 32 Radiography Diagnostic Testing: Clinical Impression(s) from Imaging Studies Abdomen/Pelvis CT 11/11/24 17:29 IMPRESSION: 1. No acute abnormality of the abdomen and pelvis. 2. Hepatic steatosis with an irregular hepatic contour, suggestive of cirrhosis. 3. Poorly defined subtly enhancing lesion in the left hepatic lobe with clustered cystic change and adjacent capsular retraction. Benign or malignant considerations are possible, however, cholangiocarcinoma can have this appearance. In the setting of cirrhosis, HCC should also be excluded. Multiphase CT or MRI evaluation or biopsy is recommended. 4. Moderate colonic diverticulosis. 5. Peripheral interstitial opacities in the lung bases, which may be due to interstitial edema or fibrotic change. Reading Location: [facility] Discharge Plan Triage Chief Complaint: Abd Pain ED Provider: Ortega Diana Dx/Rx/DC Orders Clinical Impression: Other acute postprocedural pain, Hepatic steatosis, Status post endoscopy, Gastritis, Hepatic cyst Instructions: NAFLD, ED Gastritis (Adult) Prescriptions: New sucralfate [Carafate] 1 gram tablet 1 g PO BID Qty: 30 0RF No Action aspirin [Adult Aspirin Regimen] 81 mg tablet,delayed release (DR/EC) 81 mg PO DAILY lisinopril 20 mg tablet 20 mg PO DAILY pioglitazone [Actos] 15 mg tablet 15 mg PO DAILY furosemide [Lasix] 20 mg tablet 20 mg PO BID cyclobenzaprine 10 MG tablet 10 mg PO BID glipizide 5 mg tablet 5 mg PO BID albuterol sulfate 18 GM HFA aerosol inhaler 2 puff inhalation BID PRN (Reason: sob) Patient Comments: INHALE 2 PUFFS EVERY 4 HOURS NEEDED atorvastatin 40 mg tablet 40 mg PO QHS pantoprazole 40 mg tablet,delayed release (DR/EC) 40 mg PO QDAY Qty: 60 1RF Primary Care Provider: Edilia Remy Referrals: Edilia Remy MD [Primary Care Provider] - Marty Paz DO [Med Staff - Active Staff] - 1-2 Weeks Activity Restrictions/Additional Instructions: Abdominal labs normal CT scan negative for any complications from your upper endoscopy. Fatty liver with signs of cirrhosis and liver cyst. This chest with Dr. Paz in the ED, and follow-up with him in the office. Take Carafate as prescribed continue your pantoprazole. Print Language: Hungarian Disposition Disposition: Home, Self Care
[2024-11-11] MEDS: 0.9% Normal Saline (1000mL) 1,000 ML 999 ML IV (17:47)
[2024-11-11 17:56] LABS: Absolute Lymphocyte Count 2.66 X10^3/uL (0.83-4.51); Basophil# 0.04 X10^3/uL; Basophil% 0.4 % (0-1); Eosinophil# 0.26 X10^3/uL; Eosinophils% 2.7 % (0-5); Hematocrit 41.3 % (40-54); Lymphocyte # 2.66 X10^3/ul (0.83-4.51); Lymphocyte % 27.9 % (19-41); Mean Corp Hgb Conc 33.9 g/dL (32-36); Mean Corpuscular Hgb 31.1 pg (27.0-32.0); Mean Corpuscular Volume 91.8 fL (80-94); Mean Platelet Vol. 10.6 fl (6.2-12.0); Monocyte# 0.53 X10^3/uL; Monocyte% 5.5 % (0-10); NRBC Flagged by Analyzer 0 % (0-5); Neutrophil # 5.99 X10^3/uL (2.7-7.7); Neutrophil % 62.8 % (47-70); Platelet Count 173 K/mm3 (150-450); RBC Distribution Width SD 50.2 fl (35.1-43.9); White Blood Count 9.6 K/mm3 (4.4-11.0)
[2024-11-11 18:14] LABS: AST(SGOT) 27 U/L (<=37); Alanine Aminotransfer ALT/SGPT 21 U/L (<=46); Albumin, Serum 3.7 g/dL (3.4-4.8); Alkaline Phosphatase 109 U/L (40-129); Anion Gap 12 (5-15); BUN 12 mg/dL (4-19); BUN/Creat Ratio 12.7 RATIO (10-20); Bilirubin, Direct 0.21 mg/dL (0.00-0.30); Calcium,Total 8.4 mg/dL (7.6-11.0); Carbon Dioxide 28.4 mmol/L (21.0-32.0); Chloride 96 mmol/L (98-108); Creatinine, Serum 0.97 mg/dL (0.70-1.20); EST Glomerular Filtration Rate 87 (>60); Estimated Creatinine Clearance 101.19 ml/min (50-250); Globulin 3.6 g/dL (2.2-4.2); Glucose 205 mg/dL (70-99); Lipase 32 U/L (13-75); Potassium 4.2 mmol/L (3.3-5.1); Protein, Total 7.3 g/dL (5.9-8.4); Sodium Level 136 mmol/L (133-145); Total Bilirubin 0.41 mg/dL (0.00-1.30)
[2024-11-11 19:19] VITALS: BP 156/89; RESP 22; TEMP 36.8; O2SAT 90
[2024-11-11 20:10] VITALS: BP 149/87; PULSE 89; RESP 18; TEMP 36.7; O2SAT 95
== END 2024-11-11 20:11 | disposition home or self-care (01) ==
PROVIDERS: Emergency Provider Emergency Medicine; PCP Family Medicine; Visit Provider Emergency Medicine
DX: G89.18 Other acute postprocedural pain (principal); J44.9 Chronic obstructive pulmonary disease, unspecified; E11.9 Type 2 diabetes mellitus without complications; K29.70 Gastritis, unspecified, without bleeding; I25.10 Atherosclerotic heart disease of native coronary artery without angina pectoris; E78.5 Hyperlipidemia, unspecified; K76.0 Fatty (change of) liver, not elsewhere classified; I10 Essential (primary) hypertension; F17.210 Nicotine dependence, cigarettes, uncomplicated; R10.9 Unspecified abdominal pain; Z79.82 Long term (current) use of aspirin; Z79.899 Other long term (current) drug therapy; Z79.84 Long term (current) use of oral hypoglycemic drugs; K21.9 Gastro-esophageal reflux disease without esophagitis
CPT/HCPCS: 74177; 80048; 80076; 83690; 85025; 96360; 99283; Q9967

== ENCOUNTER → 2024-11-15 | Outpatient (CLI) | payer MEDICARE, SELFPAY ==
[2024-11-17 10:08] LABS: AFP, Tumor Marker < 1.8 ng/mL (0.0-8.4)
== END | disposition home or self-care (01) ==
LOC: LAB 14:36
PROVIDERS: PCP Family Medicine; Referring Provider Student in an Organized Health Care Education/Training Program; Visit Provider Student in an Organized Health Care Education/Training Program
DX: K74.60 Unspecified cirrhosis of liver (principal); K76.89 Other specified diseases of liver
CPT/HCPCS: 36415; 82105

== ENCOUNTER → 2024-12-11 | Outpatient (CLI) | payer MEDICARE, SELFPAY ==
--- NOTE | 2024-12-11 15:46 | CT_ITS ---
PROCEDURE: ABDOMEN W/WO IV CONTRAST (procedure code CTABDWW), 12/11/2024 REASON FOR EXAM: LIVER LESION TECHNIQUE: CT abdomen was performed with and without IV contrast. Multiplanar reformats were generated. CONTRAST: IV Isovue-300 VOLUME: 100mL RADIATION DOSE SUMMARY: CTDlvol: 27.95+ 24.11+ 24.11+ 33.57 mGy DLP: 2792.83 mGycm One or more dose reduction techniques were used (e.g., Automated exposure control, adjustment of the mA and/or kV according to patient size, use of iterative reconstruction technique). COMPARISON: 11/11/2024 FINDINGS: Lung bases: Atelectasis/scarring. Coronary atherosclerosis and/or stents. Slightly elevated LEFT hemidiaphragm.. Liver: Hepatic steatosis with lobulated somewhat macronodular contours including slight LEFT lobe and caudate hypertrophy.. Redemonstrated clustered LEFT lobe low-density foci up to 9 mm in segments II/III, too small to definitively characterize by CT. There is again subtle anterior capsular retraction. Extremely vague surrounding hyperattenuation appears to be present on noncontrast images, with questionable superimposed extremely faint/vague enhancement on postcontrast sequences, persisting into delayed phase, difficult to measure but spanning roughly up to 3.0 cm. Granulomas. Spleen: Mild splenomegaly, 13.3 cm coronal. Granulomas. Gallbladder: Unremarkable. Pancreas: Unremarkable. Adrenals: Unremarkable. Kidneys: Tiny hypodensities on the LEFT too small to characterize, likely cysts.. Visualized GI tract: Diverticulosis.. Normal caliber appendix. Lymph nodes: Unremarkable. Vasculature: Advanced atherosclerosis.. Included peritoneum: Unremarkable. Body Wall: Unremarkable. Bones: Multilevel spondylosis.. CT/Abdomen W/WO IV Contrast IMPRESSION: 1. Hepatic steatosis and morphologic features again suggesting fibrosis/early c irrhosis. Correlate with clinical and laboratory evaluation. Mild splenomegaly may reflect the presence of portal hypertension. No ascites within the field of view. 2. Clustered subcentimeter hypodensities in the LEFT lobe with extremely vague/ ill-defined surrounding hyperattenuation and questionable associated enhancement. Findings are nonspecific, not definitely changed from earliest available study of 06/29/2024 allowing for the lack of IV contrast on that exam. If cirrhosis is known to be present, this would be borderline but best considered LI-RADS 3. Consider also sequelae of previous LEFT lobe liver biopsy with resultant scarring/perfusional changes in the region, if there is an appropriate history. Recommend clinical follow-u p to evaluate short-term stability, optimally with multiphase hepatic protocol MRI with and without contrast which could provide a dditional diagnostic information, in particular on diffusion sequences. Additionally, correlation with tumor markers such as AFP and CEA may be helpful. 3. Additional description as above. Reading Location: [id number]
== END | disposition home or self-care (01) ==
LOC: CT 15:44
PROVIDERS: PCP Family Medicine; Referring Provider Student in an Organized Health Care Education/Training Program; Visit Provider Student in an Organized Health Care Education/Training Program
DX: K76.9 Liver disease, unspecified (principal)
CPT/HCPCS: 74170; Q9967

== ENCOUNTER → 2025-01-17 | Outpatient (CLI) | payer MEDICARE, SELFPAY ==
--- NOTE | 2025-01-17 08:34 | US_ITS ---
PROCEDURE: ABDOMEN LIMITED 01/17/2025 REASON FOR EXAM: TO R/O ASCITS OR CAUSE OF DITENSION TECHNIQUE: Targeted abdominal imaging to assess for ascites. Grayscale images. COMPARISON: None US/Abdomen Limited IMPRESSION: No significant fluid within the 4 abdominal quadrants. Reading Location: [id number]
== END | disposition home or self-care (01) ==
LOC: US 08:30
PROVIDERS: PCP Family Medicine; Referring Provider Internal Medicine; Visit Provider Internal Medicine
DX: K74.60 Unspecified cirrhosis of liver (principal); R10.9 Unspecified abdominal pain
CPT/HCPCS: 76705

== ENCOUNTER 2025-03-02 01:04 | Emergency (ER) | payer MEDICARE, SELFPAY ==
[2025-03-02 01:04] VITALS: BP 157/73; PULSE 92; RESP 22; TEMP 36.9; O2SAT 93; BMI 34.3
--- NOTE | 2025-03-02 01:21 | RAD_ITS ---
PROCEDURE: LUMBAR SPINE 2 OR 3 VIEWS 03/02/2025 REASON FOR EXAM: PAIN TECHNIQUE: LUMBAR SPINE 2 OR 3 VIEWS COMPARISON: No FINDINGS: Diffuse facet arthritis. Multilevel anterior osteophyte formation. At L4, mild superior endplate deformity with no evidence of acuity. At L5-S1, mild disc space narrowing and grade 1 retrolisthesis. No acute bone or soft tissue pathology. Extensive aortoiliac calcifications. RAD/Lumbar Spine 2 or 3 Views IMPRESSION: Lumbar spine degeneration. Reading Location: [id number]
--- OUTSIDE RECORDS SUMMARY | 2025-03-02 01:42 | XMS RPT_ITS | CCD ---
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 Edilia Remy Primary Care Provider [phone] Edilia Remy Referring Provider MD Que Turcios Attending Provider Dr. Emmanuel Lu Attending Provider EDILIA REMY Primary Care Unavailable Dr. Edilia Remy Primary Care Provider [phone] Dr. Rusty Diaz Attending Provider [phone] EDILIA REMY Referring Unavailable CIERRA BOLTON MD Admitting Unavailable CIERRA BOLTON MD Primary Care Unavailable CIERRA BOLTON MD Attending Unavailable EDILIA REMY Consulting Unavailable PROVIDER, UNKNOWN Consulting Unavailable PROVIDER, UNKNOWN Consulting Unavailable EDILIA REMY Consulting Unavailable EDILIA REMY Referring Unavailable LAINALORETTA SESAY Admitting Unavailable LAINA LORETTA Tray Primary Care Unavailable LAINALORETTA SESAY Attending Unavailable PROVIDER, UNKNOWN Consulting Unavailable PROVIDER, UNKNOWN Consulting Unavailable WENDY ASIF DO Admitting Unavailable WENDY AISF DO Primary Care Unavailable EDLIIA REMY Referring Unavailable WENDY ASIF DO Attending Unavailable EDILIA REMY Consulting Unavailable PROVIDER, UNKNOWN Consulting Unavailable PROVIDER, UNKNOWN Consulting Unavailable Dr. Edilia Remy Primary Care Provider [phone] Dr. Edilia Remy Referring Provider [phone] Dr. Brooks Rangel Attending Provider [phone] Sandrita GAN, Dr. Yeboah Primary Care Provider Dr. 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 Duque Attending Provider Dr. Dunia Swenson DO Referring Provider Leela RUANO, Dr. Duque Emergency Provider Brandi RUANO, Dr. Ferguson Attending Provider Brandi RUANO, Dr. Ferguson Other Provider Dr. Ortega Diana DO Emergency Provider Adalgisa RUANO, Dr. Vivas Attending Provider Sandrita GAN, Dr. Yeboah Primary Care Provider Marjorie Paul Attending Provider Marjorie Paul Referring Provider Dr. Edilia Remy MD Referring Provider Dr. Brennen Hickey MD Attending Provider Dr. Edilia Remy MD Primary Care Provider Marjorie Paul Attending Provider Marjorie Paul Referring Provider Dr. Brennen Hickey MD Referring Provider Edilia Remy Primary Care Unavailable Marjorie Marti Attending Unavailable Marjorie Marti Referring Unavailable Marjorie Marti Referring Unavailable Josh Martino Attending Unavailable Edilia Remy Primary Care Unavailable Marjorie Marti Referring Unavailable Miedel, Edilia Primary Care Unavailable Marjorie Marti Consulting Unavailable Leydi Moncada NP Attending Unavailable Miedel, Edilia Referring Unavailable Marty Paz Attending Unavailable Miedel, Edilia Primary Care Unavailable Miedel, Edilia Primary Care Unavailable Marjorie Marti Attending Unavailable Marjorie Marti Referring Unavailable Miedel, Edilia Primary Care Unavailable Marjorie Marti Attending Unavailable Marjorie Marti Referring Unavailable Miedel, Edilia Primary Care Unavailable Brennen Hickey Referring Unavailable Brennen Hickey Attending Unavailable Miedel, Edilia Primary Care Unavailable Brooks Rangel Referring Unavailable CalabrBrooks malave Attending Unavailable Miedel, Edilia Referring Unavailable FriendGiancarloMarty Attending Unavailable Friend, Marty Consulting Unavailable Miedel, Edilia Primary Care Unavailable Miedel, Ediila Primary Care Unavailable Miedel, Edilia Referring Unavailable Marjorie Marti Attending Unavailable Dunia Swenson Referring Unavailable Dunia Swenson Attending Unavailable Miedel, Edilia Primary Care Unavailable Miedel, Edilia Referring Unavailable Miedel, Edilia Attending Unavailable Miedel, Edilia Primary Care Unavailable Miedel, Edilia Referring Unavailable Miedel, Edilia Attending Unavailable Miedel, Edilia Primary Care Unavailable Miedel, Edilia Referring Unavailable Miedel, Edilia Attending Unavailable Miedel, Edilia Primary Care Unavailable Miedel, Edilia Referring Unavailable Miedel, Edilia Primary Care Unavailable Brennen Hickey Attending Unavailable Miedel, Edilia Referring Unavailable Miedel, Edilia Primary Care Unavailable Marjorie Marti Attending Unavailable Marjorie Marti Referring Unavailable Miedel, Edilia Primary Care Unavailable Marjorie Marti Attending Unavailable Marjorie Marti Referring Unavailable Miedel, Edilia Primary Care Unavailable Marjorie Marti Attending Unavailable Miedel, Edilia Primary Care Unavailable Ortega Diana Attending Unavailable Allergies Allergy Classification Reported Allergen(s) Allergy Type Date of Onset Reaction(s) Facility (2 sources) Adhesive bandage; Translations: [ADHESIVE BANDAGES] allergy to substance 7 unknown [facility] Work Phone: (2 sources) Bee drug allergy 4 [facility] Work Phone: (2 sources) HORNETS drug allergy 4 [facility] Work Phone: (2 sources) WASPS drug allergy 4 [facility] Work Phone: (11 sources) Adhesive Tape; Translations: [adhesive tape] Propensity to adverse reactions 3 Unknown, Rash [facility] (10 sources) Bee pollen Drug Allergy 3 Unknown, Anaphylaxis [facility] (11 sources) Hornet venom; Translations: [hornet venom] Propensity to adverse reactions 3 NEEDS FOLLOW-UP, Anaphylaxis [facility] (10 sources) venom-wasp Propensity to adverse reactions 3 NEEDS FOLLOW-UP, Anaphylaxis [facility] (1 source) ADHESIVE TAPE-SILICONES; Translations: [ADHESIVE TAPE-SILICONES] Propensity to adverse reactions to drug (disorder) 3 [facility] (1 source) Adhesive agent; Translations: [ADHESIVE] Propensity to adverse reactions (disorder) [facility] (1 source) BEE STING; Translations: [BEE STING] Propensity to adverse reactions (disorder) [facility] (1 source) Bee pollen Drug allergy (disorder) 5 [facility] (1 source) venom-wasp Drug allergy (disorder) 5 [facility] Medications Current Medications Medication Drug Class(es) Dates Sig (Normalized) Sig (Original) aspirin 81 mg delayed release oral tablet (20 sources) Nonsteroidal Anti-inflammatory Drug Start: 01-14-2018 take 1 tablet by mouth once daily Aspirin (Adult Aspirin Regimen) 81 mg tablet,delayed release (DR/EC) Active 81 mg PO DAILY January 14, 2018 12:00am Start: 04-04-2014 End: 01-14-2018 take 1 tablet by mouth once daily Aspirin 325 MG tablet Discontinued 325 mg PO DAILY@0800 February 27, 2015 12:00am January 14, 2018 10:22am Start: 04-04-2014 ASPIRIN EC [address] [facility] ASPIRIN [id number] Emmanuel Lu MD carvedilol 6.25 mg oral tablet (1 source) alpha-Adrenergic Nancy, beta-Adrenergic Nancy Start: 01-02-2025 take 1 tablet by mouth twice daily at mealtime Carvedilol 6.25 mg tablet Active 6.25 mg PO TWICE A DAY 60 January 02, 2025 12:00am must administer with a meal/food furosemide 20 mg oral tablet (14 sources) Loop Diuretic Start: 10-27-2023 take 1 tablet by mouth twice daily Furosemide (Lasix) 20 mg tablet Active 20 mg PO TWICE A DAY October 27, 2023 12:00am Start: 06-18-2023 End: 10-27-2023 take 1 tablet by mouth once daily Furosemide 40 mg tablet Discontinued 40 mg PO DAILY June 18, 2023 12:00am October 27, 2023 2:29pm glipiZIDE 5 mg oral tablet (20 sources) Sulfonylurea Start: 02-27-2015 End: 08-25-2018 take 1 tablet by mouth twice daily Glipizide 5 mg tablet Active 5 mg PO TWICE A DAY August 25, 2018 10:46am lisinopril 20 mg oral tablet (20 sources) Angiotensin Converting Enzyme Inhibitor Start: 01-14-2018 take 1 tablet by mouth once daily Lisinopril 20 mg tablet Active 20 mg PO DAILY January 14, 2018 12:00am Start: 04-04-2014 End: 01-14-2018 take 1 tablet by mouth once daily Lisinopril 10 MG tablet Discontinued 10 mg PO DAILY February 27, 2015 12:00am January 14, 2018 10:23am Start: 04-04-2014 take 1 tablet by rajendra once daily LISINOPRIL 20 MG TABS One tablet by mouth daily LISINOPRIL [id number] Helena Pena RN pantoprazole 40 mg delayed release oral tablet (7 sources) Proton Pump Inhibitor Start: 09-08-2024 take 1 tablet by mouth once daily Pantoprazole 40 mg tablet,delayed release (DR/EC) Active 40 mg PO daily 60 September 08, 2024 1:00am Start: 04-04-2014 PROTONIX 20 MG TBEC once daily PANTOPRAZOLE SODIUM [id number] Rene Ingram pioglitazone 15 mg oral tablet (10 sources) Peroxisome Proliferator Receptor alpha Agonist, Peroxisome Proliferator Receptor gamma Agonist, Thiazolidinedione Start: 01-14-2018 take 1 tablet by mouth once daily Pioglitazone (Actos) 15 mg tablet Active 15 mg PO DAILY January 14, 2018 12:00am spironolactone 25 mg oral tablet (1 source) Aldosterone Antagonist Start: 01-02-2025 Spironolactone 25 mg tablet Active 12.5 mg PO DAILY January 02, 2025 12:00am Hold for serum potassium more than 5.0 sucralfate 1000 mg oral tablet (4 sources) Aluminum Complex Start: 11-11-2024 take 1 tablet by mouth twice daily Sucralfate (Carafate) 1 gram tablet Active 1 g PO TWICE A DAY November 11, 2024 12:00am Completed/Discontinued Medications Medication Drug Class(es) Dates Sig (Normalized) Sig (Original) acetaminophen 325 mg / oxyCODONE hydrochloride 5 mg oral tablet (9 sources) Opioid Agonist Start: 05-15-2023 End: 09-14-2024 Oxycodone-Acetamino phen (Percocet) 5-325 mg tablet Discontinued 1 {tbl} PO EVERY 6 HOURS 07 18May 15, 2023 September 14, 2024 10:28am [id number] actuat albuterol 0.09 mg/actuat metered dose inhaler (17 sources) beta2-Adrenergic Agonist Start: 06-18-2023 End: 11-07-2024 Albuterol Sulfate (Ventolin Hfa) 90 mcg/actuation HFA aerosol inhaler Discontinued 2 NMA INHALATION EVERY 6 HOURS as needed for shortness of breath or wheezing June 18, 2023 12:00am November 07, 2024 12:34pm On Hold: Order Completed Start: 06-18-2023 take 1 puff(s) by in halation every six hours Albuterol Sulfate (Ventolin Hfa) 90 mcg/actuation HFA aerosol inhaler Active 2 PUFF INHALATION EVERY 6 HOURS June 18, 2023 12:00am Start: 03-20-2019 Albuterol Sulf ate 18 GM HFA aerosol inhaler Active 2 NMA INHALATION TWICE A DAY as needed for sob March 20, 2019 12:00am Start: 03-20-2019 take 1 puff(s) by in halation twice daily Albuterol Sulfate Active 2 PUFF INHALATION TWICE A DAY March 20, 2019 12:00am atorvastatin 40 mg oral tablet (20 sources) HMG-CoA Reductase Inhibitor Start: 04-08-2018 End: 11-07-2024 take 1 tablet by mouth once daily Atorvastatin 40 mg tablet Discontinued 40 mg PO DAILY October 21, 2022 10:54am November 07, 2024 12:35pm Start: 01-14-2018 End: 04-08-2018 Atorvastatin 40 mg tablet Discontinued 20 mg PO daily January 14, 2018 12:00am April 08, 2018 11:05am Start: 01-14-2018 End: 04-08-2018 take 20 mg by mouth once daily Atorvastatin Discontinu ed 20 MG PO daily January 14, 2018 12:00am April 08, 2018 11:05am Start: 10-28-2017 End: 01-14-2018 take 1 tablet by mouth once daily Atorvastatin 20 mg tablet Discontinued 20 mg PO daily October 28, 2017 3:38pm January 14, 2018 10:23am Start: 07-07-2017 take 0.5 tablet by m out once daily LIPITOR 40 MG TABS 1/2 tablet by mouth daily ATORVASTATIN CALCIUM [id number] Helena Pena RN cyclobenzaprine hydrochloride 10 mg oral tablet (12 sources) Muscle Relaxant Start: 07-07-2017 take 1 tablet by mouth three times daily as needed CYCLOBENZAPRINE HCL 10 MG TABS One tablet by mouth three times daily as needed CYCLOBENZAPRINE HCL [id number] Helena Pena RN Start: 02-27-2015 take 1 tablet by rajendra twice daily Cyclobenzaprine 10 MG tablet Active 10 mg PO TWICE A DAY February 27, 2015 12:00am dexamethasone 1 mg/ml / neomycin 3.5 mg/ml / polymyxin b [id number] unt/ml ophthalmic suspension (7 sources) Aminoglycoside Antibacterial, Polymyxin-class Antibacterial, Corticosteroid Start: 06-18-2023 End: 09-14-2024 Neomycin-Polymyxin B-Dexameth 3.5mg/mL-10,000 unit/mL-0.1 % drops,suspension Discontinued 1 NMA OPHTHALMIC Q12H June 18, 2023 12:00am September 14, 2024 10:28am Start: 06-18-2023 Neomycin-Polym yxin B-Dexameth Active 1 DRP OPHTHALMIC Q12H June 18, 2023 12:00am dicyclomine hydrochloride 10 mg oral capsule (5 sources) Anticholinergic Start: 08-17-2024 End: 11-07-2024 take 1 capsule by mouth twice daily as needed for pain Dicyclomine 10 mg capsule Discontinued 10 mg PO TWICE A DAY as needed for abdominal pain August 17, 2024 1:00am November 07, 2024 12:34pm docusate sodium 100 mg oral capsule (7 sources) Start: 06-18-2023 End: 08-14-2024 take 1 capsule by mouth twice daily Docusate Sodium 100 mg capsule Discontinued 100 mg PO TWICE A DAY June 18, 2023 12:00am August 14, 2024 5:25pm gabapentin 300 mg oral capsule (14 sources) Anti-epileptic Agent Start: 02-27-2015 End: 06-18-2023 take 1 capsule by mouth three times daily at mealtime Gabapentin 300 MG capsule Discontinued 300 mg PO 3 TIMES DAILY WITH MEALS February 27, 2015 12:00am June 18, 2023 10:51am Start: 04-04-2014 take 1 tablet by rajendra th four times daily GABAPENTIN TABS One tablet by mouth four times daily GABAPENTIN TABS [id number] Helena Pena RN Start: 04-04-2014 GABAPENTIN TAB S as directed GABAPENTIN TABS [id number] Rene Ingram gemfibrozil 600 mg oral tablet (14 sources) Peroxisome Proliferator Receptor alpha Agonist Start: 04-04-2014 End: 01-14-2018 take 1 tablet by mouth twice daily before mealtime Gemfibrozil 600 MG tablet Discontinued 600 mg PO TWICE DAILY BEFORE MEALS February 27, 2015 12:00am January 14, 2018 10:23am lidocaine 0.05 mg/mg topical ointment (20 sources) Antiarrhythmic, Amide Local Anesthetic Start: 04-21-2019 End: 09-14-2024 Lidocaine 5 % ointment Discontinued 1 NMA TOPICAL THREE TIMES A DAY May 08, 2019 12:21pm September 14, 2024 10:28am meloxicam 15 mg oral tablet (10 sources) Nonsteroidal Anti-inflammatory Drug Start: 03-20-2019 End: 04-05-2019 take 1 tablet by mouth once daily Meloxicam 15 MG tablet Discontinued 15 mg PO DAILY March 20, 2019 12:00am April 05, 2019 3:31pm metFORMIN hydrochloride 1000 mg oral tablet (14 sources) Biguanide Start: 04-04-2014 End: 01-14-2018 take 1 tablet by mouth twice daily at mealtime Metformin 1,000 MG tablet Discontinued 1000 mg PO TWICE DAILY WITH MEALS February 27, 2015 12:00am January 14, 2018 10:23am mineral oil 0.15 mg/mg / petrolatum 0.83 mg/mg ophthalmic ointment (10 sources) Start: 02-27-2015 End: 01-14-2018 White Petrolatum-Mineral Oil 1 APPLIC ointment Discontinued 1 NMA RIGHT EYE TWICE A DAY February 27, 2015 12:00am January 14, 2018 10:25am Start: 02-27-2015 End: 01-14-2018 White Petrolatum-Mineral Oil Discontinued 1 APPLIC RIGHT EYE TWICE A DAY February 27, 2015 12:00am January 14, 2018 10:25am morphine sulfate 15 mg extended release oral tablet (14 sources) Opioid Agonist Start: 01-14-2018 End: 06-18-2023 take 1 tablet by mouth every twelve hours Morphine 15 mg tablet extended release Discontinued 15 mg PO Q12H January 14, 2018 12:00am June 18, 2023 10:52am Start: 04-04-2014 take 2 tablets by mo [facility] once daily at bedtime MORPHINE SULFATE 15 MG TABS Two tablets by mouth daily at bedtime MORPHINE SULFATE [id number] Helena Pena RN Start: 04-04-2014 MORPHINE SULFA TE 15 MG TABS as needed MORPHINE SULFATE [id number] Rene Ingram naproxen 500 mg oral tablet (10 sources) Nonsteroidal Anti-inflammatory Drug Start: 02-27-2015 End: 01-14-2018 take 1 tablet by mouth twice daily Naproxen 500 MG tablet Discontinued 500 mg PO TWICE A DAY February 27, 2015 12:00am January 14, 2018 10:24am omeprazole 20 mg delayed release oral capsule (2 sources) Proton Pump Inhibitor Start: 04-04-2014 take 1 tablet by mouth once daily OMEPRAZOLE 20 MG CPDR One tablet by mouth daily OMEPRAZOLE [id number] Helena Pena RN potassium chloride 20 meq extended release oral tablet (9 sources) Start: 05-29-2023 End: 09-14-2024 take 2 tablets by mouth once daily Potassium Chloride 20 mEq tablet extended release Discontinued 40 meq PO DAILY May 29, 2023 12:00am September 14, 2024 10:28am Start: 05-29-2023 take 40 mEq by mouth once eleazar y Potassium Chloride Active 40 MEQ PO DAILY May 29, 2023 12:00am Problems Active Problems Problem Classification Problem Date Documented Date Episodic/Chronic Abdominal hernia (13 sources) Unspecified abdominal hernia without obstruction or gangrene; Translations: [Hernia] Onset: 5 10-27-2023 Episodic Abdominal pain (20 sources) Right lower quadrant pain; Translations: [Right lower quadrant pain] Onset: 5 05-29-2023 Episodic Coronary atherosclerosis and other heart disease (13 sources) Atherosclerotic heart disease of [place] coronary artery without angina pectoris; Translations: [Coronary atherosclerosis] Onset: 7 07-07-2017 Chronic Diabetes mellitus without complication (20 sources) Type 2 diabetes mellitus; Translations: [Type 2 diabetes mellitus without complications] Onset: 7 07-07-2017 Chronic Disorders of lipid metabolism (12 sources) Hyperlipidemia; Translations: [Hyperlipidemia, unspecified] Onset: 7 07-07-2017 Chronic Comment on above: ON MED Disorders of lipid metabolism (1 source) Pure hypercholesterolemia, unspecified; Translations: [PURE HYPERCHOLESTEROLEMIA, UNSPECIFIED] Onset: Essential hypertension (13 sources) Hypertensive disorder; Translations: [Essential (primary) hypertension] Onset: 7 07-07-2017 Chronic Comment on above: CONTROLLED WITH MED External cause codes: Fall (1 source) Other fall on same level, initial encounter; Translations: [OTHER FALL ON SAME LEVEL, INITIAL ENCOUNTER] Onset: External cause codes: Place of occurrence (1 source) Other specified places as the place of occurrence of the external cause; Translations: [OTH PLACES THE PLACE OF OCCURRENCE OF THE EXTERNAL CAUSE] Onset: External cause codes: Unspecified (2 sources) Activity, other specified; Translations: [Unspecified external cause status] Onset: Fluid and electrolyte disorders (9 sources) Hypokalemia; Translations: [Hypokalemia] 05-29-2023 Episodic Gastritis and duodenitis (4 sources) Gastritis; Translations: [Gastritis, unspecified, without bleeding] 11-11-2024 Episodic Headache; including migraine (9 sources) Headache; Translations: [Headache] 05-29-2023 Episodic Joint disorders and dislocations; trauma-related (4 sources) Derangement of knee; Translations: [Chondromalacia patellae, unspecified knee] Onset: 4 07-04-2014 Chronic Nonspecific chest pain (10 sources) Chest pain; Translations: [Chest pain, unspecified] 03-21-2019 Episodic Osteoarthritis (1 source) Unspecified osteoarthritis, unspecified site; Translations: [UNSPECIFIED OSTEOARTHRITIS, UNSPECIFIED SITE] Onset: 7 Chronic Other aftercare (12 sources) Patient encounter status; Translations: [Other half-way (current) drug therapy] 01-14-2018 Episodic Other aftercare (5 sources) Long-term current use of drug therapy; Translations: [Other half-way (current) drug therapy] 01-14-2018 Episodic Comment on above: Antihyperlipidemic Other connective tissue disease (2 sources) Neuralgia/neuritis - upper arm; Translations: [Unspecified mononeuropathy of unspecified upper limb] Onset: 6 09-16-2015 Chronic Other liver diseases (20 sources) Steatosis of liver; Translations: [Fatty (change of) liver, not elsewhere classified] 08-17-2024 Chronic Other liver diseases (7 sources) Liver cyst; Translations: [Other specified diseases of liver] 11-11-2024 Chronic Other liver diseases (8 sources) Lesion of liver; Translations: [Liver disease, unspecified] 11-15-2024 Chronic Other liver diseases (8 sources) Cirrhosis of liver; Translations: [Unspecified cirrhosis of liver] 11-15-2024 Chronic Other liver diseases (1 source) Unspecified cirrhosis of liver; Translations: [Unspecified cirrhosis of liver] Onset: 5 Chronic Other liver diseases (1 source) Liver disease, unspecified; Translations: [Liver disease, unspecified] Onset: 5 Chronic Other liver diseases (1 source) Other specified diseases of liver; Translations: [Other specified diseases of liver] Onset: 5 Chronic Other liver diseases (2 sources) Fatty (change of) liver, not elsewhere classified; Translations: [Fatty (change of) liver, not elsewhere classified] Onset: 5 Chronic Other nervous system disorders (3 sources) Carpal tunnel syndrome; Translations: [Carpal tunnel syndrome, right upper limb] 11-12-2022 Chronic Other nervous system disorders (1 source) Carpal tunnel syndrome, right upper limb; Translations: [Carpal tunnel syndrome] 11-12-2022 Chronic Other nervous system disorders (7 sources) Carpal tunnel syndrome of right wrist; Translations: [Carpal tunnel syndrome, right upper limb] 11-12-2022 Chronic Other nervous system disorders (4 sources) Acute postoperative pain; Translations: [Other acute postprocedural pain] 11-11-2024 Episodic Other nervous system disorders (1 source) Other acute postprocedural pain; Translations: [Other acute postprocedural pain] Onset: 5 Episodic Other non-traumatic joint disorders (10 sources) Pain in wrist; Translations: [Pain in right wrist] 11-12-2022 Episodic Other non-traumatic joint disorders (1 source) Pain in right wrist; Translations: [Pain in joint, forearm] 11-12-2022 Episodic Residual codes; unclassified (10 sources) Harmful pattern of use of nicotine; Translations: [Tobacco use] 01-14-2018 Episodic Residual codes; unclassified (10 sources) History of arthroscopy of knee joint; Translations: [Other specified postprocedural states] 12-24-2017 Episodic Comment on above: 2014 Residual codes; unclassified (1 source) Localized edema; Translations: [Bilateral lower extremity edema] Onset: 3 Episodic Residual codes; unclassified (4 sources) Past history of procedure; Translations: [Other specified postprocedural states] 11-11-2024 Episodic Residual codes; unclassified (1 source) Other specified postprocedural states; Translations: [OTHER SPECIFIED POSTPROCEDURAL STATES] Onset: 7 Skin and subcutaneous tissue infections (1 source) Cellulitis of left lower limb; Translations: [Cellulitis of left lower extremity] Onset: 3 Episodic Spondylosis; intervertebral disc disorders; other back problems (2 sources) Lumbosacral spondylosis without myelopathy; Translations: [Spondylosis without myelopathy or radiculopathy, lumbosacral region] Onset: 5 09-02-2014 Chronic Substance-related disorders (1 source) Nicotine dependence; Translations: [Nicotine dependence, unspecified, uncomplicated] Onset: 7 07-14-2017 Chronic Unclassified (1 source) Body mass index (BMI) 31.0-31.9, adult; Translations: [Body mass index (BMI) 31.0-31.9, adult] Onset: 7 07-14-2017 Chronic Unclassified (2 sources) Long-term drug therapy; Translations: [Other intermediate card tender (current) drug therapy] Onset: 7 07-07-2017 Unclassified (1 source) Preoperative cardiovascular examination ; Translations: [Encounter for preprocedural cardiovascular examination] Onset: 7 07-14-2017 Past or Other Problems Problem Classification Problem Date Documented Date Episodic/Chronic Fracture of neck of femur (hip) (2 sources) Unspecified trochanteric fracture of unspecified femur, initial encounter for closed fracture; Translations: [Unspecified trochanteric fracture of unspecified femur, initial encounter for closed fracture] Onset: 11-07-2014 11-12-2014 Episodic Joint disorders and dislocations; trauma-related (4 sources) Disorder of patellofemoral joint; Translations: [Tear of medial cartilage or meniscus of knee, current] Onset: 07-04-2014 02-24-2017 Episodic Other aftercare (4 sources) Follow-up orthopedic assessment; Translations: [Encounter for other orthopedic aftercare] Onset: 2014 01-27-2015 Episodic Other connective tissue disease (4 sources) Patellar tendinitis, unspecified knee; Translations: [Other affections of shoulder region, not elsewhere classified] Onset: 04-04-2014 09-10-2014 Episodic Other injuries and conditions due to external causes (2 sources) Neurapraxia; Translations: [Other injury of unspecified body region] Onset: 10-11-2015 10-22-2015 Episodic Other non-traumatic joint disorders (12 sources) Knee pain; Translations: [Pain in unspecified shoulder] Onset: 04-04-2014 02-11-2017 Episodic Other non-traumatic joint disorders (1 source) Pain in left shoulder; Translations: [PAIN IN LEFT SHOULDER] Onset: 08-02-2017 Episodic Other non-traumatic joint disorders (1 source) Pain in left elbow; Translations: [PAIN IN LEFT ELBOW] Onset: 08-02-2017 Episodic Other upper respiratory disease (1 source) Epistaxis; Translations: [EPISTAXIS] Onset: 08-02-2017 Episodic Residual codes; unclassified (1 source) Illness, unspecified; Translations: [Illness, unspecified] Onset: 04-20-2024 Episodic Spondylosis; intervertebral disc disorders; other back problems (5 sources) Low back pain; Translations: [Neck pain] Onset: 08-30-2014 08-30-2014 Episodic Sprains and strains (5 sources) Sprain of unspecified rotator cuff capsule, initial encounter; Translations: [Strain of other muscles, fascia and tendons at shoulder and upper arm level, left arm, subsequent encounter] Onset: 04-04-2014 04-06-2014 Episodic Superficial injury; contusion (6 sources) Contusion of elbow; Translations: [Contusion of shoulder region] Onset: 11-07-2014 11-12-2014 Episodic Results Test Name Value Interpretation Reference Range Facility Abdomen Limitedon 01-17-2025 Abdomen Limited [facility] Imaging Services [address] [place] [id number] Abdomen Limited MR#: [id number] Acct: [id number] Name: JEANNE RIVERS Rep #: [id number] : 1960 M 64 From: Edi Villanueva PCP: Dr. Edilia Remy MD Status: REG CLI Study: Abdomen Limited Date of Exam: 01/17/25 Exam# [id number] Ordering Dr: Brennen Hickey MD PROCEDURE: ABDOMEN LIMITED 01/17/2025 REASON FOR EXAM: TO R/O ASCITS OR CAUSE OF DITENSION TECHNIQUE: Targeted abdominal imaging to assess for ascites. Grayscale images. COMPARISON: None US/Abdomen Limited IMPRESSION: No significant fluid within the 4 abdominal quadrants. Reading Location: [facility] CC: Dr. Edilia Remy MD; Dr. Brennen Hickey MD Director Recreation: Signed Normal [facility] Gastroenterology Visit Repor ton 01-02-2025 Gastroenterology Visit Report [facility]astroenterology [address] [place] [address] OFFICE VISIT Date of Service: 01/02/25 MR#: [id number] Acct: [id number] Name: JEANNE RIVERS Rep #: [id number] : 1960 Provider: Dr. Brennen villanueva MD Age/Sex: 64/M Location: [facility] Status: Signed Intake Vital Signs 11/11/24 17:19 01/02/25 09:36 Height 5 ft 11 in 5 ft 11 in Weight: 268 lb BMI 37.3 BP 148/82 H Blood Pressure Location Rt brachial Position Sitting Pulse 93 Pulse Oximetry (%) 90 Oxygen Delivery Method room air Intake Visit Reasons: liver issues Chief Complaint: abd pain Allergies bee pollen Adverse Reaction (Severe, Verified 01/02/25 09:45) Anaphylaxis hornet venom Adverse Reaction (Severe, Verified 01/02/25 09:45) Anaphylaxis venom-wasp (wasp venom) Adverse Reaction (Severe, Verified 01/02/25 09:45) Anaphylaxis adhesive tape Adverse Reaction (Intermediate, Verified 01/02/25 09:45) Rash Medications ???Medication ???Instructions ???Recorded ???Confirmed ???Type cyclobenzaprine 10 mg tablet 10 mg PO BID muscle spasms 5 01/02/25 History aspirin 81 mg tablet,delayed 81 mg PO DAILY 01/14/18 01/02/25 H istory release (Adult Aspirin Regimen) lisinopril 20 mg tablet 20 mg PO DAILY bp 01/14/18 5 History pioglitazone 15 mg tablet (Actos) 15 mg PO DAILY 01/14/18 01/02/25 History glipizide 5 mg tablet 5 mg PO BID 08/25/18 01/02/25 Hist ory albuterol sulfate 90 mcg/actuation 2 puff inhalation BID PRN sob 01/02/25 History aerosol inhaler furosemide 20 mg tablet (Lasix) 20 mg PO BID 10/27/23 01/02/25 His tory pantoprazole 40 mg tablet,delayed 40 mg PO QDAY #60 tabs 09/08/24 0 01/02/25 Rx release atorvastatin 40 mg tablet 40 mg PO QHS 11/07/24 01/02/25 His tory sucralfate 1 gram tablet (Carafate) 1 g PO BID #30 tabs 11/11/24 Rx carvedilol 6.25 mg tablet 6.25 mg PO BID 1 month #60 tabs 01/02/25 Rx spironolactone 25 mg tablet 12.5 mg (1/2 x 25 mg) PO DAILY 1 0 01/02/25 01/02/25 Rx month #30 tabs 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 Surgical History History of carpal tunnel surgery of right wrist S/P right knee arthroscopy H/O repair of rotator cuff Family History Mother Diabetes Hypertension Father Diabetes Hypertension Brother Hypertension Heart disease Social History household members: spouse current occupational status: disabled Smoking Status: Current every day smoker tobacco type: cigarettes alcohol intake: never caffeine: Yes Type: carbonated beverages Number of servings: 6 what type of physical activity do you participate in: none HPI HPI Chief Complaint: abd pain Details: JEANNE RIVERS, is a 64 M who presents to the office today for follow up. BGI established 1.2.25 with abd pain after getting into his truck. Pain is worse with certain movements and not associated with eating. He has bloating and weight gain depsire not dietary changes. Hx of alcoholism but no longer drinks. CT abd/pelvis 06.29.24;heterogeneous hyperattenuated left hepatic 1.7 cm nodule. Correlate with ultrasound if needed. Diverticulosis. Liver elastography 09.05.24; 1. Liver stiffness measures 10.5 kPa compatible with F2-F3 (Mild to moderate liver fibrosis) Metavir score. Biochemical work up 09.05.24; ESR H 23, Sodium 134 L, A1C 8.2 H, AMA 57.8 H, acute hepatitis panel wnl, copper wnl, Liver biopsy 09.14.24; Predominant pattern steatotic both macro and micro. Lymphocytic inflammation in portal tracts with very little interface hepatitis. Bridging fibrosis, occasional bile duct proliferation is present. no hepatocyte necrosis or malignancy. DD MAJOR, drug induced hepatitis or Stanley-'-s EGD 11.10.24; - No gross lesions in the entire esophagus. - Erosive gastropathy with no stigmata of recent bleeding. Biopsied. - Portal hypertensive gastropathy. - No gross lesions in the third portion of the duodenum. [facility] ED 11.11.24 with abd pain after EGD CT abd/pelvis 11.11. (more content not included)... Normal [facility] Abdomen W/WO IV Contraston 0 12-11-2024 Abdomen W/WO IV Contrast [facility] Imaging Services [address] [place], [place] [address] Abdomen W/WO IV Contrast MR#: [id number] Acct: [id number] Name: JEANNE RIVERS Rep #: [id number] : 1960 M 64 From: Felipe Martinez MD PCP: Dr. Edilia Remy MD Status: REG CLI Study: Abdomen W/WO IV Contrast Date of Exam: 5 Exam# [id number] Ordering Dr: Marjorie Marti PROCEDURE: ABDOMEN W/WO IV CONTRAST (procedure code CTABDWW), 12/11/2024 REASON FOR EXAM: LIVER LESION TECHNIQUE: CT abdomen was performed with and without IV contrast. Multiplanar reformats were generated. CONTRAST: IV Isovue-300 VOLUME: 100mL RADIATION DOSE SUMMARY: CTDlvol: 27.95+ 24.11+ 24.11+ 33.57 mGy DLP: 2792.83 mGycm One or more dose reduction techniques were used (e.g., Automated exposure control, adjustment of the mA and/or kV according to patient size, use of iterative reconstruction technique). COMPARISON: 11/11/2024 FINDINGS: Lung bases: Atelectasis/scarring. Coronary atherosclerosis and/or stents. Slightly elevated LEFT hemidiaphragm.. Liver: Hepatic steatosis with lobulated somewhat macronodular contours including slight LEFT lobe and caudate hypertrophy.. Redemonstrated clustered LEFT lobe low-density foci up to 9 mm in segments II/III, too small to definitively characterize by CT. There is again subtle anterior capsular retraction. Extremely vague surrounding hyperattenuation appears to be present on noncontrast images, with questionable superimposed extremely faint/vague enhancement on postcontrast sequences, persisting into delayed phase, difficult to measure but spanning roughly up to 3.0 cm. Granulomas. Spleen: Mild splenomegaly, 13.3 cm coronal. Granulomas. Gallbladder: Unremarkable. Pancreas: Unremarkable. Adrenals: Unremarkable. Kidneys: Tiny hypodensities on the LEFT too small to characterize, likely cysts.. Visualized GI tract: Diverticulosis.. Normal caliber appendix. Lymph nodes: Unremarkable. Vasculature: Advanced atherosclerosis.. Included peritoneum: Unremarkable. Body Wall: Unremarkable. Bones: Multilevel spondylosis.. CT/Abdomen W/WO IV Contrast IMPRESSION: 1. Hepatic steatosis and morphologic features again suggesting fibrosis/early cirrhosis. Correlate with clinical and laboratory evaluation. Mild splenomegaly may reflect the presence of portal hypertension. No ascites within the field of view. 2. Clustered subcentimeter hypodensities in the LEFT lobe with extremely vague/ill-defined surrounding hyperattenuation and questionable associated enhancement. Findings are nonspecific, not definitely changed from earliest available study of 06/29/2024 allowing for the lack of IV contrast on that exam. If cirrhosis is known to be present, this would be borderline but best considered LI-RADS 3. Consider also sequelae of previous LEFT lobe liver biopsy with resultant scarring/perfusional changes in the region, if there is an appropriate history. Recommend clinical follow-up to evaluate short- term stability, optimally with multiphase hepatic protocol MRI with and without contrast which could provide additional diagnostic information, in particular on diffusion sequences. Additionally, correlation with tumor markers such as AFP and CEA may be helpful. 3. Additional description as above. Reading Location: [id number] CC: Dr. Edilia Remy MD; GORDON Vieira Director Recreation: Signed Normal [facility] AFP, Tumor Markeron 11-18-19 AFP TUMOR FELIPE < 1.8 Normal 0.0-8.4 [facility] Comment on above: Order Comment: N Result Comment: [facility] Electrochemiluminescence Immunoassay (ECLIA) Values obtained with different assay methods or kits cannot be used interchangeably. Results cannot be interpreted as absolute evidence of the presence or absence of malignant disease. This test is not interpretable in females. Performed at: [facility] [id number] [employer] Program Director: Americo Bradford PhD, Phone: [phone] Performed By: #### L 3300.0700 #### [facility] [address] [place], [address] Alpha fetoprotein measuremen t as tumor markerOrdered By: Marjorie Marti on 11-15-2024 Tumor Marker Alpha Fetoprotein < 1.8 ng/mL 0.0-8.4 [facility] Comment on above: [facility] El ectrochemiluminescence Immunoassay(ECLIA)Values obtained with different assay methods or kits cannotbe used interchangeably. Results cannot be interpreted asabsolute evidence of the presence or absence of malignantdisease.This test is not interpretable in females.Performed at: [facility] [id number] Director: Americo Bradford PhD, Phone: [phone] Gastroenterology Visit Repor ton 11-15-2024 Gastroenterology Visit Report [facility] Gastroenterology [address] [place] [address] OFFICE VISIT Date of Service: 11/15/24 MR#: [id number] Acct: [id number] Name: JEANNE RIVERS Rep #: [id number] : 1960 Provider: GORDON Vieira Age/Sex: 64/M Location: [facility] Status: Signed Intake Vital Signs 10/27/23 14:23 11/11/24 17:19 Height 5 ft 11 in 5 ft 11 in Intake Visit Reasons: 3 M FU Chief Complaint: abd pain Allergies bee pollen Adverse Reaction (Severe, Verified 11/11/24 17:20) Anaphylaxis hornet venom Adverse Reaction (Severe, Verified 11/11/24 17:20) Anaphylaxis venom-wasp (wasp venom) Adverse Reaction (Severe, Verified 11/11/24 17:20) Anaphylaxis adhesive tape Adverse Reaction (Intermediate, Verified 11/11/24 17:20) Rash Nurse's Note: OV 11.15.24 Pt here for f/u. Continues taking pantoprazole, and Carafate. 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 Surgical History History of carpal tunnel surgery of right wrist S/P right knee arthroscopy H/O repair of rotator cuff Family History Mother Diabetes Hypertension Father Diabetes Hypertension Brother Hypertension Heart disease Social History household members: spouse current occupational status: disabled Smoking Status: Current every day smoker tobacco type: cigarettes alcohol intake: never caffeine: Yes Type: carbonated beverages Number of servings: 6 what type of physical activity do you participate in: none HPI HPI Chief Complaint: abd pain Details: JEANNE RIVERS, is a 64 M who presents to the office today for f/u. BGI established 1.2.25 with abd pain after getting into his truck. Pain is worse with certain movements and not assocaited with eating. He has blating and weight gain depsire not dietary changes. Hx of alcholism but no longer drinks. CT abd/pelvis 24;heterogeneous hypoattenuated left hepatic 1.7 cm nodule. Correlate with ultrasound if needed. Diverticulosis. Liver elastography 09.05.24; 1. Liver stiffness measures 10.5 kPa compatible with F2-F3 (Mild to moderate liver fibrosis) Metavir score. Biochemical work up 09.05.24; ESR H 23, Sodium 134 L, A1C 8.2 H, AMA 57.8 H, acute hepatitis panel wnl, copper wnl, Liver biopsy 09.14.24; Predominant pattern steatotic both macro and micro. Lymphocytic inflammation in portal tracts with very little interface hepatitis. Bridging fibrosis, occasional bile duct proliferation is present. no hepatocyte necrosis or malignancy. DD MAJOR, drug induced hepattis or wilsions EGD 11.10.24; - No gross lesions in the entire esophagus. - Erosive gastropathy with no stigmata of recent bleeding. Biopsied. - Portal hypertensive gastropathy. - No gross lesions in the third portion of the duodenum. [facility] ED 11.11.24 with abd pain after EGD CT abd/pelvis 11.11.34; . No acute abnormality of the abdomen and pelvis. 2. Hepatic steatosis with an irregular hepatic contour, suggestive of cirrhosis. 3. Poorly defined subtly enhancing lesion in the left hepatic lobe with clustered cystic change and adjacent capsular retraction. Benign or malignant considerations are possible, however, cholangiocarcinoma can have this appearance. In the setting of cirrhosis, HCC should also be excluded. Multiphase CT or MRI evaluation or biopsy is recommended. 4. Moderate colonic diverticulosis. 5. Peripheral interstitial opacities in the lung bases, which may be due to interstitial edema or fibrotic change. OV 4.2.25 Pt continues to have abd pain. It is not aggravated with oral intake. It can be aggravated by certain movements like leaning forward. He was prescribed sucralfate in the ED which has not helped. ROS Const Constitutional: Positive for headache(s); No fatigue, fever(s) or weight change ENT ENT: Positive for headache(s); No difficulty swallowing Cardio Cardiology: Positive for leg pain with exertion Gastro GI: Positive for abdominal pain and diarrhea; No belching, bloating, change in bowel habits, change in stool character, coffee ground emesis, constipation, cramping, heartburn, dif (more content not included)... Normal [facility] Abdomen/Pelvis W IV Cont ONL Yon 11-11-2024 Abdomen/Pelvis W IV Cont ONLY [facility] Imaging Services [address] [place] [address] Abdomen/Pelvis W IV Cont ONLY MR#: [id number] Acct: [id number] Name: JEANNE RIVERS Rep #: [id number] : 1960 M 64 From: Fauzia Tomas MD PCP: Dr. Edilia Remy MD Status: REG ER Study: Abdomen/Pelvis W IV Cont ONLY Date of Exam: Exam# [id number] Ordering Dr: Ortega Diana DO PROCEDURE: ABDOMEN/PELVIS W IV CONT ONLY 11/11/2024 REASON FOR EXAM: ABD PAIN TECHNIQUE: Abdomen and pelvis CT with intravenous contrast. Coronal and Sagittal reconstruction series were provided. One or more dose reduction techniques were used (e.g., Automated exposure control, adjustment of the mA and/or kV according to patient size, use of iterative reconstruction technique. COMPARISON: 09/21/2024; 06/29/2024 FINDINGS: Lower chest: Mild peripheral interstitial opacities in the lung bases. Liver: Lesion in the left hepatic lobe with poorly defined subtle enhancement and a cluster of hypodense cystic components which was seen on the July 05, 2024 exam and does not appear significantly changed. There is an area of adjacent hepatic capsular retraction. Hepatic steatosis is present. Irregular hepatic contour, suggestive of cirrhosis. Biliary/gallbladder: Unremarkable. Pancreas: Unremarkable. Spleen: A couple of punctate hypodense lesions are present in the spleen, likely due to remote granulomatous disease. Adrenal glands: Unremarkable. Kidneys: There is a small cyst in the left kidney which appear stable. Gastrointestinal/peritoneum : No acute abnormality.Moderate colonic diverticulosis is present.The appendix is unremarkable.No free air or free fluid. Vascular: Advanced scattered atherosclerotic calcifications. Lymph nodes: No enlarged lymph nodes by CT size criteria. Pelvic organs: Unremarkable. Bladder: Unremarkable. Bones: Mild to moderate multilevel degenerative changes are present. Soft tissues: Unremarkable. CT/Abdomen/Pelvis W IV Cont ONLY IMPRESSION: 1. No acute abnormality of the abdomen and pelvis. 2. Hepatic steatosis with an irregular hepatic contour, suggestive of cirrhosis. 3. Poorly defined subtly enhancing lesion in the left hepatic lobe with clustered cystic change and adjacent capsular retraction. Benign or malignant considerations are possible, however, cholangiocarcinoma can have this appearance. In the setting of cirrhosis, HCC should also be excluded. Multiphase CT or MRI evaluation or biopsy is recommended. 4. Moderate colonic diverticulosis. 5. Peripheral interstitial opacities in the lung bases, which may be due to interstitial edema or fibrotic change. Reading [facility] CC: Dr. Edilia Remy MD; Dr. Ortega Diana, Director Recreation: Signed Normal [facility] Absolute lymphocyte countOrd ered By: Ortega Diana on 11-11-2024 Lymphocytes Auto (Unsp spec) [#/Vol] 2.66 10*3/uL 0.83-4.51 [facility] Absolute neutrophil countOrd ered By: Ortega Diana on 11-11-2024 Neutrophils (Bld) [#/Vol] 6.0 10*3/uL 2.0-7.7 [facility] Anion gap in Serum or Plasma Ordered By: Ortega Diana on 11-11-2024 Anion gap [Moles/Vol] 12 mmol/L -15 [facility] Automated lymphocyte count a s percentage of total leukocytesOrdered By: Ortega Diana on 11-11-2024 Lymphocytes/100 WBC Auto (Unsp spec) 27.9 % 19-41 [facility] BUN/creatinine ratioOrdered By: Ortega Diana on 11-11-2024 Urea nitrogen/Creatinine [Mass ratio] 12.7 mg/mg 10- [facility] Basic Metabolic Profile (BMP )on 11-11-2024 BUN/CRE 12.7 RATIO Normal - [facility] Comment on above: Performed By: #### L 500.3400, L100.0100, L501.2450, L500.2500 #### [facility] [address] [place], [address] Calcium [Mass/Vol] 8.4 mg/dL Normal 7.6-11.0 [facility] Comment on above: Performed By: #### L 500.3400, L100.0100, L501.2450, L500.2500 #### [facility] [address] [place], [address] Chloride [Moles/Vol] 96 mmol/L Low 98-[address] [facility] Comment on above: Performed By: #### L 500.3400, L100.0100, L501.2450, L500.2500 #### [facility] [address] [place], [address] CO2 [Moles/Vol] 28.4 mmol/L Normal 21.0-32.0 [facility] Comment on above: Performed By: #### L 500.3400, L100.0100, L501.2450, L500.2500 #### [facility] [address] [place], [address] Creatinine [Mass/Vol] 0.97 mg/dL Normal 0.70-1.20 [facility] Comment on above: Performed By: #### L 500.3400, L100.0100, L501.2450, L500.2500 #### [facility] [address] [place], [address] ECRCL 101.19 ml/min Normal 50-250 [facility] Comment on above: Performed By: #### L 500.3400, L100.0100, L501.2450, L500.2500 #### [facility] [address] [place], [address] GAP 12 Normal 5-15 [facility] Comment on above: Performed By: #### L 500.3400, L100.0100, L501.2450, L500.2500 #### [facility] [address] [place], [address] GFR/1.73 sq M.predicted among non-blacks MDRD (S/P/Bld) [Vol rate/Area] 87 mL/min/{1.73_m2} Normal >60 [facility] Comment on above: Result Comment: mL/m in/1.73m2 CKD-EPI Creatinine Equation (2020) Performed By: #### L 500.3400, L100.0100, L501.2450, L500.2500 #### [facility] [address] [place], [address] Glucose [Mass/Vol] 205 mg/dL High 70-99 [facility] Comment on above: Performed By: #### L 500.3400, L100.0100, L501.2450, L500.2500 #### [facility] [address] [place], [address] Potassium [Moles/Vol] 4.2 mmol/L Normal 3.3-5.1 [facility] Comment on above: Performed By: #### L 500.3400, L100.0100, L501.2450, L500.2500 #### [facility] [address] [place], [address] Sodium [Moles/Vol] 136 mmol/L Normal 133-145 [facility] Comment on above: Performed By: #### L 500.3400, L100.0100, L501.2450, L500.2500 #### [facility] [address] [place], [address] Urea nitrogen [Mass/Vol] 12 mg/dL Normal 4-19 [facility] Comment on above: Performed By: #### L 500.3400, L100.0100, L501.2450, L500.2500 #### [facility] [address] [place], [address] Basophil percentageOrdered B y: Ortega Diana on 11-11-2024 Basophils/100 WBC (Bld) 0.4 % 0-1 [facility] Bilirubin directOrdered By: Ortega Diana on 11-11-2024 Bilirubin.direct [Mass/Vol] 0.21 mg/dL 0.00-0.30 [facility] Bilirubin, totalOrdered By: Ortega Diana on 11-11-2024 Bilirubin [Mass/Vol] 0.41 mg/dL 0.00-1.[address] [facility] CBC W/Diff, Automatedon 10-15 Absolute Lymph 2.66 X10 3/uL Normal 0.83-4.51 [facility] Comment on above: Performed By: #### L 500.3400, L100.0100, L501.2450, L500.2500 #### [facility] [address] [place], [address] Absolute Neut 6.0 X10 3/uL Normal 2.0-7.7 [facility] Comment on above: Performed By: #### L 500.3400, L100.0100, L501.2450, L500.2500 #### [facility] [address] [place], [address] Basophils/100 WBC (Bld) 0.4 % Normal 0-1 [facility] Comment on above: Performed By: #### L 500.3400, L100.0100, L501.2450, L500.2500 #### [facility] [address] [place], [address] Eosinophils/100 WBC (Bld) 2.7 % Normal 0-5 [facility] Comment on above: Performed By: #### L 500.3400, L100.0100, L501.2450, L500.2500 #### [facility] [address] [place], [address] Erythrocyte distribution width (RBC) [Ratio] 15.0 % High 11.6-14.6 [facility] Comment on above: Performed By: #### L 500.3400, L100.0100, L501.2450, L500.2500 #### [facility] [address] [place], [address] Hematocrit (Bld) [Volume fraction] 41.3 % Normal 40-54 [facility] Comment on above: Performed By: #### L 500.3400, L100.0100, L501.2450, L500.2500 #### [facility] [address] [place], [address] Hemoglobin (Bld) [Mass/Vol] 14.0 g/dL Normal 13.0-16.5 [facility] Comment on above: Performed By: #### L 500.3400, L100.0100, L501.2450, L500.2500 #### [facility] [address] [place], [address] IG% 0.700 Normal 0.0-0.9 [facility] Comment on above: Result Comment: IG% - Immature Granulocytes (promyelocytes, myelocytes and metamyelocytes) > 1% indicates that a LEFT SHIFT is Present. Performed By: #### L 500.3400, L100.0100, L501.2450, L500.2500 #### [facility] [address] [place], [address] Lymphocytes/100 WBC (Bld) 27.9 % Normal 19-41 [facility] Comment on above: Performed By: #### L 500.3400, L100.0100, L501.2450, L500.2500 #### [facility] [address] [place], [address] MCH (RBC) [Entitic mass] 31.1 pg Normal 27.0-32.0 [facility] Comment on above: Performed By: #### L 500.3400, L100.0100, L501.2450, L500.2500 #### [facility] [address] [place], [address] MCHC (RBC) [Mass/Vol] 33.9 g/dL Normal 32-36 [facility] Comment on above: Performed By: #### L 500.3400, L100.0100, L501.2450, L500.2500 #### [facility] [address] [place], [address] MCV (RBC) [Entitic vol] 91.8 fL Normal 80-94 [facility] Comment on above: Performed By: #### L 500.3400, L100.0100, L501.2450, L500.2500 #### [facility] [address] [place], [address] Monocytes/100 WBC (Bld) 5.5 % Normal 0-10 [facility] Comment on above: Performed By: #### L 500.3400, L100.0100, L501.2450, L500.2500 #### [facility] [address] [place], [address] Neutrophils/100 WBC (Bld) 62.8 % Normal 47-70 [facility] Comment on above: Performed By: #### L 500.3400, L100.0100, L501.2450, L500.2500 #### [facility] [address] [place], [address] Nucleated RBC (Bld) [#/Vol] 0 10*3/uL Normal 0-5 [facility] Comment on above: Performed By: #### L 500.3400, L100.0100, L501.2450, L500.2500 #### [facility] [address] [place], [address] Platelet mean volume (Bld) [Entitic vol] 10.6 fL Normal 6.2-12.0 [facility] Comment on above: Performed By: #### L 500.3400, L100.0100, L501.2450, L500.2500 #### [facility] [address] [place], [address] Platelets (Bld) [#/Vol] 173 10*3/uL Normal 150-450 [facility] Comment on above: Performed By: #### L 500.3400, L100.0100, L501.2450, L500.2500 #### [facility] [address] [place], [address] RBC (Bld) [#/Vol] 4.50 10*6/uL Low 4.6-6.2 [facility] Comment on above: Performed By: #### L 500.3400, L100.0100, L501.2450, L500.2500 #### [facility] [address] [place], [address] RDW SD 50.2 fl High 35.1-43.9 [facility] Comment on above: Performed By: #### L 500.3400, L100.0100, L501.2450, L500.2500 #### [facility] [address] [place], [address] WBC (Bld) [#/Vol] 9.6 10*3/uL Normal 4.4-11.0 [facility] Comment on above: Performed By: #### L 500.3400, L100.0100, L501.2450, L500.2500 #### [facility] [address] [place], [address] Carbon dioxide, total [Moles /volume] in Central venous bloodOrdered By: Ortega Diana on 11-11-2024 CO2 [Moles/Vol] 28.4 mmol/L 21.0-32.0 [facility] Chloride assayOrdered By: Ad Diana on 11-11-2024 Chloride [Moles/Vol] 96 mmol/L Low 98-[address] [facility] Emergency Department Summary on 11-11-2024 Emergency Department Summary [facility] Medical Records Department [address] [place] [address] Emergency Department Summary 11/11/24 MR#: [id number] Acct: [id number] Name: JEANNE RIVERS Rep #: [id number] : 1960 64 From: Ortega Goldman PCP: Dr. Edilia Remy MD Status:REG ER Location: ED HPI HPI - GI History of Present Illness Chief Complaint: Abd Pain Informant: patient Narrative Narrative: Referred in after discussing with GI today for worsening abdominal pain. He status post upper endoscopy yesterday that was an elective procedure. He was not an ERCP. He did not have a bowel movement since prior to procedure. He is passing gas. No abdominal surgeries. Denies any sick alcohol history. No history of pancreatitis. Denies nausea or vomiting. Denies fevers. He states he was not started on any medications post his procedure. 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 Home Medications ???Medication ???Instructions ???Recorded ???Last Taken ???Type cyclobenzaprine 10 mg tablet 10 mg PO BID muscle spasms 5 11/10/24 10:30 History aspirin 81 mg tablet,delayed 81 mg PO DAILY 01/14/18 11/09/24 H istory release (Adult Aspirin Regimen) lisinopril 20 mg tablet 20 mg PO DAILY bp 01/14/18 5 10:30 History pioglitazone 15 mg tablet (Actos) 15 mg PO DAILY 01/14/18 03/20/19 History glipizide 5 mg tablet 5 mg PO BID 08/25/18 03/20/19 Hist ory albuterol sulfate 90 mcg/actuation 2 puff inhalation BID PRN sob 03/20/19 History aerosol inhaler furosemide 20 mg tablet (Lasix) 20 mg PO BID 10/27/23 Unknown Hist ory pantoprazole 40 mg tablet,delayed 40 mg PO QDAY #60 tabs 09/08/24 U nknown Rx release atorvastatin 40 mg tablet 40 mg PO QHS 11/07/24 Unknown Hist ory sucralfate 1 gram tablet (Carafate) 1 g PO BID #30 tabs 11/11/24 Un known Rx Allergy/AdvReac Type Severity Reaction Status Date / Time bee pollen AdvReac Severe Anaphylaxis Verified 11/11/24 17:20 hornet venom AdvReac Severe Anaphylaxis Verified 11/11/24 17:20 venom-wasp (wasp venom) AdvReac Severe Anaphylaxis Verified 11/11/24 17:20 adhesive tape AdvReac Intermediate Rash Verified 11/11/24 17:20 Family History Mother Diabetes Hypertension Father Diabetes Hypertension Brother Hypertension Heart disease Surgical History History of carpal tunnel surgery of right wrist S/P right knee arthroscopy H/O repair of rotator cuff Social History household members: spouse current occupational status: disabled Smoking Status: Current every day smoker tobacco type: cigarettes alcohol intake: never caffeine: Yes Type: carbonated beverages Number of servings: 6 what type of physical activity do you participate in: none ROS ROS ED Constitutional Constitutional ED: Denies chills, fever(s) or sweats ENT ENT ED: Denies sore throat Cardiovascular Cardiovascular: Denies chest pain, leg edema, palpitations or racing heartbeat Respiratory/Chest Respiratory/Chest: Denies cough, dyspnea or dyspnea on exertion Gastrointestinal Gastrointestinal: Reports abdominal pain; Denies diarrhea, nausea or vomiting Genitourinary Genitourinary ED: Denies dysuria, hematuria or urinary frequency Musculoskeletal Musculoskeletal: Denies back pain, extremity pain or neck pain Integumentary Denies rash or wounds Neurologic Neurologic: Denies headache(s), paresthesias or weakness EXAM Physical Exam Const Vital Signs: 11/11/24 17:19 11/11/24 19:19 Temperature 98.7 F 98.3 F Temperature Source Oral Oral Pulse Rate 108 H Respiratory Rate 18 22 H Blood Pressure 136/67 H 156/89 H Blood Pressure Mean 90 111 Pulse Ox 92 90 Oxygen Delivery Method Room Air Room Air Positive well nourished and well developed General Appearance ED: well developed and NAD HEENT Reports moist mucous membranes normocephalic and atraumatic Eyes General Eye ED: Yes normal appearance of both eyes Neck full ROM Chest Wall Chest: Negative for tenderness Resp normal respiratory effort and normal air mov (more content not included)... Normal [facility] Eosinophil percentageOrdered By: Ortega Diana on 11-11-2024 Eosinophils/100 WBC (Bld) 2.7 % 0-5 [facility] Erythrocyte distribution wid th ratioOrdered By: Ortega Diana on 11-11-2024 Erythrocyte distribution width (RBC) [Ratio] 15.0 % High 11.6-14.6 [facility] Erythrocyte distribution wid th standard deviationOrdered By: Ortega Diana on 11-11-2024 Erythrocyte distribution width (RBC) [Entitic vol] 50.2 fL High 35.1-43.9 [facility] Erythrocyte distribution width (RBC) [Ratio] 50.2 fl High 35.1-43.9 [facility] Estimation of creatinine titi aranceOrdered By: Ortega Diana on 11-11-2024 Estimated Creatinine Clearance Calc 101.19 ml/min 50-250 [facility] GFR/1.73 sq M.predicted bebo g non-blacks MDRD (S/P/Bld) [Vol rate/Area]Ordered By: Ortega Diana on 11-11-2024 Estimated GFR (MDRD) Non-Af Amer 87 >60 [facility] Comment on above: mL/min/1.73m2 CKD-EP I Creatinine Equation (2020) Glomerular filtration rate ( GFR) estimation/1.73 sq m using serum, plasma, or whole bOrdered By: Ortega Diana on 11-11-2024 GFR/1.73 sq M.predicted among non-blacks MDRD (S/P/Bld) [Vol rate/Area] 87 mL/min/{1.73_m2} >60 [facility] Comment on above: mL/min/1.73m2 CKD-EP I Creatinine Equation (2020) Hematocrit Auto (Bld) [Volum e fraction]Ordered By: Ortega Diana on 11-11-2024 Hematocrit (Bld) [Volume fraction] 41.3 % 40-54 [facility] Hemoglobin measurementOrdere d By: Ortega Diana on 11-11-2024 Hemoglobin (Bld) [Mass/Vol] 14.0 g/dL 13.0-16.5 [facility] Immature granulocytes/100 WB C Auto (Bld)Ordered By: Ortega Diana on 11-11-2024 Immature granulocytes/100 WBC (Bld) 0.700 % 0.0-0.9 [facility] Comment on above: IG% - Immature Granu locytes (promyelocytes, myelocytes and metamyelocytes) > 1% indicates that a LEFT SHIFT is Present. Laboratory - Chemistry and C hemistry - challengeOrdered By: Ortega Diana on 11-11-2024 AST [Catalytic activity/Vol] 27 U/L <38 [facility] Lipaseon 11-11-2024 Lipase [Catalytic activity/Vol] 32 U/L Normal 13-75 [facility] Comment on above: Result Comment: Sirena pratt note: LIPASE revised reference range effective 22. New Lipase methodology. Expected to produce lower values than the previous assay method. NEW Reference Range: 13 - 75 U/L Performed By: #### L 500.3400, L100.0100, L501.2450, L500.2500 #### [facility] [address] [place], [place], [address] Lipase measurementOrdered By : Ortega Diana on 11-11-2024 Lipase [Catalytic activity/Vol] 32 U/L 13-75 [facility] Comment on above: Please note:LIPASE r evised reference range effective 22. New Lipase methodology. Expected to produce lower values than the previous assay method. NEW Reference Range: 13 - 75 U/L Liver Profileon 11-11-2024 Albumin [Mass/Vol] 3.7 g/dL Normal 3.4-4.8 [facility] Comment on above: Performed By: #### L 500.3400, L100.0100, L501.2450, L500.2500 #### [facility] [address] [place], [address] ALK PHOS 109 U/L Normal 40-129 [facility] Comment on above: Performed By: #### L 500.3400, L100.0100, L501.2450, L500.2500 #### [facility] [address] [place], [address] ALT [Catalytic activity/Vol] 21 U/L Normal <=46 [facility] Comment on above: Performed By: #### L 500.3400, L100.0100, L501.2450, L500.2500 #### [facility] [address] [place], [address] AST [Catalytic activity/Vol] 27 U/L Normal <=37 [facility] Comment on above: Performed By: #### L 500.3400, L100.0100, L501.2450, L500.2500 #### [facility] [address] [place], [address] Bilirubin [Mass/Vol] 0.41 mg/dL Normal 0.00-1.[address] [facility] Comment on above: Performed By: #### L 500.3400, L100.0100, L501.2450, L500.2500 #### [facility] [address] [place], [address] Bilirubin.direct [Mass/Vol] 0.21 mg/dL Normal 0.00-0.30 [facility] Comment on above: Performed By: #### L 500.3400, L100.0100, L501.2450, L500.2500 #### [facility] [address] [place], [address] Globulin (S) [Mass/Vol] 3.6 g/dL Normal 2.2-4.2 [facility] Comment on above: Performed By: #### L 500.3400, L100.0100, L501.2450, L500.2500 #### [facility] [address] [place], [address] T PROT 7.3 g/dL Normal 5.9-8.4 [facility] Comment on above: Performed By: #### L 500.3400, L100.0100, L501.2450, L500.2500 #### [facility] [address] [place], [address] Lymphocytes Auto (Unsp spec) [#/Vol]Ordered By: Ortega Diana on 11-11-2024 Lymphocytes (Bld) [#/Vol] 2.66 10*3/uL 0.83-4.51 [facility] Lymphocytes/100 WBC Auto (Un sp spec)Ordered By: Ortega Diana on 11-11-2024 Lymphocytes/100 WBC (Bld) 27.9 % 19-41 [facility] MCV (mean corpuscular volume ) determinationOrdered By: Ortega Diana on 11-11-2024 MCV (RBC) [Entitic vol] 91.8 fL 80-94 [facility] Mean corpuscular hemoglobin (MCH) determinationOrdered By: Ortega Diana on 11-11-2024 MCH (RBC) [Entitic mass] 31.1 pg 27.0-32.0 [facility] Mean corpuscular hemoglobin concentration (MCHC) determinationOrdered By: Ortega Diana on 11-11-2024 MCHC (RBC) [Mass/Vol] 33.9 g/dL 32-36 [facility] Mean platelet volume determi nationOrdered By: Ortega Diana on 11-11-2024 Platelet mean volume (Bld) [Entitic vol] 10.6 fL 6.2-12.0 [facility] Monocyte percentageOrdered B y: Ortega Diana on 11-11-2024 Monocytes/100 WBC (Bld) 5.5 % 0-10 [facility] Neutrophil percentageOrdered By: Ortega Diana on 11-11-2024 Neutrophils/100 WBC (Bld) 62.8 % 47-70 [facility] Nucleated red blood cell per centageOrdered By: Ortega Diana on 11-11-2024 Nucleated RBC/100 WBC (Bld) [Ratio] 0 % 0-5 [facility] Platelet countOrdered By: Ad Diana on 11-11-2024 Platelets (Bld) [#/Vol] 173 10*3/uL 150-450 [facility] Potassium (Unsp spec) [Mass/ Vol]Ordered By: Ortega Diana on 11-11-2024 Potassium [Moles/Vol] 4.2 mmol/L 3.3-5.1 [facility] Potassium measurement (mass/ volume)Ordered By: Ortega Diana on 11-11-2024 Potassium (Unsp spec) [Mass/Vol] 4.2 mmol/L 3.3-5.1 [facility] RBC Auto (Bld) [#/Vol]Ordere d By: Ortega Diana on 11-11-2024 RBC (Bld) [#/Vol] 4.50 10*6/uL Low 4.6-6.2 [facility] Serum creatinine measurement (mass/volume)Ordered By: Ortega Diana on 11-11-2024 Creatinine [Mass/Vol] 0.97 mg/dL 0.70-1.20 [facility] Serum globulin measurementOr dered By: Ortega Diana on 11-11-2024 Globulin (S) [Mass/Vol] 3.6 g/dL 2.2-4.2 [facility] Serum glucose measurement (m ass/volume)Ordered By: Ortega Diana on 11-11-2024 Glucose [Mass/Vol] 205 mg/dL High 70-99 [facility] Serum or plasma alanine cardoso otransferase (ALT) measurementOrdered By: Ortega Diana on 11-11-2024 ALT [Catalytic activity/Vol] 21 U/L <47 [facility] Serum or plasma albumin theresa urement (mass/volume)Ordered By: Ortega Diana on 11-11-2024 Albumin [Mass/Vol] 3.7 g/dL 3.4-4.8 [facility] Serum or plasma alkaline mackenzie sphatase measurementOrdered By: Ortega Diana on 11-11-2024 ALP [Catalytic activity/Vol] 109 U/L 40-129 [facility] Serum or plasma calcium theresa urement (mass/volume)Ordered By: Ortega Diana on 11-11-2024 Calcium [Mass/Vol] 8.4 mg/dL 7.6-11.0 [facility] Serum or plasma urea nitroge n measurement (mass/volume)Ordered By: Ortega Diana on 11-11-2024 Urea nitrogen [Mass/Vol] 12 mg/dL 4-19 [facility] Sodium levelOrdered By: Ortega Diana on 11-11-2024 Sodium [Moles/Vol] 136 mmol/L 133-145 [facility] Total proteinOrdered By: Roge Diana on 11-11-2024 Protein [Mass/Vol] 7.3 g/dL 5.9-8.4 [facility] White blood cell (WBC) count Ordered By: Ortega Diana on 11-11-2024 WBC (Bld) [#/Vol] 9.6 10*3/uL 4.4-11.0 [facility] Bedside Glucoseon 11-10-2024 FINGERSTICK GLU 215 mg/dL High 74-106 [facility] Comment on above: Result Comment: MARYCHUY NOEL OF PATIENT CARE PER NURSING PROTOCOL Performed By: #### L 3300.0700 #### [facility] [address] [place], [address] EGD Reporton 11-10-2024 EGD Report [facility] Medical Records Department [address] [place] [address] EGD Report MR#: [id number] Acct: [id number] Name: JEANNE RIVERS Rep #: [id number] : 1960 64 From: Marty Paz DO PCP: Dr. Edilia Remy MD Status:[facility] Patient Name: Jeanne Rivers Procedure Date: 11/10/2024 1:54 PM Date of : 1960 Age: 64 Procedure: Upper GI endoscopy Indications: Epigastric abdominal pain Providers: Marty Paz DO Referring MD: Edilia Remy Medicines: Monitored Anesthesia Care Patient Profile: This is a 64 year old male. Refer to note in patient chart for documentation of history and physical. Patient has symptoms of acute right upper quadrant abdominal pain, chronic right lower quadrant abdominal pain and acute epigastric abdominal pain. Complications: No immediate complications. Procedure: Pre-Anesthesia Assessment: - Prior to the procedure, a History and Physical was performed, and patient medications and allergies were reviewed. The patient is competent. The risks and benefits of the procedure and the sedation options and risks were discussed with the patient. All questions were answered and informed consent was obtained. Patient identification and proposed procedure were verified by the physician. Mental Status Examination: alert and oriented. Airway Examination: normal oropharyngeal airway and neck mobility. Respiratory Examination: clear to auscultation. CV Examination: normal. ASA Grade Assessment: II - A patient with mild systemic disease. After reviewing the risks and benefits, the patient was deemed in satisfactory condition to undergo the procedure. The anesthesia plan was to use moderate sedation / analgesia (conscious sedation). Immediately prior to administration of medications, the patient was re-assessed for adequacy to receive sedatives. The heart rate, respiratory rate, oxygen saturations, blood pressure, adequacy of pulmonary ventilation, and response to care were monitored throughout the procedure. The physical status of the patient was re-assessed after the procedure. After obtaining informed consent, the endoscope was passed under direct vision. Throughout the procedure, the patient's blood pressure, pulse, and oxygen saturations were monitored continuously. The Endoscope was introduced through the mouth, and advanced to the third part of the duodenum. Small bowel enteroscopy was deemed necessary. The patient tolerated the procedure well. Scope In: 2:06:23 PM Scope Out: 2:09:28 PM Total Procedure Duration Time 0 hours 3 minutes 5 seconds Findings: No gross lesions were noted in the entire esophagus. Multiple dispersed 5 mm erosions with no stigmata of recent bleeding were found in the entire examined stomach. Biopsies were taken with a cold forceps for histology. Biopsies were taken with a cold forceps for histology. Verification of patient identification for the specimen was done. Biopsies were taken with a cold forceps for Helicobacter pylori testing. Verification of patient identification for the specimen was done. Estimated blood loss was minimal. Moderate portal hypertensive gastropathy was found in the entire examined stomach. No gross lesions were noted in the third portion of the duodenum. Impression: - No gross lesions in the entire esophagus. - Erosive gastropathy with no stigmata of recent bleeding. Biopsied. - Portal hypertensive gastropathy. - No gross lesions in the third portion of the duodenum. Recommendation: - Discharge patient to home. - Resume previous diet. - Continue present medications. - Await pathology results. Procedure Code(s): --- Professional --- 52800, Small intestinal endoscopy, enteroscopy beyond second portion of duodenum, not including ileum; with biopsy, single or multiple CPT copyright 2021 [employer]. All rights reserved. The codes documented in this report are preliminary and upon cone operator review may be revised to meet current compliance requirements. Marty Paz DO 11/10/2024 2:23:08 PM This report has been signed electronically. Number of Addenda: 0 Note Initiated On: 11/10/2024 1:54 PM 11/10/24 1423 Date Marty Herrera Signature: Date (if indicated) CC: Dr. Edilia Remy MD; Marty Paz DO Date Dictated: 11/10/24 1354 Date Transcribed: Director Recreation: RF Signed Normal [facility] Gl[facility] at [facility] deOrdered By: Marty Paz on 11-10-2024 Bedside Glucose (Misc Panel) 215 mg/dL High 74-106 [facility] Comment on above: MANAGEMENT OF PATIEN T CARE PER NURSING PROTOCOL Glucose [Mass/Vol] 215 mg/dL High 74-106 [facility] Comment on above: MANAGEMENT OF PATIEN T CARE PER NURSING PROTOCOL MR/POSTOP.ANEon 11-10-2024 MR/POSTOP.[facility] Medical Records Department [address] [place] [address] Anesthesia Postop Eval I 11/10/24 1427 MR#: [id number] Acct: [id number] Name: JEANNE RIVERS Rep #: [id number] : 1960 64 From: Enoch Tirado PCP: Dr. Edilia Remy MD Status:REG SDC Y Race: C Location: [place] [address] Anesthesia: Postop Eval I Current Vital Signs Temperature: 98.1 F Pulse Rate: 104 Blood Pressure: 135/78 Respiratory Rate: 18 Pulse Ox: 94 Oxygen Delivery Method: Room Air Assessment Airway patent: Yes Spontaneous unlabored respirations: Yes Mental status: Asleep nausea: No Vomiting: No Anesthesia Complication: No Fluid Hydration Crystalloid volume administer (ml): 30 Total IV fluid infused: 30 Progress Note Anesthesia document: Postop Eval 1 completed: Yes 11/10/24 1428 Date Enoch Fritzricamador Signature: Date CC: Signed Normal [facility] MR/[id number] 11-10-2024 [facility] Medical Records Department [address] [place] [address] Anesthesia Postop Eval II 11/10/24 1436 MR#: [id number] Acct: [id number] Name: JEANNE RIVERS Rep #: [id number] : 1960 64 From: Shira Akbar PCP: Dr. Edilia Remy MD Status:REG [facility] [place] Race: C Location: [place] [address] Anesthesia Postop Eval I Sum Postop Eval Completion status Anesthesia document: Postop Eval 1 completed: Yes Anesthesia Postop Eval I Summary Anesthesia Postop Eval I Summary: Anesthesia Postop Eval I: Assessment Summary Airway patent Yes 11/10/24 14:28 [email or web address] Spontaneous unlabored Yes 11/10/24 14:28 [email or web address] respirations Mental status Asleep 11/10/24 14:28 [email or web address] nausea No 11/10/24 14:28 [email or web address] Vomiting No 11/10/24 14:28 [email or web address] Anesthesia Postop Eval I: Fluid Summary Crystalloid volume administer 30 11/10/24 14:28 [email or web address] (ml) Colloids volume administered ( ml) Blood Product volume administered (ml) Total IV fluid infused 30 11/10/24 14:28 [email or web address] Anesthesia Postop Eval I: Summary Notes Anesthesia Complication No 11/10/24 14:28 [email or web address] Anesthesia Complication Comment: Post-operative progress note Anesthesia: Postop Eval II Evaluation Mental status: Awake Pain Level: 0 nausea: No Vomiting: No 11/10/24 1437 Date Shira Fritzricamador Signature: Date CC: Signed Normal [facility] Surgery Specimen Level Sandhya 11-10-2024 Surgery Specimen Level IV Patient Age/Sex Location Account Attending Physician JEANNE RIVERS 64/M EN [id number] Marty Paz DO Specimen: [id number] Received: 11/10/24 Status: DAWN Francois Num: [id number] Spec Type: EGD BIOPSY Subm Dr: Marty Paz, HEADER OPERATION: EGD with biopsy PRE-OP DIAGNOSIS: Fatty liver, hernia, abdominal pain, right upper quadrant abdominal pain TISSUE SUBMITTED: A- Gastric body biopsy MICROSCOPIC DIAGNOSIS A. Stomach, antrum, biopsy: * Oxyntic mucosa with slight chronic inflammation. * Negative for Helicobacter-like organisms (H E). MICROSCOPIC DESCRIPTION Slides are reviewed. GROSS DESCRIPTION A. Received in formalin in a container labeled with the patient's name, date of , and gastric body biopsy are 3 gil-pink fragments of mucosa ranging from 0.2 x 0.2 x 0.1 cm to 0.5 x 0.3 x 0.2 cm. Entirely submitted in A1. [facility] 11-13-2024 [facility]:[id number] Patient Age/Sex Location Account Attending Physician JEANNE RIVERS/M EN [id number] Marty Friend, DO Signed (signature on file) Dr. Radha Castellanos MD 11/16/24 1542 Normal [facility] Comment on above: Performed By: #### P SUIV #### [facility] [address] [place], [place], [id number] MR/Micah 11-07-2024 MR[facility] [facility] Department [address] [place] [address] PAT - Anesthesia 11/07/24 1257 MR#: [id number] Acct: [id number] Name: JEANNE RIVERS Rep #: [id number] : 1960 64 From: Pradeep Sifuentes MD PCP: Dr. 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 When Was Last Pacemaker Check QUESTION #4 FULL TEXT: You/Your Family Experience fever (hyperthermia) with Anesthesia Last Oral Intake Last Oral intake: Last Oral Intake NPO since Meds taken in AM with sips of water? 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 Female No 11/07/24 12:35 HX of Motion Sickness No 11/07/24 12:35 HX of N/V After Surgery No 11/07/24 12:35 Non-Smoker No 11/07/24 12:35 Duration of Surgery greater No 11/07/24 12:35 than 60 minutes Number of Risk Factors PONV Score Height Weight Height Weight: Anesthesia: Height Weight Height 5 ft 11.5 in 09/21/24 12:28 Respiratory Assessment Respiratory Assessment - air sealing technician: Respiratory Tract Infection Hx - air sealing technician Hx Respiratory Tract Infection No 11/07/24 12:35 STOP Sleep Apnea STOP Sleep Apnea - air sealing technician: STOP Sleep Apnea - air sealing technician Hx Hypertension Yes: CONTROLLED WITH MED 11/07/24 12:35 Hx Sleep Apnea No 11/07/24 12:35 CPAP No 02/13/19 09:35 BIPAP No 02/13/19 09:35 Do you snore loudly (louder No 11/07/24 12:35 than talking or can be heard Do you often feel tired/ No 11/07/24 12:35 fatigued/ sleepy during daytime? Has anyone observed you stop Yes 11/07/24 12:35 breathing during sleep? STOP Results Positive 11/07/24 12:35 QUESTION #5 FULL TEXT : Do you snore loudly (louder than talking or can be heard through closed doors)? 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 Hx Now No 11/07/24 12:35 Gestational Age (in weeks): EDC: Hx Hx Para Hx Section SAB No 11/07/24 12:35 [facility] Medical History (Updated 11/07/24 @ 12:45 by Ca Grimaldo) Loss of hearing Diabetes Ambulates with cane Arthritis Fatty liver Easy bruising Back pain Migraine headache Dietary restriction History of diverticulitis Gastric reflux COPD (chronic obstructive pulmonary disease) Shortness of breath on exertion Smoker History of pain when walking History of edema Cellulitis Cardiology follow-up encounter RUQ abdominal pain snf use of drug Nicotine abuse HLD (hyperlipidemia) Essential (primary) hypertension 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 Normal [facility] Abdomen/Pelvis W IV Cont ONL Yon 09-21-2024 Abdomen/Pelvis W IV Cont ONLY [facility] Imaging Services [address] [place] [address] Abdomen/Pelvis W IV Cont ONLY MR#: [id number] Acct: [id number] Name: JAYNEJEANNE Reyna Rep #: [id number] : 1960 M 64 From: Felipe Diana MD PCP: Dr. Edilia Remy MD Status: REG ER Study: Abdomen/Pelvis W IV Cont ONLY Date of Exam: Exam# [id number] Ordering Dr: Dunia Swenson DO EXAM: CT Abdomen and Pelvis With Intravenous Contrast CLINICAL INDICATION: TECHNIQUE: Axial computed tomography images of the abdomen and pelvis with intravenous contrast. This CT exam was performed using one or more of the following dose reduction techniques: automated exposure control, adjustment of the mA and/or kV according to patient size, and/or use of iterative reconstruction technique. COMPARISON: No relevant prior studies available. FINDINGS: LUNG BASES: Unremarkable. No mass. No consolidation. ABDOMEN: LIVER: Hepatomegaly with fatty infiltration. GALLBLADDER AND BILE DUCTS: Unremarkable. No calcified stones. No ductal dilation. PANCREAS: Unremarkable. No mass. No ductal dilation. SPLEEN: Unremarkable. No splenomegaly. ADRENALS: Unremarkable. No mass. KIDNEYS AND URETERS: Unremarkable. No stones within either kidney. No hydronephrosis. STOMACH AND BOWEL: Colonic diverticulosis without acute diverticulitis. No obstruction. PELVIS: APPENDIX: No findings to suggest acute appendicitis. BLADDER: Unremarkable. No mass. REPRODUCTIVE: Unremarkable as visualized. ABDOMEN and PELVIS: INTRAPERITONEAL SPACE: Unremarkable. No free air. No significant fluid collection. BONES/JOINTS: No acute fracture. No dislocation. SOFT TISSUES: Umbilical hernia containing fat. VASCULATURE: Scattered calcified atherosclerotic disease of aorta. No abdominal aortic aneurysm. LYMPH NODES: Unremarkable. No enlarged lymph nodes. CT/Abdomen/Pelvis W IV Cont ONLY IMPRESSION: 1. Hepatomegaly with fatty infiltration. 2. Umbilical hernia containing fat. 3. No obstructive uropathy. 4. Colonic diverticulosis without acute diverticulitis. Reading Location: [facility] CC: Dr. Dunia Swenson DO; Dr. Edilia Remy MD Director Recreation: Signed Normal [facility] Absolute lymphocyte countOrd ered By: Dunia Swenson on 09-21-2024 Lymphocytes Auto (Unsp spec) [#/Vol] 2.45 10*3/uL 0.83-4.51 [facility] Absolute neutrophil countOrd ered By: Dunia Swenson on 09-21-2024 Neutrophils (Bld) [#/Vol] 5.6 10*3/uL 2.0-7.7 [facility] Automated lymphocyte count a s percentage of total leukocytesOrdered By: Dunia Swenson on 09-21-2024 Lymphocytes/100 WBC Auto (Unsp spec) 28.2 % 19-41 [facility] Basic Metabolic Profile (BMP )on 09-21-2024 BUN/CRE 11.1 RATIO Normal 10-20 [facility] Comment on above: Performed By: #### L 3300.0700 #### [facility] [address] [place], [address] CA,Total 9.1 mg/dL Normal 8.5-10.1 [facility] Comment on above: Performed By: #### L 3300.0700 #### [facility] [address] [place], [address] Chloride [Moles/Vol] 95 mmol/L Low 98-[address] [facility] Comment on above: Performed By: #### L 3300.0700 #### [facility] [address] [place], [address] CO2 [Moles/Vol] 33.0 mmol/L High 21.0-32.0 [facility] Comment on above: Performed By: #### L 3300.0700 #### [facility] [address] [place], [address] Creatinine [Mass/Vol] 1.08 mg/dL Normal 0.70-1.30 [facility] Comment on above: Result Comment: The validity of the calculated GFR GFRAA in patients over 70 years has not been determined. Clinical correlation is essential. Performed By: #### L 3300.0700 #### [facility] [address] [place], [address] ECRCL 91.52 ml/min Normal [facility] Comment on above: Performed By: #### L 3300.0700 #### [facility] [address] [place], [address] EST GFR - AA 88 mL/min Normal >60 [facility] Comment on above: Result Comment: Afri can Chinese GFR Calc Performed By: #### L 3300.0700 #### [facility] [address] [place], [address] GAP 7 Normal 5-15 [facility] Comment on above: Performed By: #### L 3300.0700 #### [facility] [address] [place], [address] GFR/1.73 sq M.predicted among non-blacks MDRD (S/P/Bld) [Vol rate/Area] 73 mL/min/{1.73_m2} Normal >60 [facility] Comment on above: Result Comment: Non- GFR Calc Performed By: #### L 3300.0700 #### [facility] [address] [place], [address] Glucose [Mass/Vol] 236 mg/dL High 74-106 [facility] Comment on above: Result Comment: Gluc ose result greater than or equal to 200 mg/dL suggests DIABETES MELLITUS per A.D.A. criteria. Performed By: #### L 3300.0700 #### [facility] [address] [place], [address] Potassium [Moles/Vol] 4.5 mmol/L Normal 3.5-5.1 [facility] Comment on above: Performed By: #### L 3300.0700 #### [facility] [address] [place], [address] Sodium [Moles/Vol] 135 mmol/L Low 136-145 [facility] Comment on above: Performed By: #### L 3300.0700 #### [facility] [address] [place], [address] Urea nitrogen [Mass/Vol] 12 mg/dL Normal 7-18 [facility] Comment on above: Performed By: #### L 3300.0700 #### [facility] [address] [place], [address] Basophil percentageOrdered B y: Dunia Swenson on 09-21-2024 Basophils/100 WBC (Bld) 0.3 % 0-1 [facility] Bilirubin Test strip Ql (U)O rdered By: Dunia wSenson on 09-21-2024 Bilirubin Ql (U) Negative Negative [facility] Bilirubin directOrdered By: Dunia Swenson on 09-21-2024 Bilirubin.direct [Mass/Vol] 0.14 mg/dL 0.00-0.30 [facility] Bilirubin, totalOrdered By: Dunia Swenson on 09-21-2024 Bilirubin [Mass/Vol] 0.40 mg/dL 0.20-1.[address] [facility] Comment on above: For patients on eltr ombopag therapy, use of Dimension Watkins TBIL is not recommended. Blood urea nitrogen (BUN)/cr eatinine ratioOrdered By: Dunia Swenson on 09-21-2024 Urea nitrogen/Creatinine [Mass ratio] 11.1 mg/mg 10-20 [facility] CBC W/Diff, Automatedon Absolute Lymph 2.45 X10 3/uL Normal 0.83-4.51 [facility] Comment on above: Performed By: #### L 3300.0700 #### [facility] [address] [place], [address] Absolute Neut 5.6 X10 3/uL Normal 2.0-7.7 [facility] Comment on above: Performed By: #### L 3300.0700 #### [facility] [address] [place], [address] Basophils/100 WBC (Bld) 0.3 % Normal 0-1 [facility] Comment on above: Performed By: #### L 3300.0700 #### [facility] [address] [place], [address] Eosinophils/100 WBC (Bld) 1.8 % Normal 0-5 [facility] Comment on above: Performed By: #### L 3300.0700 #### [facility] [address] [place], [address] Erythrocyte distribution width (RBC) [Ratio] 15.1 % High 11.6-14.6 [facility] Comment on above: Performed By: #### L 3300.0700 #### [facility] [address] [place], [address] Hematocrit (Bld) [Volume fraction] 47.1 % Normal 40-54 [facility] Comment on above: Performed By: #### L 3300.0700 #### [facility] [address] [place], [address] Hemoglobin (Bld) [Mass/Vol] 15.1 g/dL Normal 13.0-16.5 [facility] Comment on above: Performed By: #### L 3300.0700 #### [facility] [address] [place], [address] IG% 0.200 Normal 0.0-0.9 [facility] Comment on above: Result Comment: IG% - Immature Granulocytes (promyelocytes, myelocytes and metamyelocytes) > 1% indicates that a LEFT SHIFT is Present. Performed By: #### L 3300.0700 #### [facility] [address] [place], [address] Lymphocytes/100 WBC (Bld) 28.2 % Normal 19-41 [facility] Comment on above: Performed By: #### L 3300.0700 #### [facility] [address] [place], [address] MCH (RBC) [Entitic mass] 30.2 pg Normal 27.0-32.0 [facility] Comment on above: Performed By: #### L 3300.0700 #### [facility] [address] [place], [address] MCHC (RBC) [Mass/Vol] 32.1 g/dL Normal 32-36 [facility] Comment on above: Performed By: #### L 3300.0700 #### [facility] [address] [place], [address] MCV (RBC) [Entitic vol] 94.2 fL High 80-94 [facility] Comment on above: Performed By: #### L 3300.0700 #### [facility] [address] [place], [address] Monocytes/100 WBC (Bld) 5.2 % Normal 0-10 [facility] Comment on above: Performed By: #### L 3300.0700 #### [facility] [address] [place], [address] Neutrophils/100 WBC (Bld) 64.3 % Normal 47-70 [facility] Comment on above: Performed By: #### L 3300.0700 #### [facility] [address] [place], [address] Nucleated RBC (Bld) [#/Vol] 0 10*3/uL Normal 0-5 [facility] Comment on above: Performed By: #### L 3300.0700 #### [facility] [address] [place], [address] Platelet mean volume (Bld) [Entitic vol] 10.7 fL Normal 6.2-12.0 [facility] Comment on above: Performed By: #### L 3300.0700 #### [facility] [address] [place], [address] Platelets (Bld) [#/Vol] 175 10*3/uL Normal 150-450 [facility] Comment on above: Performed By: #### L 3300.0700 #### [facility] [address] [place], [address] RBC (Bld) [#/Vol] 5.00 10*6/uL Normal 4.6-6.2 [facility] Comment on above: Performed By: #### L 3300.0700 #### [facility] [address] [place], [address] RDW SD 52.6 fl High 35.1-43.9 [facility] Comment on above: Performed By: #### L 3300.0700 #### [facility] [address] [place], [address] WBC (Bld) [#/Vol] 8.7 10*3/uL Normal 4.4-11.0 [facility] Comment on above: Performed By: #### L 3300.0700 #### [facility] [address] [place], [address] Carbon dioxide measurementOr dered By: Dunia Swenson on 09-21-2024 CO2 [Moles/Vol] 33.0 mmol/L High 21.0-32.0 [facility] Chloride measurementOrdered By: Dunia Swenson on 09-21-2024 Chloride [Moles/Vol] 95 mmol/L Low 98-[address] [facility] Emergency Department Summary on 09-21-2024 Emergency Department Summary [facility] Medical Records Department [address] [place] [address] Emergency Department Summary 09/21/24 MR#: [id number] Acct: [id number] Name: JEANNE RIVERS Rep #: [id number] : 1960 64 From: Dunia Swenson DO PCP: Dr. Edilia Remy MD Status:REG ER Location: ED HPI HPI - GI History of Present Illness Chief Complaint: Abd Pain Informant: patient Narrative Narrative: Patient is a 64-year-old male with history of fatty liver, type 2 diabetes mellitus, hyperlipidemia, hypertension, coronary artery disease presenting with right-sided abdominal pain. Patient states he had a recent liver biopsy is concerned he could have some type of internal bleeding or trauma to his liver which is causing his pain. The pain seems to move to his right lower abdomen. He notes the next day after the biopsy he had a headache and abdominal pain has been worsening. He states his blood pressures been a lot higher than normal. He has had continued stabbing and sharp right upper quadrant/flank pain and came in for further evaluation. He states his body does not normally react like others would and he is worried that he could have some infection or internal bleeding. He denies any urinary symptoms. No fever or chills reported. Denies any changes bowel movements. No nausea or vomiting reported. No other complaints or concerns reported at this time. Does not report any association of pain with eating. 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 Home Medications ???Medication ???Instructions ???Recorded ???Last Taken ???Type cyclobenzaprine 10 mg tablet 10 mg PO BID muscle spasms 5 03/20/19 History aspirin 81 mg tablet,delayed 81 mg PO DAILY 01/14/18 03/20/19 H istory release (Adult Aspirin Regimen) lisinopril 20 mg tablet 20 mg PO DAILY bp 01/14/18 9 History pioglitazone 15 mg tablet (Actos) 15 mg PO DAILY 01/14/18 03/20/19 History glipizide 5 mg tablet 5 mg PO BID 08/25/18 03/20/19 Hist ory albuterol sulfate 90 mcg/actuation 2 puff inhalation BID sob 03/20/19 History aerosol inhaler atorvastatin 40 mg tablet 40 mg PO DAILY #90 tabs 10/21/22 U nknown Rx albuterol sulfate 90 mcg/actuation 2 puff inhalation Q6H PRN Unknown History aerosol inhaler (Ventolin HFA) shortness of breath or wheezing Held on 09/14/24. Instructions: Order Completed furosemide 20 mg tablet (Lasix) 20 mg PO BID 10/27/23 Unknown Hist ory dicyclomine 10 mg capsule 10 mg PO BID PRN abdominal pain Unknown Rx #20 caps pantoprazole 40 mg tablet,delayed 40 mg PO QDAY #60 tabs 09/08/24 U nknown Rx release Allergy/AdvReac Type Severity Reaction Status Date / Time bee pollen AdvReac Severe Anaphylaxis Verified 09/21/24 12:32 hornet venom AdvReac Severe Anaphylaxis Verified 09/21/24 12:32 venom-wasp (wasp venom) AdvReac Severe Anaphylaxis Verified 09/21/24 12:32 adhesive tape AdvReac Intermediate Rash Verified 09/21/24 12:32 Family History Mother Diabetes Hypertension Father Diabetes Hypertension Brother Hypertension Heart disease Surgical History History of carpal tunnel surgery S/P right knee arthroscopy H/O repair of rotator cuff Social History household members: spouse current occupational status: disabled Smoking Status: Current every day smoker tobacco type: cigarettes alcohol intake: never caffeine: Yes Type: carbonated beverages Number of servings: 6 what type of physical activity do you participate in: none ROS ROS ED Constitutional Constitutional ED: Denies chills or fever(s) Cardiovascular Cardiovascular: Denies chest pain Respiratory/Chest Respiratory/Chest: Denies cough or dyspnea Gastrointestinal Gastrointestinal: Reports abdominal pain; Denies diarrhea, nausea or vomiting Genitourinary Genitourinary ED: Denies dysuria or hematuria Musculoskeletal Musculoskeletal: Reports back pain; Denies arthralgias or myalgias Integumentary Denies rash Neurologic Neurologic: Denies paresthesias or weakness Hematologic/Lymphatic Hematologic/Lymphatic: Denies easy bleeding or easy bruising EXAM Physical Exam Const Vital Signs: 09/21/24 12:28 09/21/24 14:27 09/21/24 16:00 Temperature 97.8 F Temperature Source Temporal Pulse Rate 98 88 88 Respiratory (more content not included)... Normal [facility] Eosinophil percentageOrdered By: Dunia Swenson on 09-21-2024 Eosinophils/100 WBC (Bld) 1.8 % 0-5 [facility] Epithelial cells.squamous LM Ql (Urine sed)Ordered By: Dunia Swenson on 09-21-2024 Epithelial cells.squamous LM.HPF (Urine sed) [#/Area] 0 /[HPF] 0-5 [facility] Erythrocyte distribution wid th ratioOrdered By: Dunia Swenson on 09-21-2024 Erythrocyte distribution width (RBC) [Ratio] 15.1 % High 11.6-14.6 [facility] Erythrocyte distribution wid th standard deviationOrdered By: Dunia Swenson on 09-21-2024 Erythrocyte distribution width (RBC) [Entitic vol] 52.6 fL High 35.1-43.9 [facility] Erythrocyte distribution width (RBC) [Ratio] 52.6 fl High 35.1-43.9 [facility] Estimated glomerular filtrat ion rate (GFR) AmericanOrdered By: Dunia Swenson on 09-21-2024 Estimated GFR (MDRD) Amer 88 mL/min >60 [facility] Comment on above: GFR Calc Estimation of creatinine titi aranceOrdered By: Dunia Swenson on 09-21-2024 Estimated Creatinine Clearance Calc 91.52 ml/min [facility] Glomerular filtration rate ( GFR) estimationOrdered By: Dunia Swenson on 09-21-2024 Estimated GFR (MDRD) Non-Af Amer 73 mL/min >60 [facility] Comment on above: Non- GFR Calc GFR/1.73 sq M.predicted among non-blacks MDRD (S/P/Bld) [Vol rate/Area] 73 mL/min/{1.73_m2} >60 [facility] Comment on above: Non- GFR Calc Glucose Ql (U)Ordered By: Merlin Swenson on 09-21-2024 Urine Glucose (UA) Normal mg/dl Normal [facility] Glucose measurementOrdered B y: Dunia Swenson on 09-21-2024 Glucose [Mass/Vol] 236 mg/dL High 74-106 [facility] Comment on above: Glucose result great er than or equal to 200 mg/dLsuggests DIABETES MELLITUS per A.D.A. criteria. Hematocrit Auto (Bld) [Volum e fraction]Ordered By: Dunia Swenson on 09-21-2024 Hematocrit (Bld) [Volume fraction] 47.1 % 40-54 [facility] Hemoglobin measurementOrdere d By: Dunia Swenson on 09-21-2024 Hemoglobin (Bld) [Mass/Vol] 15.1 g/dL 13.0-16.5 [facility] Immature granulocytes/100 WB C Auto (Bld)Ordered By: Dunia Swenson on 09-21-2024 Immature granulocytes/100 WBC (Bld) 0.200 % 0.0-0.9 [facility] Comment on above: IG% - Immature Granu locytes (promyelocytes, myelocytes and metamyelocytes) > 1% indicates that a LEFT SHIFT is Present. Ketones Test strip Ql (U)Ord ered By: Dunia Swenson on 09-21-2024 Ketones Ql (U) Negative Negative [facility] - Chemistry and C hemistry - challengeOrdered By: Dunia Swenson on 09-21-2024 AST [Catalytic activity/Vol] 21 U/L 15-37 [facility] Lipaseon 09-21-2024 Lipase [Catalytic activity/Vol] 42 U/L Low 73-393 [facility] Comment on above: Performed By: #### L 3300.0700 #### [facility] [address] [place], [place], [address] Lipase measurementOrdered By : Dunia Swenson on 09-21-2024 Lipase [Catalytic activity/Vol] 42 U/L Low 73-393 [facility] Liver Profileon 09-21-2024 Albumin [Mass/Vol] 3.4 g/dL Normal 3.2-5.0 [facility] Comment on above: Performed By: #### L 3300.0700 #### [facility] [address] [place], [place], [address] ALK P 108 U/L Normal 45-117 [facility] Comment on above: Performed By: #### L 3300.0700 #### [facility] [address] [place], [address] ALT [Catalytic activity/Vol] 31 U/L Normal 16-61 [facility] Comment on above: Performed By: #### L 3300.0700 #### [facility] [address] [place], [address] AST [Catalytic activity/Vol] 21 U/L Normal 15-37 [facility] Comment on above: Performed By: #### L 3300.0700 #### [facility] [address] [place], [address] Bilirubin [Mass/Vol] 0.40 mg/dL Normal 0.20-1.[address] [facility] Comment on above: Result Comment: For patients on eltrombopag therapy, use of Dimension Watkins TBIL is not recommended. Performed By: #### L 3300.0700 #### [facility] [address] [place], [address] Bilirubin.direct [Mass/Vol] 0.14 mg/dL Normal 0.00-0.30 [facility] Comment on above: Performed By: #### L 3300.0700 #### [facility] [address] [place], [address] Globulin (S) [Mass/Vol] 4.7 g/dL High 2.2-4.2 [facility] Comment on above: Performed By: #### L 3300.0700 #### [facility] [address] [place], [address] T PROT 8.1 g/dL Normal 6.4-8.2 [facility] Comment on above: Performed By: #### L 3300.0700 #### [facility] [address] [place], [address] Lymphocytes Auto (Unsp spec) [#/Vol]Ordered By: Dunia Swenson on 09-21-2024 Lymphocytes (Bld) [#/Vol] 2.45 10*3/uL 0.83-4.51 [facility] Lymphocytes/100 WBC Auto (Un sp spec)Ordered By: Dunia Swenson on 09-21-2024 Lymphocytes/100 WBC (Bld) 28.2 % 19-41 [facility] MCV (mean corpuscular volume ) determinationOrdered By: Dunia Swenson on 09-21-2024 MCV (RBC) [Entitic vol] 94.2 fL High 80-94 [facility] Mean corpuscular hemoglobin (MCH) determinationOrdered By: Dunia Swenson on 09-21-2024 MCH (RBC) [Entitic mass] 30.2 pg 27.0-32.0 [facility] Mean corpuscular hemoglobin concentration (MCHC) determinationOrdered By: Dunia Swenson on 09-21-2024 MCHC (RBC) [Mass/Vol] 32.1 g/dL 32-36 [facility] Mean platelet volume determi nationOrdered By: Dunia wSenson on 09-21-2024 Platelet mean volume (Bld) [Entitic vol] 10.7 fL 6.2-12.0 [facility] Microscopic analysis of urin e for red blood cells (RBC)Ordered By: Dunia Swenson on 09-21-2024 Microscopic analysis of urine for red blood cells (RBC) 0 SEEN /hpf 0-5 [facility] Urine RBC 0 SEEN /hpf 0-5 [facility] Monocyte percentageOrdered B y: Dunia Swenson on 09-21-2024 Monocytes/100 WBC (Bld) 5.2 % 0-10 [facility] Mucus LM Ql (Urine sed)Order ed By: Dunia Swenson on 09-21-2024 Mucus Ql (Urine sed) 0 SEEN /hpf [facility] Neutrophil percentageOrdered By: Dunia Swenson on 09-21-2024 Neutrophils/100 WBC (Bld) 64.3 % 47-70 [facility] Nitrite Test strip Ql (U)Ord ered By: Dunia Swenson on 09-21-2024 Nitrite Ql (U) Negative Negative [facility] Nucleated red blood cell per centageOrdered By: Dunia Swenson on 09-21-2024 Nucleated RBC/100 WBC (Bld) [Ratio] 0 % 0-5 [facility] Platelet countOrdered By: Merlin Swenson on 09-21-2024 Platelets (Bld) [#/Vol] 175 10*3/uL 150-450 [facility] Potassium measurementOrdered By: Dunia Swenson on 09-21-2024 Potassium [Moles/Vol] 4.5 mmol/L 3.5-5.1 [facility] Protein Test strip Ql (U)Ord ered By: Dunia Swenson on 09-21-2024 Protein Ql (U) 15 mg/dl High Negative [facility] RBC Auto (Bld) [#/Vol]Ordere d By: Dunia Swenson on 09-21-2024 RBC (Bld) [#/Vol] 5.00 10*6/uL 4.6-6.2 [facility] Serum anion gap measurementO rdered By: Dunia Swenson on 09-21-2024 Anion gap [Moles/Vol] 7 mmol/L 5-15 [facility] Serum globulin measurementOr dered By: Dunia Swenson on 09-21-2024 Globulin (S) [Mass/Vol] 4.7 g/dL High 2.2-4.2 [facility] Serum or plasma alanine cardoso otransferase (ALT) measurementOrdered By: Dunia Swenson on 09-21-2024 ALT [Catalytic activity/Vol] 31 U/L 16-61 [facility] Serum or plasma albumin theresa urement (mass/volume)Ordered By: Dunia Swenson on 09-21-2024 Albumin [Mass/Vol] 3.4 g/dL 3.2-5.0 [facility] Serum or plasma alkaline mackenzie sphatase measurementOrdered By: Dunia Swenson on 09-21-2024 ALP [Catalytic activity/Vol] 108 U/L 45-117 [facility] Serum or plasma calcium theresa urement (mass/volume)Ordered By: Dunia Swenson on 09-21-2024 Calcium [Mass/Vol] 9.1 mg/dL 8.5-10.1 [facility] Serum or plasma creatinine m easurement (mass/volume)Ordered By: Dunia Swenson on 09-21-2024 Creatinine [Mass/Vol] 1.08 mg/dL 0.70-1.30 [facility] Comment on above: The validity of the calculated GFR & GFRAA in patients over 70 years has not been determined. Clinical correlation is essential. Serum or plasma urea nitroge n measurement (mass/volume)Ordered By: Dunia Swenson on 09-21-2024 Urea nitrogen [Mass/Vol] 12 mg/dL 7-18 [facility] Sodium levelOrdered By: Kane Swenson on 09-21-2024 Sodium [Moles/Vol] 135 mmol/L Low 136-145 [facility] Squamous epithelial cells de tection in urine sediment by light microscopyOrdered By: Dunia Swenson on 09-21-2024 Epithelial cells.squamous LM Ql (Urine sed) 0 SEEN /hpf 0-5 [facility] Total proteinOrdered By: Richa Swenson on 09-21-2024 Protein [Mass/Vol] 8.1 g/dL 6.4-8.2 [facility] Urinalysis, Completeon 09-21 WBC 0-5 SEEN Normal 0-5 [facility] Comment on above: Order Comment: CLEAN CATCH Performed By: #### L 400.0001 #### [facility] [address] [place] [place], [address] BACTERIA 0 SEEN Normal None Seen [facility] Comment on above: Order Comment: CLEAN CATCH Performed By: #### L 400.0001 #### [facility] [address] [place], [address] EPI,SQUAMOUS 0 SEEN Normal 0-5 [facility] Comment on above: Order Comment: CLEAN CATCH Performed By: #### L 400.0001 #### [facility] [address] [place], [address] Mucus Ql (Urine sed) [address] [facility] Comment on above: Order Comment: CLEAN CATCH Performed By: #### L 400.0001 #### [facility] [address] [place], [address] RBC 0 SEEN Normal 0-5 [facility] Comment on above: Order Comment: CLEAN CATCH Performed By: #### L 400.0001 #### [facility] [address] [place], [address] Urine blood detectionOrdered By: Dunia Swenson on 09-21-2024 Urine Occult Blood Negative Negative [facility] Urine clarityOrdered By: Richa Swenson on 09-21-2024 Clarity (U) Clear Clear [facility] Urine color determinationOrd ered By: Dunia Swenson on 09-21-2024 Color (U) Yellow Yellow [facility] Urine glucose detectionOrder ed By: Dunia Swenson on 09-21-2024 Glucose Ql (U) Normal mg/dl Normal [facility] Urine leukocyte esterase det ection by dipstickOrdered By: Dunia Swenson on 09-21-2024 Leukocyte esterase Test strip Ql (U) 25 /ul High Negative [facility] Urine pHOrdered By: Dunia tan on 09-21-2024 pH (U) 7.0 [pH] 5.0 - 8.0 [facility] Urine sediment bacteria coun t by microscopy (number/high power field)Ordered By: Dunia Swenson on 09-21-2024 Bacteria LM.HPF (Urine sed) [#/Area] 0 /[HPF] None Seen [facility] Urine specific gravity measu rementOrdered By: Dunia Swenson on 09-21-2024 Specific gravity (U) [Rel density] 1.005 1.002-1.03 0 [facility] Urine urobilinogen measureme ntOrdered By: Dunia Swenson on 09-21-2024 Urobilinogen Ql (U) Normal mg/dl Normal [facility] Urobilinogen Ql (U)Ordered B y: Dunia Swenson on 09-21-2024 Urine Urobilinogen Normal mg/dl Normal [facility] White blood cell (WBC) count Ordered By: Dunia Swenson on 09-21-2024 WBC (Bld) [#/Vol] 8.7 10*3/uL 4.4-11.0 [facility] White blood cell countOrdere d By: Dunia Swenson on 09-21-2024 Urine WBC 0-5 SEEN /hpf 0-5 [facility] White blood cell count 0-5 SEEN /hpf 0-5 [facility] Activated partial thrombopla stin time (aPTT) in platelet poor plasma by coagulation aOrdered By: Taylor Mclaughlin on 09-14-2024 aPTT Coag (PPP) [Time] 31.4 s 24.1-36.[address] [facility] International normalized rat io (INR) calculationOrdered By: Taylor Mclaughlin on 09-14-2024 INR Coag (Bld) [Relative time] 1.0 {INR} [facility] Operative Reporton Operative Report [facility] Medical Records Department [address] [place] [address] Operative Report 09/14/24 1104 MR#: [id number] Acct: [id number] Name: JEANNE RIVERS Rep #: [id number] : 1960 64 From: Leydi Moncada DISTRI[employer]ISING [employer] PCP: Dr. Edilia Remy MD Status:[facility] Location: CT Problems Associated Problem List Diagnoses (1) Fatty liver: Multi Select Codes Radiology Radiology CT Procedures: 13131 Biopsy Liver and 23224-86 CT guidance parenchymal tissue Operative Report (Standard) Operative Information Date of Procedure: 09/14/24 Pre-Operative Diagnosis: Fatty liver Post-Operative Diagnosis: Fatty liver Surgery/Procedure Performed: CT-guided liver biopsy stone gluer: No Type of Anesthesia: IV Sedation and Local Procedure Start Time: 10:36 Procedure Stop Time: 10:57 Select all DRAINS/GRAFTS/IMPLANTS that apply: None Estimated Blood Loss: 0 Specimen collected: Yes Description of specimen(s) removed: For core biopsies Description of surgery: PROCEDURE: CT DIRECTED CORE LIVER BIOPSY ORDERING PROVIDER: Kaia Amador CNP INDICATION: Male, 64 years old. Fatty liver. PROVIDER: Leydi Moncada CNP CONSENT: Written informed consent was obtained having explained the risks, benefits and alternatives in detail with the patient who accepted the risks and agreed to proceed. Laboratory review and clinical assessment was performed. PRE-PROCEDURE SEDATION ASSESSMENT: Current history and physical dictated by referring provider and reviewed. No clinical changes since date of exam. Patient has a Mallampati Score of Class 3 and ASA Class of 3. PROCEDURAL SEDATION PROTOCOL: The Drugs used were: 2 mg Versed, IV, and 100 mcg Fentanyl, IV. The sedation time was: starting at 10:36 AM and terminated at 10:57 AM. The procedural sedation protocol was independently monitored by the department nurse. RADIATION DOSAGE (If Supplied By Facility): CTDIvol = 22.06 mGy, DLP = 556.51 mGycm Individualized dose optimization techniques were used for this CT. TECHNIQUE The patient was placed in a supine position. Using CT image guidance with image documentation, a suitable location in the left lobe of the liver was identified. The skin surface was prepped with chlorhexidine and draped in a sterile fashion. 2% lidocaine was used for local anesthesia. Using an anterior approach, puncture of the liver was uneventful with an 18-gauge core needle system. 4, 18- gauge core samples were obtained, and submitted in formalin to the pathologist for further assessment. The needle was removed. An occlusive sterile dressing was applied. Patient tolerated the procedure well, and returned to the holding bay for nursing monitoring. IMPRESSION: CT directed core needle biopsy of the liver, using CT image guidance with image documentation as described. Procedural Sedation protocol utilized with independent monitoring. Surgical Findings: None Complications Complications: No 09/14/24 1108 Cosigner Signature (if applicable): CC: RADHA Moncada; Dr. Edilia Remy MD; GORDON Vieira Signed Normal [facility] Partial Thromboplast Timeon 09-14-2024 aPTT Coag (Bld) [Time] 31.4 s Normal 24.1-36.[address] [facility] Comment on above: Performed By: #### L 500.3400, L100.0100, L501.2450, L500.2500 #### [facility] [address] [place], [address] Platelet Counton 09-14-2024 Platelets (Bld) [#/Vol] 171 10*3/uL Normal 150-450 [facility] Comment on above: Performed By: #### L 500.3400, L100.0100, L501.2450, L500.2500 #### [facility] [address] [place], [address] Platelet countOrdered By: Marilyn Mclaughlin on 09-14-2024 Platelets (Bld) [#/Vol] 171 10*3/uL 150-450 [facility] Prothrombin Time w/INRon INR Coag (PPP) [Relative time] 1.0 {INR} Normal [facility] Comment on above: Performed By: #### L 500.3400, L100.0100, L501.2450, L500.2500 #### [facility] [address] [place], [address] PT Coag (PPP) [Time] 13.3 s Normal 11.7-14.[address] [facility] Comment on above: Performed By: #### L 500.3400, L100.0100, L501.2450, L500.2500 #### [facility] [address] [place], [address] Prothrombin timeOrdered By: Taylor Mclaughlin on 09-14-2024 PT Coag (PPP) [Time] 13.3 s 11.7-14.[address] [facility] Surgery Specimen Level Von 0 09-14-2024 Surgery Specimen Level V Patient Age/Sex Location Account Attending Physician JEANNE RIVERS 64/M CT [id number] GORDON Vieira Specimen: [id number] Received: 09/14/24 Status: DAWN Alessandro Num: [id number] Spec Type: LIVER BX Subm Dr: GORDON Vieira HEADER OPERATION: CT guided liver biopsy PRE-OP DIAGNOSIS: Fatty liver TISSUE SUBMITTED: 18 cores x4 cores MICROSCOPIC DIAGNOSIS Liver Core Biopsies, CT Guided: a. 3 Large liver core biopsies and smaller fragments with adequate portal tracts for evaluation b. Predominant Pattern: Steatotic, both macro- and micro- c. Lymphocytic inflammation in portal tracts with very little interface hepatitis (Stage 2) d. Bridging Fibrosis (Grade 3) e. Occasional bile duct proliferation is present f. No hepatocyte necrosis or malignancy (See Microscopic Description and Comment) FLOYD, 09/14/2024 COMMENT The differential diagnosis for the steatotic pattern includes non-alcoholic steatohepatitis (MAJOR), drug induced hepatitis, and Stanley disease. Correlation should be made with patient history, radiologic studies, and laboratory findings. Dr. Amalia Harrison has reviewed this case and agrees with the diagnosis. MICROSCOPIC DESCRIPTION Slides are reviewed. No cholestasis identified. A reticulin stain with controls shows the hepatocyte plates to be of appropriate thickness. An Iron stain with controls shows no iron deposition. PAS stains with and without diastase and appropriate controls shows glycogen and no PAS positive/diastase resistant material. A trichrome stain shows some periportal fibrosis. GROSS DESCRIPTION Received in fixative is one container labeled with the patient's name and designated Liver biopsy. The specimen consists of three cores of red tissue and several smaller fragments. The main cores measure in aggregate 1.3 x 0.1cm, 1.5 x 0.1cm and 1.3 x 0.1cm. The smaller fragments measuring in aggregate 1 x 0.5 x 0.1cm. The entire specimen is submitted in two cassettes. 09/14/2024 TC:3 CPT:88116 Patient Age/Sex Location Account Attending Physician JEANNE RIVERS 64/M CT [id number] GORDON Vieira Signed (signature on file) Dr. Josh Martino MD 09/18/24 0943 Normal [facility] Comment on above: Performed By: #### L 500.3400, L100.0100, L501.2450, L500.2500 #### [facility] [address] [place], [place], [address] aPTT Coag (PPP) [Time]Ordere d By: Taylor Mclaughlin on 09-14-2024 aPTT Coag (Bld) [Time] 31.4 s 24.1-36.[address] [facility] ABD Limited w/ Elastographyo n 08-29-2024 ABD Limited w/ Elastography [facility] Imaging Services [address] [place] [address] ABD Limited w/ Elastography MR#: [id number] Acct: [id number] Name: JEANNE RIVERS Rep #: [id number] : 1960 M 64 From: Yosi edwards MD PCP: Dr. Edilia Remy MD Status: REG CLI Study: ABD Limited w/ Elastography Date of Exam: 08/16 12/08 Exam# [id number] Ordering Dr: Marjorie Marti PA [id number] STUDY: ABDOMINAL ULTRASOUND - RIGHT UPPER QUADRANT; ELASTOGRAPHY REASON FOR VISIT: Male, 64 years old. Fatty infiltration of the liver. TECHNIQUE: Ultrasound evaluation of the right upper quadrant was performed with real-time and static garcia-scale imaging. Point quantification shear wave elastography was performed (Warwick Warp). TECHNICAL QUALITY: Adequate. COMPARISON: Comparison is made with prior study dated November 02, 2023. FINDINGS: Liver: The liver is mildly enlarged and measures 18.1 cm. There is increased echogenicity consistent with fatty infiltration. The bile ducts are within normal limits. There is hepatic color flow. The direction of portal flow is hepatopetal. There is no demonstrated mass lesion. Median liver stiffness measured 10.5 kPa. Gallbladder: Normal distended gallbladder. The gallbladder wall measures 3 mm. There is a negative sonographic Chapa''s sign. There is no pericholecystic fluid. There are no gallstones. Common Bile Duct (C.B.D.): The common bile duct measures 6 mm. Pancreas: There is normal echogenicity of the visualized pancreas. There is no demonstrated pancreatic mass or cyst. Right Kidney: Normal size of the right kidney. The right kidney measures 13.6 cm x 6.7 cm x 5.9 cm. Normal renal cortex. The right cortex measures 1.4 cm. There is no demonstrated renal mass or cyst. There is no right hydronephrosis. US/ABD Limited w/ Elastography IMPRESSION: 1. Liver stiffness measures 10.5 kPa compatible with F2-F3 (Mild to moderate liver fibrosis) Metavir score. Electronically Signed: Yosi Calderon MD at 14:35 EST , CC: Dr. Edilia Remy MD; GORDON Vieira Director Recreation: Signed Normal [facility] 08-23-2024 Atypical pANCA <1:20 Normal Neg:<1:20 [facility] Comment on above: Order Comment: Test( s) 009289-Olkomr, Serum or Plasmawas developed and its performance characteristicsdetermined by [employer]. It has not been cleared or approvedby the Food and Drug Administration. Result Comment: The atypical pANCA pattern has been observed in a significant percentage of patients with ulcerative colitis, primary sclerosing cholangitis and autoimmune hepatitis. Performed By: #### P SUIV #### [facility] [address] [place], [place], [address] Cytoplasmic Ab <1:20 Normal Neg:<1:20 [facility] Comment on above: Order Comment: Test( s) 151104-Ufdugp, Serum or Plasmawas developed and its performance characteristicsdetermined by [employer]. It has not been cleared or approvedby the Food and Drug Administration. Performed By: #### P SUIV #### [facility] [address] [place], [place], [address] Perinuclear Ab. <1:20 Normal Neg:<1:20 [facility] Comment on above: Order Comment: Test( s) 323970-Wkapmt, Serum or Plasmawas developed and its performance characteristicsdetermined by [employer]. It has not been cleared or approvedby the Food and Drug Administration. Result Comment: The presence of positive fluorescence exhibiting P-ANCA or C-ANCA patterns alone is not specific for the diagnosis of Haley's Granulomatosis (WG) or microscopic polyangiitis. Decisions about treatment should not be based solely on ANCA IFA results. The International ANCA Group Consensus recommends follow up testing of positive sera with both CO- 3 and MPO-ANCA enzyme immunoassays. As many as 5% serum samples are positive only by EIA. Ref. AM J Clin Pathol 1999;111:507-513. Performed By: #### P SUIV #### [facility] [address] [place], [place], [address] Angiotensin Convert Enzymeon 08-23-2024 ANGIOT-CONV.ENZ < 15 Normal 14-82 [facility] Comment on above: Order Comment: Test( s) 122981-Fcxgss, Serum or Plasmawas developed and its performance characteristicsdetermined by [facility]. It has not been cleared or approvedby the Food and Drug Administration. Performed By: #### P SUIV #### [facility] [address] [place], [place], [address] Anti-Smooth Muscle ABSon ANTISMOOTH MUSC 4 Units Normal 0-19 [facility] Comment on above: Order Comment: Test( s) 306839-Qsnetr, Serum or Plasmawas developed and its performance characteristicsdetermined by [facility]. It has not been cleared or approvedby the Food and Drug Administration. Result Comment: Nega tive 0 - 19 Weak positive 20 - 30 Moderate to strong positive >30 Actin Antibodies are found in 52-85% of patients with autoimmune hepatitis or chronic active hepatitis and in 22% of patients with primary biliary cirrhosis. Performed By: #### P SUIV #### [facility] [address] [place], [place], [id number] (568) Ceruloplasminon 08-23-2024 CERULOPLASMIN 29.5 mg/dL Normal 16.0-31.0 [facility] Comment on above: Order Comment: Test( s) 963382-Vfelbo, Serum or Plasmawas developed and its performance characteristicsdetermined by [employer]. It has not been cleared or approvedby the Food and Drug Administration. Performed By: #### P SUIV #### [facility] [address] [place], [address] Copper, Serum or Plasmaon COPPER, SERUM 100 ug/dL Normal 69-132 [facility] Comment on above: Order Comment: Test( s) 595544-Sikonp, Serum or Plasmawas developed and its performance characteristicsdetermined by [employer]. It has not been cleared or approvedby the Food and Drug Administration. Result Comment: Dete ction Limit = 5 Performed By: #### P SUIV #### [facility] [address] [place], [address] Haptoglobinon 08-23-2024 HAPTOGLOBIN 266 mg/dL Normal 32-363 [facility] Comment on above: Order Comment: Test( s) 688022-Ybwbdp, Serum or Plasmawas developed and its performance characteristicsdetermined by [facility]. It has not been cleared or approvedby the Food and Drug Administration. Performed By: #### P SUIV #### [facility] [address] [place], [address] Hepatitis Panel Acuteon -0 COMMENT Comment Normal . [facility] Comment on above: Order Comment: Test( s) 800171-Henvud, Serum or Plasmawas developed and its performance characteristicsdetermined by [facility]. It has not been cleared or approvedby the Food and Drug Administration. Result Comment: Not infected with HCV unless early or acute infection is suspected (which may be delayed in an immunocompromised individual), or other evidence exists to indicate HCV infection. Performed By: #### P SUIV #### [facility] [address] [place], [address] HEP B CORE,IgM Negative Normal Negative [facility] Comment on above: Order Comment: Test( s) 923783-Kkvsof, Serum or Plasmawas developed and its performance characteristicsdetermined by [facility]. It has not been cleared or approvedby the Food and Drug Administration. Performed By: #### P SUIV #### [facility] [address] [place], [address] HEP B SURF AG Negative Normal Negative [facility] Comment on above: Order Comment: Test( s) 354107-Bjgfcn, Serum or Plasmawas developed and its performance characteristicsdetermined by [facility]. It has not been cleared or approvedby the Food and Drug Administration. Performed By: #### P SUIV #### [facility] [address] [place], [address] HEP C VIRUS AB Non-Reactive Normal Non Reactive [facility] Comment on above: Order Comment: Test( s) 364680-Okjblm, Serum or Plasmawas developed and its performance characteristicsdetermined by [facility]. It has not been cleared or approvedby the Food and Drug Administration. Performed By: #### P SUIV #### [facility] [address] [place], [address] HEPATITIS A-IgM Negative Normal Negative [facility] Comment on above: Order Comment: Test( s) 497674-Vkcfen, Serum or Plasmawas developed and its performance characteristicsdetermined by [facility]. It has not been cleared or approvedby the Food and Drug Administration. Result Comment: A ne gative anti-HAV IgM result suggests no recent or current HAV infection. Performed By: #### P SUIV #### [facility] [address] [place], [address] Transferrinon 08-23-2024 Transferrin [Mass/Vol] 307 mg/dL Normal 177-[address] [facility] Comment on above: Order Comment: Test( s) 655941-Fuxjcm, Serum or Plasmawas developed and its performance characteristicsdetermined by [employer]. It has not been cleared or approvedby the Food and Drug Administration. Result Comment: Perf ormed at: [address] [id number] Criminal Justice Program Director: Americo Bradford PhD, Phone: [phone] Performed at: [facility] [id number] Criminal Justice Program Director: Leland Byrne MD, Phone: [phone] Performed By: #### P SUIV #### [facility] [address] [place], [address] DIDI Comprehensive Panelon DIDI TABLE Comment Normal . [facility] Comment on above: Result Comment: Auto antibody Disease Association Condition Frequency --------- Antinuclear Antibody, SLE, mixed connective Direct (DIDI-D) tissue diseases --------- dsDNA SLE 40 - 60% --------- Chromatin Drug induced SLE 90% SLE 48 - 97% --------- SSA (Ro) SLE 25 - 35% Sjogren's Syndrome 40 - 70% Lupus 100% --------- SSB (La) SLE 10% Sjogren's Syndrome 30% --------- Sm (anti-Sanchez) SLE 15 - 30% --------- [employer] Mixed Connective Tissue Disease 95% (U1 nRNP, SLE 30 - 50% anti-ribonucleoprotein) Polymyositis and/or Dermatomyositis 20% --------- Scl-70 (antiDNA Scleroderma (diffuse) 20 - 35% topoisomerase) Crest 13% --------- Pham-1 Polymyositis and/or Dermatomyositis 20 - 40% --------- Centromere B Scleroderma - Crest variant 80% Performed By: #### L 3400.0700, L800.1280, L3100.1850, L300.3900, L3100.5440, L501.6710, L3100.6900, L503.5510, L3300.0100, L503.6075, L501.9985, L101.9900, L500.4050, L3000.0375, L803.2200, L100.0100, L500.4100, L503.6550, L3300.1200, L3400.3800, L504.2610 #### [facility] [address] [place], [address] Anti-Mitochondrial ABon 01-0 ANTIMITOCHON AB 57.8 Units Abnormal 0.0-20.0 [facility] Comment on above: Result Comment: Nega tive 0.0 - 20.0 Equivocal 20.1 - 24.9 Positive >24.9 Mitochondrial (M2) Antibodies are found in 90-96% of patients with primary biliary cirrhosis. Performed at: [address] [id number] Criminal Justice Program Director: Americo Bradford PhD, Phone: [phone] Performed By: #### P SUIV #### [facility] [address] [place], [address] Absolute neutrophil countOrd ered By: Marjorie Marti on 08-17-2024 Neutrophils (Bld) [#/Vol] 6.3 10*3/uL 2.0-7.7 [facility] Actin IgG QnOrdered By: Og Marti on 08-17-2024 Anti-Smooth Muscle Antibody 4 Units 0-19 [facility] Comment on above: Negative 0 - 19 Weak positive 20 - 30 Moderate to strong positive >30 Actin Antibodies are found in 52-85% of patients with autoimmune hepatitis or chronic active hepatitis and in 22% of patients with primary biliary cirrhosis. Albumin to globulin ratioOrd ered By: Marjorie Marti on 08-17-2024 Albumin/Globulin [Mass ratio] 0.7 {ratio} Low 0.9-2.4 [facility] Ammoniaon 08-17-2024 Ammonia (P) [Moles/Vol] 31.0 umol/L Normal 11-32 [facility] Comment on above: Performed By: #### P SUIV #### [facility] [address] [place], [place] [address], [place], [id number] Atypical perinuclear antineu trophil cytoplasmic antibodies measurementOrdered By: Marjorie Marti on 08-17-2024 Atypical p-ANCA <1:20 titer Neg:<1:20 [facility] Comment on above: The atypical pANCA p attern has been observed in asignificant percentage of patients with ulcerative colitis,primary sclerosing cholangitis and autoimmune hepatitis. Basophil percentageOrdered B y: Marjorie Marti on 08-17-2024 Basophils/100 WBC (Bld) 0.5 % 0-1 [facility] Bilirubin, totalOrdered By: Marjorie Marti on 08-17-2024 Bilirubin [Mass/Vol] 0.50 mg/dL 0.20-1.[address] [facility] Comment on above: For patients on eltr ombopag therapy, use of Dimension Watkins TBIL is not recommended. Blood urea nitrogen (BUN)/cr eatinine ratioOrdered By: Marjorie Marti on 08-17-2024 Urea nitrogen/Creatinine [Mass ratio] 11.9 mg/mg 10-20 [facility] C-reactive protein measureme nt by high sensitivity methodOrdered By: Marjorie Marti on 08-17-2024 C-Reactive Protein Extended Range < 2.90 mg/L 0.0-3.0 [facility] Comment on above: C-Reactive Protein ( CRP) provides useful information for thediagnosis, therapy and monitoring of inflammatory processesand associated diseases. For the evaluation of Relative Riskfor Cardiovascular Disease, a High Sensitivity CRP (HSCRP)should be ordered. CBC W/Diff, Automatedon Absolute Lymph 2.69 X10 3/uL Normal 0.83-4.51 [facility] Comment on above: Performed By: #### P SUIV #### [facility] [address] [place], [address] Absolute Neut 6.3 X10 3/uL Normal 2.0-7.7 [facility] Comment on above: Performed By: #### P SUIV #### [facility] [address] [place], [address] Basophils/100 WBC (Bld) 0.5 % Normal 0-1 [facility] Comment on above: Performed By: #### P SUIV #### [facility] [address] [place], [address] Eosinophils/100 WBC (Bld) 2.0 % Normal 0-5 [facility] Comment on above: Performed By: #### P SUIV #### [facility] [address] [place], [address] Erythrocyte distribution width (RBC) [Ratio] 15.7 % High 11.6-14.6 [facility] Comment on above: Performed By: #### P SUIV #### [facility] [address] [place], [address] Hematocrit (Bld) [Volume fraction] 48.3 % Normal 40-54 [facility] Comment on above: Performed By: #### P SUIV #### [facility] [address] [place], [address] Hemoglobin (Bld) [Mass/Vol] 15.5 g/dL Normal 13.0-16.5 [facility] Comment on above: Performed By: #### P SUIV #### [facility] [address] [place], [address] IG% 0.200 Normal 0.0-0.9 [facility] Comment on above: Result Comment: IG% - Immature Granulocytes (promyelocytes, myelocytes and metamyelocytes) > 1% indicates that a LEFT SHIFT is Present. Performed By: #### P SUIV #### [facility] [address] [place], [address] Lymphocytes/100 WBC (Bld) 27.9 % Normal 19-41 [facility] Comment on above: Performed By: #### P SUIV #### [facility] [address] [place], [address] MCH (RBC) [Entitic mass] 29.9 pg Normal 27.0-32.0 [facility] Comment on above: Performed By: #### P SUIV #### [facility] [address] [place], [address] MCHC (RBC) [Mass/Vol] 32.1 g/dL Normal 32-36 [facility] Comment on above: Performed By: #### P SUIV #### [facility] [address] [place], [address] MCV (RBC) [Entitic vol] 93.2 fL Normal 80-94 [facility] Comment on above: Performed By: #### P SUIV #### [facility] [address] [place], [address] Monocytes/100 WBC (Bld) 4.5 % Normal 0-10 [facility] Comment on above: Performed By: #### P SUIV #### [facility] [address] [place], [address] Neutrophils/100 WBC (Bld) 64.9 % Normal 47-70 [facility] Comment on above: Performed By: #### P SUIV #### [facility] [address] [place], [address] Nucleated RBC (Bld) [#/Vol] 0 10*3/uL Normal 0-5 [facility] Comment on above: Performed By: #### P SUIV #### [facility] [address] [place], [address] Platelet mean volume (Bld) [Entitic vol] 10.2 fL Normal 6.2-12.0 [facility] Comment on above: Performed By: #### P SUIV #### [facility] [address] [place], [address] Platelets (Bld) [#/Vol] 216 10*3/uL Normal 150-450 [facility] Comment on above: Performed By: #### P SUIV #### [facility] [address] [place], [address] RBC (Bld) [#/Vol] 5.18 10*6/uL Normal 4.6-6.2 [facility] Comment on above: Performed By: #### P SUIV #### [facility] [address] [place], [address] RDW SD 53.5 fl High 35.1-43.9 [facility] Comment on above: Performed By: #### P SUIV #### [facility] [address] [place], [address] WBC (Bld) [#/Vol] 9.7 10*3/uL Normal 4.4-11.0 [facility] Comment on above: Performed By: #### P SUIV #### [facility] [address] [place], [address] CRPon 08-17-2024 C-REACTIVE PROT < 2.90 Normal 0.0-3.0 [facility] Comment on above: Order Comment: 1 Result Comment: C-Re active Protein (CRP) provides useful information for the diagnosis, therapy and monitoring of inflammatory processes and associated diseases. For the evaluation of Relative Risk for Cardiovascular Disease, a High Sensitivity CRP (HSCRP) should be ordered. Performed By: #### P SUIV #### [facility] [address] [place], [place], [address] Carbon dioxide measurementOr dered By: Marjorie Marti on 08-17-2024 CO2 [Moles/Vol] 34.0 mmol/L High 21.0-32.0 [facility] Centromere B antibody assayO rdered By: Marjorie Marti on 08-17-2024 Centromere B Antibody <0.2 AI 0.0-0.9 [facility] Comment on above: Previous reported re sult: TNP AIEdited by: DEVORAH on 08/21/24:1407 AMENDED REPORT 08/21/24 140 ANTI-CENT B previously reported as: Test not performed CeruloplasminOrdered By: Christine Marti on 08-17-2024 Ceruloplasmin 29.5 mg/dL 16.0-31.0 [facility] Chloride measurementOrdered By: Marjorie Marti on 08-17-2024 Chloride [Moles/Vol] 95 mmol/L Low 98-[address] [facility] Chromatin antibody assayOrde red By: Marjorie Marti on 08-17-2024 Antichromatin Antibodies <0.2 AI 0.0-0.9 [facility] Comment on above: Previous reported re sult: TNP AIEdited by: DEVORAH on 08/21/24:1407 AMENDED REPORT 08/21/24 1407 ANTICHROMATIN previously reported as: Test not performed Comprehensive Metabolic Prof ilon 08-17-2024 Albumin [Mass/Vol] 3.5 g/dL Normal 3.2-5.0 [facility] Comment on above: Order Comment: 1 Performed By: #### P SUIV #### [facility] [address] [place], [address] Albumin/Globulin [Mass ratio] 0.7 {ratio} Low 0.9-2.4 [facility] Comment on above: Order Comment: 1 Performed By: #### P SUIV #### [facility] [address] [place], [address] ALK P 104 U/L Normal 45-117 [facility] Comment on above: Order Comment: 1 Performed By: #### P SUIV #### [facility] [address] [place], [address] ALT [Catalytic activity/Vol] 29 U/L Normal 16-61 [facility] Comment on above: Order Comment: 1 Performed By: #### P SUIV #### [facility] [address] [place], [address] AST [Catalytic activity/Vol] 22 U/L Normal 15-37 [facility] Comment on above: Order Comment: 1 Performed By: #### P SUIV #### [facility] [address] [place], [address] Bilirubin [Mass/Vol] 0.50 mg/dL Normal 0.20-1.[address] [facility] Comment on above: Order Comment: 1 Result Comment: For patients on eltrombopag therapy, use of Dimension Watkins TBIL is not recommended. Performed By: #### P SUIV #### [facility] [address] [place], [address] BUN/CRE 11.9 RATIO Normal 10-20 [facility] Comment on above: Order Comment: 1 Performed By: #### P SUIV #### [facility] [address] [place], [address] CA,Total 8.9 mg/dL Normal 8.5-10.1 [facility] Comment on above: Order Comment: 1 Performed By: #### P SUIV #### [facility] [address] [place], [address] Chloride [Moles/Vol] 95 mmol/L Low 98-[address] [facility] Comment on above: Order Comment: 1 Performed By: #### P SUIV #### [facility] [address] [place], [address] CO2 [Moles/Vol] 34.0 mmol/L High 21.0-32.0 [facility] Comment on above: Order Comment: 1 Performed By: #### P SUIV #### [facility] [address] [place], [address] Creatinine [Mass/Vol] 1.09 mg/dL Normal 0.70-1.30 [facility] Comment on above: Order Comment: 1 Result Comment: The validity of the calculated GFR GFRAA in patients over 70 years has not been determined. Clinical correlation is essential. Performed By: #### P SUIV #### [facility] [address] [place], [address] EST GFR - AA 88 mL/min Normal >60 [facility] Comment on above: Order Comment: 1 Result Comment: Afri can Chinese GFR Calc Performed By: #### P SUIV #### [facility] [address] [place], [address] GAP 5 Normal 5-15 [facility] Comment on above: Order Comment: 1 Performed By: #### P SUIV #### [facility] [address] [place], [address] GFR/1.73 sq M.predicted among non-blacks MDRD (S/P/Bld) [Vol rate/Area] 72 mL/min/{1.73_m2} Normal >60 [facility] Comment on above: Order Comment: 1 Result Comment: Non- GFR Calc Performed By: #### P SUIV #### [facility] [address] [place], [address] Globulin (S) [Mass/Vol] 4.9 g/dL High 2.2-4.2 [facility] Comment on above: Order Comment: 1 Performed By: #### P SUIV #### [facility] [address] [place], [address] Glucose [Mass/Vol] 225 mg/dL High 74-106 [facility] Comment on above: Order Comment: 1 Result Comment: Gluc ose result greater than or equal to 200 mg/dL suggests DIABETES MELLITUS per A.D.A. criteria. Performed By: #### P SUIV #### [facility] [address] [place], [address] Potassium [Moles/Vol] 3.7 mmol/L Normal 3.5-5.1 [facility] Comment on above: Order Comment: 1 Performed By: #### P SUIV #### [facility] [address] [place], [address] Sodium [Moles/Vol] 134 mmol/L Low 136-145 [facility] Comment on above: Order Comment: 1 Performed By: #### P SUIV #### [facility] [address] [place], [address] T PROT 8.4 g/dL High 6.4-8.2 [facility] Comment on above: Order Comment: 1 Performed By: #### P SUIV #### [facility] [address] [place], [address] Urea nitrogen [Mass/Vol] 13 mg/dL Normal 7-18 [facility] Comment on above: Order Comment: 1 Performed By: #### P SUIV #### [facility] [address] [place], [address] Copper, serumOrdered By: Christine Marti on 08-17-2024 Serum Copper 100 ug/dL 69-132 [facility] Comment on above: Detection Limit = 5 DNA double strand Ab Qn (S)O rdered By: Marjorie Marti on 08-17-2024 Anti-Double Strand DNA Antibody <1 IU/mL 0-9 [facility] Comment on above: Negative <5 Equivoca l 5 - 9 Positive >9Previous reported result: TNP IU/mLEdited by: DEVORAH on 08/21/24:1407 AMENDED REPORT 08/21/24 1407 dsDNA AB previously reported as: Test not performed Eosinophil percentageOrdered By: Marjorie Marti on 08-17-2024 Eosinophils/100 WBC (Bld) 2.0 % 0-5 [facility] Erythrocyte Sed Rateon 08-17 SED RATE 23 mm/hr High 0-20 [facility] Comment on above: Performed By: #### P SUIV #### [facility] [address] [place], [address] Erythrocyte distribution wid th ratioOrdered By: Marjorie Marti on 08-17-2024 Erythrocyte distribution width (RBC) [Ratio] 15.7 % High 11.6-14.6 [facility] Erythrocyte distribution wid th standard deviationOrdered By: Marjorie Marti on 08-17-2024 Erythrocyte distribution width (RBC) [Entitic vol] 53.5 fL High 35.1-43.9 [facility] Erythrocyte sedimentation ra teOrdered By: Marjorie Marti on 08-17-2024 ESR (Bld) [Velocity] 23 mm/h High 0-[address] [facility] Estimated glomerular filtrat ion rate (GFR) AmericanOrdered By: Marjorie Marti on 08-17-2024 Estimated GFR (MDRD) Amer 88 mL/min >60 [facility] Comment on above: GFR Calc Ferritinon 08-17-2024 Ferritin [Mass/Vol] 51 ng/mL Normal 26-388 [facility] Comment on above: Order Comment: 1 Performed By: #### P SUIV #### [facility] [address] [place], [address] Ferritin measurementOrdered By: Marjorie Marti on 08-17-2024 Ferritin [Mass/Vol] 51 ng/mL 26-388 [facility] Gastroenterology Visit Repor ton 08-17-2024 Gastroenterology Visit Report [facility] [address] [address] OFFICE VISIT Date of Service: 08/17/24 MR#: [id number] Acct: [id number] Name: JEANNE RIVERS Rep #: [id number] : 1960 Provider: GORDON Vieira Age/Sex: 64/M Location: [facility] [place] Status: Signed Intake Vital Signs 10/27/23 14:23 Height 5 ft 11 in Intake Visit Reasons: Right side pain Chief Complaint: abd pain Allergies bee pollen Adverse Reaction (Severe, Verified 08/14/24 16:24) Anaphylaxis hornet venom Adverse Reaction (Severe, Verified 08/14/24 16:24) Anaphylaxis venom-wasp (wasp venom) Adverse Reaction (Severe, Verified 08/14/24 16:24) Anaphylaxis adhesive tape Adverse Reaction (Intermediate, Verified 08/14/24 16:24) Rash Medications ???Medication ???Instructions ???Recorded ???Confirmed ???Type cyclobenzaprine 10 mg tablet 10 mg PO BID muscle spasms 02/27/15 08/14/24 History aspirin 81 mg tablet,delayed 81 mg PO DAILY 01/14/18 08/14/24 History release (Adult Aspirin Regimen) lisinopril 20 mg tablet 20 mg PO DAILY bp 01/14/18 08/14/24 History pioglitazone 15 mg tablet (Actos) 15 mg PO DAILY 01/14/18 08/14/24 History glipizide 5 mg tablet 5 mg PO BID 08/25/18 08/14/24 History albuterol sulfate 90 mcg/actuation 2 puff inhalation BID sob 03/20/19 08/14/24 History aerosol inhaler lidocaine 5 % topical ointment 1 applic topical TID #30 grams 05/08/19 Rx atorvastatin 40 mg tablet 40 mg PO DAILY #90 tabs 10/21/22 08/14/24 Rx oxycodone-acetaminophen 5 mg-325 1 tab PO Q6H pain 3 days #12 tabs 05/15/23 Rx mg tablet (Percocet) potassium chloride 20 mEq 40 meq (2 x 20 mEq) PO DAILY #14 05/29/23 08/14/24 Rx tablet,extended release tabs albuterol sulfate 90 mcg/actuation 2 puff inhalation Q6H PRN 06/18/23 08/14/24 History aerosol inhaler (Ventolin HFA) occjpxqr-qrrczaiss-nyszofqg 3.5 1 drp ophthalmic (eye) Q12H 06/18/23 08/14/24 History mg/mL-10,000 unit/mL-0.1% eye drops furosemide 20 mg tablet (Lasix) 20 mg PO BID 10/27/23 08/14/24 History dicyclomine 10 mg capsule 10 mg PO BID PRN abdominal pain 08/17/24 08/17/24 Rx #20 caps Have you fallen in the past year?: No Nurse's Note: 08.17.24 Pt here for f/u from hospital for abdominal pain. Reports BM daily. Denies N/V/D/C and bloody stools. Prior hx of colonoscopy years ago. No hx of EGD. 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 Surgical History History of carpal tunnel surgery S/P right knee arthroscopy H/O repair of rotator cuff Family History Mother Diabetes Hypertension Father Diabetes Hypertension Brother Hypertension Heart disease Social History household members: spouse current occupational status: disabled Smoking Status: Never smoker alcohol intake: never caffeine: Yes Type: carbonated beverages Number of servings: 6 what type of physical activity do you participate in: none HPI HPI Chief Complaint: abd pain Details: JEANNE RIVERS, is a 64 M who presents to the office today for establishment with [facility]. Pt has had abd pain for 6 months now after getting into his trunk. Pain is constant but can become worse at times with certain movements. It is not associated with eating food. He feels his abd is bloated and hard. He is gaining weigh but has not had any changed in his diet or lifestyle. He tells me he was an alcoholic in the past but no longer drinks. He does smoke cigarettes. He denies all other GI symptoms including n/v, constipation, diarrhea, melena, or heartburn. CT abd/pelvis 11.24;heterogeneous hypoattenuated left hepatic 1.7 cm nodule. Correlate with ultrasound if needed. Diverticulosis. ROS Const Constitutional: Positive for weight change; No fatigue or fever(s) ENT ENT: No difficulty swallowing Gastro GI: Positive for abdominal pain; No belching, bloating, change in bowel habits, change in stool character, coffee ground emesis, constipation, cramping, diarrhea, heartburn, difficulty swallowing, feeling full early, excessive flatus, incontinent of stools, Vomiting blood/hematemesis, Blood in stool, loose stools, Black,tarry stools, nausea/dyspepsia, pain with swallowing, vomiting or other Musc Musculoskeletal: Positive for abnormal gait, joint pain, back pain, numbness, stiffness, tingling, Arthritis, restless legs and leg wandy (more content not included)... Normal [facility] Glomerular filtration rate ( GFR) estimationOrdered By: Marjorie Marti on 08-17-2024 Estimated GFR (MDRD) Non-Af Amer 72 mL/min >60 [facility] Comment on above: Non- GFR Calc Glucose measurementOrdered B y: Marjorie Marti on 08-17-2024 Glucose [Mass/Vol] 225 mg/dL High 74-106 [facility] Comment on above: Glucose result great er than or equal to 200 mg/dLsuggests DIABETES MELLITUS per A.D.A. criteria. HBV surface Ag IA QlOrdered By: Marjorie Marti on 08-17-2024 Hepatitis B Surface Antigen Negative Negative [facility] HaptoglobinOrdered By: Codi Marti on 08-17-2024 Haptoglobin 266 mg/dL 32-363 [facility] Hematocrit Auto (Bld) [Volum e fraction]Ordered By: Marjorie Marti on 08-17-2024 Hematocrit (Bld) [Volume fraction] 48.3 % 40-54 [facility] Hemoglobin A1con 08-17-2024 HbA1c (Bld) [Mass fraction] 8.2 % High 3.8-5.6 [facility] Comment on above: Result Comment: Norm al < 5.7 % Prediabetic 5.7 - 6.4 % Diabetic >or= 6.5 % Please note range changes. Performed By: #### P SUIV #### [facility] [place], [address] Hemoglobin A1c percentageOrd ered By: Marjorie Marti on 08-17-2024 HbA1c (Bld) [Mass fraction] 8.2 % High 3.8-5.6 [facility] Comment on above: Normal < 5.7 % Predi abetic 5.7 - 6.4 % Diabetic >or= 6.5 % Please note range changes. Hemoglobin measurementOrdere d By: Marjorie Marti on 08-17-2024 Hemoglobin (Bld) [Mass/Vol] 15.5 g/dL 13.0-16.5 [facility] Hepatitis A virus IgM antibo dy assayOrdered By: Marjorie Marti on 08-17-2024 Hepatitis A IgM Antibody Negative Negative [facility] Comment on above: A negative anti-HAV IgM result suggests no recent orcurrent HAV infection. Hepatitis B virus core IgM a ntibody assayOrdered By: Marjorie Marti on 08-17-2024 Hepatitis B Core IgM Antibody Negative Negative [facility] Hepatitis C virus antibody a ssayOrdered By: Marjorie Marti on 08-17-2024 Hepatitis C Antibody (EIA) Non-Reactive Non Reactive [facility] High density lipoprotein (HD L) measurementOrdered By: Marjorie Marti on 08-17-2024 Cholesterol in HDL [Mass/Vol] 38 mg/dL Low >40 [facility] Comment on above: The drugs N-Acetylcy steine and Metamizole may falsely depress this assay. Reference Range HDL <40 mg/dL Low HDL Cholesterol HDL >or= 60 mg/dL High HDL Cholesterol Immature granulocytes/100 WB C Auto (Bld)Ordered By: Marjorie Marti on 08-17-2024 Immature granulocytes/100 WBC (Bld) 0.200 % 0.0-0.9 [facility] Comment on above: IG% - Immature Granu locytes (promyelocytes, myelocytes and metamyelocytes) > 1% indicates that a LEFT SHIFT is Present. International normalized rat io (INR) calculationOrdered By: Marjorie Marti on 08-17-2024 INR Coag (Bld) [Relative time] 1.0 {INR} [facility] Iron Binding Capacity,Totalo n 08-17-2024 TIBC 394 ug/dL Normal 250-450 [facility] Comment on above: Order Comment: 1 Performed By: #### P SUIV #### [facility] [address] [place], [address] Pham-1 antibody assayOrdered B y: Marjorie Marti on 08-17-2024 PHAM-1 Antibody <0.2 AI 0.0-0.9 [facility] Comment on above: Previous reported re sult: TNP AIEdited by: DEVORAH on 08/21/24:1407 AMENDED REPORT 08/21/24 1407 ANTI-PHAM previously reported as: Test not performed LDHon 08-17-2024 LDH 247 U/L High 87-241 [facility] Comment on above: Order Comment: 1 Performed By: #### P SUIV #### [facility] [address] [place], [address] Laboratory - Chemistry and C hemistry - challengeOrdered By: Marjorie Marti on 08-17-2024 AST [Catalytic activity/Vol] 22 U/L 15-37 [facility] Lactate dehydrogenase (LDH) measurementOrdered By: Marjorie Marti on 08-17-2024 LDH [Catalytic activity/Vol] 247 U/L High 87-241 [facility] Lipid Profileon 08-17-2024 Cholesterol [Mass/Vol] 109 mg/dL Normal [address] [facility] Comment on above: Order Comment: 1 Result Comment: <200 mg/dL Desirable 200-240 mg/dL Borderline >240 mg/dL High Risk Performed By: #### P SUIV #### [facility] [address] [place], [address] Cholesterol in HDL [Mass/Vol] 38 mg/dL Low [facility] Comment on above: Order Comment: 1 Result Comment: The drugs N-Acetylcysteine and Metamizole may falsely depress this assay. Reference Range HDL <40 mg/dL Low HDL Cholesterol HDL >or= 60 mg/dL High HDL Cholesterol Performed By: #### P SUIV #### [facility] [address] [place], [address] Cholesterol in LDL [Mass/Vol] 23 mg/dL Normal 0-130 [facility] Comment on above: Order Comment: 1 Performed By: #### P SUIV #### [facility] [address] [place], [address] Cholesterol in VLDL [Mass/Vol] 48 mg/dL High 5-40 [facility] Comment on above: Order Comment: 1 Performed By: #### P SUIV #### [facility] [address] [place], [address] Triglyceride [Mass/Vol] 242 mg/dL High [facility] Comment on above: Order Comment: 1 Result Comment: The drugs N-Acetylcysteine and Metamizole may falsely depress this assay. Serum Triglycerides Reference Interval Normal <150 mg/dL Borderline high 150 - 199 mg/dL High 200 - 499 mg/dL Very High > or = 500 mg/dL Performed By: #### P SUIV #### [facility] [address] [place], [address] Low density lipoprotein (LDL ) cholesterol measurementOrdered By: Marjorie Marti on 08-17-2024 Cholesterol in LDL [Mass/Vol] 23 mg/dL 0-130 [facility] Lymphocytes Auto (Unsp spec) [#/Vol]Ordered By: Marjorie Marti on 08-17-2024 Lymphocytes (Bld) [#/Vol] 2.69 10*3/uL 0.83-4.51 [facility] Lymphocytes/100 WBC Auto (Un sp spec)Ordered By: Marjorie Marti on 08-17-2024 Lymphocytes/100 WBC (Bld) 27.9 % 19-41 [facility] MCV (mean corpuscular volume ) determinationOrdered By: Marjorie Marti on 08-17-2024 MCV (RBC) [Entitic vol] 93.2 fL 80-94 [facility] Mean corpuscular hemoglobin (MCH) determinationOrdered By: Marjorie Marti on 08-17-2024 MCH (RBC) [Entitic mass] 29.9 pg 27.0-32.0 [facility] Mean corpuscular hemoglobin concentration (MCHC) determinationOrdered By: Marjorie Marti on 08-17-2024 MCHC (RBC) [Mass/Vol] 32.1 g/dL 32-36 [facility] Mean platelet volume determi nationOrdered By: Marjorie Marti on 08-17-2024 Platelet mean volume (Bld) [Entitic vol] 10.2 fL 6.2-12.0 [facility] Mitochondria Ab Ql (S)Ordere d By: Marjorie Marti on 08-17-2024 Anti-Mitochondrial Antibody 57.8 Units High 0.0-20.0 [facility] Comment on above: Negative 0.0 - 20.0 Equivocal 20.1 - 24.9 Positive >24.9Mitochondrial (M2) Antibodies are found in 90-96% ofpatients with primary biliary cirrhosis.Performed at: [address] [id number] Director: Americo Bradford PhD, Phone: [phone] Monocyte percentageOrdered B y: Marjorie Marti on 08-17-2024 Monocytes/100 WBC (Bld) 4.5 % 0-10 [facility] Neutrophil cytoplasmic Ab.cl assic Qn (S)Ordered By: Marjorie Marti on 08-17-2024 Cytoplasmic ANCA (c-ANCA) Antibody <1:20 titer Neg:<1:20 [facility] Neutrophil cytoplasmic Ab.pe rinuclear IF (S) [Titer]Ordered By: Marjorie Marti on 08-17-2024 Perinuclear ANCA (p-ANCA) Antibody <1:20 titer Neg:<1:20 [facility] Comment on above: The presence of posi tive fluorescence exhibiting P-ANCA orC-ANCA patterns alone is not specific for the diagnosis ofWegener's Granulomatosis (WG) or microscopic polyangiitis.Decisions about treatment should not be based solely onANCA IFA results. The International ANCA Group Consensusrecommends follow up testing of positive sera with both CO-3 and MPO-ANCA enzyme immunoassays. As many as 5% serumsamples are positive only by EIA. Ref. AM J Clin Vdorar0181;111:507-513. Neutrophil percentageOrdered By: Marjorie Marti on 08-17-2024 Neutrophils/100 WBC (Bld) 64.9 % 47-70 [facility] No Panel InformationOrdered By: Marjorie Marti on 08-17-2024 Hepatitis C Antibody Comment Comment . [facility] Comment on above: Not infected with HC V unless early or acute infection issuspected (which may be delayed in an immunocompromisedindividual), or other evidence exists to indicate HCVinfection. Nucleated red blood cell per centageOrdered By: Marjorie Marti on 08-17-2024 Nucleated RBC/100 WBC (Bld) [Ratio] 0 % 0-5 [facility] Platelet countOrdered By: Vanessa Marti on 08-17-2024 Platelets (Bld) [#/Vol] 216 10*3/uL 150-450 [facility] Potassium measurementOrdered By: Marjorie Marti on 08-17-2024 Potassium [Moles/Vol] 3.7 mmol/L 3.5-5.1 [facility] Prothrombin Time w/INRon INR Coag (PPP) [Relative time] 1.0 {INR} Normal [facility] Comment on above: Performed By: #### P SUIV #### [facility] [address] [place], [address] PT Coag (PPP) [Time] 13.8 s Normal 11.7-14.[address] [facility] Comment on above: Performed By: #### P SUIV #### [facility] [address] [place], [address] Prothrombin timeOrdered By: Marjorie Marti on 08-17-2024 PT Coag (PPP) [Time] 13.8 s 11.7-14.[address] [facility] RBC Auto (Bld) [#/Vol]Ordere d By: Marjorie Marti on 08-17-2024 RBC (Bld) [#/Vol] 5.18 10*6/uL 4.6-6.2 [facility] [employer] abOrdered By: Marjorie Foster anasov on 08-17-2024 [employer] Antibody 0.2 AI 0.0-0.9 [facility] Comment on above: Previous reported re sult: TNP AIEdited by: DEVORAH on 08/21/24:1407 AMENDED REPORT 08/21/24 140 [employer] Ab previously reported as: Test not performed SCL-70 extractable nuclear A b Qn (S)Ordered By: Marjorie Marti on 08-17-2024 Scl-70 (Scleroderma) Antibody <0.2 AI 0.0-0.9 [facility] Comment on above: Previous reported re sult: TNP AIEdited by: DEVORAH on 08/21/24:1407 AMENDED REPORT 08/21/24 140 AN[employer]ER previously reported as: Test not performed SS-A IgG antibody assayOrder ed By: Marjorie Marti on 08-17-2024 SS-A/Ro IgG Antibody < 0.2 AI 0.0-0.[address] [facility] Comment on above: Previous reported re sult: TNP AIEdited by: DEVORAH on 08/21/24:1407 AMENDED REPORT 08/21/24 140 Anti-SS-A previously reported as: Test not performed SS-B IgG antibody assayOrder ed By: Marjorie Marti on 08-17-2024 SS-B/La IgG Antibody < 0.2 AI 0.0-0.[address] [facility] Comment on above: Previous reported re sult: TNP AIEdited by: DEVORAH on 08/21/24:1407 AMENDED REPORT 08/21/24 1407 Anti-SS-B previously reported as: Test not performed Serum anion gap measurementO rdered By: Marjorie Marti on 08-17-2024 Anion gap [Moles/Vol] 5 mmol/L 5-15 [facility] Serum globulin measurementOr dered By: Marjorie Marti on 08-17-2024 Globulin (S) [Mass/Vol] 4.9 g/dL High 2.2-4.2 [facility] Serum or plasma alanine cardoso otransferase (ALT) measurementOrdered By: Marjorie Marti on 08-17-2024 ALT [Catalytic activity/Vol] 29 U/L 16-61 [facility] Serum or plasma albumin theresa urement (mass/volume)Ordered By: Marjorie Marti on 08-17-2024 Albumin [Mass/Vol] 3.5 g/dL 3.2-5.0 [facility] Serum or plasma alkaline mackenzie sphatase measurementOrdered By: Marjorie Marti on 08-17-2024 ALP [Catalytic activity/Vol] 104 U/L 45-117 [facility] Serum or plasma angiotensin converting enzyme measurement (enzymatic activity/volume)Ordered By: Marjorie Marti on 08-17-2024 Angiotensin converting enzyme [Catalytic activity/Vol] U/L 14-82 [facility] Serum or plasma calcium theresa urement (mass/volume)Ordered By: Marjorie Marti on 08-17-2024 Calcium [Mass/Vol] 8.9 mg/dL 8.5-10.1 [facility] Serum or plasma cholesterol measurement (mass/volume)Ordered By: Marjorie Marti on 08-17-2024 Cholesterol [Mass/Vol] 109 mg/dL <[address] [facility] Comment on above: <200 mg/dL Desirable 200-240 mg/dL Borderline >240 mg/dL High Risk Serum or plasma creatinine m easurement (mass/volume)Ordered By: Marjorie Marti on 08-17-2024 Creatinine [Mass/Vol] 1.09 mg/dL 0.70-1.30 [facility] Comment on above: The validity of the calculated GFR & GFRAA in patients over 70 years has not been determined. Clinical correlation is essential. Serum or plasma urea nitroge n measurement (mass/volume)Ordered By: Marjorie Marti on 08-17-2024 Urea nitrogen [Mass/Vol] 13 mg/dL 7-18 [facility] Sanchez antibody assayOrdered By: Marjorie Marti on 08-17-2024 SM Antibody <0.2 AI 0.0-0.9 [facility] Comment on above: Previous reported re sult: TNP AIEdited by: DEVORAH on 08/21/24:1407 AMENDED REPORT 08/21/24 1407 GEM Ab previously reported as: Test not performed Sodium levelOrdered By: Og Marti on 08-17-2024 Sodium [Moles/Vol] 134 mmol/L Low 136-145 [facility] TIBCOrdered By: Marjorie Bustamante asov on 08-17-2024 Total Iron Binding Capacity 394 ug/dL 250-450 [facility] Total proteinOrdered By: Christine Marti on 08-17-2024 Protein [Mass/Vol] 8.4 g/dL High 6.4-8.2 [facility] TransferrinOrdered By: Codi Marti on 08-17-2024 Transferrin [Mass/Vol] 307 mg/dL 177-[address] [facility] Comment on above: Performed at: [facility] [address] [id number] Director: Americo Bradford PhD, Phone: [phone] at: [facility] [id number] Director: Leland Byrne MD, Phone: [phone] Triglycerides measurementOrd ered By: Marjorie Marti on 08-17-2024 Triglyceride [Mass/Vol] 242 mg/dL High <199 [facility] Comment on above: The drugs N-Acetylcy steine and Metamizole may falsely depress this assay.Serum Triglycerides Reference Interval Normal <150 mg/dL Borderline high 150 - 199 mg/dL High 200 - 499 mg/dL Very High > or = 500 mg/dL Venous blood ammonia measure mentOrdered By: Marjorie Marti on 08-17-2024 Ammonia (P) [Moles/Vol] 31.0 umol/L 11-32 [facility] Very low density lipoprotein (VLDL) cholesterol measurementOrdered By: Marjorie Marti on 08-17-2024 VLDL Cholesterol 48 mg/dL High 5-40 [facility] White blood cell (WBC) count Ordered By: Marjorie Marti on 08-17-2024 WBC (Bld) [#/Vol] 9.7 10*3/uL 4.4-11.0 [facility] Abdomen/Pelvis without Conto n 06-29-2024 Abdomen/Pelvis without Cont [facility] [address] [place] [address] Abdomen/Pelvis without Cont MR#: [id number] Acct: [id number] Name: JEANNE RIVERS Rep #: [id number] : 1960 M 64 From: Santos Morse DO PCP: Dr. Edilia Remy MD Status: REG CLI Study: Abdomen/Pelvis without Cont Date of Exam: 06/16 12/07 Exam# [id number] Ordering Dr: Edilia Remy MD [id number] STUDY: CT ABDOMEN AND PELVIS WITHOUT CONTRAST REASON FOR EXAM: Male, 64 years old. RUQ ABD PAIN/DISTENTION,EARLY SATIETY,POSS ASCITES RADIATION DOSAGE (If Supplied By Facility): CTDIvol = ( 21.89 ) mGy, DLP = ( 1263.12 ) mGycm TECHNIQUE: Transaxial images were obtained from the dome of the diaphragm to the symphysis pubis without oral contrast, and without intravenous contrast. Sagittal and coronal images were reconstructed. Individualized dose optimization techniques were used for this CT. COMPARISON: None. FINDINGS: The visualized lung bases are unremarkable. The visualized portions of the heart are within normal limits. Granulomatous calcifications in the spleen and liver. Slightly heterogeneous hypoattenuated left hepatic 1.7 cm nodule. Correlate with ultrasound if needed. Normal gallbladder and extrahepatic biliary system. Normal spleen. Calcification in the pancreas. Normal bilateral adrenal glands. Normal right kidney. Normal left kidney. Normal visualized stomach. Normal small intestine. Diverticulosis of the colon. The appendix is visualized and appears normal. Calcified abdominal aorta. Normal inferior vena cava. Normal retroperitoneum. Normal urinary bladder. Normal abdominal wall. Normal osseous structures. CT/Abdomen/Pelvis without Cont IMPRESSION: heterogeneous hypoattenuated left hepatic 1.7 cm nodule. Correlate with ultrasound if needed. Diverticulosis. Electronically Signed: Santos Morse DO at 9:52 EST Reading Location ID and State: [facility] / [place] Tel [phone], Service support , CC: Dr. Edilia Remy MD Director Recreation: Signed Normal [facility] CBC W/Diff, Automatedon 11-0 Absolute Lymph 2.37 X10 3/uL Normal 0.83-4.51 [facility] Comment on above: Performed By: #### L 3300.0700 #### [facility] [address] [place], [address] Absolute Neut 6.2 X10 3/uL Normal 2.0-7.7 [facility] Comment on above: Performed By: #### L 3300.0700 #### [facility] [address] [place], [address] Basophils/100 WBC (Bld) 0.2 % Normal 0-1 [facility] Comment on above: Performed By: #### L 3300.0700 #### [facility] [address] [place], [address] Eosinophils/100 WBC (Bld) 1.3 % Normal 0-5 [facility] Comment on above: Performed By: #### L 3300.0700 #### [facility] [address] [place], [address] Erythrocyte distribution width (RBC) [Ratio] 15.5 % High 11.6-14.6 [facility] Comment on above: Performed By: #### L 3300.0700 #### [facility] [address] [place], [address] Hematocrit (Bld) [Volume fraction] 44.1 % Normal 40-54 [facility] Comment on above: Performed By: #### L 3300.0700 #### [facility] [address] [place], [address] Hemoglobin (Bld) [Mass/Vol] 14.3 g/dL Normal 13.0-16.5 [facility] Comment on above: Performed By: #### L 3300.0700 #### [facility] [address] [place], [address] IG% 0.400 Normal 0.0-0.9 [facility] Comment on above: Result Comment: IG% - Immature Granulocytes (promyelocytes, myelocytes and metamyelocytes) > 1% indicates that a LEFT SHIFT is Present. Performed By: #### L 3300.0700 #### [facility] [address] [place], [address] Lymphocytes/100 WBC (Bld) 25.6 % Normal 19-41 [facility] Comment on above: Performed By: #### L 3300.0700 #### [facility] [address] [place], [address] MCH (RBC) [Entitic mass] 30.3 pg Normal 27.0-32.0 [facility] Comment on above: Performed By: #### L 3300.0700 #### [facility] [address] [place], [address] MCHC (RBC) [Mass/Vol] 32.4 g/dL Normal 32-36 [facility] Comment on above: Performed By: #### L 3300.0700 #### [facility] [address] [place], [address] MCV (RBC) [Entitic vol] 93.4 fL Normal 80-94 [facility] Comment on above: Performed By: #### L 3300.0700 #### [facility] [address] [place], [address] Monocytes/100 WBC (Bld) 5.6 % Normal 0-10 [facility] Comment on above: Performed By: #### L 3300.0700 #### [facility] [address] [place], [address] Neutrophils/100 WBC (Bld) 66.9 % Normal 47-70 [facility] Comment on above: Performed By: #### L 3300.0700 #### [facility] [address] [place], [address] Nucleated RBC (Bld) [#/Vol] 0 10*3/uL Normal 0-5 [facility] Comment on above: Performed By: #### L 3300.0700 #### [facility] [address] [place], [address] Platelet mean volume (Bld) [Entitic vol] 11.0 fL Normal 6.2-12.0 [facility] Comment on above: Performed By: #### L 3300.0700 #### [facility] [address] [place], [address] Platelets (Bld) [#/Vol] 196 10*3/uL Normal 150-450 [facility] Comment on above: Performed By: #### L 3300.0700 #### [facility] [address] [place], [address] RBC (Bld) [#/Vol] 4.72 10*6/uL Normal 4.6-6.2 [facility] Comment on above: Performed By: #### L 3300.0700 #### [facility] [address] [place], [address] RDW SD 53.5 fl High 35.1-43.9 [facility] Comment on above: Performed By: #### L 3300.0700 #### [facility] [address] [place], [address] WBC (Bld) [#/Vol] 9.3 10*3/uL Normal 4.4-11.0 [facility] Comment on above: Performed By: #### L 3300.0700 #### [facility] [address] [place], [address] Comprehensive Metabolic Prof ilon 06-23-2024 Albumin [Mass/Vol] 3.2 g/dL Normal 3.2-5.0 [facility] Comment on above: Performed By: #### L 3300.0700 #### [facility] [address] [place], [address] Albumin/Globulin [Mass ratio] 0.7 {ratio} Low 0.9-2.4 [facility] Comment on above: Performed By: #### L 3300.0700 #### [facility] [address] [place], [address] ALK P 106 U/L Normal 45-117 [facility] Comment on above: Performed By: #### L 3300.0700 #### [facility] [address] [place], [address] ALT [Catalytic activity/Vol] 27 U/L Normal 16-61 [facility] Comment on above: Performed By: #### L 3300.0700 #### [facility] [address] [place], [address] AST [Catalytic activity/Vol] 21 U/L Normal 15-37 [facility] Comment on above: Performed By: #### L 3300.0700 #### [facility] [address] [place], [address] Bilirubin [Mass/Vol] 0.50 mg/dL Normal 0.20-1.[address] [facility] Comment on above: Result Comment: For patients on eltrombopag therapy, use of Dimension Watkins TBIL is not recommended. Performed By: #### L 3300.0700 #### [facility] [address] [place], [address] BUN/CRE 13.4 RATIO Normal 10-20 [facility] Comment on above: Performed By: #### L 3300.0700 #### [facility] [address] [place], [address] CA,Total 8.6 mg/dL Normal 8.5-10.1 [facility] Comment on above: Performed By: #### L 3300.0700 #### [facility] [address] [place], [address] Chloride [Moles/Vol] 98 mmol/L Normal 98-[address] [facility] Comment on above: Performed By: #### L 3300.0700 #### [facility] [address] [place], [address] CO2 [Moles/Vol] 29.0 mmol/L Normal 21.0-32.0 [facility] Comment on above: Performed By: #### L 3300.0700 #### [facility] [address] [place], [address] Creatinine [Mass/Vol] 0.97 mg/dL Normal 0.70-1.30 [facility] Comment on above: Result Comment: The validity of the calculated GFR GFRAA in patients over 70 years has not been determined. Clinical correlation is essential. Performed By: #### L 3300.0700 #### [facility] [address] [place], [address] EST GFR - AA 100 mL/min Normal >60 [facility] Comment on above: Result Comment: Afri can Chinese GFR Calc Performed By: #### L 3300.0700 #### [facility] [address] [place], [address] GAP 5 Normal 5-15 [facility] Comment on above: Performed By: #### L 3300.0700 #### [facility] [address] [place], [address] GFR/1.73 sq M.predicted among non-blacks MDRD (S/P/Bld) [Vol rate/Area] 83 mL/min/{1.73_m2} Normal >60 [facility] Comment on above: Result Comment: Non- GFR Calc Performed By: #### L 3300.0700 #### [facility] [address] [place], [address] Globulin (S) [Mass/Vol] 4.4 g/dL High 2.2-4.2 [facility] Comment on above: Performed By: #### L 3300.0700 #### [facility] [address] [place], [address] Glucose [Mass/Vol] 201 mg/dL High 74-106 [facility] Comment on above: Result Comment: Gluc ose result greater than or equal to 200 mg/dL suggests DIABETES MELLITUS per A.D.A. criteria. Performed By: #### L 3300.0700 #### [facility] [address] [place], [address] Potassium [Moles/Vol] 3.8 mmol/L Normal 3.5-5.1 [facility] Comment on above: Performed By: #### L 3300.0700 #### [facility] [address] [place], [address] Sodium [Moles/Vol] 132 mmol/L Low 136-145 [facility] Comment on above: Performed By: #### L 3300.0700 #### [facility] [address] [place], [address] T PROT 7.6 g/dL Normal 6.4-8.2 [facility] Comment on above: Performed By: #### L 3300.0700 #### [facility] [address] [place], [place], [address] Urea nitrogen [Mass/Vol] 13 mg/dL Normal 7-18 [facility] Comment on above: Performed By: #### L 3300.0700 #### [facility] [address] [place], [place], [address] Hemoglobin A1con 06-23-2024 HbA1c (Bld) [Mass fraction] 8.2 % High 3.8-5.6 [facility] Comment on above: Result Comment: Norm al < 5.7 % Prediabetic 5.7 - 6.4 % Diabetic >or= 6.5 % Please note range changes. Performed By: #### L 3300.0700 #### [facility] [address] [place], [place], [address] Lipaseon 06-23-2024 Lipase [Catalytic activity/Vol] 38 U/L Normal 13-75 [facility] Comment on above: Result Comment: Sirena partt note: LIPASE revised reference range effective 22. New Lipase methodology. Expected to produce lower values than the previous assay method. NEW Reference Range: 13 - 75 U/L Performed By: #### L 3300.0700 #### [facility] [address] [place], [place], [address] Surgery Specimen Level Sandhya 03-29-2024 Surgery Specimen Level IV Patient Age/Sex Location Account Attending Physician JEANNE RIVERS 63/M [facility] [id number] Dr. Edilia Remy MD Specimen: [id number] Received: 03/30/24 Status: DAWN Francois Num: [id number] Spec Type: Lesion Subm Dr: Dr. Edilia Remy MD HEADER OPERATION: Shave biopsy scalp PRE-OP DIAGNOSIS: Irritated nevus TISSUE SUBMITTED: Scalp lesion MICROSCOPIC DIAGNOSIS Scalp lesion, shave biopsy: Moderate chronic inflammation, mild acute inflammation and focal changes suggestive of granuloma formation. Focal acanthosis and hyperkeratosis. Mild solar elastosis. Negative for malignancy. See comment. / 04/03/2024 COMMENT Special stains for acid fast bacilli and fungi are negative for organisms; matched controls are appropriate. Clinical correlation and appropriate follow up are necessary. MICROSCOPIC DESCRIPTION Slides are reviewed. GROSS DESCRIPTION Received in fixative is one container labeled with the patient's name and designated Scalp lesion. The specimen consists of shave biopsy of gil-white skin measuring 0.6 x 0.3 x 0.1cm. The specimen is inked, serially sectioned and submitted entirely in one cassette. 03/31/2024 TC:3 CPT:72904,80374q7 Patient Age/Sex Location Account Attending Physician JEANNE RIVERS 63/M [facility] [id number] Dr. Edilia Remy MD Signed (signature on file) Dr. Haroon Harrison MD 04/03/24 1442 Normal [facility] Comment on above: Performed By: #### P PARAS #### [facility] [place], [id number] BMP with eGFRon 08-22-2023 AGE 63 years Normal [facility] Comment on above: Performed By: #### 2 58310 #### [facility],[address] [place] [address] Anion gap [Moles/Vol] 11 mmol/L Normal 10 - 20 [facility] Comment on above: Performed By: #### 2 71481 #### [facility],[address] [place] [address] BMP with eGFR Normal [facility] Comment on above: Result Comment: BASI C METABOLIC PANEL Performed By: #### 2 95210 #### [facility],[address] [place] [address] Calcium [Mass/Vol] 8.8 mg/dL Normal 8.5 - 10.1 [facility] Comment on above: Performed By: #### 2 13696 #### [facility],[address] [place] [address] Chloride [Moles/Vol] 97 mmol/L Low 98 - 107 [facility] Comment on above: Performed By: #### 2 51181 #### [facility],[address] [place] [address] CO2 [Moles/Vol] 35.2 mmol/L High 21.0 - 32.0 [facility] Comment on above: Performed By: #### 2 08421 #### [facility],[address] [place] [address] Creatinine [Mass/Vol] 0.96 mg/dL Normal 0.70 - 1.30 [facility] Comment on above: Performed By: #### 2 18887 #### [facility],[address] [place] [address] GFR/1.73 sq M.predicted among non-blacks MDRD (S/P/Bld) [Vol rate/Area] mL/min/{1.73_m2} Normal 60 - 999 [facility] Comment on above: Performed By: #### 2 61234 #### [facility],[address] [place] [address] Result Comment: ACCO RDING TO THE NATIONAL KIDNEY DISEASE EDUCATION PROGRAM(NKDE), A NORMAL eGFR IS A VALUE GREATER THAN OR EQUAL TO 60 ML/MIN/1.73 SQ METERS. CHRONIC KIDNEY DISEASE: <60mL/MIN/1.73 SQ METERS KIDNEY FAILURE: <15mL/MIN/1.73 SQ METERS THIS TEST SHOULD ONLY BE USED FOR PATIENTS 18 YEARS OF AGE AND OLDER. Glucose [Mass/Vol] 157 mg/dL High 74 - 106 [facility] Comment on above: Performed By: #### 2 35744 #### [facility],[address] [place] [address] Potassium [Moles/Vol] 3.2 mmol/L Low 3.5 - 5.1 [facility] Comment on above: Performed By: #### 2 25425 #### [facility],[address] [place] [address] Sodium [Moles/Vol] 140 mmol/L Normal 136 - 145 [facility] Comment on above: Performed By: #### 2 15891 #### [facility],[address] [place], [place] [address] Urea nitrogen [Mass/Vol] 5 mg/dL Low 7 - 18 [facility] Comment on above: Performed By: #### 2 04882 #### [facility],[address] [place], [place] [address] CBC (NO DIFF)on 08-22-2023 CBC panel Auto (Bld) Normal [facility] Comment on above: Result Comment: CBC( WITHOUT DIFFERENTIAL) Performed By: #### 2 46240 #### [facility],[address] [place], [place] [address] Erythrocyte distribution width (RBC) [Ratio] 16.8 % High 12.0 - 15.6 [facility] Comment on above: Performed By: #### 2 27493 #### [facility],[address] [place] [address] 75782 Hematocrit (Bld) [Volume fraction] 39.6 % Low 40.0 - 52.0 [facility] Comment on above: Performed By: #### 2 53247 #### [facility],[address] [place] [address] 03646 Hemoglobin (Bld) [Mass/Vol] 13.1 g/dL Normal 13.0 - 17.5 [facility] Comment on above: Performed By: #### 2 51846 #### [facility],[address] [place] [address] 13274 MCH (RBC) [Entitic mass] 28 pg Normal 27 - 33 [facility] Comment on above: Performed By: #### 2 89699 #### [facility],[address] [place] [address] 09408 MCHC 33 X10 3 Normal 32 - 36 [facility] Comment on above: Performed By: #### 2 49094 #### [facility],[address] [place] [address] 39562 MCV (RBC) [Entitic vol] 85 fL Normal 81 - 98 [facility] Comment on above: Performed By: #### 2 62175 #### [facility],[address] [place] [address] 70073 PLATELET 191 x10EE3/UL Normal 150 - 450 [facility] Comment on above: Performed By: #### 2 62671 #### [facility],[address] [place] [address] 39073 Platelet mean volume (Bld) [Entitic vol] 8.5 fL Normal 6.4 - 10.5 [facility] Comment on above: Result Comment: {CB] Performed By: #### 2 95963 #### [facility],[address] [place] [address] 28133 RBC 4.66 x 10EE6/UL Normal 4.50 - 6.00 [facility] Comment on above: Performed By: #### 2 01366 #### [facility],[address] [place] [address] 25209 WBC 6.9 x 10EE3/UL Normal 4.5 - 10.8 [facility] Comment on above: Performed By: #### 2 48338 #### [facility],[address] [place] [address] 44158 CHEST 1 VIEWon 08-22-2023 CHEST [address] [address] Patient: JEANNE RIVERS Phone#: : 1960 Age: 63 Gender: M Pt. Type: ER Account: [id number] Location: [facility] Ordering: DR. CIERRA BOLTON Exam Date: 08/22/2023/2:12 Family Phys: EDILIA REMY Charge Code: 698607 Physician: [place] Order #: [id number] Dose#: PROCEDURE: X-RAY CHEST 1 VIEW COMPARISON: [facility], XR, CHEST 2 VIEWS, 03/22/2021, 19:34. INDICATIONS: Congestive heart failure. FINDINGS: LUNGS: Normal. No significant pulmonary parenchymal abnormalities. VASCULATURE: Vasculature is mildly prominent. CARDIAC: Mild worsening cardiomegaly. MEDIASTINUM: Normal. No visible mass or adenopathy. PLEURA: Minimal blunting of the right costophrenic angle consistent with small effusion. BONES: Normal. No fracture or visible bony lesion. OTHER: Negative. CONCLUSION: 1. Mild cardiomegaly. 2. Mild vascular congestion. Dictated by: Waqar King MD on 08/22/2023 at 16:19 Approved by: Waqar King MD on 08/22/2023 at 16:21 Normal [facility] NT-proBNPon 08-22-2023 Natriuretic peptide B (Bld) [Mass/Vol] 1931 pg/mL High 0 - 125 [facility] Comment on above: Performed By: #### 2 74434 #### [facility],[address] [place] [address] 32829 Basic metabolic 2000 panelon 06-05-2023 Anion gap [Moles/Vol] 9 mmol/L Normal 9-18 [facility] Comment on above: Order Comment: Speci men Type: BLOOD SPECIMEN Ordering Facility: [facility] Address: [address] [place] [address] Performed By: #### 2 4321-2, 08239-9 #### [facility] CLIA [id number] [address] [place] [address] [place] Calcium [Mass/Vol] 9.1 mg/dL Normal 8.5-10.2 [facility] Comment on above: Order Comment: Speci men Type: BLOOD SPECIMEN Ordering Facility: [facility] Address: [address] [place] [address] Performed By: #### 2 4321-2, 43499-2 #### [facility] CLIA [id number] [address] [place] [address] [place] Chloride [Moles/Vol] 96 mmol/L Low 97-105 [facility] Comment on above: Order Comment: Speci men Type: BLOOD SPECIMEN Ordering Facility: [facility] Address: [address] [place] [address] Performed By: #### 2 4321-2, 63383-4 #### [facility] CLIA [id number] [address] [place] [address] [place] CO2 [Moles/Vol] 30 mmol/L Normal 22-30 [facility] Comment on above: Order Comment: Speci men Type: BLOOD SPECIMEN Ordering Facility: [facility] Address: [address] [place] [address] Performed By: #### 2 4321-2, 07156-8 #### [facility] CLIA [id number] [address] [place] [address] [place] Creatinine [Mass/Vol] 0.74 mg/dL Normal 0.73-1.22 [facility] Comment on above: Order Comment: Speci men Type: BLOOD SPECIMEN Ordering Facility: [facility] Address: [address] [place] [address] Performed By: #### 2 4321-2, 66548-5 #### [facility] CLIA [id number] [address] [place] [address] [place] Creatinine and Glomerular filtration rate.predicted panel (S/P/Bld) 102 mL/min/1.73m??? Normal >=60 [facility] Comment on above: Order Comment: Hannah kirkland Type: BLOOD SPECIMEN Ordering Facility: [facility] Address: [address] [place] [address] Result Comment: Marti mated Glomerular Filtration Rate (eGFR) is calculated using the 2020 CKD-EPI creatinine equation. This equation utilizes serum creatinine, sex, and age as parameters. The creatinine assay has traceable calibration to isotope dilution-mass spectrometry. Refer to KDIGO guidelines for clinical interpretation. In patients with unstable renal function, e.g. those with acute kidney injury, the eGFR may not accurately reflect actual GFR. Performed By: #### 2 4321-2, 54746-1 #### [facility] CLIA [id number] [address] [place] [address] [place] Glucose [Mass/Vol] 143 mg/dL High 74-99 [facility] Comment on above: Order Comment: Hannah kirkland Type: BLOOD SPECIMEN Ordering Facility: [facility] Address: [address] [place] [address] Result Comment: The [place] Diabetes [employer] (ADA) provides guidance for cutoff values for fasting glucose and random glucose. The ADA defines fasting as no caloric intake for at least 8 hours. Fasting plasma glucose results between 100 to 125 mg/dL indicate increased risk for diabetes (prediabetes). Fasting plasma glucose results greater than or equal to 126 mg/dL meet the criteria for diagnosis of diabetes. In the absence of unequivocal hyperglycemia, results should be confirmed by repeat testing. In a patient with classic symptoms of hyperglycemia or hyperglycemic crisis, random plasma glucose results greater than or equal to 200 mg/dL meet the criteria for diagnosis of diabetes. Reference: Standards of Medical Care in Diabetes 2016, [employer] Diabetes Association. Diabetes Care. 2016.39(Suppl 1). Performed By: #### 2 4321-2, 49027-4 #### [facility] CLIA [id number] [address] [place] [address] [place] Potassium [Moles/Vol] 4.0 mmol/L Normal 3.7-5.1 [facility] Comment on above: Order Comment: Speci men Type: BLOOD SPECIMEN Ordering Facility: [facility] Address: [address] [place] [address] Performed By: #### 2 4321-2, 62787-6 #### [facility] CLIA [id number] [address] [place] [address] [place] Sodium [Moles/Vol] 135 mmol/L Low 136-144 [facility] Comment on above: Order Comment: Speci men Type: BLOOD SPECIMEN Ordering Facility: [facility] Address: [address] [place] [address] Performed By: #### 2 4321-2, 51963-7 #### [facility] CLIA [id number] [address] [place] [address] [place] Urea nitrogen [Mass/Vol] 7 mg/dL Low 9-24 [facility] Comment on above: Order Comment: Speci men Type: BLOOD SPECIMEN Ordering Facility: [facility] Address: [address] [place] [address] Performed By: #### 2 4321-2, 09527-8 #### [facility] CLIA [id number] [address] [place] [address] [place] CBC W Auto Differential pane l (Bld)on 06-05-2023 Basophils (Bld) [#/Vol] 10*3/uL Normal <0.11 [facility] Comment on above: Order Comment: Speci men Type: BLOOD SPECIMEN Ordering Facility: [facility] Address: [address] [place] [address] Performed By: #### 5 7021-8 #### [facility] CLIA [id number] [address] [place] [address] [place] Basophils/100 WBC (Bld) 0.3 % Normal [facility] Comment on above: Order Comment: Speci men Type: BLOOD SPECIMEN Ordering Facility: [facility] Address: [address] [place] [address] Performed By: #### 5 7021-8 #### [facility] CLIA [id number] [address] [place] [address] [place] Differential cell count method Nom (Bld) Auto Normal [facility] Comment on above: Order Comment: Speci men Type: BLOOD SPECIMEN Ordering Facility: [facility] Address: [address] [place] [address] Performed By: #### 5 7021-8 #### [facility] CLIA [id number] [address] [place] [address] [place] Eosinophils (Bld) [#/Vol] 0.12 10*3/uL Normal <0.46 [facility] Comment on above: Order Comment: Speci men Type: BLOOD SPECIMEN Ordering Facility: [facility] Address: [address] [place] [address] Performed By: #### 5 7021-8 #### [facility] CLIA [id number] [address] [place] [address] [place] Eosinophils/100 WBC (Bld) 1.6 % Normal [facility] Comment on above: Order Comment: Speci men Type: BLOOD SPECIMEN Ordering Facility: [facility] Address: [address] [place] [address] Performed By: #### 5 7021-8 #### [facility] CLIA [id number] [address] [place] [address] [place] Erythrocyte distribution width (RBC) [Ratio] 14.6 % Normal 11.5-15.0 [facility] Comment on above: Order Comment: Speci men Type: BLOOD SPECIMEN Ordering Facility: [facility] Address: [address] [place] [address] Performed By: #### 5 7021-8 #### [facility] CLIA [id number] [address] [place] [address] [place] Hematocrit (Bld) [Volume fraction] 40.8 % Normal 39.0-51.0 [facility] Comment on above: Order Comment: Speci men Type: BLOOD SPECIMEN Ordering Facility: [facility] Address: [address] [place] [address] Performed By: #### 5 7021-8 #### [facility] CLIA [id number] [address] [place] [address] [place] Hemoglobin (Bld) [Mass/Vol] 12.9 g/dL Low 13.0-17.0 [facility] Comment on above: Order Comment: Speci men Type: BLOOD SPECIMEN Ordering Facility: [facility] Address: [address] [place] [address] Performed By: #### 5 7021-8 #### [facility] CLIA [id number] [address] [place] [address] [place] Immature granulocytes (Bld) [#/Vol] 10*3/uL Normal <0.10 [facility] Comment on above: Order Comment: Speci men Type: BLOOD SPECIMEN Ordering Facility: [facility] Address: [address] [place] [address] Performed By: #### 5 7021-8 #### [facility] CLIA [id number] [address] [place] [address] [place] Immature granulocytes/100 WBC (Bld) 0.3 % Normal [facility] Comment on above: Order Comment: Speci men Type: BLOOD SPECIMEN Ordering Facility: [facility] Address: [address] [place] [address] Performed By: #### 5 7021-8 #### [facility] CLIA [id number] [address] [place] [address] [place] Lymphocytes (Bld) [#/Vol] 2.23 10*3/uL Normal 1.00-4.00 [facility] Comment on above: Order Comment: Speci men Type: BLOOD SPECIMEN Ordering Facility: [facility] Address: [address] [place] [address] Performed By: #### 5 7021-8 #### [facility] CLIA [id number] [address] [place] [address] [place] Lymphocytes/100 WBC (Bld) 29.1 % Normal [facility] Comment on above: Order Comment: Speci men Type: BLOOD SPECIMEN Ordering Facility: [facility] Address: [address] [place] [address] Performed By: #### 5 7021-8 #### [facility] CLIA [id number] [address] [place] [address] MCH (RBC) [Entitic mass] 28.1 pg Normal 26.0-34.0 [facility] Comment on above: Order Comment: Speci men Type: BLOOD SPECIMEN Ordering Facility: [facility] Address: [address] [place] [address] Performed By: #### 5 7021-8 #### [facility] CLIA [id number] [address] [place] [address] [place] MCHC (RBC) [Mass/Vol] 31.6 g/dL Normal 30.5-36.0 [facility] Comment on above: Order Comment: Speci men Type: BLOOD SPECIMEN Ordering Facility: [facility] Address: [address] [place] [address] Performed By: #### 5 7021-8 #### [facility] CLIA [id number] [address] [place] [address] [place] MCV (RBC) [Entitic vol] 88.9 fL Normal 80.0-100.0 [facility] Comment on above: Order Comment: Speci men Type: BLOOD SPECIMEN Ordering Facility: [facility] Address: [address] [place] [address] Performed By: #### 5 7021-8 #### [facility] CLIA [id number] [address] [place] [address] [place] Monocytes (Bld) [#/Vol] 0.49 10*3/uL Normal <0.87 [facility] Comment on above: Order Comment: Speci men Type: BLOOD SPECIMEN Ordering Facility: [facility] Address: [address] [place] [address] Performed By: #### 5 7021-8 #### [facility] CLIA [id number] [address] [place] [address] [place] Monocytes/100 WBC (Bld) 6.4 % Normal [facility] Comment on above: Order Comment: Speci men Type: BLOOD SPECIMEN Ordering Facility: [facility] Address: [address] [place] [address] Performed By: #### 5 7021-8 #### [facility] CLIA [id number] [address] [place] [address] [place] Neutrophils (Bld) [#/Vol] 4.79 10*3/uL Normal 1.45-7.50 [facility] Comment on above: Order Comment: Speci men Type: BLOOD SPECIMEN Ordering Facility: [facility] Address: [address] [place] [address] Performed By: #### 5 7021-8 #### [facility] CLIA [id number] [address] [place] [address] [place] Neutrophils/100 WBC (Bld) 62.3 % Normal [facility] Comment on above: Order Comment: Speci men Type: BLOOD SPECIMEN Ordering Facility: [facility] Address: [address] [place] [address] Performed By: #### 5 7021-8 #### [facility] CLIA [id number] [address] [place] [address] [place] Nucleated RBC (Bld) [#/Vol] 10*3/uL Normal <0.01 [facility] Comment on above: Order Comment: Speci men Type: BLOOD SPECIMEN Ordering Facility: [facility] Address: [address] [place] [address] Performed By: #### 5 7021-8 #### [facility] CLIA [id number] [address] [place] [address] [place] Nucleated RBC/100 WBC (Bld) [Ratio] 0.0 /100 WBC Normal [facility] Comment on above: Order Comment: Speci men Type: BLOOD SPECIMEN Ordering Facility: [facility] Address: [address] [place] [address] Performed By: #### 5 7021-8 #### [facility] CLIA [id number] [address] [place] [address] [place] Platelet mean volume (Bld) [Entitic vol] 11.4 fL Normal 9.0-12.7 [facility] Comment on above: Order Comment: Speci men Type: BLOOD SPECIMEN Ordering Facility: [facility] Address: [address] [place] [address] Performed By: #### 5 7021-8 #### [facility] CLIA [id number] [address] [place] [address] [place] Platelets (Bld) [#/Vol] 160 10*3/uL Normal 150-400 [facility] Comment on above: Order Comment: Speci men Type: BLOOD SPECIMEN Ordering Facility: [facility] Address: [address] [place] [address] Performed By: #### 5 7021-8 #### [facility] CLIA [id number] [address] [place] [address] [place] RBC (Bld) [#/Vol] 4.59 10*6/uL Normal 4.20-6.00 [facility] Comment on above: Order Comment: Speci men Type: BLOOD SPECIMEN Ordering Facility: [facility] Address: [address] [place] [address] Performed By: #### 5 7021-8 #### [facility] CLIA [id number] [address] [place] [address] [place] WBC (Bld) [#/Vol] 7.67 10*3/uL Normal 3.70-11.00 [facility] Comment on above: Order Comment: Speci men Type: BLOOD SPECIMEN Ordering Facility: [facility] Address: [address] [place] [address] Performed By: #### 5 7021-8 #### [facility] CLIA [id number] [address] [place] [address] [place] ED PROV NOTEon 06-05-2023 ED PROV NOTE HNO ID: [id number] Author: Yoselyn Aguilar APRN.[employer] Service: Pulmonary Disease Author Type: Nurse Practitioner Type: ED Provider Notes Filed: 06/05/2023 3:51 PM Note Text: ED Provider Note Patient Name: Jeanne Rivers : 1960 SERVICE DATE: 06/05/23 History Patient presents with: Ankle Pain: L ankle pain and elbow pain since fall 3 weeks ago. This is a 63-year-old obese male with a past medical history of diabetes, hypertension, hyperlipidemia, asthma, degenerative joint disease, and tobacco abuse who presents to the emergency department with complaints of left ankle and left elbow swelling. Patient states approximately 3 weeks ago he fell while getting out of his truck. He twisted his left ankle when he stepped out of the truck and fell onto his left elbow against the truck door. He has had persistent discomfort and edema since. He was seen by his primary care provider earlier this week and a venous duplex was completed. Per patient and this was negative. Testing was reported to been done at [facility]. He does have bilateral lower extremity edema, greater on the left than right. Skin is stretched and erythematous on the left lower extremity. He has no calf tenderness on exam. 2+ pedal pulses. He denies any complaints of fever or chills. Erythema started over the past couple of days. He denies any history of cellulitis. He does not have any open or visible wounds on the left lower extremity. Imaging of the left ankle and elbow are negative for any acute fractures or dislocation. Both documented soft tissue edema. PAST MEDICAL HISTORY Diagnosis Date Asthma DDD (degenerative disc disease), lumbar Diabetes mellitus (HCC) HTN (hypertension) Hyperlipidemia PAST SURGICAL HISTORY Procedure Laterality Date KNEE ARTHROSCOPY Right PAST SURGICAL HISTORY OF Left 07/30/2011 rotator cuff repair SHOULDER ARTHROSCOPY/SURG Left FAMILY HISTORY Problem Relation Age of Onset Diabetes Mother Diabetes Father Diabetes Sister Diabetes Brother Heart Brother Stroke Brother Social History Tobacco Use Smoking status: Every Day Packs/day: 2.50 Years: 42.00 Additional pack years: 0.00 Total pack years: 105.00 Types: Cigarettes Smokeless tobacco: Not on file Tobacco comments: Trying to reduce usage 1.5ppd Substance and Sexual Activity Alcohol use: No Drug use: No Sexual activity: Not on file ALLERGIES Allergen Reactions Adhesive Tape-Silic* Rash Review of Systems Constitutional: Negative for chills and fatigue. HENT: Negative. Respiratory: Positive for cough and shortness of breath. Cardiovascular: Negative. Gastrointestinal: Negative. Genitourinary: Negative. Musculoskeletal: Positive for joint swelling. Skin: Positive for color change. Neurological: Negative. Psychiatric/Behavioral: Negative. Physical Exam Vitals [06/05/23 1031] BP Pulse Temp Temp src Resp SpO2 Weight Height 142/86 (!) 95 36.5 ?C (97.7 ?F) Oral 16 97 % 113.1 kg (249 lb 5.4 oz) 1.803 m (5' 11) Physical Exam Constitutional: Appearance: He is obese. HENT: Head: Normocephalic and atraumatic. Nose: Nose normal. Mouth/Throat: Mouth: Mucous membranes are moist. Eyes: Extraocular Movements: Extraocular movements intact. Conjunctiva/sclera: Conjunctivae normal. Pupils: Pupils are equal, round, and reactive to light. Cardiovascular: Rate and Rhythm: Normal rate and regular rhythm. Pulmonary: Effort: Pulmonary effort is normal. Breath sounds: Decreased breath sounds present. Abdominal: General: Bowel sounds are normal. Palpations: Abdomen is soft. Musculoskeletal: General: Swelling (left ankle) and tenderness (left ankle) present. Cervical back: Normal range of motion. Right lower leg: Edema (1+) present. Left lower leg: Edema (2+) present. Skin: General: Skin is warm. Findings: Erythema (left ankle) present. Neurological: General: No focal deficit present. Mental Status: He is alert and oriented to person, place, and time. Mental status is at baseline. Psychiatric: Mood and Affect: Mood normal. Behavior: Behavior normal. Thought Content: Thought content normal. Judgment: Judgment normal. Diagnostic Testing ED Labs Ordered and Reviewed CBC + DIFF - Abnormal; Notable for the following components: Result Value Ref Range Hemoglobin 12.9 (*) 13.0 - 17.0 g/dL All other components within normal limits BASIC METABOLIC PNL - Abnormal; Notable for the following components: Glucose 143 (*) 74 - 99 mg/dL BUN 7 (*) 9 - 24 mg/dL Sodium 135 (*) 136 - 144 mmol/L Chloride 96 (*) 97 - 105 mmol/L All other components within normal limits NT PRO BNP - Abnormal; Notable for the following components: NT Pro BNP 2,208 (*) <125 pg/mL All other components within normal limits LACTIC ACID/LACTATE - Normal Procedures ED Course / Clinical Impression ED Course as of 06/05/23 155 (more content not included)... Normal [facility] Lactate (Bld) [Moles/Vol]on 06-05-2023 Lactate [Moles/Vol] 1.1 mmol/L Normal 0.5-2.2 [facility] Comment on above: Order Comment: Speci men Type: BLOOD SPECIMEN Ordering Facility: [facility] Address: [address] [place] [address] Performed By: #### 3 2693-4 #### [facility] CLIA [id number] [address] [place] [address] NT-proBNP SerPl-mCncon 06-05 Natriuretic peptide.B prohormone N-Terminal [Mass/Vol] 2208 pg/mL High <125 [facility] Comment on above: Order Comment: Speci men Type: BLOOD SPECIMEN Ordering Facility: [facility] Address: [address] [place] [address] Performed By: #### 2 4321-2, 74463-2 #### [facility] CLIA [id number] [address] [place] [address] OF RAYMUNDO XR ANKLE 3V AP/LAT/OBL LTon 06-05-2023 XR ANKLE 3V AP/LAT/OBL LT * * *Final Report* * * DATE OF EXAM: Jun 05 2023 10:55AM UDX 5298 - XR ANKLE 3V AP/LAT/OBL LT / PROCEDURE REASON: Other * * * * Physician Interpretation * * * * EXAMINATION: THREE XRAY VIEWS OF THE LEFT ANKLE06/05/2023 11:24 am ANKLE 3 VIEWS LEFT COMPARISON: 09/09/2018 HISTORY: ORDERING SYSTEM PROVIDED HISTORY: TECHNOLOGIST PROVIDED HISTORY: RADIATIONDOSE1: 0.0 mGy RADIATIONDOSE2: 0.0 mGy Dose Area Product (mGycm2): 0.0 mGy*cm^2 MOD1: DIAGNOSTIC VIEWS: 5 IMAGES: 5 LATERALITY: LEFT STATED HISTORY: fell out of truck 3 weeks ago. entire left ankle pain posterior left elbow pain. SUSPECTED REASON FOR EXAM: Other, pain from fall Reason for Exam: Other FINDINGS: No acute fracture or dislocation is identified. The ankle mortise and talar dome are normal. There is mild osteoarthritis of the ankle joint and midfoot. There are calcaneal Achilles and plantar spurs. There is no radiopaque foreign body. Mild soft tissue swelling of the ankle seen. IMPRESSION: Soft tissue swelling without evidence of acute fracture. Electronically signed By Nate Fagan 06/05/2023 11:48:44 AM EST Workstation ID : [id number] Director Recreation: ZEE Transcribe Date/Time: Jun 05 2023 11:48A Dictated by : NATE FAGAN, This examination was interpreted and the report reviewed and electronically signed by: NATE FAGAN, on Jun 05 2023 11:48AM EST [id number] [facility] XR ELBOW 2V AP/LAT LTon 05-17 XR ELBOW 2V AP/LAT LT * * *Final Report* * * DATE OF EXAM: Jun 05 2023 10:55AM UDX 5322 - XR ELBOW 2V AP/LAT LT / PROCEDURE REASON: Other * * * * Physician Interpretation * * * * EXAMINATION: XR ELBOW 2V TECHNIQUE: Two views COMPARISON: None HISTORY: ORDERING SYSTEM PROVIDED HISTORY: TECHNOLOGIST PROVIDED HISTORY: RADIATIONDOSE1: 0.0 mGy RADIATIONDOSE2: 0.0 mGy Dose Area Product (mGycm2): 0.0 mGy*cm^2 MOD1: DIAGNOSTIC VIEWS: 5 IMAGES: 5 LATERALITY: LEFT STATED HISTORY: fell out of truck 3 weeks ago. entire left ankle pain posterior left elbow pain. SUSPECTED REASON FOR EXAM: Other, pain from fall Reason for Exam: Other FINDINGS: No acute fracture or dislocation is seen. There is no significant joint effusion. Degenerative changes of the medial and lateral epicondyles are noted. Trace enthesopathy changes involve the olecranon. Soft tissue swelling overlies the posterior distal humerus and olecranon without a radiopaque foreign body or soft tissue gas. IMPRESSION: No acute fracture or dislocation. Soft tissue swelling. Degenerative changes. Electronically signed By Rusty Bartlett MD 06/05/2023 12:07:13 PM EST Workstation ID : [id number] Director Recreation: UDC Transcribe Date/Time: Jun 05 2023 12:07P Dictated by : RUSTY BARTLETT MD This examination was interpreted and the report reviewed and electronically signed by: RUSTY BARTLETT MD on Jun 05 2023 12:07PM EST [id number] [facility] Absolute lymphocyte countOrd ered By: Joss Orozco on 05-29-2023 Lymphocytes Auto (Unsp spec) [#/Vol] 1.76 10*3/uL 0.83-4.51 [facility] Basophil percentageOrdered B y: Joss Orozco on 05-29-2023 Basophil percentage 0 SEEN /hpf 0-[address] [facility] Basophils/100 WBC (Bld) 0.5 % 0-1 [facility] Bilirubin [Mass/Vol] 0.50 mg/dL 0.20-1.[address] [facility] Comment on above: For patients on eltr ombopag therapy, use of Dimension [place] TBIL is not recommended. Chloride [Moles/Vol] 98 mmol/L 98-[address] [facility] Eosinophils/100 WBC (Bld) 1.4 % 0-5 [facility] Glucose [Mass/Vol] 203 mg/dL 74-106 [facility] Comment on above: Glucose result great er than or equal to 200 mg/dLsuggests DIABETES MELLITUS per A.D.A. criteria. Neutrophils (Bld) [#/Vol] 4.0 10*3/uL 2.0-7.7 [facility] Neutrophils/100 WBC (Bld) 63.1 % 47-70 [facility] Potassium [Moles/Vol] 2.9 mmol/L 3.5-5.1 [facility] Protein [Mass/Vol] 8.2 g/dL 6.4-8.2 [facility] Sodium [Moles/Vol] 136 mmol/L 136-145 [facility] WBC (Bld) [#/Vol] 6.4 10*3/uL 4.4-11.0 [facility] Bilirubin Test strip Ql (U)O rdered By: Joss Orozco on 05-29-2023 Bilirubin Ql (U) Negative Negative [facility] Blood erythrocytes count (nu mber/volume)Ordered By: Joss Orozco on 05-29-2023 RBC (Bld) [#/Vol] 4.88 10*6/uL 4.6-6.2 [facility] Blood hemoglobin measurement (mass/volume)Ordered By: Joss Orozco on 05-29-2023 Hemoglobin (Bld) [Mass/Vol] 13.8 g/dL 13.0-16.5 [facility] Blood lymphocytes/100 leukoc ytesOrdered By: Joss Orozco on 05-29-2023 Lymphocytes/100 WBC (Bld) 27.5 % 19-41 [facility] Blood monocytes/100 leukocyt esOrdered By: Joss Orozco on 05-29-2023 Monocytes/100 WBC (Bld) 7.3 % 0-10 [facility] Blood platelet mean volumeOr dered By: Joss Orozco on 05-29-2023 Platelet mean volume (Bld) [Entitic vol] 11.5 fL 6.2-12.0 [facility] Determination of erythrocyte mean corpuscular volume (MCV)Ordered By: Joss Orozco on 05-29-2023 MCV (RBC) [Entitic vol] 90.8 fL 80-94 [facility] Hematocrit Auto (Bld) [Volum e fraction]Ordered By: Joss Orozco on 05-29-2023 Hematocrit (Bld) [Volume fraction] 44.3 % 40-54 [facility] Ketones Test strip Ql (U)Ord ered By: Joss Orozco on 05-29-2023 Ketones Ql (U) Negative Negative [facility] - Chemistry and C hemistry - challengeOrdered By: Joss Orozco on 05-29-2023 ALP [Catalytic activity/Vol] 125 U/L 45-117 [facility] ALT [Catalytic activity/Vol] 17 U/L 16-61 [facility] CO2 [Moles/Vol] 32.0 mmol/L 21.0-32.0 [facility] Globulin (S) [Mass/Vol] 5.0 g/dL 2.2-4.2 [facility] Urea nitrogen/Creatinine [Mass ratio] 3.8 mg/mg 10-20 [facility] - Hematology and Cell countsOrdered By: Joss Orozco on 05-29-2023 Erythrocyte distribution width (RBC) [Entitic vol] 48.9 fL 35.1-43.9 [facility] Erythrocyte distribution width (RBC) [Ratio] 14.6 % 11.6-14.6 [facility] Immature granulocytes/100 WBC (Bld) 0.200 % 0.0-0.9 [facility] Comment on above: IG% - Immature Granu locytes (promyelocytes, myelocytes and metamyelocytes) > 1% indicates that a LEFT SHIFT is Present. MCH (RBC) [Entitic mass] 28.3 pg 27.0-32.0 [facility] Nucleated RBC/100 WBC (Bld) [Ratio] 0 % 0-5 [facility] MCHC Auto (RBC) [Mass/Vol]Or dered By: Joss Orozco on 05-29-2023 MCHC (RBC) [Mass/Vol] 31.2 g/dL 32-36 [facility] Mucus LM Ql (Urine sed)Order ed By: Joss Orozco on 05-29-2023 Mucus Ql (Urine sed) 0 SEEN /hpf [facility] Nitrite Test strip Ql (U)Ord ered By: Joss Orozco on 05-29-2023 Nitrite Ql (U) Negative Negative [facility] No Panel InformationOrdered By: Joss Orozco on 05-29-2023 Estimated Creatinine Clearance Calc 101.94 ml/min [facility] Estimated GFR (MDRD) Amer 127 mL/min >60 [facility] Comment on above: GFR Calc Estimated GFR (MDRD) Non-Af Amer 105 mL/min >60 [facility] Comment on above: Non- GFR Calc Platelets bldOrdered By: Cuong Orozco on 05-29-2023 Platelets (Bld) [#/Vol] 172 10*3/uL 150-450 [facility] Protein Test strip Ql (U)Ord ered By: Joss Orozco on 05-29-2023 Protein Ql (U) 30 mg/dl Negative [facility] Serum or plasma albumin theresa urement (mass/volume)Ordered By: Joss Orozco on 05-29-2023 Albumin [Mass/Vol] 3.2 g/dL 3.2-5.0 [facility] Serum or plasma albumin/glob ulin mass ratioOrdered By: Joss Orozco on 05-29-2023 Albumin/Globulin [Mass ratio] 0.6 {ratio} 0.9-2.4 [facility] Serum or plasma calcium theresa urement (mass/volume)Ordered By: Joss Orozco on 05-29-2023 Calcium [Mass/Vol] 8.7 mg/dL 8.5-10.1 [facility] Serum or plasma creatinine m easurement (mass/volume)Ordered By: Joss Orozco on 05-29-2023 Creatinine [Mass/Vol] 0.79 mg/dL 0.70-1.30 [facility] Comment on above: The validity of the calculated GFR & GFRAA in patients over 70 years has not been determined. Clinical correlation is essential. Serum or plasma urea nitroge n measurement (mass/volume)Ordered By: Joss Orozco on 05-29-2023 Urea nitrogen [Mass/Vol] 3 mg/dL 7-18 [facility] Squamous epithelial cells de tection in urine sediment by light microscopyOrdered By: Joss Orozco on 05-29-2023 Epithelial cells.squamous LM Ql (Urine sed) 0 SEEN /hpf 0-5 [facility] Thin prep Papanicolaou smear with manual screeningOrdered By: Joss Orozco on 05-29-2023 Thin prep Papanicolaou smear with manual screening 14 U/L 15-37 [facility] Thin prep Papanicolaou smear with manual screening 6 5-15 [facility] Urine blood detectionOrdered By: Joss Orozco on 05-29-2023 RBC Ql (U) 10 /ul Negative [facility] RBC Ql (U) 0 SEEN /hpf 0-5 [facility] Urine clarityOrdered By: Cuong Orozco on 05-29-2023 Clarity (U) Clear Clear [facility] Urine color determinationOrd ered By: Joss Orozco on 05-29-2023 Color (U) Yellow Yellow [facility] Urine glucose detectionOrder ed By: Joss Orozco on 05-29-2023 Glucose Ql (U) Normal mg/dl Normal [facility] Urine leukocyte esterase det ection by dipstickOrdered By: Joss Orozco on 05-29-2023 Leukocyte esterase Test strip Ql (U) Negative Negative [facility] Urine pHOrdered By: Joss cunningham on 05-29-2023 pH (U) 7.0 [pH] 5.0 - 8.0 [facility] Urine sediment bacteria coun t by microscopy (number/high power field)Ordered By: Joss Orozco on 05-29-2023 Bacteria LM.HPF (Urine sed) [#/Area] 0 /[HPF] None Seen [facility] Urine specific gravity measu rementOrdered By: Joss Orozco on 05-29-2023 Specific gravity (U) [Rel density] 1.005 1.002-1.03 0 [facility] Urobilinogen Auto test strip Ql (U)Ordered By: Joss Orozco on 05-29-2023 Urobilinogen Ql (U) Normal mg/dl Normal [facility] Absolute lymphocyte countOrd ered By: Ortega Diana on 05-14-2023 Lymphocytes Auto (Unsp spec) [#/Vol] 2.88 10*3/uL 0.83-4.51 [facility] Basophil percentageOrdered B y: Ortega Diana on 05-14-2023 Basophils/100 WBC (Bld) 0.3 % 0-1 [facility] Bilirubin [Mass/Vol] 0.50 mg/dL 0.20-1.[address] [facility] Comment on above: For patients on eltr ombopag therapy, use of Dimension [place] TBIL is not recommended. Chloride [Moles/Vol] 99 mmol/L 98-[address] [facility] Eosinophils/100 WBC (Bld) 1.4 % 0-5 [facility] Glucose [Mass/Vol] 218 mg/dL 74-106 [facility] Comment on above: Glucose result great er than or equal to 200 mg/dLsuggests DIABETES MELLITUS per A.D.A. criteria. Neutrophils (Bld) [#/Vol] 5.5 10*3/uL 2.0-7.7 [facility] Neutrophils/100 WBC (Bld) 60.2 % 47-70 [facility] Potassium [Moles/Vol] 3.2 mmol/L 3.5-5.1 [facility] Protein [Mass/Vol] 7.8 g/dL 6.4-8.2 [facility] Sodium [Moles/Vol] 135 mmol/L 136-145 [facility] WBC (Bld) [#/Vol] 9.1 10*3/uL 4.4-11.0 [facility] Basophil percentage 0-5 SEEN /hpf 0-[address] [facility] Bilirubin Test strip Ql (U)O rdered By: Ortega Diana on 05-14-2023 Bilirubin Ql (U) Negative Negative [facility] Blood erythrocytes count (nu mber/volume)Ordered By: Ortega Diana on 05-14-2023 RBC (Bld) [#/Vol] 4.61 10*6/uL 4.6-6.2 [facility] Blood hemoglobin measurement (mass/volume)Ordered By: Ortega Diana on 05-14-2023 Hemoglobin (Bld) [Mass/Vol] 13.2 g/dL 13.0-16.5 [facility] Blood lymphocytes/100 leukoc ytesOrdered By: Ortega Diana on 05-14-2023 Lymphocytes/100 WBC (Bld) 31.8 % 19-41 [facility] Blood monocytes/100 leukocyt esOrdered By: Ortega Diana on 05-14-2023 Monocytes/100 WBC (Bld) 6.0 % 0-10 [facility] Blood platelet mean volumeOr dered By: Ortega Diana on 05-14-2023 Platelet mean volume (Bld) [Entitic vol] 11.3 fL 6.2-12.0 [facility] Determination of erythrocyte mean corpuscular volume (MCV)Ordered By: Ortega Diana on 05-14-2023 MCV (RBC) [Entitic vol] 91.8 fL 80-94 [facility] Hematocrit Auto (Bld) [Volum e fraction]Ordered By: Ortega Diana on 05-14-2023 Hematocrit (Bld) [Volume fraction] 42.3 % 40-54 [facility] Ketones Test strip Ql (U)Ord ered By: Ortega Diana on 05-14-2023 Ketones Ql (U) Negative Negative [facility] - Chemistry and C hemistry - challengeOrdered By: Ortega Diana on 05-14-2023 ALP [Catalytic activity/Vol] 121 U/L 45-117 [facility] ALT [Catalytic activity/Vol] 17 U/L 16-61 [facility] CO2 [Moles/Vol] 32.0 mmol/L 21.0-32.0 [facility] Globulin (S) [Mass/Vol] 4.7 g/dL 2.2-4.2 [facility] Lipase [Catalytic activity/Vol] 45 U/L 13-75 [facility] Comment on above: Please note:LIPASE r evised reference range effective 22. New Lipase methodology. Expected to produce lower values than the previous assay method. NEW Reference Range: 13 - 75 U/L Urea nitrogen/Creatinine [Mass ratio] 13.2 mg/mg 10-20 [facility] - Hematology and Cell countsOrdered By: Ortega Diana on 05-14-2023 Erythrocyte distribution width (RBC) [Entitic vol] 50.4 fL 35.1-43.9 [facility] Erythrocyte distribution width (RBC) [Ratio] 15.0 % 11.6-14.6 [facility] Immature granulocytes/100 WBC (Bld) 0.300 % 0.0-0.9 [facility] Comment on above: IG% - Immature Granu locytes (promyelocytes, myelocytes and metamyelocytes) > 1% indicates that a LEFT SHIFT is Present. MCH (RBC) [Entitic mass] 28.6 pg 27.0-32.0 [facility] Nucleated RBC/100 WBC (Bld) [Ratio] 0 % 0-5 [facility] MCHC Auto (RBC) [Mass/Vol]Or dered By: Ortega Diana on 05-14-2023 MCHC (RBC) [Mass/Vol] 31.2 g/dL 32-36 [facility] Mucus LM Ql (Urine sed)Order ed By: Ortega Diana on 05-14-2023 Mucus Ql (Urine sed) 0 SEEN /hpf [facility] Nitrite Test strip Ql (U)Ord ered By: Ortega Diana on 05-14-2023 Nitrite Ql (U) Negative Negative [facility] No Panel InformationOrdered By: Ortega Diana on 05-14-2023 Estimated Creatinine Clearance Calc 97.02 ml/min [facility] Estimated GFR (MDRD) Amer 120 mL/min >60 [facility] Comment on above: GFR Calc Estimated GFR (MDRD) Non-Af Amer 99 mL/min >60 [facility] Comment on above: Non- GFR Calc Platelets bldOrdered By: Roge Diana on 05-14-2023 Platelets (Bld) [#/Vol] 182 10*3/uL 150-450 [facility] Protein Test strip Ql (U)Ord ered By: Ortega Diana on 05-14-2023 Protein Ql (U) 30 mg/dl Negative [facility] Serum or plasma albumin theresa urement (mass/volume)Ordered By: Ortega Diana on 05-14-2023 Albumin [Mass/Vol] 3.1 g/dL 3.2-5.0 [facility] Serum or plasma albumin/glob ulin mass ratioOrdered By: Ortega Diana on 05-14-2023 Albumin/Globulin [Mass ratio] 0.7 {ratio} 0.9-2.4 [facility] Serum or plasma calcium theresa urement (mass/volume)Ordered By: Ortega Diana on 05-14-2023 Calcium [Mass/Vol] 8.5 mg/dL 8.5-10.1 [facility] Serum or plasma creatinine m easurement (mass/volume)Ordered By: Ortega Diana on 05-14-2023 Creatinine [Mass/Vol] 0.83 mg/dL 0.70-1.30 [facility] Comment on above: The validity of the calculated GFR & GFRAA in patients over 70 years has not been determined. Clinical correlation is essential. Serum or plasma urea nitroge n measurement (mass/volume)Ordered By: Ortega Diana on 05-14-2023 Urea nitrogen [Mass/Vol] 11 mg/dL 7-18 [facility] Squamous epithelial cells de tection in urine sediment by light microscopyOrdered By: Ortega Diana on 05-14-2023 Epithelial cells.squamous LM Ql (Urine sed) 0 SEEN /hpf 0-5 [facility] Thin prep Papanicolaou smear with manual screeningOrdered By: Ortega Diana on 05-14-2023 Thin prep Papanicolaou smear with manual screening 16 U/L 15-37 [facility] Thin prep Papanicolaou smear with manual screening 4 5-15 [facility] Urine blood detectionOrdered By: Ortega Diana on 05-14-2023 RBC Ql (U) 10 /ul Negative [facility] RBC Ql (U) 0 SEEN /hpf 0-5 [facility] Urine clarityOrdered By: Roge Diana on 05-14-2023 Clarity (U) Clear Clear [facility] Urine color determinationOrd ered By: Ortega Diana on 05-14-2023 Color (U) Yellow Yellow [facility] Urine glucose detectionOrder ed By: Ortega Diana on 05-14-2023 Glucose Ql (U) Normal mg/dl Normal [facility] Urine leukocyte esterase det ection by dipstickOrdered By: Ortega Diana on 05-14-2023 Leukocyte esterase Test strip Ql (U) 100 /ul Negative [facility] Urine pHOrdered By: Ortega Diana on 05-14-2023 pH (U) 6.5 [pH] 5.0 - 8.0 [facility] Urine sediment bacteria coun t by microscopy (number/high power field)Ordered By: Ortega Diana on 05-14-2023 Bacteria LM.HPF (Urine sed) [#/Area] 0 /[HPF] None Seen [facility] Urine specific gravity measu rementOrdered By: Ortega Diana on 05-14-2023 Specific gravity (U) [Rel density] 1.015 1.002-1.03 0 [facility] Urobilinogen Auto test strip Ql (U)Ordered By: Ortega Diana on 05-14-2023 Urobilinogen Ql (U) 4 mg/dl Normal [facility] CBC + DIFFon 05-13-2023 Baso # 0.00 x10EE3/UL Normal 0.00 - 0.10 [facility] Comment on above: Performed By: #### 2 [id number] #### [facility],[address] [place] [address] Basophils/100 WBC (Bld) 0.4 % Normal 0.0 - 2.0 [facility] Comment on above: Performed By: #### 2 91473 #### [facility],[address] [place] [address] CBC + DIFF Normal [facility] Comment on above: Result Comment: CBC- COMPLETE BLOOD COUNT Performed By: #### 2 98171 #### [facility],[address] [place] [address] 86496 EO # 0.10 x10EE3/UL Normal 0.00 - 0.50 [facility] Comment on above: Performed By: #### 2 21309 #### [facility],[address] [place] [address] 85068 Eosinophils/100 WBC (Bld) 1.0 % Normal 0.0 - 7.0 [facility] Comment on above: Performed By: #### 2 18979 #### [facility],[address] [place] [address] 63262 Erythrocyte distribution width (RBC) [Ratio] 15.1 % Normal 12.0 - 15.6 [facility] Comment on above: Performed By: #### 2 58207 #### [facility],[address] [place] [address] 15474 Hematocrit (Bld) [Volume fraction] 38.4 % Low 40.0 - 52.0 [facility] Comment on above: Performed By: #### 2 48395 #### [facility],[address] [place] [address] 77574 Hemoglobin (Bld) [Mass/Vol] 12.5 g/dL Low 13.0 - 17.5 [facility] Comment on above: Performed By: #### 2 86955 #### [facility],[address] [place] [address] 47270 Lymph # 2.10 x10EE3/UL Normal 0.80 - 2.80 [facility] Comment on above: Performed By: #### 2 30337 #### [facility],[address] [place] [address] 55828 Lymphocytes/100 WBC (Bld) 25.4 % Normal 20.0 - 45.0 [facility] Comment on above: Performed By: #### 2 35531 #### [facility],[address] [place] [address] 11224 MANUAL DIFF N/A Normal [facility] Comment on above: Performed By: #### 2 52807 #### [facility],[address] [place] [address] MCH (RBC) [Entitic mass] 28 pg Normal 27 - 33 [facility] Comment on above: Performed By: #### 2 63696 #### [facility],[address] [place] [address] MCHC 33 X10 3 Normal 32 - 36 [facility] Comment on above: Performed By: #### 2 54674 #### [facility],[address] [place] [address] MCV (RBC) [Entitic vol] 87 fL Normal 81 - 98 [facility] Comment on above: Performed By: #### 2 58700 #### [facility],[address] [place] [address] [place] # 0.60 x10EE3/UL Normal 0.20 - 1.00 [facility] Comment on above: Performed By: #### 2 95336 #### [facility],[address] [place] [address] MONOS % 7.7 % Normal 0.0 - 10.0 [facility] Comment on above: Performed By: #### 2 70451 #### [facility],[address] [place] [address] Morphology Joshua (Bld) [Interp] N/A Normal [facility] Comment on above: Result Comment: {CD] Performed By: #### 2 85111 #### [facility],[address] [place] [address] Neut # 5.50 x10EE3/UL Normal 1.50 - 7.10 [facility] Comment on above: Performed By: #### 2 12568 #### [facility],[address] [place] [address] Neutrophils/100 WBC (Bld) 65.5 % Normal 46.0 - 76.0 [facility] Comment on above: Performed By: #### 2 60292 #### [facility],[address] [place] [address] 55059 PLATELET 180 x10EE3/UL Normal 150 - 450 [facility] Comment on above: Performed By: #### 2 31569 #### [facility],[address] [place] [address] 04248 Platelet mean volume (Bld) [Entitic vol] 9.1 fL Normal 6.4 - 10.5 [facility] Comment on above: Result Comment: AUTO MATED DIFFERENTIAL Performed By: #### 2 48030 #### [facility],[address] [place] [address] 94064 RBC 4.40 x 10EE6/UL Low 4.50 - 6.00 [facility] Comment on above: Performed By: #### 2 89584 #### [facility],[address] [place] [address] 58507 WBC 8.3 x 10EE3/UL Normal 4.5 - 10.8 [facility] Comment on above: Performed By: #### 2 34166 #### [facility],[address] [place], [place] [id number] CMP with eGFRon 05-13-2023 AGE 63 years Normal [facility] Comment on above: Performed By: #### 2 61863 #### [facility],[address] [place] [address] 46427 Albumin [Mass/Vol] 3.1 g/dL Low 3.4 - 5.0 [facility] Comment on above: Performed By: #### 2 90741 #### [facility],[address] [place] [address] 93701 Albumin/Globulin [Mass ratio] 0.7 {ratio} Low 0.9 - 1.6 [facility] Comment on above: Performed By: #### 2 02459 #### [facility],[address] [place] [address] 63047 ALK PHOS 114 U/L Normal 46 - 116 [facility] Comment on above: Performed By: #### 2 02457 #### [facility],[address] [place] [address] 20230 ALT [Catalytic activity/Vol] 13 U/L Low 16 - 63 [facility] Comment on above: Performed By: #### 2 57898 #### [facility],[address] [place] [address] 29020 Anion gap [Moles/Vol] 11 mmol/L Normal 10 - 20 [facility] Comment on above: Performed By: #### 2 26661 #### [facility],[address] [place] [address] 28343 AST [Catalytic activity/Vol] 13 U/L Low 15 - 37 [facility] Comment on above: Performed By: #### 2 76237 #### [facility],[address] [place] [address] 93647 B/C RATIO 7 ratio Normal 0 - 30 [facility] Comment on above: Performed By: #### 2 70704 #### [facility],[address] [place] [address] 70077 Bilirubin [Mass/Vol] 0.6 mg/dL Normal 0.2 - 1.0 [facility] Comment on above: Performed By: #### 2 40899 #### [facility],[address] [place] [address] 08642 Calcium [Mass/Vol] 8.6 mg/dL Normal 8.5 - 10.1 [facility] Comment on above: Performed By: #### 2 50591 #### [facility],[address] [place] [address] 73858 Chloride [Moles/Vol] 96 mmol/L Low 98 - 107 [facility] Comment on above: Performed By: #### 2 80428 #### [facility],[address] [place] [address] 99045 CMP with eGFR Normal [facility] Comment on above: Result Comment: COMP REHENSIVE METABOLIC PANEL Performed By: #### 2 76700 #### [facility],[address] [place] [address] 38213 CO2 [Moles/Vol] 31.5 mmol/L Normal 21.0 - 32.0 [facility] Comment on above: Performed By: #### 2 14842 #### [facility],[address] [place] [address] 31447 Creatinine [Mass/Vol] 0.88 mg/dL Normal 0.70 - 1.30 [facility] Comment on above: Performed By: #### 2 83941 #### [facility],[address] [place] [address] 94720 GFR/1.73 sq M.predicted among non-blacks MDRD (S/P/Bld) [Vol rate/Area] mL/min/{1.73_m2} Normal 60 - 999 [facility] Comment on above: Performed By: #### 2 25326 #### [facility],[address] [place] [address] 20864 Result Comment: ACCO RDING TO THE NATIONAL KIDNEY DISEASE EDUCATION PROGRAM(NKDE), A NORMAL eGFR IS A VALUE GREATER THAN OR EQUAL TO 60 ML/MIN/1.73 SQ METERS. CHRONIC KIDNEY DISEASE: <60mL/MIN/1.73 SQ METERS KIDNEY FAILURE: <15mL/MIN/1.73 SQ METERS THIS TEST SHOULD ONLY BE USED FOR PATIENTS 18 YEARS OF AGE AND OLDER. Globulin (S) [Mass/Vol] 4.3 g/dL High 1.5 - 3.8 [facility] Comment on above: Performed By: #### 2 47733 #### [facility],[address] [place] [address] 65538 Glucose [Mass/Vol] 236 mg/dL High 74 - 106 [facility] Comment on above: Performed By: #### 2 29938 #### [facility],[address] [place] [address] 91212 Potassium [Moles/Vol] 2.6 mmol/L Critically low 3.5 - 5.1 [facility] Comment on above: Result Comment: { CA LLED TO ER AT 0508 { READ BACK BY ADIEL TO AEL AT 0508 Performed By: #### 2 61972 #### [facility],[address] [place] [address] 15454 Protein [Mass/Vol] 7.4 g/dL Normal 6.4 - 8.2 [facility] Comment on above: Performed By: #### 2 72064 #### [facility],[address] [place] [address] 96187 Sodium [Moles/Vol] 136 mmol/L Normal 136 - 145 [facility] Comment on above: Performed By: #### 2 74031 #### [facility],[address] [place], [place] [address] Urea nitrogen [Mass/Vol] 6 mg/dL Low 7 - 18 [facility] Comment on above: Performed By: #### 2 12909 #### [facility],[address] [place], [place] [address] CT ABDOMEN/PELVIS [facility] 2022 CT ABDOMEN/PELVIS [place] [address] Patient: JEANNE RIVERS Phone#: : 1960 Age: 63 Gender: M Pt. Type: ER Account: [id number] Location: [facility] Ordering: DR. WENDY ASIF Exam Date: 05/13/2023/5:20 Family Phys: EDILIA REMY Charge Code: 444962 Physician: Manati Order #: [id number] Dose#: [id number] PROCEDURE: CT ABDOMEN/PELVIS WITH CONTRAST COMPARISON: None. INDICATIONS: Abdominal pain. TECHNIQUE: After obtaining the patient's consent, CT images were created with non-ionic intravenous contrast material. All CT scans at this facility use dose modulation, iterative reconstruction, and/or weight based dosing when appropriate to reduce radiation dose to as low as reasonably achievable. IV CONTRAST: Omnipaque 350,80ml TOTAL DOSE: 33.20 CTDIvol(mGy) FINDINGS: LIVER: Few scattered calcified granulomas are present. No enlargement, atrophy, abnormal density, or significant focal lesion. BILIARY: Trace pericholecystic fluid is present. No visible dilatation or calcification. PANCREAS: Normal. No lesion, fluid collection, ductal dilatation, or atrophy. SPLEEN: Normal. No enlargement or focal lesion. KIDNEYS: Normal. No mass, obstruction, or calcification. ADRENALS: Normal. No mass or enlargement. AORTA/VASCULAR: Aortic calcification is present. No aneurysm or dissection. RETROPERITONEUM: Normal. No mass or adenopathy. BOWEL/MESENTERY: The appendix is retrocecal. No visible mass, obstruction, or bowel wall thickening. ABDOMINAL WALL: Normal. No mass or hernia. URINARY BLADDER: Normal. No visible focal wall thickening, lesion, or calculus. PELVIC NODES: Normal. No adenopathy. PELVIC ORGANS: The prostate is mildly lobulated. Central calcifications present. There is impression on the base of the bladder. BONES: Degenerative changes of the spine are present. Other. No bony lesion or fracture. Continued Report - Page 2 of 2 Patient: JEANNE RIVERS Phone#: : 1960 Age: 63 Gender: M Pt. Type: ER Account: [id number] Location: 052 Ordering: DR. WENDY ASIF Exam Date: 05/13/2023/5:20 Family Phys: EDILIA REMY Charge Code: 697141 Physician: Manati Order #: [id number] Dose#: [id number] LUNG BASES: Small pericardial effusion is present. Coronary artery calcifications present. Small bilateral pleural effusions are present. OTHER: Negative. CONCLUSION: 1. There is trace pericholecystic fluid. 2. Small pericardial effusion. 3. No other acute abdominal or pelvic abnormality is identified. Dictated by: Waqar King MD on 05/13/2023 at 9:48 Approved by: Waqar King MD on 05/13/2023 at 10:08 Normal [facility] EMERGENCY REPORTon 3 EMERGENCY REPORT [facility] EMERGENCY ROOM REPORT NAME ACCOUNT SEX AGE ADMIT DISCHARGE PT MED. RECORD# NUMBER DATE DATE TYPE JEANNE RIVERS [id number] M 63 05/13/23 05/13/23 3 A [id number] ROOM: ER DATE OF : 1960 DICTATING PHYSICIAN: Wendy Asif CHIEF COMPLAINT: Abdominal pain. HISTORY OF PRESENT ILLNESS: The patient states for 2 months he has had abdominal pain, it seems like mostly in the right lower quadrant. It has gotten a little bit worse lately. He has been able to eat. He has been able to go to the bathroom okay. No urinary complaints. No history of kidney stones. No history of previous abdominal surgeries. The discomfort is kind of a dull discomfort but at times gets more intense. He has not seen his doctor regarding this problem. He is diabetic. No history of CT. No history of stroke. He states that the discomfort is not necessarily motion dependent, and it does not seem to be related to bowel movements or to eating. He states he has not had a cough. He states sometimes, though, if he coughs really hard it bothers him down there. He has a history of diverticulitis. He states that what he thinks that maybe this could be. It seems to him like it is getting worse. He has never had a colonoscopy before. SOCIAL HISTORY: He has been for 10 years. He is here with his . He is a smoker. No alcohol use. Private vehicle arrival. PHYSICAL EXAMINATION: GENERAL: He is pleasant and alert. He is somewhat overweight. He has got a larger abdomen there, and he indicates the discomfort to be in the right side of his abdomen, mostly in the right lower quadrant. Bowel sounds are normal. He has no rebound or rigidity. He is not icteric. There is no hepatosplenomegaly. HEENT: Examination is normal. Pharynx is symmetric. There is no RPA, PPA or [employer]. NECK: There are no anterior, posterior or supraclavicular nodes. No JVD at 30 degrees. LUNGS: The lungs are clear. He ventilates equally bilaterally. He ventilates easily. There is no expiratory wheeze. HEART: Heart rate and rhythm are regular without a murmur. PMI is at the left chest. He has good radial and dorsalis pedis pulses. No peripheral edema. ABDOMEN: His abdomen is soft with sort of a vague discomfort in the right side of his abdomen. No cva discomfort. No rash present. : External genitalia appear normal. There are no scars to the belly wall. SKIN: Skin is warm and dry. NEUROLOGIC: Examination is symmetric and intact. PSYCHIATRIC: Evaluation is relative to the chief complaint. He is well-disposed. VITAL SIGNS: 158/90 blood pressure, 96 pulse, 18 respirations, 97.5 temperature, and 95% saturation on arrival. Weight is 230 pounds, and he is afebrile. DIAGNOSTIC DATA: Urine has positive nitrites, 100 of leukocytes, 6-10 white cells, Page 1 of 2 JEANNE RIVERS Emergency Room Report JEANNE RIVERS : 1960 and 4+ bacteria. Cultures have been ordered. His sugar was 236, which is not bad. His creatinine is normal at 0.88. His potassium was 2.6. His states he is not on any potassium medicines, and he also does not take any diuretics. His BNP is elevated at a little over 1700. His white count is normal at 8.3. Hemoglobin and hematocrit are 12.5 and 38.4, which is down from 16.1 and 47.6 in March of 2021. A CT was ordered with contrast. The EKG showed some nonspecific ST-T wave variations. In comparing it to March 22, 2021 and December 04, 2020, I think it may reflect his potassium. He is not having any chest pain. He does not have a history of CHF. I am not sure why his BNP is that much elevated. EMERGENCY DEPARTMENT COURSE AND TREATMENT: We gave him a little bit of Dilaudid IV with some Zofran IV, and that made him feel much better. His belly was soft, and he states he really did not have much discomfort. Laboratories were obtained. We will also check the gallbladder. He last ate about 12 hours ago. His case will be endorsed to Dr. Alvarado at the change of shift for further evaluation of his abdominal pain. The patient's examination was performed in the presence of the patient's , Kaela. Dictated By: Wendy Asif DO 05/13/23 06:34 JOB #: [id number] Transcribed By: jodee 05/13/23 13:23 Electronically signed by: E-SIGN WENDY ASIF DO 05/13/23 20:33 Page 2 of 2 HASMUKHAV [facility] Report Normal [facility] LACTATEon 05-13-2023 Lactate [Moles/Vol] 0.5 mmol/L Normal 0.4 - 2.0 [facility] Comment on above: Performed By: #### 2 87677 #### [facility],[address] [place] [address] 44726 Lactate [Moles/Vol] 2.1 mmol/L High 0.4 - 2.0 [facility] Comment on above: Result Comment: LACT ATE 3 HR NOTIFIED TO: _[id number]_[id number] 05/13/23.AEL. LACTATE 3 HR NOTIFIED BY: _AEL 05/13/23.AEL. Performed By: #### 2 33962 #### [facility],[address] [place], [place] [address] LIPASEon 05-13-2023 Lipase [Catalytic activity/Vol] 70.0 U/L Low 73.0 - 393 [facility] Comment on above: Performed By: #### 2 67948 #### [facility],[address] [place] [address] 18250 NT-proBNPon 05-13-2023 Natriuretic peptide B (Bld) [Mass/Vol] 1735 pg/mL High 0 - 125 [facility] Comment on above: Performed By: #### 2 10321 #### [facility],[address] [place] [address] 23686 POTASSIUMon 05-13-2023 Potassium [Moles/Vol] 3.6 mmol/L Normal 3.5 - 5.1 [facility] Comment on above: Performed By: #### 2 73357 #### [facility],[address] [place] [address] 96144 TROPONIN I, HIGH SENSITIVITY on 05-13-2023 HS TROPONIN 48.5 pg/mL Normal 0.0 - 76.2 [facility] Comment on above: Performed By: #### 2 68832 #### [facility],[address] [place] [address] 85026 URINALYSISon 05-13-2023 Amorphous NONE Normal [facility] Comment on above: Performed By: #### 2 22840 #### [facility],[address] [place] [address] 41004 Bacteria 4+ Normal [facility] Comment on above: Performed By: #### 2 49404 #### [facility],[address] [place] [address] 89874 Bilirubin Ql (U) Negative Normal NORMAL: NEGATIVE [facility] Comment on above: Performed By: #### 2 03259 #### [facility],[address] [place], [place] [address] Casts NONE Normal [facility] Comment on above: Performed By: #### 2 73747 #### [facility],[address] [place], [place] [address] Clarity (U) sl.cloudy Normal NORMAL: CLEAR [facility] Comment on above: Performed By: #### 2 52431 #### [facility],[address] [place] [address] 11688 Color (U) yellow Normal NORMAL: YELLOW [facility] Comment on above: Performed By: #### 2 25332 #### [facility],[address] [place] [address] 53380 Crystals LM Nom (Urine sed) NONE Normal [facility] Comment on above: Performed By: #### 2 52638 #### [facility],[address] [place] [address] 50064 Epi Cells FEW Normal [facility] Comment on above: Performed By: #### 2 97831 #### [facility],[address] [place] [address] 71606 Glucose Ql (U) NORM Normal NORMAL: NORMAL [facility] Comment on above: Performed By: #### 2 19941 #### [facility],[address] [place] [address] 42598 Hemoglobin Ql (U) 25 Abnormal NORMAL: NEGATIVE [facility] Comment on above: Performed By: #### 2 12052 #### [facility],[address] [place] [address] 13353 Ketone Negative Normal NORMAL: NEGATIVE [facility] Comment on above: Performed By: #### 2 08926 #### [facility],[address] [place] [address] 20176 Leukocytes 100 Abnormal NORMAL: NEGATIVE [facility] Comment on above: Performed By: #### 2 14325 #### [facility],[address] [place] [address] 52269 Mucous NONE Normal [facility] Comment on above: Performed By: #### 2 00217 #### [facility],[address] [place] [address] 25059 Nitrite Ql (U) Positive Normal NORMAL: NEGATIVE [facility] Comment on above: Performed By: #### 2 94967 #### [facility],[address] [place] [address] 27439 pH (U) 6.5 [pH] Normal NORMAL: 5.0-8.0 [facility] Comment on above: Performed By: #### 2 67826 #### [facility],[address] [place] [address] 39825 Protein Ql (U) 30 Abnormal NORMAL: NEGATIVE [facility] Comment on above: Performed By: #### 2 30302 #### [facility],[address] [place] [address] 88831 Rbc 0-5 Normal 0-3/hpf [facility] Comment on above: Performed By: #### 2 44760 #### [facility],[address] [place] [address] 88879 Sp [place] 1.010 Normal NORMAL: 1.010-1.03 0 [facility] Comment on above: Performed By: #### 2 29870 #### [facility],[address] [place] [address] Specimen Type Void Normal [facility] Comment on above: Performed By: #### 2 46352 #### [facility],[address] [place], [place] [address] Urinalysis dipstick W Reflex Microscopic panel (U) SEE BELOW Normal [facility] Comment on above: Result Comment: MICR OSCOPIC Performed By: #### 2 00319 #### [facility],[address] [place] [address] Urobilinog 1 Abnormal NORMAL: NORMAL [facility] Comment on above: Performed By: #### 2 84236 #### [facility],[address] [place] [address] Wbc 6-10 Normal 0-5/hpf [facility] Comment on above: Performed By: #### 2 27522 #### [facility],[address] [place] [address] Yeast NONE Normal [facility] Comment on above: Performed By: #### 2 96472 #### [facility],[address] [place], [place] [address] US RUQ (GB/PANCREAS)on 05-13 US RUQ (GB/PANCREAS) [place] [address] Patient: JEANNE RIVERS Phone#: : 1960 Age: 63 Gender: M Pt. Type: ER Account: [id number] Location: 2 Ordering: DR. WENDY ASIF Exam Date: 05/13/2023/8:26 Family Phys: EDILIA SMITHATIF Charge Code: [id number] Physician: Manati Order #: [id number] Dose#: PROCEDURE: RUQ (GB) ULTRASOUND COMPARISON: None. INDICATIONS: Abdomen pain FINDINGS: LIVER: Scattered punctate calcifications are present, likely granulomas. Normal size and echotexture. No significant masses. BILIARY: Normal. Normal appearing gallbladder and biliary tree. Common bile duct diameter 3.6 mm. PANCREAS: Normal. No visible mass, abnormal atrophy, or ductal dilatation. RIGHT KIDNEY: Normal. No mass or obstruction. OTHER: Negative. CONCLUSION: 1. There is no evidence of acute abnormality. DICTATED BY: WAQAR KING MD ON 05/13/2023 AT 9:06 APPROVED BY: WAQAR KING MD ON 05/13/2023 AT 9:15 Normal [facility] ELBOW COMPLETE LTon 03-05-20 23 ELBOW COMPLETE LT [place] [address] Patient: JEANNE RIVERS. Phone#: : 1960 Age: 62 Gender: M Pt. Type: ER Account: [id number] Location: [facility] Ordering: LOERTTA ALVARADO Exam Date: 03/05/2023/15:37 Family Phys: EDILIA REMY Charge Code: 920371 Physician: Manati Order #: [id number] Dose#: PROCEDURE: X-RAY ELBOW LT MIN 3 VIEWS COMPARISON: [facility], XR, ELBOW COMPLETE LT, 01/01/2019, 1:28. INDICATIONS: Trauma. FINDINGS: BONES: No fracture or dislocation. 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 SOFT TISSUES: Negative. No visible soft tissue swelling. EFFUSION: None visible. OTHER: Negative. CONCLUSION: 1. No acute osseous abnormality. Dictated by: Jennifer Zepeda MD on 03/05/2023 at 15:57 Approved by: Jennifer Zepeda MD on 03/05/2023 at 16:00 Normal [facility] [place] [address] [facility] Patient: JEANNE RIVERS [id number] : 60 Status: REG CLI Date of Service: 09/10/20 HISTORY OF PRESENT ILLNESS: The patient comes in today for complaint of lumbar pain, leg pain. He also has a history of type 1 diabetic neuropathy. He states overall his pain is the same. He does have lumbar pain with leg symptomology. He states it is worse at night. He states MSIR at 15 mg twice a day helps with his pain and sleep. He states without the MSIR he cannot sleep at night. He states that he get naps, wakes up every couple of hours he states it still is better. PHYSICAL EXAMINATION: NEUROLOGIC: This is a 60-year-old male, who is alert and oriented x3. Affect is appropriate. Cranial nerves 2 through 12 grossly intact. Gait is flexed. He is utilizing a cane. He does have pain with range of motion of the lumbar spine, although he is able to stand from a seated position without difficulty. There is no footdrop noted of the lower extremities. ASSESSMENT: 1. Lumbar spinal stenosis with leg symptomology. 2. Lumbosacral spondylosis without myelopathy. 3. Type 1 diabetic neuropathy. PLAN: Follow up in 10 weeks. He will continue utilizing MSIR twice a day. Report#: Dict ID [id number] / Int ID [id number] 09/20/20926 * 09/20/2037 _ IRVIN ALLEN C.N.P., CHARLES V D.O. cc: << Signature on File>> Reported By: IRVIN ALLEN C.N.P. Signed By: IRVIN ALLEN C.N.P. Tests performed at: [address] [facility] [place] [address] [facility] Patient: JEANNE RIVERS [id number] : 60 Status: REG CLI Date of Service: 04/24/20 HISTORY OF PRESENT ILLNESS: The patient comes in today for complaint of lumbar pain, leg pain. He states overall his lumbar pain is about the same as is his leg symptomology. He states it is fairly continuous , does utilize MSIR 15 mg twice a day. He states it does help some especially with sleep. PHYSICAL EXAMINATION: NEUROLOGIC: This is a 59-year-old male, who is alert and oriented x3. Affect is appropriate. Cranial nerves 2 through 12 grossly intact. Gait is upright steady. He does have pain with range of motion of the lumbar spine with increase in his leg symptomology. Radiating down his legs. ASSESSMENT: 1. Lumbar spinal stenosis with leg symptomology. 2. Lumbosacral spondylosis without myelopathy. PLAN: Follow up in 10 weeks. OARRS was reviewed. He will continue utilizing MSIR twice a day. Report#: Dict ID [id number] / Int ID [id number] 05/15/20 1558 * 06/05/20 1647 _ IRVIN ALLEN C.N.P., CHARLES V D.O. cc: << Signature on File>> Reported By: IRVIN ALLEN C.N.P. Signed By: IRVIN ALLEN C.N.P. Tests performed at: [address] [address] Normal [facility] [place], [place] [id number] [place] [address] [facility] Patient: JEANNE RIVERS [id number] : 60 Status: REG CLI Date of Service: 01/31/20 HISTORY OF PRESENT ILLNESS: The patient comes in today for complaint of lumbar pain and leg pain. He states he does need surgery by Dr. Jimenez. He states 60 dollars for a followup, he would be able to see Dr. Jimenez and get surgery set up. The patient states that his pain is still there. Some unsteadiness. He utilizes a cane. He also continues to smoke. He continues to utilize MSIR 15 mg twice a day. It does help with his pain. PHYSICAL EXAMINATION: GENERAL: This is a 59-year-old male, who is alert and oriented x3. NEUROLOGIC: Affect is appropriate. Cranial nerves 2 through 12 grossly intact. Gait is upright, utilizes a cane. MUSCULOSKELETAL: He does have pain with range of motion of lumbar spine. Extension and flexion does elicit pain and radicular symptomology down his legs. ASSESSMENT: 1. Lumbar spinal stenosis with leg symptomology. 2. Lumbosacral spondylosis without myelopathy. PLAN: He will continue utilizing MSIR 15 mg twice a day. He will follow up hopefully soon with Dr. Jimenez. He will follow up in 3 months. OARRS was reviewed. Report#: Dict ID [id number] / Int ID [id number] 02/23/20 0850 * 02/23/20 1228 _ IRVIN ALLEN C.N.P., CHARLES V D.O. cc: << Signature on File>> Reported By: IRVIN ALLEN C.N.P. Signed By: IRVIN ALLEN C.N.P. Tests performed at: [address] [facility] [place], [place] [id number] [place] [address] [facility] Patient: JEANNE RIVERS [id number] : 60 Status: REG CLI Date of Service: 11/22/19 HISTORY OF PRESENT ILLNESS: The patient was seen today on 11/22/2019 continued low back and right leg discomfort for the foot. MRI of the lumbar spine was reviewed showing L5-S1 stenosis which is significant. He was sent to Dr. Jimenez, who sent him to a neurosurgeon, but he apparently owes 60 dollars to the surgeon and will not be seen until he is paid. In the interim, the patient is maintained on morphine short-acting therapy, it does allow him to function, though makes him somewhat tired. He takes it in the afternoon and before bed. It is effective to get him through the night with sleep. REVIEW OF SYSTEMS: Remainder of review of systems intake form, pain questionnaire, nursing assessment, and OARRS report were reviewed. SOCIAL HISTORY: It is noted he is a big smoker at 1-1/2 packs per day, was advised to quit. PHYSICAL EXAMINATION: GENERAL: This is a 59-year-old male alert x3 and pleasant. He is 5 feet 11 inches, 228 pounds. VITAL SIGNS: Blood pressure 140/80, pulse 90, respirations 16. He is afebrile. NEUROLOGIC: The patient ambulates with a cane in a flexed position. He has no focal deficits, but with significant discomfort with any lumbar extension. Lumbar flexion is somewhat painful as well, which is unusual. NECK: Cervical range of motion is preserved. Thyroid is not enlarged. HEART: Regular. LUNGS: Surprisingly clear in all lung de la vega. Peripheral pulses are maintained. ABDOMEN: Soft and mildly rotund. ASSESSMENT: 1. Lumbar spinal stenosis with leg pathology, right-sided. 2. Lumbosacral radiculitis right-sided. The patient will try to quit smoking, but he states it will be nearly impossible. The patient will stay out of anywhere, but home until to coronavirus is resolved and will try to see a neurosurgeon. Over the stimulus check, we will give him enough money to pay his bills and then he can be seen. He will probably need a surgical exposure. Report#: Dict ID [id number] / Int ID [id number] cc: Mariella Wilson MD 11/22/19 1434 _ MARIANNA PATEL D.O. cc: MARIELLA WILSON M.D. << Signature on File>> Reported By: MARIANNA PATEL D.O. Signed By: MARIANNA PATEL D.O. Tests performed at: [place] [address] Normal [facility] MRI SPINE LUMBAR W/O CONTRAS Ton 07-26-2019 MRI SPINE LUMBAR W/O CONTRAST ORIGINAL MRI SPINE LUMBAR W/O CONTRAST PATIENT: JEANNE RIVERS. TECHNIQUE: Multiplanar multisequence imaging of the lumbar spine without the administration of IV contrast. COMPARISON: None. FINDINGS: For purposes of this dictation, it is assumed that there are 5 agp-xhv-pzilotx, lumbar-type vertebrae, and the most caudal fully segmented lumbar vertebra is labeled L5. The lumbar spine demonstrates slight grade 1 degenerative listhesis of L4 on L5.. Vertebral bodies are normal in height. There is mild disc desiccation at L4-L5 and L5-S1 with moderate disc height loss at L5-S1. There is no suspicious marrow signal abnormality. The conus medullaris terminates at a normal level and the nerve roots of the cauda equina appear normal. The included paraspinal soft tissues and retroperitoneal structures are grossly normal. L1-2: No stenosis. L2-3: No stenosis. L3-4: Symmetric bulge and posterior hypertrophy cause mild spinal canal stenosis. L4-5: Anterolisthesis, such bulge, RIGHT central extrusion, facet arthropathy and ligament flavum thickening cause cfhywxhs-mp-qmwkdf spinal canal stenosis and narrow the RIGHT greater than the LEFT lateral recess is. Mild bilateral foraminal stenosis. L5-S1: Symmetric bulge with a central extrusion and facet arthropathy narrow the RIGHT lateral recess and cause mild central spinal stenosis. Moderate RIGHT, mild LEFT foraminal stenosis. ORDERING PROVIDER: DANYELLE JIMENEZ CLINICAL STATEMENT: LUMBAR DISC DEGENERATION. IMPRESSION: 1. RIGHT L5 radiculopathy could correlate with lateral recess narrowing at L4-L5 or the foraminal stenosis at L5-S1. 2. LEFT L5 correlate with the foraminal stenosis at L5-S1. 3. RIGHT S1 radiculopathy would correlate with lateral recess at L5-S1. 4. Moderate to severe degenerative L4-L5 canal stenosis. Interpreted By: Rene Alarcon Preliminary Report By: Rene Alarcon Electronically Signed By: Rene Alarcon Dictated Date: 03/10/2019 1:22:50 PM Prelim Date: 03/10/2019 1:22:50 PM Sign Date: 03/10/2019 1:28:48 PM Normal [facility] ([place]) .GFRon 03-09-2019 GFR >60 Normal [facility] ([place]) Comment on above: Result Comment: GFR Population mean for , Non- Americans Ages 20-29 = 116 mL/min/1.73 sq.m. Ages 30-39 = 107 mL/min/1.73 sq.m. Ages 40-49 = 99 mL/min/1.73 sq.m. Ages 50-59 = 93 mL/min/1.73 sq.m. Ages 60-69 = 85 mL/min/1.73 sq.m. Ages 70+ = 75 mL/min/1.73 sq.m. Chronic Kidney Disease: Less than 60 mL/min/1.73 square meters End Stage Renal Disease: Less than 15 mL/min/1.73 square meters Performed By: #### Vanesa ANDERSON, BMP #### [address] [address] GFR Non- >60 Normal [facility] ([place]) Comment on above: Result Comment: GFR Population mean for , Non- Americans Ages 20-29 = 116 mL/min/1.73 sq.m. Ages 30-39 = 107 mL/min/1.73 sq.m. Ages 40-49 = 99 mL/min/1.73 sq.m. Ages 50-59 = 93 mL/min/1.73 sq.m. Ages 60-69 = 85 mL/min/1.73 sq.m. Ages 70+ = 75 mL/min/1.73 sq.m. Chronic Kidney Disease: Less than 60 mL/min/1.73 square meters End Stage Renal Disease: Less than 15 mL/min/1.73 square meters Performed By: #### Vanesa ANDERSON, BMP #### [address] [address] [facility] Potassium [Moles/Vol] 4.3 mmol/L Normal 3.5-5.0 [facility] ([place]) Comment on above: Result Comment: Spec imen slightly hemolyzed. Results may be falsely elevated. Performed By: #### Vanesa ANDERSON, BMP #### [address] [address] Urea nitrogen [Mass/Vol] 11.0 mg/dL Normal 8.0-22.0 [facility] ([place] Comment on above: Performed By: #### Vanesa ANDERSON, BMP #### [address] [address] Urea nitrogen/Creatinine [Mass ratio] 20.0 ratio Normal 10.0-22.0 [facility] ([place]) Comment on above: Performed By: #### Vanesa ANDERSON, BMP #### [address] [address] Calcium [Mass/Vol] 8.5 mg/dL Normal 8.4-10.1 [facility] ([place]) Comment on above: Performed By: #### Vanesa ANDERSON, BMP #### [address] [address] Chloride [Moles/Vol] 103 mmol/L Normal 98-110 [facility] ([place]) Comment on above: Performed By: #### Vanesa ANDERSON, BMP #### [address] [address] CO2 [Moles/Vol] 32 mmol/L Normal 22-32 [facility] ([place] Comment on above: Performed By: #### Vanesa ANDERSON, BMP #### [address] [address] Creatinine [Mass/Vol] 0.55 mg/dL Low 0.60-1.40 [facility] ([place] Comment on above: Performed By: #### Vanesa ANDERSON, BMP #### [address] [address] Electrolyte Balance 5.0 mEq/L Normal 4.0-15.0 [facility] ([place]) Comment on above: Performed By: #### Vanesa FR, BMP #### [address] [address] Glucose [Mass/Vol] 165 mg/dL High 70-110 [facility] ([place] Comment on above: Performed By: #### Vanesa FR, BMP #### [address] [address] Sodium [Moles/Vol] 140 mmol/L Normal 136-145 [facility] ([place] Comment on above: Performed By: #### Vanesa FR, BMP #### [address] [place], [place] [address] Office Visiton 07-14-2017 Dietary management education, guidance, and counseling (procedure) yes Invalid Interpretation Code [facility] Work Phone: [phone] Documentation of current medications (procedure) Done Invalid Interpretation Code [facility] Work Phone: [phone] Fall risk assessment Yes Invalid Interpretation Code [facility] Work Phone: [phone] Smoking cessation education (procedure) yes Invalid Interpretation Code [facility] Work Phone: [phone] Tobacco use CPHS Current every day smoker Invali d Interpretation Code [facility] Work Phone: [phone] Clinical Lists 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: 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 07-07-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 Left ventricular Ejection fraction 55 % Invalid Interpretation Code [facility] Work Phone: [phone] Tobacco use CPHS Current every day smoker Invali d Interpretation Code [facility] Work Phone: [phone] Office Visiton 02-11-2017 Dietary management education, guidance, and counseling (procedure) yes Invalid Interpretation Code [facility] Work Phone: [phone] Documentation of current medications (procedure) Done Invalid Interpretation Code [facility] Work Phone: [phone] Smoking cessation education (procedure) yes Invalid Interpretation Code [facility] Work Phone: [phone] Lab Report: Bedside Glucoseo n 10-23-2014 BEDSIDE GLU 207 mg/dL Critically high 70-110 [facility] Work Phone: [phone] [facility] Report[facility] Anion gap 6 mmol/L Normal 5-15 [facility] Work Phone: [phone] BUN/Creatinine Ratio 10.0 RATIO Normal 10-[address] [facility] Work Phone: [phone] Calcium 8.6 mg/dL Normal 8.5-10.1 [facility] Work Phone: [phone] Chloride 102 mmol/L Normal 98-107 [facility] Work Phone: [phone] CO2 25.0 mmol/L Normal 21.0-32.0 [facility] Work Phone: [phone] Creatinine 0.7 mg/dL Low 0.8-1.3 [facility] Work Phone: [phone] eGFR (non-black) 125 mL/min/{1.73_m2} Normal >60 [facility] Work Phone: [phone] eGFR (non-black) 152 mL/min/{1.73_m2} Normal >60 [facility] Work Phone: [phone] Glucose mass conc 265 mg/dL High 70-110 [facility] Work Phone: [phone] Potassium molar conc 3.9 mmol/L Normal 3.5-5.1 [facility] Work Phone: [phone] Sodium 133 mmol/L Low 136-145 [facility] Work Phone: [phone] Urea nitrogen 7 mg/dL Normal 7-18 [facility] Work Phone: [phone]) Lab Report: [facility] 04-12- 4 ANC 6.3 X10 3/UL Normal 2.0-7.7 [facility] Work Phone: [phone] Basophils/100 WBC Auto (Bld) 0.4 % Normal 0-1 [facility] Work Phone: [phone] Eosinophils/100 leukocytes 3.1 % Normal 0-5 [facility] Work Phone: [phone] Erythrocytes (RBC) 5.04 10*6/uL Normal 4.6-6.2 [facility] Work Phone: [phone] Hematocrit (HCT) 42.9 % Normal 40-54 [facility] Work Phone: [phone] Hemoglobin mass conc (Bld) 15.0 g/dL Normal 13.0-16.5 [facility] Work Phone: [phone] Lymphocytes/100 leukocytes 29.0 % Normal 19-41 [facility] Work Phone: [phone] MCH 29.8 pg Normal 27.0-32.0 [facility] Work Phone: [phone] MCHC mass conc (RBC) 35.0 G/GL Normal 32-36 [facility] Work Phone: [phone] MCV 85.1 fL Normal 80-94 [facility] Work Phone: [phone] Monocytes/100 leukocytes 4.2 % Normal 0-10 [facility] Work Phone: [phone] Neutrophils/100 WBC Auto (Bld) 63.0 % Normal 47-70 [facility] Work Phone: [phone] Platelets 205 10*3/mm3 Normal 150-450 [facility] Work Phone: [phone] PMV by SekouMele 11.5 fL Normal 6.2-12.0 [facility] Work Phone: [phone] WBC (Leukocytes) 10.0 10*3/uL Normal 4.4-11.0 [facility] Work Phone: [phone] Vital Signs Date Time Vital Sign Value Performing Clinician Faci romyy 01-02-2025 09:36-0400 Body height 180.[address] Edilia Remy MD Work Phone: [facility] 01-02-2025 09:36-0400 Body mass index (BMI) [Ratio] 37.3 kg/m2 Dr. Edilia Remy MD Work Phone: [facility] 01-02-2025 09:36-0400 Body weight 121.[address] Edilia Remy MD Work Phone: [facility] 01-02-2025 09:36-0400 Diastolic blood pressure 82 mm[Hg] Dr. Edilia Remy MD Work Phone: [facility] 01-02-2025 09:36-0400 Heart rate 93 /min Dr. Edilia Remy MD Work Phone: [facility] 01-02-2025 09:36-0400 SaO2% (BldA) [Mass fraction] 90 % Dr. Edilia Remy MD Work Phone: [facility] 01-02-2025 09:36-0400 Systolic blood pressure 148 mm[Hg] Dr. Edilia Remy MD Work Phone: [facility] 11-11-2024 20:10-0400 Body temperature 98 [degF] Dr. Edilia Remy MD Work Phone: [facility] 11-11-2024 20:10-0400 Diastolic blood pressure 87 mm[Hg] Dr. Edilia Remy MD Work Phone: [facility] 11-11-2024 20:10-0400 Heart rate 89 /min Dr. Edilia Remy MD Work Phone: [facility] 11-11-2024 20:10-0400 Respiratory rate 18 /min Dr. Edilia Remy MD Work Phone: [facility] 11-11-2024 20:10-0400 SaO2% (BldA) [Mass fraction] 95 % Dr. Edilia Remy MD Work Phone: [facility] 11-11-2024 20:10-0400 Systolic blood pressure 149 mm[Hg] Dr. Edilia Remy MD Work Phone: [facility] 11-11-2024 17:19-0400 Body height 180.[address] Edilia Remy MD Work Phone: [facility] 11-11-2024 17:19-0400 Body mass index (BMI) [Ratio] 36.7 kg/m2 Dr. Edilia Remy MD Work Phone: [facility] 11-11-2024 17:19-0400 Body weight 119.[address] Edilia Remy MD Work Phone: [facility] 11-10-2024 14:30-0400 Body temperature 98.1 [degF] Dr. Edilia Remy MD Work Phone: [facility] 11-10-2024 14:30-0400 Diastolic blood pressure 76 mm[Hg] Dr. Edilia Remy MD Work Phone: [facility] 11-10-2024 14:30-0400 Heart rate 96 /min Dr. Edilia Remy MD Work Phone: [facility] 11-10-2024 14:30-0400 Respiratory rate 16 /min Dr. Edilia Remy MD Work Phone: [facility] 11-10-2024 14:30-0400 SaO2% (BldA) [Mass fraction] 95 % Dr. Edilia Remy MD Work Phone: [facility] 11-10-2024 14:30-0400 Systolic blood pressure 123 mm[Hg] Dr. Edilia Remy MD Work Phone: [facility] 11-10-2024 14:20-0400 Inhaled oxygen flow rate 3 L/min Dr. Edilia Remy MD Work Phone: [facility] 11-10-2024 12:44-0400 Body height 180.[address] Edilia Remy MD Work Phone: [facility] 11-10-2024 12:44-0400 Body mass index (BMI) [Ratio] 36.1 kg/m2 Dr. Edilia Remy MD Work Phone: [facility] 11-10-2024 12:44-0400 Body weight 117.[address] Edilia Remy MD Work Phone: [facility] 09-21-2024 17:04-0500 Body temperature 97.8 [degF] Dr. Edilia Remy MD Work Phone: [facility] 09-21-2024 17:04-0500 Diastolic blood pressure 85 mm[Hg] Dr. Edilia Remy MD Work Phone: [facility] 09-21-2024 17:04-0500 Heart rate 78 /min Dr. Edilia Remy MD Work Phone: [facility] 09-21-2024 17:04-0500 Respiratory rate 14 /min Dr. Edilia Remy MD Work Phone: [facility] 09-21-2024 17:04-0500 SaO2% (BldA) [Mass fraction] 97 % Dr. Edilia Remy MD Work Phone: [facility] 09-21-2024 17:04-0500 Systolic blood pressure 133 mm[Hg] Dr. Edilia Remy MD Work Phone: [facility] 09-21-2024 12:28-0500 Body mass index (BMI) [Ratio] 36.7 kg/m2 Dr. Edilia Remy MD Work Phone: [phone] [place] [address] 09-21-2024 12:28-0500 Body weight 121.[address] Edilia Remy MD Work Phone: [facility] 09-14-2024 12:00-0500 Diastolic blood pressure 77 mm[Hg] Dr. Edilia Remy MD Work Phone: [facility] 09-14-2024 12:00-0500 Heart rate 93 /min Dr. Edilia Remy MD Work Phone: [facility] 09-14-2024 12:00-0500 Respiratory rate 14 /min Dr. Edilia Remy MD Work Phone: [facility] 09-14-2024 12:00-0500 SaO2% (BldA) [Mass fraction] 95 % Dr. Edilia Remy MD Work Phone: [facility] 09-14-2024 12:00-0500 Systolic blood pressure 138 mm[Hg] Dr. Edilia Remy MD Work Phone: [facility] 09-14-2024 11:10-0500 Inhaled oxygen flow rate 2 L/min Dr. Edilia Remy MD Work Phone: [facility] 09-14-2024 09:31-0500 Body mass index (BMI) [Ratio] 36.4 kg/m2 Dr. Edilia Remy MD Work Phone: [facility] 09-14-2024 09:31-0500 Body temperature 97.5 [degF] Dr. Edilia Rmey MD Work Phone: [facility] 09-14-2024 09:31-0500 Body weight 120.[address] Edilia Remy MD Work Phone: [facility] 10-27-2023 14:23-0400 Body height 180.[address] Edilia Remy Work Phone: [facility] 10-27-2023 14:23-0400 Body mass index (BMI) [Ratio] 31.8 kg/m2 Dr. Edilia Remy Work Phone: [facility] 10-27-2023 14:23-0400 Body weight 103.[address] Edilia Remy Work Phone: [facility] 10-27-2023 14:23-0400 Diastolic blood pressure 7 mm[Hg] Dr. Edilia Remy Work Phone: [facility] 10-27-2023 14:23-0400 Heart rate 101 /min Dr. Edilia Remy Work Phone: [facility] 10-27-2023 14:23-0400 Respiratory rate 17 /min Dr. Edilia Remy Work Phone: [facility] 10-27-2023 14:23-0400 SaO2% (BldA) [Mass fraction] 96 % Dr. Edilia Remy Work Phone: [facility] 10-27-2023 14:23-0400 Systolic blood pressure 121 mm[Hg] Dr. Edilia Remy Work Phone: [facility] 05-29-2023 11:57-0400 Diastolic blood pressure 87 mm[Hg] [facility] 05-29-2023 11:57-0400 Heart rate 92 /min [facility] 05-29-2023 11:57-0400 Respiratory rate 14 /min [facility] 05-29-2023 11:57-0400 SaO2% (BldA) [Mass fraction] 97 % [facility] 05-29-2023 11:57-0400 Systolic blood pressure 147 mm[Hg] [facility] 05-29-2023 09:21-0400 Body mass index (BMI) [Ratio] 33.4 kg/m2 [facility] 05-29-2023 09:21-0400 Body weight 108.7 kg [facility] 05-29-2023 09:10-0400 Body height 180.34 cm [facility] 05-29-2023 09:10-0400 Body temperature 97.6 [degF] [facility] 05-15-2023 00:53-0400 Body temperature 98.5 [degF] [facility] 05-15-2023 00:53-0400 Diastolic blood pressure 89 mm[Hg] [facility] 05-15-2023 00:53-0400 Heart rate 92 /min [facility] 05-15-2023 00:53-0400 Respiratory rate 18 /min [facility] 05-15-2023 00:53-0400 SaO2% (BldA) [Mass fraction] 92 % [facility] 05-15-2023 00:53-0400 Systolic blood pressure 140 mm[Hg] [facility] 05-14-2023 22:40-0400 Body mass index (BMI) [Ratio] 34 kg/m2 [facility] 05-14-2023 22:40-0400 Body weight 110.58 kg [facility] 11-10-2022 12:08-0400 Body height 182.[address] Edilia Remy Work Phone: [facility] 07-14-2017 08:47-0500 BMI (Body Mass Index) 30.4 kg/m2 Samaria Sanchez [facility] Work Phone: 07-14-2017 08:47-0500 BP Diastolic 72 mm[Hg] Samaria Sanchez [facility] Work Phone: 07-14-2017 08:47-0500 BP Systolic 126 mm[Hg] Samaria Sanchez [facility] Work Phone: 07-14-2017 08:47-0500 Height 180.34 cm Samaria Sanchez [facility] Work Phone: 07-14-2017 08:47-0500 Pulse (Heart Rate) 88 /min Samaria Sanchez [facility] Work Phone: 07-14-2017 08:47-0500 Respiratory Rate 18 /min Samaria Sanchez [facility] Work Phone: 07-14-2017 08:47-0500 Weight 98.88 kg Samaria Sanchez [facility] Work Phone: 11-07-2014 16:01-0400 BMI (Body Mass Index) 31.46 kg/m2 Hel[facility] Balderr[facility] Work Phone: 11-07-2014 16:01-0400 Weight 105.24 kg Helena Pena RN [facility] Work Phone: 04-04-2014 13:54-0400 BP Diastolic 65 mm[Hg] Helena Pena RN [facility] Work Phone: 04-04-2014 13:54-0400 BP Systolic 132 mm[Hg] Helena Pena RN [facility] Work Phone: 04-04-2014 13:54-0400 Height 182.88 cm Helena Pena RN [facility] Work Phone: 04-04-2014 13:54-0400 Pulse (Heart Rate) 70 /min Helena Pena RN [facility] Work Phone: Encounters Encounter Date Encounter Type Care Provider Facility Start: 02-12-2025 ambulatory Edilia Remy Facility: [facility] Start: 01-17-2025 End: 01-17-[address] Edilia Remy MD Work Phone: [facility] Work Phone: Start: 01-17-2025 End: 01-17-[address] Brennen Hickey MD -Ultrasound [facility] Work Phone: Start: 01-17-2025 End: 01-17-2025 ambulatory Edilia Remy Facility:[facility] Start: 01-02-2025 End: 01-02-[address] Brennen Hickey MD -[facility] Work Phone: Start: 01-02-2025 End: 01-02-[address] Edilia Remy MD Work Phone: [facility] Work Phone: Start: 12-11-2024 End: 12-11-2024 Patient encounter procedure Marjorie LEYVA -Cat Scan [facility] Work Phone: Start: 12-11-2024 End: 12-11-2024 ambulatory Marjorie Marti Facility:[facility] Start: 11-15-2024 End: 11-15-2024 Patient encounter procedure Marjorie LEYVA -[facility] Work Phone: Start: 11-15-2024 End: 11-15-[address] Edilia Remy MD Work Phone: [facility] Work Phone: Start: 11-15-2024 End: 11-15-2024 ambulatory Marjorie Marti Facility:[facility] Start: 11-11-2024 End: 11-11-2024 Emergency department patient visit Dr. Edilia Remy MD Work Phone: -Emergency Department Work Phone: Start: 11-10-2024 ambulatory Edilia Remy Facility: [facility] Start: 11-10-2024 Non-patient / Non-visit Marty Jose nd, DO -[facility] Start: 11-10-2024 End: 11-10-2024 Admission to same day surgery center Marty Paz DO -Endoscopy Work Phone: Start: 11-10-2024 End: 11-10-[address] Edilia Remy MD Work Phone: [facility] Work Phone: Start: 10-04-2024 Encounter for other preprocedural examination Leydi Moncada [employer] [facility] Start: 09-21-2024 End: 09-21-2024 Emergency department patient visit Dr. Dunia Swenson DO -Emergency Department Work Phone: Start: 09-14-2024 ambulatory Marjorie Vazquezi ty:[facility] Start: 09-14-2024 Non-patient / Non-visit Wilfred Moncada [employer]-C -[facility] Start: 09-14-2024 End: 09-14-2024 Patient encounter procedure Marjorie LEYVA -Cat Scan, [facility] Work Phone: Start: 09-14-2024 ambulatory Marjorie Martin ty:[facility] Start: 09-14-2024 End: 09-14-2024 ambulatory Edilia Sandrita Facility:[facility] Start: 08-29-2024 End: 08-29-2024 Patient encounter procedure Marjorie LEYVA -Ultrasound, [facility] Work Phone: Start: 08-29-2024 End: 08-29-2024 ambulatory Edilia Remy Facility:[facility] Start: 08-17-2024 End: 08-17-2024 Patient encounter procedure Marjorie LEYVA -[facility] Work Phone: Start: 08-17-2024 End: 08-17-2024 ambulatory Edilia Remy Facility:[facility] Start: 08-17-2024 End: 08-17-2024 ambulatory Edilia Remy Facility:[facility] Start: 06-29-2024 End: 06-29-2024 ambulatory Edilia Sandrita Facility:[facility] Start: 06-23-2024 End: 06-23-2024 ambulatory Edilia Remy Facility:[facility] Start: 03-30-2024 End: 03-30-2024 ambulatory Edilia Remy Facility:[facility] Start: 11-17-2023 End: 11-17-[address] Edilia Remy Work Phone: [facility] Work Phone: Start: 11-17-2023 End: 11-17-[address] Edilia Remy Work Phone: [facility]-Nuclear Medicine, [facility] Work Phone: Start: 11-02-2023 End: 11-02-[address] Edilia Remy Work Phone: [facility] Work Phone: Start: 11-02-2023 End: 11-02-[address] Edilia Remy Work Phone: [facility]-Ultrasound, [facility] Work Phone: Start: 10-27-2023 End: 10-27-[address] Edilia Remy Work Phone: [facility] Work Phone: Start: 08-22-2023 End: 08-22-2023 Emergency department patient visit EDILIA REMY [facility] Start: 06-05-2023 End: 06-05-2023 Emergency department patient visit EDILIA REMY Facility:[id number] Start: 06-03-2023 Non-patient / Non-visit Dr. Ethan Remy Work Phone: [facility] Start: 06-03-2023 End: 06-03-[address] Edilia Remy Work Phone: [facility] Work Phone: Start: 06-03-2023 End: 06-03-[address] Edilia Remy Work Phone: [facility]-Cardiovascular Services Work Phone: Start: 05-29-2023 End: 05-29-2023 Emergency department patient visit [facility]-Emergency Department Work Phone: Start: 05-14-2023 End: 05-15-2023 Emergency department patient visit [facility]-Emergency Department Work Phone: Start: 05-13-2023 End: 05-13-2023 Emergency department patient visit WENDY SALAZAR [facility] Start: 03-05-2023 End: 03-05-2023 Emergency department patient visit EDILIA [facility] Start: 12-17-2022 End: 12-17-[address] Edilia Remy Work Phone: [facility] Work Phone: Start: 12-17-2022 End: 12-17-[address] Edilia Remy Work Phone: [facility]-Occupational Therapy Start: 11-18-2022 End: 11-18-[address] Edilia Remy Work Phone: [facility] Start: 11-12-2022 End: 11-12-[address] Edilia Remy Work Phone: [facility] Start: 07-10-2017 End: 07-10-2017 Emergency department patient visit EIDLIA REMY Facility:[facility] Procedures Date Procedure Procedure Detail Performing Clinician Start: 01-17-[address] Edilia eldridge MD Work Phone: Start: 12-11-2024 CT of abdomen with contrast Dr. Edilia stuart MD Work Phone: Start: 11-15-2024 Fwtdh-8-Urilsxfehls measurement Dr. Corina Remy MD Work Phone: Comment on above: [facility] Electrochemiluminescen ce Immunoassay(ECLIA)Values obtained with different assay methods or kits cannotbe used interchangeably. Results cannot be interpreted asabsolute evidence of the presence or absence of malignantdisease.This test is not interpretable in females.Performed at: [place] [id number] Director: Americo Bradford PhD, Phone: [phone] Start: 11-11-[address] Domenica Remy MD Work Phone: Start: 11-11-2024 Computed tomography of abdomen and pelvis with intravenous contrast Dr. Edilia Remy MD Work Phone: Start: 11-10-[address] Edilia eldridge MD Work Phone: Start: 09-21-2024 Urnls dip stick/tablet reagent auto microscopy Dr. Edilia Remy MD Work Phone: Start: 09-21-2024 Computed tomography of abdomen and pelvis with intravenous contrast Dr. Edilia Remy MD Work Phone: Start: 09-21-[address] Domenica Remy MD Work Phone: Start: 09-21-2024 Measurement of renal function Dr. Edilia Remy MD Work Phone: Comment on above: GFR Calc Start: 09-14-2024 Biopsy/Inj or Needle Placement Dr. Domenica Remy MD Work Phone: Start: 08-29-2024 Ultrasound elastography of liver Dr. Mac Remy MD Work Phone: Start: 11-02-2023 US scan of gallbladder Dr. Edilia Remy Work Phone: Start: 05-29-2023 CT of head without contrast Start: 05-14-2023 Computed tomography of abdomen and pelvis with contrast Start: 05-13-2023 Urinalysis EDILIA REMY Comment on above: Result Comment: URINALYSIS Performed By: #### [id number] #### [facility],[address] [place], [place] [id number] Start: 11-18-[address] Edilia Remy Work Phone: Start: 11-12-2022 Plain x-ray of wrist Dr. Edilia Remy Work Phone: Start: 07-14-2017 End: 07-14-2017 Follow Up Appt 6 months Kristie Enriquez Start: 07-14-2017 End: 07-14-2017 JENNIFER Lu MD Start: 10-15-2014 End: 10-24-2014 Radex spine cervical 2 or 3 views Jaja Ingram Work Phone: Start: 10-15-2014 End: 10-16-2014 Smoking cessation education Sarika Tray Antonio Start: 08-30-2014 End: 10-24-2014 Mri any jt lower extrem w/o contrast matrl Rene Ingram Work Phone: Start: 08-30-2014 End: 10-24-2014 Radex spine lumbscrl compl w/bending views min 6 Rene Ingram Work Phone: Start: 04-04-2014 End: 10-24-2014 Radex shoulder complete minimum 2 views Rene Ingram Work Phone: History of repair of musculotendinous cuff of shoulder H/O repair of rotator cuff Dr. Edilia Remy Work Phone: Comment on above: LEFT Plan of Treatment Date Care Activity Detail Author Start: 11-11-2024 [facility] Start: 11-10-2024 Egd transoral biopsy single/multiple EGD BIOPSY SINGLE/MULTIPLE [facility] Start: 11-10-2024 Patient discharge [facility] Start: 09-21-2024 [facility] Start: 09-14-2024 Biopsy liver needle percutaneous NEEDLE BIOPSY OF LIVER PERQ [facility] Start: 09-14-2024 Following clinical pathway protocol [facility] Start: 09-14-2024 Catheterization of vein [facility] Start: 09-14-2024 Oxygen therapy [facility] Start: 09-14-2024 Patient discharge [facility] Start: 09-14-2024 Vital signs measurements [facility] Start: 05-29-2023 [facility] Start: 11-12-2022 Patient referral [facility] Work Phone: Start: 01-14-2018 End: 01-14-2018 Appointment Appointment [facility] Work Phone: Start: 07-14-2017 End: 07-14-2017 Follow Up Appt 6 months Follow Up Appt 6 months [facility] Work Phone: Start: 07-14-2017 End: 07-14-2017 JHR JHR [facility] Work Phone: Start: 07-14-2017 End: 07-14-2017 Appointment Appointment [facility] Work Phone: Start: 02-11-2017 End: 02-11-2017 Radiologic exam knee complete 4/more views X-Ray, Knee [facility] Work Phone: Start: 10-16-2015 End: 10-16-2015 Physical Therapy General Physical Therapy [facility], [address] [place] [address], [id number] [facility] Work Phone: Start: 09-16-2015 End: 09-16-2015 Radex shoulder complete minimum 2 views X-Ray, Shoulder [facility] Work Phone: Start: 10-15-2014 End: 10-24-2014 Radex spine cervical 2 or 3 views X-Ray, Spine, Cervical [facility] Work Phone: Start: 08-30-2014 End: 10-24-2014 Mri any jt lower extrem w/o contrast matrl MRI Joint Lower Extremity [facility] Work Phone: Start: 08-30-2014 End: 10-24-2014 Radex spine lumbscrl compl w/bending views min 6 X-Ray, Spine, Lumbar, complete with bending views [facility] Work Phone: Start: 04-04-2014 End: 10-24-2014 Radex shoulder complete minimum 2 views X-Ray, Shoulder [facility] Work Phone: C reactive protein [Mass/volume] in Serum or Plasma [facility] CBC W Auto Different ial panel - Blood [facility] Ceruloplasmin [Mass/volume] in Serum or Plasma [facility] Cobalamin (Vitamin B 12) [Mass/volume] in Serum or Plasma [facility] Comprehensive metabo lic 2000 panel - Serum or Plasma [facility] Copper [Moles/volume ] in Serum or Plasma [facility] CT Abdomen WO and W contrast IV [facility] Cytoplasmic ANCA Screen [facility] Ferritin [Mass/volum e] in Serum or Plasma [facility] Folate [Moles/volume ] in Serum or Plasma [facility] Hemoglobin A1c/Hemoglobin.total in Blood [facility] Hepatitis B virus summers rface Ab [Presence] in Serum [facility] Iron and Iron bindin g capacity panel - Serum or Plasma [facility] Lipid 1996 panel - S gage or Plasma [facility] Mitochondria Ab [Pre sence] in Serum [facility] Patient Education [facility] Work Phone: Patient referral [facility] Work Phone: Prothrombin time [facility] Serum immunofixation [facility] Smooth muscle Ab [Presence] in Serum [facility] T4 free measurement [facility] Thyroid stimulating hormone measurement [facility] Payers Date Payer Category Payer Self-pay 2021 Medicare [id number] 2013 Medicare MEDICARE PART A B [id number] 1960 Unknown [id number] 2.16.8 [id number] 1960 Unknown [id number] 2.16.8 40.1.027162.3.579.2.651 1960 Unknown [id number] 2.16.8 40.1.179518.3.579.2.651 Medicaid [id number] Medicare [id number] Self-pay SELF PAY INSURANCE 16 [id number] Unknown [id number] Unknown [id number] 2.16.8 40.1.428393.3.579.2.528 Unknown [id number] 2.16.8 40.1.425843.3.579.2.462 Unknown [id number] 2.16.8 40.1.671653.3.579.2.462 Unknown [id number] 2.16.8 40.1.897779.3.579.2.462 Unknown [id number] 2.16.8 40.1.203519.3.579.2.462 Unknown [id number] 2.16.8 40.1.993566.3.579.2.462 Unknown [id number] 2.16.8 40.1.042358.3.579.2.462 Unknown [id number] 2.16.8 40.1.323652.3.579.2.462 Unknown [id number] 2.16.8 40.1.949755.3.579.2.462 Unknown [id number] 2.16.8 40.1.110702.3.579.2.462 Unknown [id number] 2.16.8 40.1.907759.3.579.2.462 Unknown [id number] 2.16.8 40.1.484352.3.579.2.462 Unknown [id number] 2.16.8 40.1.009634.3.579.2.462 Unknown [id number] 2.16.8 40.1.955589.3.579.2.462 Unknown [id number] 2.16.8 40.1.672653.3.579.2.462 Unknown [id number] 2.16.8 40.1.002803.3.579.2.462 Unknown [id number] 2.16.8 40.1.058246.3.579.2.462 Unknown [id number] 2.16.8 40.1.324693.3.579.2.462 Unknown [id number] 2.16.8 40.1.723268.3.579.2.462 Unknown [id number] 2.16.8 40.1.758605.3.579.2.462 Social History Date Type Detail Facility Start: 11-12-2022 End: 10-27-2023 Tobacco smoking status CAIS Unknown if ever smoked [facility] Start: 03-20-2019 Spouse/ Signif icant Other [facility] Start: 1960 Sex Assigned At Male [facility] Start: 11-07-2024 End: 11-11-2024 Tobacco smoking status NHIS Smokes tobacco daily (finding) [facility] Start: 11-10-2024 End: 11-21-2024 Sex Male (finding) [facility] Goals Date Patient Goal Desired Activity /State Mental Status Date Assessment Result Facility 11-10-2024 Cognitive function Level Of Consciousness Sedated [facility] Work Phone: 11-10-2024 Cognitive function Arousable To Voice/Nam e [facility] Work Phone: 09-14-2024 Cognitive function Voice/Name [facility] Work Phone: 05-29-2023 Cognitive function Level Of Cons ciousness Awake;Alert;Appropriate [facility] Work Phone: Clinical Notes 12-17-2022 to 01-17-2025 Note Date & Type Note Facility 01-17-2025 Radiology Diagnostic study note [facility] Imaging Services [address] [place] [address] Abdomen Limited MR#: [id number] Acct: [id number] Name: JEANNE RIVERS Rep #: [id number] : 1960 M 64 From: Lisa Schreiber MD PCP: Dr. Edilia Remy MD Status: REG CLI Study:Abdomen Limited Date of Exam: 12/08 Exam# [id number] Ordering Dr: Michael Hickey MD PROCEDURE: ABDOMEN LIMITED 01/17/2025 REASON FOR EXAM: TO R/O ASCITS OR CAUSE OF DITENSION TECHNIQUE: Targeted abdominal imaging to assess for ascites. Grayscale images. COMPARISON: None US/Abdomen Limited IMPRESSION: No significant fluid within the 4 abdominal quadrants. Reading Location: [facility] CC: Dr. Edilia Remy MD; Dr. Brennen Hickey MD ~ Director Recreation: Signed [facility] 11-11-2024 Discharge summary [facility] 11-11-2024 Radiology Diagnostic study note [facility] Imaging Services [address] [place], [place] [address] Abdomen/Pelvis W IV Cont ONLY MR#: [id number] Acct: [id number] Name: JEANNE RIVERS Rep #: [id number] : 1960 M 64 From: April Tomas MD PCP: Dr. Edilia Remy MD Status: REG ER Study:Abdomen/Pelvis W IV Cont ONLY Date of E xam: 11/11/24 Exam# [id number] Ordering Dr: Ortega Diana DO PROCEDURE: ABDOMEN/PELVIS W IV CONT ONLY 11/11/2024 REASON FOR EXAM: ABD PAIN TECHNIQUE: Abdomen and pelvis CT with intravenous contrast. Coronal and Sagittal reconstruction series were provided. One or more dose reduction techniques were used (e.g., Automated exposure control, adjustment of the mA and/or kV according to patient size, use of iterative reconstruction technique. COMPARISON: 09/21/2024; 06/29/2024 FINDINGS: Lower chest: Mild peripheral interstitial opacities in the lung bases. Liver: Lesion in the left hepatic lobe with poorly defined subtle enhancement and a cluster of hypodense cystic components which was seen on the July 05, 2024 exam and does not appear significantly changed. There is an area of adjacent hepatic capsular retraction. Hepatic steatosis is present. Irregular hepatic contour, suggestive of cirrhosis. Biliary/gallbladder: Unremarkable. Pancreas: Unremarkable. Spleen: A couple of punctate hypodense lesions are present in the spleen, likelydue to remote granulomatous disease. Adrenal glands: Unremarkable. Kidneys: There is a small cyst in the left kidney which appear stable. Gastrointestinal/peritoneum: No acute abnormality.Moderate colonic diverticulosis is present.The appendix is unremarkable.No free air or free fluid. Vascular: Advanced scattered atherosclerotic calcifications. Lymph nodes: No enlarged lymph nodes by CT size criteria. Pelvic organs: Unremarkable. Bladder: Unremarkable. Bones: Mild to moderate multilevel degenerative changes are present. Soft tissues: Unremarkable. CT/Abdomen/Pelvis W IV Cont ONLY IMPRESSION: 1. No acute abnormality of the abdomen and pelvis. 2. Hepatic steatosis with an irregular hepatic contour, suggestive of cirrhosis. 3. Poorly defined subtly enhancing lesion in the left hepatic lobe with clustered cystic change and adjacent capsular retraction. Benign or malignant considerations are possible, however, cholangiocarcinoma canhave this appearance. In the setting of cirrhosis, HCC should also be excluded. Multiphase CT or MRI evaluation or biopsy is recommended. 4. Moderate colonic diverticulosis. 5. Peripheral interstitial opacities in the lung bases, which may be due to interstitial edema or fibrotic change. Reading Location: [facility] CC: Dr. Edilia Remy MD; Dr. Ortega Diana DO ~ Director Recreation: Signed [facility] 11-11-2024 Discharge summary Note Date/Time November 11, 2024 7:48pm [facility] Medical Records Department [address] [place] [address] Emergency Department Summary 11/11/24 MR#: [id number] Acct: [id number] Name: JEANNE RIVERS Rep #:[id number] : 1960 64 From: Ortega Goldman PCP: Dr. Edilia Remy MD Status:REG ER Location: ED HPI HPI - GI History of Present Illness Chief Complaint: Abd Pain Informant: patient Narrative Narrative: Referred in after discussing with GI today for worsening abdominal pain. He status post upper endoscopy yesterday that was an elective procedure. He was not an ERCP. He did not have a bowel movement since prior to procedure. He is passing gas. No abdominal surgeries. Denies any sick alcohol history. No history of pancreatitis. Denies nausea or vomiting. Denies fevers. He states he was not started on any medications post his procedure. 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 Home Medications ?Medication ?Instructions ?Recorded ?Last Taken ?Type cyclobenzaprine 10 mg tablet 10 mg PO BID muscle spasm s 02/27/15 11/10/24 10:30 History aspirin 81 mg tablet,delayed 81 mg PO DAILY 01/14/18 0 11/09/24 History release (Adult Aspirin Regimen) lisinopril 20 mg tablet 20 mg PO DAILY bp 01/14/18 0 11/10/24 10:30 History pioglitazone 15 mg tablet (Actos) 15 mg PO DAILY 01/1403/20/19 History glipizide 5 mg tablet 5 mg PO BID 08/25/18 9 History albuterol sulfate 90 mcg/actuation 2 puff inhalation B ID PRN sob 03/20/19 03/20/19 History aerosol inhaler furosemide 20 mg tablet (Lasix) 20 mg PO BID 10/27/23 Unknown History pantoprazole 40 mg tablet,delayed 40 mg PO QDAY #60 ta bs 09/08/24 Unknown Rx release atorvastatin 40 mg tablet 40 mg PO QHS 11/07/24 Unknow n History sucralfate 1 gram tablet (Carafate) 1 g PO BID #30 tab s 11/11/24 Unknown Rx Allergy/AdvReac Type Severity Reaction Status Date / Time bee pollen AdvReac Severe Anaphylaxis Verified 11/11/24 17:20 hornet venom AdvReac Severe Anaphylaxis Verified 11/11/24 17:20 venom-wasp (wasp venom) AdvReac Severe Anaphylaxis Verified 11/11/24 17:20 adhesive tape AdvReac Intermediate Rash Verified 11/11/24 17:20 Family History Mother Diabetes Hypertension Father Diabetes Hypertension Brother Hypertension Heart disease Surgical History History of carpal tunnel surgery of right wrist S/P right knee arthroscopy H/O repair of rotator cuff Social History household members: spouse current occupational status: disabled Smoking Status: Current every day smoker tobacco type: cigarettes alcohol intake: never caffeine: Yes Type: carbonated beverages Number of servings: 6 what type of physical activity do you participate in: none ROS ROS ED Constitutional Constitutional ED: Denies chills, fever(s) or sweats ENT ENT ED: Denies sore throat Cardiovascular Cardiovascular: Denies chest pain, leg edema, palpitations or racing heartbeat Respiratory/Chest Respiratory/Chest: Denies cough, dyspnea or dyspnea on exertion Gastrointestinal Gastrointestinal: Reports abdominal pain; Denies diarrhea, nausea or vomiting Genitourinary Genitourinary ED: Denies dysuria, hematuria or urinary frequency Musculoskeletal Musculoskeletal: Denies back pain, extremity pain or neck pain Integumentary Denies rash or wounds Neurologic Neurologic: Denies headache(s), paresthesias or weakness EXAM Physical Exam Const Vital Signs: 11/11/24 17:19 11/11/24 19:19 Temperature 98.7 F 98.3 F Temperature Source Oral Oral Pulse Rate 108 H Respiratory Rate 18 22 H Blood Pressure 136/67 H 156/89 H Blood Pressure Mean 90 111 Pulse Ox 92 90 Oxygen Delivery Method Room Air Room Air Positive well nourished and well developed General Appearance ED: well developed and NAD HEENT Reports moist mucous membranes normocephalic and atraumatic Eyes General Eye ED: Yes normal appearance of both eyes Neck full ROM Chest Wall Chest: Negative for tenderness Resp normal respiratory effort and normal air movement Effort and Inspection: symmetric chest movement; Negative for respiratory distress Cardio regular rate, regular rhythm and no murmurs Peripheral Pulses: pulses 2+ throughout GI normal to inspection, nondistended, normoactive bowel sounds GI Narrative: Mid abdominal and epigastric tenderness. No guarding or rebound. Negative Chapa's or McBurney's tenderness. Palpation: Negative for guarding or rebound tenderness present Extremity normal to inspection General Extremety ED: Negative for edema or tenderness General Extremity: Negative for edema Neuro oriented x3 and no sensory deficits noted Sensorium / Orientation: awake and alert Skin no rashes or lesions noted and no wounds MDM MDM MDM Narrative Medical decision making narrative: Interventions / MDM: Differential diagnosis: Postprocedure abdominal pain, gastritis, hepatic cyst, fatty liver Diagnosis considered but do not suspect: Pneumoperitoneum however CT negative. Pancreatitis however labs and CT negative. My EKG interpretation: N/A Imaging independently reviewed and interpreted by myself: CT abdomen pelvis withIV contrast: No pneumoperitoneum no ascites. Reported hepatic steatosis contoursuggestive of cirrhosis per radiology. Stable hepatic cyst. Per radiology hepatocellular carcinoma should be ruled out. External documents reviewed: EGD procedure performed from yesterday erosive gastroscopy and no stigmata of bleeding with multiple biopsies from cold forcepswere taken. Test considered but not ordered:N/A ED course: Worse abdominal pain post endoscopy. Will check abdominal labs, CT scan ordered for any complications. IV fluids given. Patient declines any medications. 1930: Abdominal labs were normal. Normal lipase and liver enzymes. White countnormal hemoglobin normal. CT scan negative for any complicated issues with EGD and biopsy. Reported hepatic steatosis contour suggestive of cirrhosis with stable liver cysts. Reported hepatic cellular carcinoma should be excluded. Hedoes not drink alcohol. I did update his GI doctor Dr. Paz of the report today. He will follow-up with this. Per patient's spouse he had liver biopsy performed 3 weeks ago was reported stage III liver disease from his diabetes. Will place him on Carafate twice a day. He will follow-up with GI as an outpatient. All questions were answered. Re-evaluation: stable Disposition discussed with patient/family/significant other: Patient and spouse Case discussed with consulting clinician: Gastroenterology This note was generated with [employer] dictation software. It may contain incorrectwords, spelling, and punctuation that were not noted in checking the note beforesigning. Lab Data Attestation: I reviewed the patient's lab results. Labs: Laboratory Results - last 24 hr 11/11/24 17:47 WBC 9.6 RBC 4.50 L Hgb 14.0 Hct 41.3 MCV 91.8 MCH 31.1 MCHC 33.9 RDW Std Deviation 50.2 H RDW Coeff of Parul 15.0 H Plt Count 173 MPV 10.6 Immature Gran % (Auto) 0.700 Neut % (Auto) 62.8 Lymph % (Auto) 27.9 [place] % (Auto) 5.5 Eos % (Auto) 2.7 Baso % (Auto) 0.4 Absolute Neuts (auto) 6.0 Absolute Lymphs (auto) 2.66 Nucleated RBC % 0 Sodium 136 Potassium 4.2 Chloride 96 L Carbon Dioxide 28.4 Anion Gap 12 BUN 12 Creatinine 0.97 Estim Creat Clear Calc 101.19 Est GFR (MDRD) Non-Af 87 BUN/Creatinine Ratio 12.7 Glucose 205 H Calcium 8.4 Total Bilirubin 0.41 Direct Bilirubin 0.21 AST 27 ALT 21 Alkaline Phosphatase 109 Total Protein 7.3 Albumin 3.7 Globulin 3.6 Lipase 32 Radiography Diagnostic Testing: Clinical Impression(s) from Imaging Studies Abdomen/Pelvis CT 11/11/24 17:29 IMPRESSION: 1. No acute abnormality of the abdomen and pelvis. 2. Hepatic steatosis with an irregular hepatic contour, suggestive of cirrhosis. 3. Poorly defined subtly enhancing lesion in the left hepatic lobe with clustered cystic change and adjacent capsular retraction. Benign or malignant considerations are possible, however, cholangiocarcinoma canhave this appearance. In the setting of cirrhosis, HCC should also be excluded. Multiphase CT or MRI evaluation or biopsy is recommended. 4. Moderate colonic diverticulosis. 5. Peripheral interstitial opacities in the lung bases, which may be due to interstitial edema or fibrotic change. Reading Location: [facility] Discharge Plan Triage Chief Complaint: Abd Pain ED Provider: Ortega Diana Dx/Rx/DC Orders Clinical Impression: Other acute postprocedural pain, Hepatic steatosis, Status post endoscopy, Gastritis, Hepatic cyst Instructions: NAFLD, ED Gastritis (Adult) Prescriptions: New sucralfate [Carafate] 1 gram tablet 1 g PO BID Qty: 30 0RF No Action aspirin [Adult Aspirin Regimen] 81 mg tablet,delayed release (DR/EC) 81 mg PO DAILY lisinopril 20 mg tablet 20 mg PO DAILY pioglitazone [Actos] 15 mg tablet 15 mg PO DAILY furosemide [Lasix] 20 mg tablet 20 mg PO BID cyclobenzaprine 10 MG tablet 10 mg PO BID glipizide 5 mg tablet 5 mg PO BID albuterol sulfate 18 GM HFA aerosol inhaler 2 puff inhalation BID PRN (Reason: sob) Patient Comments: INHALE 2 PUFFS EVERY 4 HOURS NEEDED atorvastatin 40 mg tablet 40 mg PO QHS pantoprazole 40 mg tablet,delayed release (DR/EC) 40 mg PO QDAY Qty: 60 1RF Primary Care Provider: Edilia Remy Referrals: Edilia Remy MD [Primary Care Provider] - Marty Paz DO [Med Staff - Active Staff] - 1-2 Weeks Activity Restrictions/Additional Instructions: Abdominal labs normal CT scan negative for any complications from your upper endoscopy. Fatty liver with signs of cirrhosis and liver cyst. This chest withDr. Friend in the ED, and follow-up with him in the office. Take Carafate as prescribed continue your pantoprazole. Print Language: Maori Disposition Disposition: Home, Self Care What to do if you have Problems For any increased pain, shortness of breath, bleeding, nausea or vomiting, chestpain, or any unexpected problems, contact your Primary Care Provider. Call [facility] ([phone]) or report to the closest Emergency Room. Call 911 if necessary. 11/11/241947 <Electronically signed by Ortega Goldman> Cosigner Signature (if applicable): CC: Dr. Edilia Remy MD; Marty Paz DO ~ Signed [facility] Work Phone: 1(988) 231-722203-28-2025 Consult note [facility] Medical Records Department [address] [place] [address] Anesthesia Postop Eval II 11/10/24 1436 MR#: [id number] Acct: [id number] Name: JEANNE RIVERS Rep #:[id number] : 1960 64 From: Shira Akbar PCP: Dr. Edilia Remy MD Status:REG SDC Y Race: C Location: [facility] Anesthesia Postop Eval I Sum Postop Eval Completion status Anesthesia document: Postop Eval 1 completed: Yes Anesthesia Postop Eval I Summary Anesthesia Postop Eval I Summary: Anesthesia Postop Eval I: Assessment Summary Airway patent Yes 11/10/24 14:28 [email or web address] Spontaneous unlabored Yes 11/10/24 14:28 [email or web address] respirations Mental status Asleep 11/10/24 14:28 [email or web address] nausea No 11/10/24 14:28 [email or web address] Vomiting No 11/10/24 14:28 [email or web address] Anesthesia Postop Eval I: Fluid Summary Crystalloid volume administer 30 11/10/24 14:28 [email or web address] (ml) Colloids volume administered ( ml) Blood Product volume administered (ml) Total IV fluid infused 30 11/10/24 14:28 [email or web address] Anesthesia Postop Eval I: Summary Notes Anesthesia Complication No 11/10/24 14:28 [email or web address] Anesthesia Complication Comment: Post-operative progress note Anesthesia: Postop Eval II Evaluation Mental status: Awake Pain Level: 0 nausea: No Vomiting: No 11/10/24 1437 a> Date _ Shira Jimenez Signature: Date CC: ~ Signed [facility]03-28-2025 Consult note Author Nii Hutchinson [facility] Note Date/Time November 10, 2024 12: 29pm [facility] Medical Records Department [address] [place] [address] Pre-Anesthesia Evaluation 11/10/24 1228 MR#: [id number] Acct: [id number] Name: JEANNE RIVERS Rep #:[id number] : 1960 64 From: Nii Hutchinson MD PCP: Dr. Edilia Remy MD Status:REG SDC Y Race: C Location: [address] ASA Classification* ASA Classification ASA Classification: 3 Assessment & Plan Anesthesia* Anesthesia Assessment Anesthesia Assessment: Discussed sedation and/or anesthesia options, risks, benefits, and alternatives with patient/parents/legal guardian/POA. Questions invited. The patient/parents/legal guardian/POA seems to understand and agrees to proceedwith anesthesia plan. Reviewed the physical assessment, medical history, allergy history and patient home medications list prior to surgery/procedure/anesthetic and documented any changes. Performed airway and anesthesia risk assessments. Anesthesia Type Anesthesia Type: MAC Anesthesia Focused Assessment* Airway Assessment Mouth opens: >3 cm Mallampati Score: II Focused Labs Anesthesia Preop lab: CBC WBC 8.7 K/mm3 (4.4-11.0) 09/21/24 13:45 09/21/24 RBC 5.00 M/mm3 (4.6-6.2) 09/21/24 13:45 09/21/24 Hgb 15.1 g/dL (13.0-16.5) 09/21/24 13:45 09/21/24 Hct 47.1 % (40-54) 09/21/24 13:45 09/21/24 Plt Count 175 K/mm3 (150-450) 09/21/24 13:45 09/21/24 CHEMISTRY Potassium 4.5 mmol/L (3.5-5.1) 09/21/24 13:45 09/21/24 Sodium 135 mmol/L (136-145) L 09/21/24 13:45 09/21/24 BUN 12 mg/dL (7-18) 09/21/24 13:45 09/21/24 Creatinine 1.08 mg/dL (0.70-1.30) 09/21/24 13:45 09/21/24 Glucose 236 mg/dL (74-106) H 09/21/24 13:45 09/21/24 POC Glucose 198 mg/dL (70-110) H 02/26/15 20:37 02/26/15 COAG PT 13.3 SECONDS (11.7-14.9) 09/14/24 08:48 Pre-Assessment Diagnosis/Proposed Procedure Planned Operative Procedure(s): EGD Anesthesia History 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 When Was Last Pacemaker Check QUESTION #4 FULL TEXT: You/Your Family Experience fever (hyperthermia) with Anesthesia Last Oral Intake Last Oral intake: Last Oral Intake NPO since Meds taken in AM with sips of water? 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 Female No 11/07/24 12:35 HX of Motion Sickness No 11/07/24 12:35 HX of N/V After Surgery No 11/07/24 12:35 Non-Smoker No 11/07/24 12:35 Duration of Surgery greater No 11/07/24 12:35 than 60 minutes Number of Risk Factors PONV Score Height & Weight Height & Weight: Anesthesia: Height & Weight Height 5 ft 11.5 in 09/21/24 12:28 Respiratory Assessment Respiratory Assessment - air sealing technician: Respiratory Tract Infection Hx - air sealing technician Hx Respiratory Tract Infection No 11/07/24 12:35 STOP Sleep Apnea STOP Sleep Apnea - air sealing technician: STOP Sleep Apnea - air sealing technician Hx Hypertension Yes: CONTROLLED WITH MED 11/07/24 12:35 Hx Sleep Apnea No 11/07/24 12:35 CPAP No 02/13/19 09:35 BIPAP No 02/13/19 09:35 Do you snore loudly (louder No 11/07/24 12:35 than talking or can be heard Do you often feel tired/ No 11/07/24 12:35 fatigued/ sleepy during daytime? Has anyone observed you stop Yes 11/07/24 12:35 breathing during sleep? STOP Results Positive 11/07/24 12:35 QUESTION #5 FULL TEXT : Do you snore loudly (louder than talking or can be heard through closed doors)? 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 Hx Now No 11/07/24 12:35 Gestational Age (in weeks): EDC: Hx Hx Para Hx Section SAB No 11/07/24 12:35 PFSH Medical History Loss of hearing Diabetes Ambulates with cane Arthritis Fatty liver Easy bruising Back pain Migraine headache Dietary restriction History of diverticulitis Gastric reflux COPD (chronic obstructive pulmonary disease) Shortness of breath on exertion Smoker History of pain when walking History of edema Cellulitis Cardiology follow-up encounter RUQ abdominal pain snf use of drug Nicotine abuse HLD (hyperlipidemia) Essential (primary) hypertension 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 Home Medications ?Medication ?Instructions ?Recorded ?Last Taken ?Type cyclobenzaprine 10 mg tablet 10 mg PO BID muscle spasm s 02/27/15 03/20/19 History aspirin 81 mg tablet,delayed 81 mg PO DAILY 01/14/18 0 03/20/19 History release (Adult Aspirin Regimen) lisinopril 20 mg tablet 20 mg PO DAILY bp 01/14/18 0 03/20/19 History pioglitazone 15 mg tablet (Actos) 15 mg PO DAILY 01/1403/20/19 History glipizide 5 mg tablet 5 mg PO BID 08/25/18 9 History albuterol sulfate 90 mcg/actuation 2 puff inhalation B ID PRN sob 03/20/1901/01 History aerosol inhaler furosemide 20 mg tablet (Lasix) 20 mg PO BID 10/27/23 Unknown History pantoprazole 40 mg tablet,delayed 40 mg PO QDAY #60 ta bs 09/08/24 Unknown Rx release atorvastatin 40 mg tablet 40 mg PO QHS 11/07/24 Unknow n History Allergy/AdvReac Type Severity Reaction Status Date / Time bee pollen AdvReac Severe Anaphylaxis Verified 11/07/24 12:33 hornet venom AdvReac Severe Anaphylaxis Verified 11/07/24 12:33 venom-wasp (wasp venom) AdvReac Severe Anaphylaxis Verified 11/07/24 12:33 adhesive tape AdvReac Intermediate Rash Verified 11/07/24 12:33 Family History Mother Diabetes Hypertension Father Diabetes Hypertension Brother Hypertension Heart disease Surgical History History of carpal tunnel surgery of right wrist S/P right knee arthroscopy H/O repair of rotator cuff Social History household members: spouse current occupational status: disabled Smoking Status: Current every day smoker tobacco type: cigarettes alcohol intake: never caffeine: Yes Type: carbonated beverages Number of servings: 6 what type of physical activity do you participate in: none Review of Systems (Anesthesia) ROS Narrative System reviewed and no additional complaints, except as documented. 11/10/24 1229 <Electronically signed by Nii Hutchinson MD > Date _ Nii Hutchinson MD Cosigner Signature: Date CC: ~ Signed [facility] Work Phone: 1(550) 937-906603-28-2025 Consult note [facility] Medical Records Department [address] [place] [address] Anesthesia Postop Eval I 11/10/24 1427 MR#: [id number] Acct: [id number] Name: JEANNE RIVERS Rep #:[id number] : 1960 64 From: Enoch Tirado PCP: Dr. Edilia Remy MD Status:[facility] [place] Race: C Location: [place] [address] Anesthesia: Postop Eval I Current Vital Signs Temperature: 98.1 F Pulse Rate: 104 Blood Pressure: 135/78 Respiratory Rate: 18 Pulse Ox: 94 Oxygen Delivery Method: Room Air Assessment Airway patent: Yes Spontaneous unlabored respirations: Yes Mental status: Asleep nausea: No Vomiting: No Anesthesia Complication: No Fluid Hydration Crystalloid volume administer (ml): 30 Total IV fluid infused: 30 Progress Note Anesthesia document: Postop Eval 1 completed: Yes 11/10/248 > Date _ Enoch Jimenez Signature: Date CC: ~ Signed [facility]03-28-2025 Procedure note [facility] Medical Records Department [address] [place] [address] EGD Report MR#: [id number] Acct: [id number] Name: JEANNE RIVERS Rep #:[id number] : 1960 64 From: Marty Paz DO PCP: Dr. Edilia Remy MD Status:[facility] Patient Name: Jeanne Rivers Procedure Date: 11/10/2024 1:54 PM Date of : 1960 Age: 64 Procedure: Upper GI endoscopy Indications: Epigastric abdominal pain Providers: Marty Paz DO Referring MD: Edilia Remy Medicines: Monitored Anesthesia Care Patient Profile: This is a 64 year old male. Refer to note in patient chart for documentation of history and physical. Patient has symptoms of acute right upper quadrant abdominal pain, chronic right lower quadrant abdominal pain and acute epigastric abdominal pain. Complications: No immediate complications. Procedure: Pre-Anesthesia Assessment: - Prior to the procedure, a History and Physical was performed, and patient medications and allergies were reviewed. The patient is competent. The risks and benefits of the procedure and the sedation options and risks were discussed with the patient. All questions were answered and informed consent was obtained. Patient identification and proposed procedure were verified by the physician. Mental Status Examination: alert and oriented. Airway Examination: normal oropharyngeal airway and neck mobility. Respiratory Examination: clear to auscultation. CV Examination: normal. ASA Grade Assessment: II - A patient with mild systemic disease. After reviewing the risks and benefits, the patient was deemed in satisfactory condition to undergo the procedure. The anesthesia plan was to use moderate sedation / analgesia (conscious sedation). Immediately prior to administration of medications, the patient was re-assessed for adequacy to receive sedatives. The heart rate, respiratory rate, oxygen saturations, blood pressure, adequacy of pulmonary ventilation, and response to care were monitored throughout the procedure. The physical status of the patient was re-assessed after the procedure. After obtaining informed consent, the endoscope was passed under direct vision. Throughout the procedure, the patient's blood pressure, pulse, and oxygen saturations were monitored continuously. The Endoscope was introduced through the mouth, and advanced to the third part of the duodenum. Small bowel enteroscopy was deemed necessary. The patient tolerated the procedure well. Scope In: 2:06:23 PM Scope Out: 2:09:28 PM Total Procedure Duration Time 0 hours 3 minutes 5 seconds Findings: No gross lesions were noted in the entire esophagus. Multiple dispersed 5 mm erosions with no stigmata of recent bleeding were found in the entire examined stomach. Biopsies were taken with a cold forceps for histology. Biopsies were taken with a cold forceps for histology. Verification of patient identification for the specimen was done. Biopsies were taken with a cold forceps for Helicobacter pylori testing. Verification of patient identification for the specimen was done. Estimated blood loss was minimal. Moderate portal hypertensive gastropathy was found in the entire examined stomach. No gross lesions were noted in the third portion of the duodenum. Impression: - No gross lesions in the entire esophagus. - Erosive gastropathy with no stigmata of recent bleeding. Biopsied. - Portal hypertensive gastropathy. - No gross lesions in the third portion of the duodenum. Recommendation: - Discharge patient to home. - Resume previous diet. - Continue present medications. - Await pathology results. Procedure Code(s): --- Professional --- 79584, Small intestinal endoscopy, enteroscopy beyond second portion of duodenum, not including ileum; with biopsy, single or multiple CPT copyright 2021 [employer]. All rights reserved. The codes documented in this report are preliminary and upon cone operator review may be revised to meet current compliance requirements. Marty Paz DO 11/10/2024 2:23:08 PM This report has been signed electronically. Number of Addenda: 0 Note Initiated On: 11/10/2024 1:54 PM 11/10/24 1423 Date _ Marty Paz DO Cosigner Signature: Date (if indicated) CC: Dr. Edilia Remy MD; Marty Paz DO ~ Date Dictated: 11/10/24 1354 Date Transcribed: Director Recreation: RF Signed [facility]03-28-2025 Procedure note [facility] Medical Records Department [address] [facility] [place] [address] Operative Report - CC Letter MR#: [id number] Acct: [id number] Name: JEANNE RIVERS Rep #:[id number] : 1960 64 From: Marty Paz DO PCP: Dr. Edilia Remy MD Status:[facility] 11/10/2024 Edilia Remy [address] [place] [address] Re : Upper GI endoscopy procedure for Jeanne Rivers Dear Dr. Remy This procedure was performed on Sunday, November 10, 2024. My impressions and recommendations are as follows: Impressions : - No gross lesions in the entire esophagus. - Erosive gastropathy with no stigmata of recent bleeding. Biopsied. - Portal hypertensive gastropathy. - No gross lesions in the third portion of the duodenum. Recommendations : - Discharge patient to home. - Resume previous diet. - Continue present medications. - Await pathology results. My findings are described in the full procedure note, which is enclosed. If I can be of further assistance, please feel free to contact me at . Sincerely, Marty Paz DO 11/10/2024 2:23:08 PM This report has been signed electronically. 11/10/24 1423 Date _ Marty Paz DO Cosigner Signature: Date (if indicated) CC: Dr. Edilia Remy MD; Marty Paz DO ~ Date Dictated: 11/10/24 1354 Date Transcribed: Director Recreation: RF Signed [facility]03-28-2025 Evaluation note* Diagnosis Onset Date Resolution Status Admit Date Abdominal pain acute October 12:07pm Fatty liver acute November 10, 2 025 12:07pm Hernia acute November 10 12:07pm RUQ abdominal pain acute November 10, 2024 12:07pm Cirrhosis chronic November 15 2:05pm Liver lesion chronic November 15, 2 025 2:05pm Hepatic cyst inactive November 15, 2 025 2:05pm Abdominal pain acute January 02, 2025 8:53am Cirrhosis chronic January 02, 2025 8:53am Liver lesion chronic January 02 8:53am [facility] Work Phone: 1(937) 147-619003-28-2025 History and physical note [facility] Medical Records Department [address] [place] [address] History & Physical Exam 11/10/24 1352 MR#: [id number] Acct: [id number] Name: JEANNE RIVERS Rep #:[id number] : 1960 64 From: Marty Paz DO PCP: Dr. Edilia Remy MD Status:[facility] Location: [place] [address] HPI - General General Date of Admission: 11/10/24 Date of Service: 11/10/24 Chief Complaint: Abdominal pain HPI Narrative JEANNE RIVERS, is a 64 M who presents for the evaluation of abdominal pain. Pt has had abd pain for 6 months now after getting into his trunk. Pain is constant but can become worse at times with certain movements. It is not associated with eating food. He feels his abd is bloated and hard. He is gainingweigh but has not had any changed in his diet or lifestyle. He tells mehe was an alcoholic in the past but no longer drinks. He does smoke cigarettes. He denies all otherGI symptoms including n/v, constipation, diarrhea, melena, or heartburn. CT abd/pelvis 06.29.24;heterogeneous hypoattenuated left hepatic 1.7 cm nodule. Correlate with ultrasound if needed. Diverticulosis. Ammonia Today K76.0 - Fatty (change of) liver, not elsewhere classified DIDI Comprehensive Panel Today K76.0 - Fatty (change of) liver, not elsewhere classified ANCA Today K76.0 - Fatty (change of) liver, not elsewhere classified Angiotensin Convert Enzyme Today K76.0 - Fatty (change of) liver, not elsewhereclassified Anti-Mitochondrial AB Today K76.0 - Fatty (change of) liver, not elsewhere classified Anti-Smooth Muscle ABS Today K76.0 - Fatty (change of) liver, not elsewhere classified CBC W/Diff, Automated Today K76.0 - Fatty (change of) liver, not elsewhere classified, R10.11 - Right upper quadrant pain Hemoglobin A1c Today E11.9 - Type 2 diabetes mellitus without complications, K76.0 - Fatty (change of) liver, not elsewhere classified Haptoglobin Today K76.0 - Fatty (change of) liver, not elsewhere classified Ferritin Today E11.9 - Type 2 diabetes mellitus without complications, K76.0 - Fatty (change of) liver, not elsewhere classified Erythrocyte Sed Rate Today K76.0 - Fatty (change of) liver, not elsewhere classified CRP Today K76.0 - Fatty (change of) liver, not elsewhere classified Copper, Serum or Plasma Today K76.0 - Fatty (change of) liver, not elsewhere classified Comprehensive Metabolic Profil Today K76.0 - Fatty (change of) liver, not elsewhere classified Ceruloplasmin Today K76.0 - Fatty (change of) liver, not elsewhere classified Hepatitis Panel Acute Today K76.0 - Fatty (change of) liver, not elsewhere classified, R10.11 - Right upper quadrant pain LDH Today K76.0 - Fatty (change of) liver, not elsewhere classified Iron Binding Capacity,Total Today K76.0 - Fatty (change of) liver, not elsewhere classified Transferrin Today K76.0 - Fatty (change of) liver, not elsewhere classified Prothrombin Time w/INR Today K76.0 - Fatty (change of) liver, not elsewhere classified Lipid Profile Today K76.0 - Fatty (change of) liver, not elsewhere classified ABD Limited w/ Elastography Today K76.0 - Fatty (change of) liver, not elsewhere classified Medications: New dicyclomine 10 mg PO BID PRN 20 caps 2RF abdominal pain PFSH Medical History Loss of hearing Diabetes Ambulates with cane Arthritis Fatty liver Easy bruising Back pain Migraine headache Dietary restriction History of diverticulitis Gastric reflux COPD (chronic obstructive pulmonary disease) Shortness of breath on exertion Smoker History of pain when walking History of edema Cellulitis Cardiology follow-up encounter RUQ abdominal pain snf use of drug Nicotine abuse HLD (hyperlipidemia) Essential (primary) hypertension 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 Home Medications ?Medication ?Instructions ?Recorded ?Last Taken ?Type cyclobenzaprine 10 mg tablet 10 mg PO BID muscle spasm s 02/27/15 11/10/24 10:30 History aspirin 81 mg tablet,delayed 81 mg PO DAILY 01/14/18 0 11/09/24 History release (Adult Aspirin Regimen) lisinopril 20 mg tablet 20 mg PO DAILY bp 01/14/18 0 11/10/24 10:30 History pioglitazone 15 mg tablet (Actos) 15 mg PO DAILY 01/1403/20/19 History glipizide 5 mg tablet 5 mg PO BID 08/25/18 9 History albuterol sulfate 90 mcg/actuation 2 puff inhalation B ID PRN sob 03/20/19 03/20/19 History aerosol inhaler furosemide 20 mg tablet (Lasix) 20 mg PO BID 10/27/23 Unknown History pantoprazole 40 mg tablet,delayed 40 mg PO QDAY #60 ta bs 09/08/24 Unknown Rx release atorvastatin 40 mg tablet 40 mg PO QHS 11/07/24 Unknow n History Allergy/AdvReac Type Severity Reaction Status Date / Time bee pollen AdvReac Severe Anaphylaxis Verified 11/10/24 12:42 hornet venom AdvReac Severe Anaphylaxis Verified 11/10/24 12:42 venom-wasp (wasp venom) AdvReac Severe Anaphylaxis Verified 11/10/24 12:42 adhesive tape AdvReac Intermediate Rash Verified 11/10/24 12:42 Family History Mother Diabetes Hypertension Father Diabetes Hypertension Brother Hypertension Heart disease Surgical History History of carpal tunnel surgery of right wrist S/P right knee arthroscopy H/O repair of rotator cuff Social History household members: spouse current occupational status: disabled Smoking Status: Current every day smoker tobacco type: cigarettes alcohol intake: never caffeine: Yes Type: carbonated beverages Number of servings: 6 what type of physical activity do you participate in: none ROS Constitutional Constitutional: Denies fatigue, fever(s), poor appetite, weight gain or weight loss Gastrointestinal Gastrointestinal: Denies belching, bloating, change in bowel habits, change in stool character, chewing difficulty, coffee ground emesis, constipation, cramping, diarrhea, dyspepsia, dysphagia, earlysatiety, excessive flatus, fecalincontinence, heartburn, hematemesis, hematochezia, hemorrhoids, loose stools, melena, nausea, odynophagia, rectal bleeding, tenesmus, vomiting or weight changes Vital Signs Vital Signs Vital Signs: 11/10/24 12:44 11/10/24 12:44 Temperature 97.5 F L Temperature Source Temporal Pulse Rate 95 Respiratory Rate 16 Respiratory Pattern Normal Blood Pressure 163/86 H Blood Pressure Mean 111 Blood Pressure Source Monitor Blood Pressure Position Semi-Fowlers Blood Pressure Location Left Arm Pulse Ox 96 Oxygen Delivery Method Room Air Weight Weight: 259 lb 0.69 oz Body Mass Index (BMI) 36.1 Physical Exam Const alert, oriented x3, no apparent distress and healthy appearing General Appearance: cooperative GI normal to inspection, nondistended, normoactive bowel sounds, soft to palpation,non-tender and non-distended Percussion: normal to percussion Rectal Exam: deferred Results Lab / Micro Data Labs: Laboratory Results - last 24 hr 11/10/24 12:46: POC Glucose 215 H Assessment & Plan Assessment/Plan (1) Fatty liver: (2) Hernia: (3) Abdominal pain: (4) RUQ abdominal pain: PLAN: Assessment and Plan Assessment and Plan (1) Fatty liver: Status: Acute (2) RUQ abdominal pain: Status: Acute Plan: This is a 64 yo male pt here today for abd pain. Pt has had abd pain for about 6months now. Recent imaging of the abd showed a cyst on the liver. Gallbladder USwith moderate thickening. On exam, pt abd is hard and distended. I have concern for cirrhosis as he tells me he was an alcoholic years ago.He is no longer drinking. Will order work up for liver and elastography. His pain is exacerbated bycertain movements and coughing. His pain may be musculoskeletal in nature but the etiology is not clear. Will trial dicyclomine for his pain. -Liver work up -Liver elastography -Start dicyclomine for pain -f/u in 3 months Orders: Orders 11/10/24 1355 Cosigner Signature (if applicable): CC: Dr. Edilia Remy MD; Marty Paz, ~ Signed [facility]03-28-2025 [facility] Medical Records Department [address] [place] [address] History Physical Exam 11/10/24 1352 MR#: [id number] Acct: [id number] Name: JEANNE RIVERS Rep #: [id number] : 1960 64 From: Marty Paz DO PCP: Dr. Edilia Remy MD Status:[facility] Location: [facility] HPI - General General Date of Admission: 11/10/24 Date of Service: 11/10/24 Chief Complaint: Abdominal pain HPI Narrative JEANNE RIVERS, is a 64 M who presents for the evaluation of abdominal pain. Pt has had abd pain for 6 months now after getting into his trunk. Pain is constant but can become worse at times with certain movements. It is not associated with eating food. He feels his abd is bloated and hard. He is gaining weigh but has not had any changed in his diet or lifestyle. He tells me he was an alcoholic in the past but no longer drinks. He does smoke cigarettes. He denies all other GI symptoms including n/v, constipation, diarrhea, melena, or heartburn. CT abd/pelvis 06.29.24;heterogeneous hypoattenuated left hepatic 1.7 cm nodule. Correlate with ultrasound if needed. Diverticulosis. Ammonia Today K76.0 - Fatty (change of) liver, not elsewhere classified DIDI Comprehensive Panel Today K76.0 - Fatty (change of) liver, not elsewhere classified ANCA Today K76.0 - Fatty (change of) liver, not elsewhere classified Angiotensin Convert Enzyme Today K76.0 - Fatty (change of) liver, not elsewhere classified Anti-Mitochondrial AB Today K76.0 - Fatty (change of) liver, not elsewhere classified Anti-Smooth Muscle ABS Today K76.0 - Fatty (change of) liver, not elsewhere classified CBC W/Diff, Automated Today K76.0 - Fatty (change of) liver, not elsewhere classified, R10.11 - Right upper quadrant pain Hemoglobin A1c Today E11.9 - Type 2 diabetes mellitus without complications, K76.0 - Fatty (change of) liver, not elsewhere classified Haptoglobin Today K76.0 - Fatty (change of) liver, not elsewhere classified Ferritin Today E11.9 - Type 2 diabetes mellitus without complications, K76.0 - Fatty (change of) liver, not elsewhere classified Erythrocyte Sed Rate Today K76.0 - Fatty (change of) liver, not elsewhere classified CRP Today K76.0 - Fatty (change of) liver, not elsewhere classified Copper, Serum or Plasma Today K76.0 - Fatty (change of) liver, not elsewhere classified Comprehensive Metabolic Profil Today K76.0 - Fatty (change of) liver, not elsewhere classified Ceruloplasmin Today K76.0 - Fatty (change of) liver, not elsewhere classified Hepatitis Panel Acute Today K76.0 - Fatty (change of) liver, not elsewhere classified, R10.11 - Right upper quadrant pain LDH Today K76.0 - Fatty (change of) liver, not elsewhere classified Iron Binding Capacity,Total Today K76.0 - Fatty (change of) liver, not elsewhere classified Transferrin Today K76.0 - Fatty (change of) liver, not elsewhere classified Prothrombin Time w/INR Today K76.0 - Fatty (change of) liver, not elsewhere classified Lipid Profile Today K76.0 - Fatty (change of) liver, not elsewhere classified ABD Limited w/ Elastography Today K76.0 - Fatty (change of) liver, not elsewhere classified Medications: New dicyclomine 10 mg PO BID PRN 20 caps 2RF abdominal pain 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 Home Medications ???Medication ???Instructions ???Recorded ???Last Taken ???Type cyclobenzaprine 10 mg tablet 10 mg PO BID muscle spasms 5 11/10/24 10:30 History aspirin 81 mg tablet,delayed 81 mg PO DAILY 01/14/18 11/09/24 H istory release (Adult Aspirin Regimen) lisinopril 20 mg tablet 20 mg PO DAILY bp 01/14/18 5 10:30 History pioglitazone 15 mg tablet (Actos) 15 mg PO DAILY 01/14/18 03/20/19 History glipizide 5 mg tablet 5 mg PO BID 08/25/18 03/20/19 Hist ory albuterol sulfate 90 mcg/actuation 2 puff inhalation BID PRN sob 03/20/19 History aerosol inhaler furosemide 20 mg tablet (Lasix) 20 mg PO BID 10/27/23 Unknown Hist ory pantoprazole 40 mg tablet,delayed 40 mg PO QDAY #60 tabs 09/08/24 U nknown Rx release atorvastatin 40 mg tablet 40 mg PO QHS 11/07/24 Unknown Hist ory Allergy/AdvReac Type Severity Reaction (more content not included)...[facility]03-28-2025 Consult note [facility] Medical Records Department [address] [place] [address] Pre-Anesthesia Evaluation 11/10/24 1228 MR#: [id number] Acct: [id number] Name: JEANNE RIVERS Rep #:[id number] : 1960 64 From: Nii Hutchinson MD PCP: Dr. Edilia Remy MD Status:[facility] Race: C Location: [place] [address] ASA Classification* ASA Classification ASA Classification: 3 Assessment & Plan Anesthesia* Anesthesia Assessment Anesthesia Assessment: Discussed sedation and/or anesthesia options, risks, benefits, and alternatives with patient/parents/legal guardian/POA. Questions invited. The patient/parents/legal guardian/POA seems to understand and agrees to proceedwith anesthesia plan. Reviewed the physical assessment, medical history, allergy history and patient home medications list prior to surgery/procedure/anesthetic and documented any changes. Performed airway and anesthesia risk assessments. Anesthesia Type Anesthesia Type: MAC Anesthesia Focused Assessment* Airway Assessment Mouth opens: >3 cm Mallampati Score: II Focused Labs Anesthesia Preop lab: CBC WBC 8.7 K/mm3 (4.4-11.0) 09/21/24 13:45 09/21/24 RBC 5.00 M/mm3 (4.6-6.2) 09/21/24 13:45 09/21/24 Hgb 15.1 g/dL (13.0-16.5) 09/21/24 13:45 09/21/24 Hct 47.1 % (40-54) 09/21/24 13:45 09/21/24 Plt Count 175 K/mm3 (150-450) 09/21/24 13:45 09/21/24 CHEMISTRY Potassium 4.5 mmol/L (3.5-5.1) 09/21/24 13:45 09/21/24 Sodium 135 mmol/L (136-145) L 09/21/24 13:45 09/21/24 BUN 12 mg/dL (7-18) 09/21/24 13:45 09/21/24 Creatinine 1.08 mg/dL (0.70-1.30) 09/21/24 13:45 09/21/24 Glucose 236 mg/dL (74-106) H 09/21/24 13:45 09/21/24 POC Glucose 198 mg/dL (70-110) H 02/26/15 20:37 02/26/15 COAG PT 13.3 SECONDS (11.7-14.9) 09/14/24 08:48 Pre-Assessment Diagnosis/Proposed Procedure Planned Operative Procedure(s): EGD Anesthesia History 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 When Was Last Pacemaker Check QUESTION #4 FULL TEXT: You/Your Family Experience fever (hyperthermia) with Anesthesia Last Oral Intake Last Oral intake: Last Oral Intake NPO since Meds taken in AM with sips of water? 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 Female No 11/07/24 12:35 HX of Motion Sickness No 11/07/24 12:35 HX of N/V After Surgery No 11/07/24 12:35 Non-Smoker No 11/07/24 12:35 Duration of Surgery greater No 11/07/24 12:35 than 60 minutes Number of Risk Factors PONV Score Height & Weight Height & Weight: Anesthesia: Height & Weight Height 5 ft 11.5 in 09/21/24 12:28 Respiratory Assessment Respiratory Assessment - air sealing technician: Respiratory Tract Infection Hx - air sealing technician Hx Respiratory Tract Infection No 11/07/24 12:35 STOP Sleep Apnea STOP Sleep Apnea - air sealing technician: STOP Sleep Apnea - air sealing technician Hx Hypertension Yes: CONTROLLED WITH MED 11/07/24 12:35 Hx Sleep Apnea No 11/07/24 12:35 CPAP No 02/13/19 09:35 BIPAP No 02/13/19 09:35 Do you snore loudly (louder No 11/07/24 12:35 than talking or can be heard Do you often feel tired/ No 11/07/24 12:35 fatigued/ sleepy during daytime? Has anyone observed you stop Yes 11/07/24 12:35 breathing during sleep? STOP Results Positive 11/07/24 12:35 QUESTION #5 FULL TEXT : Do you snore loudly (louder than talking or can be heard through closeddoors)? 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 Hx Now No 11/07/24 12:35 Gestational Age (in weeks): EDC: Hx Hx Para Hx Section SAB No 11/07/24 12:35 PFSH Medical History Loss of hearing Diabetes Ambulates with cane Arthritis Fatty liver Easy bruising Back pain Migraine headache Dietary restriction History of diverticulitis Gastric reflux COPD (chronic obstructive pulmonary disease) Shortness of breath on exertion Smoker History of pain when walking History of edema Cellulitis Cardiology follow-up encounter RUQ abdominal pain snf use of drug Nicotine abuse HLD (hyperlipidemia) Essential (primary) hypertension 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 Home Medications ?Medication ?Instructions ?Recorded ?Last Taken ?Type cyclobenzaprine 10 mg tablet 10 mg PO BID muscle spasm s 02/27/15 03/20/19 History aspirin 81 mg tablet,delayed 81 mg PO DAILY 01/14/18 0 03/20/19 History release (Adult Aspirin Regimen) lisinopril 20 mg tablet 20 mg PO DAILY bp 01/14/18 0 03/20/19 History pioglitazone 15 mg tablet (Actos) 15 mg PO DAILY 01/1403/20/19 History glipizide 5 mg tablet 5 mg PO BID 08/25/18 9 History albuterol sulfate 90 mcg/actuation 2 puff inhalation B ID PRN sob 03/20/1901/01 History aerosol inhaler furosemide 20 mg tablet (Lasix) 20 mg PO BID 10/27/23 Unknown History pantoprazole 40 mg tablet,delayed 40 mg PO QDAY #60 ta bs 09/08/24 Unknown Rx release atorvastatin 40 mg tablet 40 mg PO QHS 11/07/24 Unknow n History Allergy/AdvReac Type Severity Reaction Status Date / Time bee pollen AdvReac Severe Anaphylaxis Verified 11/07/24 12:33 hornet venom AdvReac Severe Anaphylaxis Verified 11/07/24 12:33 venom-wasp (wasp venom) AdvReac Severe Anaphylaxis Verified 11/07/24 12:33 adhesive tape AdvReac Intermediate Rash Verified 11/07/24 12:33 Family History Mother Diabetes Hypertension Father Diabetes Hypertension Brother Hypertension Heart disease Surgical History History of carpal tunnel surgery of right wrist S/P right knee arthroscopy H/O repair of rotator cuff Social History household members: spouse current occupational status: disabled Smoking Status: Current every day smoker tobacco type: cigarettes alcohol intake: never caffeine: Yes Type: carbonated beverages Number of servings: 6 what type of physical activity do you participate in: none Review of Systems (Anesthesia) ROS Narrative System reviewed and no additional complaints, except as documented. 11/10/24 1229 > Date _ Nii Hutchinson MD Cosigner Signature: Date CC: ~ Signed [facility]01-30-2025 Evaluation note* Diagnosis Onset Date Resolution Status Admit Date Fatty liver acute September 14, 2024 8:47am Abdominal pain acute October 12:07pm Fatty liver acute November 10, 2 025 12:07pm Hernia acute November 10 12:07pm RUQ abdominal pain acute November 10, 2024 12:07pm Cirrhosis chronic November 15 2:05pm Liver lesion chronic November 15, 2 025 2:05pm Hepatic cyst inactive November 15, 2 025 2:05pm Cirrhosis chronic January 02, 2025 8:53am Liver lesion chronic January 02 8:53am [facility] Work Phone: 1(282) 181-933501-02-2025 Evaluation note* Diagnosis Onset Date Resolution Status Admit Date Fatty liver acute August 17, 2024 2:52pm RUQ abdominal pain acute 2024 2:52pm Fatty liver acute September 14, 2024 8:47am Abdominal pain acute October 12:07pm Fatty liver acute November 10, 2 025 12:07pm Hernia acute November 10 12:07pm RUQ abdominal pain acute November 10, 2024 12:07pm [facility] Work Phone: 1(732) 604-632401-02-2025 Evaluation note* Diagnosis Onset Date Resolution Status Admit Date Fatty liver acute August 17, 2024 2:52pm RUQ abdominal pain acute Januar 2024 2:52pm Fatty liver acute September 14, 2024 8:47am Abdominal pain acute October 12:07pm Fatty liver acute November 10, 025 12:07pm Hernia acute November 10 12:07pm RUQ abdominal pain acute November 10, 2024 12:07pm Cirrhosis acute November 15 2:05pm Liver lesion acute November 15, 2 025 2:05pm Hepatic cyst inactive November 15, 2 025 2:05pm [facility] Work Phone: 1(515) 222-350510-21-2023 NoteHNO ID: [id number] Author: Svitlana Montano RT(R) Service: Radiology Author Type: Technologist Type: Progress Notes Filed: 06/05/2023 11:55 AM Note Text: Radiology Service Progress Note PATIENT NAME: Jeanne Rivers DATE OF SERVICE: June 05, 2023 TIME: 11:54 AM PATIENT IDENTITY VERIFICATION COMPLETED USING TWO (2) IDENTIFIERS: Name and Date of confirmed by patient verbally. FALL SCREENING: Has the patient had 2 falls in the last year or 1 fall with injury or currently using an Ambulatory Assistive Device (Walker, Cane, Wheelchair, Crutches, etc.)? Emergency Room Patient: Screened in ED PATIENT GENDER DATA: Male PATIENT RELEVANT IMPLANT DATA REVIEWED: Not Applicable RADIOLOGY DEPARTMENT: General X-ray: Exam(s) Completed: Lower Extremity X-Ray(s): Ankle, Left Upper Extremity X-Ray(s): Elbow, left PERIPHERAL IV DATA: Not applicable SIGNED BY: RT Yvonne(R) June 05, 2023 11:54 [id number] Discharge summary Author Sriisha Khan [facility] December 17, 2022 9:23am Note Date/Time December 17, 2022 9:23am [facility] Occupational Therapy [address] [place] [address] / REHABILITATION SERVICES DISCHARGE SUMMARY MR#: [id number] Acct: [id number] Name: JEANNE RIVERS Rep #: [id number] : 1960 62 From: Sirisha WANG/Axel, CHT Referring Dr.: Dr. Que Turcios MD Status: REG RCR Eval Date: Discharge Date: It has been my pleasure to treat JEANNE RIVERS under orders from Dr. Que Turcios MD, for the diagnosis of right wrist pain for a total of 8 visit(s). Please see the following information for a summary of their discharge status. % Improvement: 10 Objective/Function: pt demo with a decrease in right wrist ROM from 45/40 to 40/30 at 15* loss of ROM pt has pain with ROM. pt demo full forearm supination/pronation (not pain). 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 pt has pain on ulnar side. pt states wrist pain does continue to stop him with all his ADLs and IADLs. pt has been ed. on ad. eq. to decrease stress on joints. therapist ed. 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 with ADL and IADLs.( goal met but painful) Goal:: pt will demo increase in right wrist ROM by 20* without pain to increase pts ind. with ADls by d.c (pt decreased in ROM) Goal:: pt will report a pain no greater than 3/10 with use of right hand with ADLs and IADLs by d.c ( did not meet) Goal:: Pt will demo understanding of work/lifting and carry ergonomics to decrease stress on tendons to increase pts independent with ADLs, IADLS and worktasks by d/c. Pt will demo understanding of using supportive bracing 80% of workday/ADLS to decrease stress on tendon origin to allow healing and decrease pain by end of 2nd session. Plan: D/C Discharge Comments: due to limited gains in progress therapist d/c pt to return to the for further evaluation. pt demo understanding to schedule with . pt agrees with POC. If there are questions or concerns regarding this patient's occupational therapy, please fell free to call me at [phone]. Thank you for the referral of this patient. Sincerely, KATHLEEN Avendaño/SMOOTH Reyna <Electronically signed by Sirisha WANG/SMOOTH Reyna> 12/17/22922 CC: Dr. Edilia Remy MD; Dr. Que Turcios MD ~ MK Signed [facility] Work Phone: consult note Author Enoch Tirado [facility] Note Date/Time November 10, 2024 2:2 8pm [facility] Medical Records Department [address] [place] [address] Anesthesia Postop Eval I 11/10/241426 MR#: [id number] Acct: [id number] Name: JEANNE RIVERS Rep #:[id number] : 1960 64 From: Enoch Tirado PCP: Dr. Edilia Remy MD Status:REG [facility] Race: C Location: [place] [address] Anesthesia: Postop Eval I Current Vital Signs Temperature: 98.1 F Pulse Rate: 104 Blood Pressure: 135/78 Respiratory Rate: 18 Pulse Ox: 94 Oxygen Delivery Method: Room Air Assessment Airway patent: Yes Spontaneous unlabored respirations: Yes Mental status: Asleep nausea: No Vomiting: No Anesthesia Complication: No Fluid Hydration Crystalloid volume administer (ml): 30 Total IV fluid infused: 30 Progress Note Anesthesia document: Postop Eval 1 completed: Yes 11/10/241427 <Electronically signed by Enoch Tirado > Date _ Enoch Jimenez Signature: Date CC: ~ Signed [facility] Work Phone: consult note Author Shira Akbar [facility] Note Date/Time November 10, 2024 2:3 7pm [facility] Medical Records Department [address] [place] [address] Anesthesia Postop Eval II 11/10/246 MR#: [id number] Acct: [id number] Name: JEANNE RIVERS Rep #:[id number] : 1960 64 From: Shira Akbar PCP: Dr. Edilia Remy MD Status:REG SDC Y Race: C Location: [place] [address]- Anesthesia Postop Eval I Sum Postop Eval Completion status Anesthesia document: Postop Eval 1 completed: Yes Anesthesia Postop Eval I Summary Anesthesia Postop Eval I Summary: Anesthesia Postop Eval I: Assessment Summary Airway patent Yes 11/10/24 14:28 [email or web address] Spontaneous unlabored Yes 11/10/24 14:28 [email or web address] respirations Mental status Asleep 11/10/24 14:28 [email or web address] nausea No 11/10/24 14:28 [email or web address] Vomiting No 11/10/24 14:28 [email or web address] Anesthesia Postop Eval I: Fluid Summary Crystalloid volume administer 30 11/10/24 14:28 [email or web address] (ml) Colloids volume administered ( ml) Blood Product volume administered (ml) Total IV fluid infused 30 11/10/24 14:28 [email or web address] Anesthesia Postop Eval I: Summary Notes Anesthesia Complication No 11/10/24 14:28 [email or web address] Anesthesia Complication Comment: Post-operative progress note Anesthesia: Postop Eval II Evaluation Mental status: Awake Pain Level: 0 nausea: No Vomiting: No 11/10/24 1437 <Electronically signed by Shira knox> Date _ Shira Jimenez Signature: Date CC: ~ Signed [facility] Work Phone: Evaluation note* Diagnosis Onset Date Resolution Status Right carpal tunnel syndrome acute Right wrist pain acute [facility] Work Phone: Evaluation noteNo assessment information available [facility] Work Phone: Evaluation note* Diagnosis Onset Date Resolution Status RUQ abdominal pain acute [facility] Work Phone: History and physical note Author Marty Friend [facility] Note Date/Time November 10, 2024 1:5 5pm [facility] Medical Records Department [address] [place] [address] History & Physical Exam 11/10/24 1352 MR#: [id number] Acct: [id number] Name: JEANNE RIVERS Rep #:[id number] : 1960 64 From: Marty Paz DO PCP: Dr. Edilia Remy MD Status:[facility] Location: [place] [address] HPI - General General Date of Admission: 11/10/24 Date of Service: 11/10/24 Chief Complaint: Abdominal pain HPI Narrative JEANNE RIVERS, is a 64 M who presents for the evaluation of abdominal pain. Pt has had abd pain for 6 months now after getting into his trunk. Pain is constant but can become worse at times with certain movements. It is not associated with eating food. He feels his abd is bloated and hard. He is gainingweigh but has not had any changed in his diet or lifestyle. He tells me he was an alcoholic in the past but no longer drinks. He does smoke cigarettes. He denies all other GI symptoms including n/v, constipation, diarrhea, melena, or heartburn. CT abd/pelvis 06.29.24;heterogeneous hypoattenuated left hepatic 1.7 cm nodule. Correlate with ultrasound if needed. Diverticulosis. Ammonia Today K76.0 - Fatty (change of) liver, not elsewhere classified DIDI Comprehensive Panel Today K76.0 - Fatty (change of) liver, not elsewhere classified ANCA Today K76.0 - Fatty (change of) liver, not elsewhere classified Angiotensin Convert Enzyme Today K76.0 - Fatty (change of) liver, not elsewhereclassified Anti-Mitochondrial AB Today K76.0 - Fatty (change of) liver, not elsewhere classified Anti-Smooth Muscle ABS Today K76.0 - Fatty (change of) liver, not elsewhere classified CBC W/Diff, Automated Today K76.0 - Fatty (change of) liver, not elsewhere classified, R10.11 - Right upper quadrant pain Hemoglobin A1c Today E11.9 - Type 2 diabetes mellitus without complications, K76.0 - Fatty (change of) liver, not elsewhere classified Haptoglobin Today K76.0 - Fatty (change of) liver, not elsewhere classified Ferritin Today E11.9 - Type 2 diabetes mellitus without complications, K76.0 - Fatty (change of) liver, not elsewhere classified Erythrocyte Sed Rate Today K76.0 - Fatty (change of) liver, not elsewhere classified CRP Today K76.0 - Fatty (change of) liver, not elsewhere classified Copper, Serum or Plasma Today K76.0 - Fatty (change of) liver, not elsewhere classified Comprehensive Metabolic Profil Today K76.0 - Fatty (change of) liver, not elsewhere classified Ceruloplasmin Today K76.0 - Fatty (change of) liver, not elsewhere classified Hepatitis Panel Acute Today K76.0 - Fatty (change of) liver, not elsewhere classified, R10.11 - Right upper quadrant pain LDH Today K76.0 - Fatty (change of) liver, not elsewhere classified Iron Binding Capacity,Total Today K76.0 - Fatty (change of) liver, not elsewhere classified Transferrin Today K76.0 - Fatty (change of) liver, not elsewhere classified Prothrombin Time w/INR Today K76.0 - Fatty (change of) liver, not elsewhere classified Lipid Profile Today K76.0 - Fatty (change of) liver, not elsewhere classified ABD Limited w/ Elastography Today K76.0 - Fatty (change of) liver, not elsewhere classified Medications: New dicyclomine 10 mg PO BID PRN 20 caps 2RF abdominal pain PFSH Medical History Loss of hearing Diabetes Ambulates with cane Arthritis Fatty liver Easy bruising Back pain Migraine headache Dietary restriction History of diverticulitis Gastric reflux COPD (chronic obstructive pulmonary disease) Shortness of breath on exertion Smoker History of pain when walking History of edema Cellulitis Cardiology follow-up encounter RUQ abdominal pain snf use of drug Nicotine abuse HLD (hyperlipidemia) Essential (primary) hypertension 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 Home Medications ?Medication ?Instructions ?Recorded ?Last Taken ?Type cyclobenzaprine 10 mg tablet 10 mg PO BID muscle spasm s 02/27/15 11/10/24 10:30 History aspirin 81 mg tablet,delayed 81 mg PO DAILY 01/14/18 0 11/09/24 History release (Adult Aspirin Regimen) lisinopril 20 mg tablet 20 mg PO DAILY bp 01/14/18 0 11/10/24 10:30 History pioglitazone 15 mg tablet (Actos) 15 mg PO DAILY 01/1403/20/19 History glipizide 5 mg tablet 5 mg PO BID 08/25/18 9 History albuterol sulfate 90 mcg/actuation 2 puff inhalation B ID PRN sob 03/20/19 03/20/19 History aerosol inhaler furosemide 20 mg tablet (Lasix) 20 mg PO BID 10/27/23 Unknown History pantoprazole 40 mg tablet,delayed 40 mg PO QDAY #60 ta bs 09/08/24 Unknown Rx release atorvastatin 40 mg tablet 40 mg PO QHS 11/07/24 Unknow n History Allergy/AdvReac Type Severity Reaction Status Date / Time bee pollen AdvReac Severe Anaphylaxis Verified 11/10/24 12:42 hornet venom AdvReac Severe Anaphylaxis Verified 11/10/24 12:42 venom-wasp (wasp venom) AdvReac Severe Anaphylaxis Verified 11/10/24 12:42 adhesive tape AdvReac Intermediate Rash Verified 11/10/24 12:42 Family History Mother Diabetes Hypertension Father Diabetes Hypertension Brother Hypertension Heart disease Surgical History History of carpal tunnel surgery of right wrist S/P right knee arthroscopy H/O repair of rotator cuff Social History household members: spouse current occupational status: disabled Smoking Status: Current every day smoker tobacco type: cigarettes alcohol intake: never caffeine: Yes Type: carbonated beverages Number of servings: 6 what type of physical activity do you participate in: none ROS Constitutional Constitutional: Denies fatigue, fever(s), poor appetite, weight gain or weight loss Gastrointestinal Gastrointestinal: Denies belching, bloating, change in bowel habits, change in stool character, chewing difficulty, coffee ground emesis, constipation, cramping, diarrhea, dyspepsia, dysphagia, early satiety, excessive flatus, fecalincontinence, heartburn, hematemesis, hematochezia, hemorrhoids, loose stools, melena, nausea, odynophagia, rectal bleeding, tenesmus, vomiting or weight changes Vital Signs Vital Signs Vital Signs: 11/10/24 12:44 11/10/24 12:44 Temperature 97.5 F L Temperature Source Temporal Pulse Rate 95 Respiratory Rate 16 Respiratory Pattern Normal Blood Pressure 163/86 H Blood Pressure Mean 111 Blood Pressure Source Monitor Blood Pressure Position Semi-Fowlers Blood Pressure Location Left Arm Pulse Ox 96 Oxygen Delivery Method Room Air Weight Weight: 259 lb 0.69 oz Body Mass Index (BMI) 36.1 Physical Exam Const alert, oriented x3, no apparent distress and healthy appearing General Appearance: cooperative GI normal to inspection, nondistended, normoactive bowel sounds, soft to palpation,non-tender and non-distended Percussion: normal to percussion Rectal Exam: deferred Results Lab / Micro Data Labs: Laboratory Results - last 24 hr 11/10/24 12:46: POC Glucose 215 H Assessment & Plan Assessment/Plan (1) Fatty liver: (2) Hernia: (3) Abdominal pain: (4) RUQ abdominal pain: PLAN: Assessment and Plan Assessment and Plan (1) Fatty liver: Status: Acute (2) RUQ abdominal pain: Status: Acute Plan: This is a 64 yo male pt here today for abd pain. Pt has had abd pain for about 6months now. Recent imaging of the abd showed a cyst on the liver. Gallbladder USwith moderate thickening. On exam, pt abd is hard and distended. I have concern for cirrhosis as he tells me he was an alcoholic years ago. He is no longer drinking. Will order work up for liver and elastography. His pain is exacerbated by certain movements and coughing. His pain may be musculoskeletal in nature but the etiology is not clear. Will trial dicyclomine for his pain. -Liver work up -Liver elastography -Start dicyclomine for pain -f/u in 3 months Orders: Orders 11/10/24 1355 <Electronically signed by Marty Paz DO> Cosigner Signature (if applicable): CC: Dr. Edilia Remy MD; Marty Paz DO~ Signed [facility] Work Phone: Hospital Discharge instructions Additional Instructions Abdominal labs normal CT scan negative for any complications from your upper endoscopy. Fatty liver with signs of cirrhosis and liver cyst. This chest with Dr. Paz in the ED, and follow-up with him in the office. Take Carafate as prescribed continue your pantoprazole. [facility] Work Phone: Reason for referral (narrative)No reason for referral information availableWooTuscarawas Hospital Work Phone: Summary Purpose Family History No Family History Records Found Relationship Condition Age at Onset Recorded Date/T michele mother Diabetes mellitus Unknown Hypertension Unknown father Diabetes mellitus Unknown brother Hypertension Unknown Relationship Condition Age at Onset Recorded Date/T michele mother Diabetes mellitus Unknown Hypertension Unknown father Diabetes mellitus Unknown brother Hypertension Unknown Cardiac disease Unknown Advance Directives No Advanced Directives Records Found Advance Directive Response Recorded Date/ Time Advance Directives No February 13 9:35am Living Will Yes March 20, 2019 6:48pm Power of Card Mounter Yes March 20 6:48pm Advance Directive Response Recorded Date/ Time Name of Medical Power of Card Mounter May 29, 2023 9:21am Advance Directives No February 13 9:35am Living Will Yes May 29 9:21am Power of Card Mounter Yes May 29, 2023 9:21am Advance Directive Response Recorded Date/ Time Advance Directives No February 13 9:35am Living Will Yes May 29 9:21am Power of Card Mounter Yes May 29, 2023 9:21am Advance Directive Response Recorded Date/ Time Living Will Yes November 07, 2024 12:35pm Do you have a Healthcare Power of Card Mounter? Yes November 07, 2024 12:35pm Name of Medical Power of Card Mounter SPOUSE November 07, 2024 12:35pm Living Will No September 21 2:38pm Do you have a Healthcare Power of Card Mounter? No September 21, 2024 2:38pm Advance Directives No February 13 9:35am Advance Directive Response Recorded Date/ Time Living Will Yes November 07, 2024 12:35pm Do you have a Healthcare Power of Card Mounter? Yes November 07, 2024 12:35pm Name of Medical Power of Card Mounter SPOUSE November 07, 2024 12:35pm Living Will Yes November 11, 2024 5:35pm Do you have a Healthcare Power of Card Mounter? Yes November 11, 2024 5:35pm Name of Medical Power of Card Mounter rogelio November 11, 2024 5:35pm Living Will No September 21 2:38pm Do you have a Healthcare Power of Card Mounter? No September 21, 2024 2:38pm Advance Directives No February 13 9:35am Advance Directive Response Recorded Date/ Time Living Will Yes November 07, 2024 12:35pm Do you have a Healthcare Power of Card Mounter? Yes November 07, 2024 12:35pm Name of Medical Power of Card Mounter SPOUSE November 07, 2024 12:35pm Living Will Yes November 11, 2024 5:35pm Do you have a Healthcare Power of Card Mounter? Yes November 11, 2024 5:35pm Name of Medical Power of Card Mounter rogelio November 11, 2024 5:35pm Advance Directives No February 13 9:35am Chief Complaint and Reason for Visit Chief Complaint RIGHT WRIST room 3 Nicotine dependence, cigarettes, uncomplicated R WRIST PAIN/RX HERE Reason for Visit Right carpal tunnel syndrome Right wrist pain Chief Complaint ABD PAIN CAN'T SLEEP Chief Complaint ABD PAIN CAN'T SLEEP LEFT LEG EDEMA Chief Complaint Umbilical Hernia RUQ ABD PAIN Reason for Visit RUQ abdominal pain Chief Complaint Umbilical Hernia RUQ ABD PAIN Disease of gallbladder, unspecified Reason for Visit RUQ abdominal pain Chief Complaint Admit Date Right side pain August 17, 2024 2: 52pm E-ORDER August 17, 2024 3: 49pm FATTY LIVER August 29, 2024 8 :35am FATTY LIVER September 14, 2024 8 :47am FATTY LIVER September 14, 2024 1 1:04am ABD PAIN September 21, 2024 1 2:27pm Reason for Visit Admit Date Fatty liver August 17, 2024 2: 52pm RUQ abdominal pain August 17, 2024 2: 52pm Fatty liver September 14, 2024 8 :47am Abdominal pain November 10, 2024 12: 07pm Fatty liver November 10, 2024 12: 07pm Hernia November 10, 2024 12: 07pm RUQ abdominal pain November 10, 2024 12: 07pm Chief Complaint Admit Date Right side pain August 17, 2024 2: 52pm E-ORDER August 17, 2024 3: 49pm FATTY LIVER August 29, 2024 8 :35am FATTY LIVER September 14, 2024 8 :47am FATTY LIVER September 14, 2024 1 1:04am ABD PAIN September 21, 2024 1 2:27pm ABDOMINAL PAIN November 11, 2024 5:1 9pm Chief Complaint Admit Date Right side pain August 17, 2024 2: 52pm E-ORDER August 17, 2024 3: 49pm FATTY LIVER August 29, 2024 8 :35am FATTY LIVER September 14, 2024 8 :47am FATTY LIVER September 14, 2024 1 1:04am ABD PAIN September 21, 2024 1 2:27pm ABDOMINAL PAIN November 11, 2024 5:1 9pm 3 M FU November 15, 2024 2:05 pm Reason for Visit Admit Date Fatty liver August 17, 2024 2: 52pm RUQ abdominal pain August 17, 2024 2: 52pm Fatty liver September 14, 2024 8 :47am Abdominal pain November 10, 2024 12: 07pm Fatty liver November 10, 2024 12: 07pm Hernia November 10, 2024 12: 07pm RUQ abdominal pain November 10, 2024 12: 07pm Cirrhosis November 15, 2024 2:05 pm Liver lesion November 15, 2024 2:05 pm Hepatic cyst November 15, 2024 2:05 pm Chief Complaint Admit Date FATTY LIVER September 14, 2024 8 :47am FATTY LIVER September 14, 2024 1 1:04am ABD PAIN September 21, 2024 1 2:27pm ABDOMINAL PAIN November 11, 2024 5:1 9pm 3 M FU November 15, 2024 2:05 pm LIVER LESION December 11, 2024 3:4 4pm liver issues January 02, 2025 8:53a m Reason for Visit Admit Date Fatty liver September 14, 2024 8 :47am Abdominal pain November 10, 2024 12: 07pm Fatty liver November 10, 2024 12: 07pm Hernia November 10, 2024 12: 07pm RUQ abdominal pain November 10, 2024 12: 07pm Cirrhosis November 15, 2024 2:05 pm Liver lesion November 15, 2024 2:05 pm Hepatic cyst November 15, 2024 2:05 pm Cirrhosis January 02, 2025 8:53a m Liver lesion January 02, 2025 8:53a m Chief Complaint Admit Date ABDOMINAL PAIN November 11, 2024 5:1 9pm 3 M FU November 15, 2024 2:05 pm LIVER LESION December 11, 2024 3:4 4pm liver issues January 02, 2025 8:53a m CIRRHOSIS, ABD PAIN January 17, 2025 8:29a m Reason for Visit Admit Date Abdominal pain November 10, 2024 12: 07pm Fatty liver November 10, 2024 12: 07pm Hernia November 10, 2024 12: 07pm RUQ abdominal pain November 10, 2024 12: 07pm Cirrhosis November 15, 2024 2:05 pm Liver lesion November 15, 2024 2:05 pm Hepatic cyst November 15, 2024 2:05 pm Abdominal pain January 02, 2025 8:53a m Cirrhosis January 02, 2025 8:53a m Liver lesion January 02, 2025 8:53a m Additional Source Comments (unrecognized sect ion and content) No Status Records FoundNo Status Records FoundNo Status Records FoundNo Status Records FoundNo Status Records FoundNo Status Records Found INFORMATION SOURCE (unrecogn ized section and content) DATE CREATED AUTHOR 09/08/2018 [facility] DATE CREATED AUTHOR AUTHOR'S ORGANIZ ATION 03/18/2019 [facility] ([place]) DATE CREATED AUTHOR AUTHOR'S ORGANIZ ATION 11/03/2020 [facility] DATE CREATED AUTHOR AUTHOR'S ORGANIZ ATION 06/06/2023 [facility] DATE CREATED AUTHOR AUTHOR'S ORGANIZ ATION 08/22/2023 [facility] DATE CREATED AUTHOR AUTHOR'S ORGANIZ ATION [facility] Care Teams (unrecognized sec tion and content) Team Status: Active Member Role Status Dates Dr. Edilia Remy MD Family Provider Active Dr. Edilia Remy MD Primary Care Provider Active Team Status: Inactive Member Role Status Dates Dr. Edilia Remy MD Primary Care Provider, Referrin g Provider Active Que Turcios MD Attending Provider Active Team Status: Inactive Member Role Status Dates Dr. Edilia Remy MD Primary Care Provider Active Dr. Emmanuel Lu MD Attending Provider Active Team Status: Inactive Member Role Status Dates Dr. Edilia Remy MD Primary Care Provider, Attendin g Provider Active Team Status: Inactive Member Role Status Dates Dr. Edilia Remy MD Primary Care Provider Active Que Turcios MD Attending Provider, Referring Prov ider Active Team Status: Inactive Member Role Status Dates Dr. Edilia Remy MD Primary Care Provider Active Dr. Ortega Diana DO Attending Provider, Emergency Provide r Active Team Status: Inactive Member Role Status Dates Dr. Edilia Remy MD Primary Care Provider Active Dr. Joss Orozco DO Emergency Provider Active Team Status: Active Member Role Status Dates Dr. Edilia Remy MD Primary Care Provider Active Dr. Rusty Diaz MD Attending Provider Active Team Status: Inactive Member Role Status Dates Dr. Edilia Remy MD Primary Care Prov ider, Attending Provider, Referring Provider Active Team Status: Inactive Member Role Status Dates Dr. Edilia Remy MD Primary Care Provider Active Dr. Joss Orozco DO Attending Provider, Emergency P rovider Active Team Status: Inactive Member Role Status Dates Dr. Edilia Remy MD Primary Care Provider, Referrin g Provider Active Dr. Brooks Rangel MD Attending Provider Active Team Status: Inactive Member Role Status Dates Dr. Edilia Remy MD Primary Care Provider Active Dr. Brooks Rangel MD Attending Provider, Referr ing Provider Active Team Status: Active Member Role Status Dates Dr. Edilia Remy MD Primary Care Provider Active Team Status: Inactive Member Role Status Dates Dr. Edilia Remy MD Primary Care Provider Active Start: August 17, 2024 End: August 17, 2024 Dr. Edilia Remy MD Referring Provider Active Start: August 17, 2024 End: August 17, 2024 GORDON Vieira Attending Provider Active Start: August 17, 2024 End: August 17, 2024 Team Status: Inactive Member Role Status Dates Dr. Edilia Remy MD Primary Care Provider Active Start: August 17, 2024 End: August 17, 2024 GORDON Vieira Attending Provider Active Start: August 17, 2024 End: August 17, 2024 GORDON Vieira Referring Provider Active Start: August 17, 2024 End: August 17, 2024 Team Status: Inactive Member Role Status Dates Dr. Edilia Remy MD Primary Care Provider Active Start: August 29, 2024 End: August 29, 2024 GORDON Vieira Attending Provider Active Start: August 29, 2024 End: August 29, 2024 GORDON Vieira Referring Provider Active Start: August 29, 2024 End: August 29, 2024 Team Status: Inactive Member Role Status Dates Dr. Edilia Remy MD Primary Care Provider Active Start: September 14, 2024 End: September 14, 2024 GORDON Vieira Attending Provider Active Start: September 14, 2024 End: September 14, 2024 GORDON Vieira Referring Provider Active Start: September 14, 2024 End: September 14, 2024 Team Status: Active Member Role Status Dates Dr. Edilia Remy MD Primary Care Provider Active Start: September 14, 2024 GORDON Vieira Referring Provider Active Start: September 14, 2024 GORDON Vieira Other Provider Active Star t: September 14, 2024 Leydi Moncada [employer], [employer]C Attending Provider Active Start: September 14, 2024 Team Status: Inactive Member Role Status Dates Dr. Edilia Remy MD Primary Care Provider Active Start: September 21, 2024 End: September 21, 2024 Dr. Dunia Swenson DO Attending Provider Active Start: September 21, 2024 End: September 21, 2024 Dr. Dunia Swenson DO Referring Provider Active Start: September 21, 2024 End: September 21, 2024 Dr. Dunia Swenson DO Emergency Provider Active Start: September 21, 2024 End: September 21, 2024 Team Status: Inactive Member Role Status Dates Dr. Edilia Remy MD Primary Care Provider Active Start: November 10, 2024 End: November 10, 2024 Dr. Edilia Remy MD Referring Provider Active Start: November 10, 2024 End: November 10, 2024 Dr. Marty Paz DO Attending Provider Active Start: November 10, 2024 End: November 10, 2024 Team Status: Active Member Role Status Dates Dr. Edilia Remy MD Primary Care Provider Active Start: November 10, 2024 Dr. Edilia Remy MD Referring Provider Active Start: November 10, 2024 Dr. Marty Paz DO Attending Provider Active Start: November 10, 2024 Dr. Marty Paz DO Other Provider Active St art: November 10, 2024 Team Status: Inactive Member Role Status Dates Dr. Edilia Remy MD Primary Care Provider Active Start: November 11, 2024 End: November 11, 2024 Dr. Ortega Diana DO Emergency Provider Active Start : November 11, 2024 End: November 11, 2024 Team Status: Inactive Member Role Status Dates Dr. Edilia Remy MD Primary Care Provider Active Start: November 11, 2024 End: November 11, 2024 Dr. Ortega Diana DO Attending Provider Active Start : November 11, 2024 End: November 11, 2024 Dr. Ortega Diana DO Emergency Provider Active Start : November 11, 2024 End: November 11, 2024 Team Status: Inactive Member Role Status Dates Dr. Edilia Remy MD Primary Care Provider Active Start: November 15, 2024 End: November 15, 2024 Dr. Edilia Remy MD Referring Provider Active Start: November 15, 2024 End: November 15, 2024 GORDON Vieira Attending Provider Active Start: November 15, 2024 End: November 15, 2024 Team Status: Inactive Member Role Status Dates Dr. Edilia Remy MD Primary Care Provider Active Start: November 15, 2024 End: November 15, 2024 GORDON Vieira Attending Provider Active Start: November 15, 2024 End: November 15, 2024 GORDON Vieira Referring Provider Active Start: November 15, 2024 End: November 15, 2024 Team Status: Inactive Member Role Status Dates Dr. Edilia Remy MD Primary Care Provider Active Start: December 11, 2024 End: December 11, 2024 GORDON Vieira Attending Provider Active Start: December 11, 2024 End: December 11, 2024 GORDON Vieira Referring Provider Active Start: December 11, 2024 End: December 11, 2024 Team Status: Inactive Member Role Status Dates Dr. Edilia Remy MD Primary Care Provider Active Start: January 02, 2025 End: January 02, 2025 Dr. Edilia Remy MD Referring Provider Active Start: January 02, 2025 End: January 02, 2025 Dr. Brennen Hickey MD Attending Provider Active Start: January 02, 2025 End: January 02, 2025 Team Status: Inactive Member Role Status Dates Dr. Edilia Remy MD Primary Care Provider Active Start: January 17, 2025 End: January 17, 2025 Dr. Brennen Hickey MD Attending Provider Active Start: January 17, 2025 End: January 17, 2025 Dr. Brennen Hickey MD Referring Provider Active Start: January 17, 2025 End: January 17, 2025 Goals (unrecognized section and content) Goals may be documented in a n alternate sectionGoals may be documented in an alternate sectionGoals may be documented in an alternate sectionGoals may be documented in an alternate sectionGoals may be documented in an alternate section FOR RECORDS PERTAINING TO PATIENTS WHO ARE OR HAVE BEEN ENROLLED IN A CHEMICAL DEPENDENCY/SUBSTANCEABUSE PROGRAM, SOME INFORMATION MAY BE OMITTED. This clinical summary was aggregated from multiple sources. Caution should be exercised in using it in the provision of clinical care. This summary normalizes information from multiple sources, and as a consequence, information in this document may materially change the coding, format and clinical context of patient data. In addition, data may be omitted in some cases. CLINICAL DECISIONS SHOULD BE BASED ON THE PRIMARY CLINICAL RECORDS. [facility] [employer] provides no warranty or guarantee of the accuracy or completeness of information in this document.
--- NOTE | 2025-03-02 01:50 | RAD_ITS ---
PROCEDURE: HIP, UNI W/ PELVIS 2-3 VIEWS 03/02/2025 REASON FOR EXAM: PAIN TECHNIQUE: HIP, UNI W/ PELVIS 2-3 VIEWS COMPARISON: No FINDINGS: Mild bilateral hip osteoarthritis. Intact pelvic ring. No acute bone or soft tissue pathology. RAD/HIP, UNI W/ Pelvis 2-3 Views IMPRESSION: Mild right hip osteoarthritis. Reading Location: [place] [id number]
[2025-03-02 02:36] VITALS: BP 152/71; PULSE 84; RESP 19; TEMP 36.9; O2SAT 94
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
== END 2025-03-02 02:44 | disposition home or self-care (01) ==
PROVIDERS: Emergency Provider Emergency Medicine; PCP Family Medicine; Visit Provider Emergency Medicine
DX: S70.01XA Contusion of right hip, initial encounter (principal); J44.9 Chronic obstructive pulmonary disease, unspecified; E11.9 Type 2 diabetes mellitus without complications; I10 Essential (primary) hypertension; S30.0XXA Contusion of lower back and pelvis, initial encounter; I25.10 Atherosclerotic heart disease of native coronary artery without angina pectoris; E78.5 Hyperlipidemia, unspecified; F17.210 Nicotine dependence, cigarettes, uncomplicated; V00.831A Fall from motorized mobility scooter, initial encounter; Z79.82 Long term (current) use of aspirin; Z79.899 Other long term (current) drug therapy; Z79.84 Long term (current) use of oral hypoglycemic drugs; K21.9 Gastro-esophageal reflux disease without esophagitis
CPT/HCPCS: 72100; 73502; 96372; 99283

== ENCOUNTER 2025-03-06 19:33 | Emergency (ER) | payer MEDICARE, SELFPAY ==
[2025-03-06 19:34] VITALS: BP 142/60; PULSE 90; RESP 18; TEMP 36.9; O2SAT 94
== END 2025-03-06 20:59 | disposition left against medical advice (07) ==
LOC: ED 21:11
PROVIDERS: PCP Family Medicine
DX: Z00.00 Encounter for general adult medical examination without abnormal findings (principal)

== ENCOUNTER 2025-03-10 12:42 | Emergency (ER) | payer MEDICARE, SELFPAY ==
[2025-03-10 12:43] VITALS: BP 129/52; PULSE 82; RESP 18; TEMP 36.6; O2SAT 98; BMI 34.9
--- NOTE | 2025-03-10 12:54 | CT_ITS ---
PROCEDURE: SPINE THORACIC WITHOUT CONTRAS 03/10/2025 REASON FOR EXAM: PAIN, FALL TECHNIQUE: SPINE THORACIC WITHOUT CONTRAS Coronal and Sagittal reconstruction series were provided. One or more dose reduction techniques were used (e.g., Automated exposure control, adjustment of the mA and/or kV according to patient size, use of iterative reconstruction technique). RADIATION DOSE SUMMARY: CTDlvol: 97 mGy DLP: 3730 mGycm FINDINGS: Normal thoracic vertebral body height and alignment without subluxation. Normal thoracic aortic caliber. No adjacent parenchymal lung abnormality. No proximal rib deformity. Transverse processes are maintained CT/Spine Thoracic without Contras IMPRESSION: Negative for fracture [facility]
--- NOTE | 2025-03-10 12:54 | CT_ITS ---
PROCEDURE: SPINE LUMBAR WITHOUT CONTRAST 03/10/2025 REASON FOR EXAM: PAIN, FALL TECHNIQUE: SPINE LUMBAR WITHOUT CONTRAST Coronal and Sagittal reconstruction series were provided. One or more dose reduction techniques were used (e.g., Automated exposure control, adjustment of the mA and/or kV according to patient size, use of iterative reconstruction technique RADIATION DOSE SUMMARY: CTDlvol: 97 mGy DLP: 3730.59 mGycm FINDINGS: Age-indeterminate compression deformities of L3 and L4. Coronally oriented fracture through the L4 vertebral body. Negative for subluxation. I have not been supplied with sagittal soft tissue windows. No paravertebral masses seen on axial images. There is moderate spinal stenosis at L3-4 and moderate to severe spinal stenosis at L4-5. CT/Spine Lumbar without Contrast IMPRESSION: Age-indeterminate but possibly acute compression deformity of L3 and L4 without bony retropulsion. L4 fracture is oriented in the coronal plane. Reading Location: [facility]
--- NOTE | 2025-03-10 12:57 | ED.VIS.BACK ---
HPI <GORDON Alvarado - Last Filed: 03/10/25 15:45> History of Present Illness Chief Complaint: Back Narrative Narrative: Patient presented today with low back pain he has had since 03/02/2025 when he was attempting to sit on his electric scooter but fell onto his back/right side, he was evaluated here in the emergency department and had x-rays of his lumbar spine/right hip that was negative for fracture. He reports that on Wednesday he had a second fall attempting to turn to sit down and fell on his back. He then fell again last night in the bathroom and hit his back against the toilet bowl. He denies any head injury with these falls or loss of consciousness. He reports that his back pain has been worse since he has repeated falls. He denies bowel/bladder incontinence, saddle paresthesia/anesthesia, urinary retention, fevers, and chills. REPLACED BY [facility] <GORDON Alvarado - Last Filed: 03/10/25 15:45> REPLACED BY [facility] Medical History Loss of hearing Diabetes Ambulates with cane Arthritis Fatty liver Easy bruising Back pain Migraine headache Dietary restriction History of diverticulitis Gastric reflux COPD (chronic obstructive pulmonary disease) Shortness of breath on exertion Smoker History of pain when walking History of edema Cellulitis Cardiology follow-up encounter RUQ abdominal pain retirement use of drug Nicotine abuse HLD (hyperlipidemia) Essential (primary) hypertension Atherosclerotic heart disease of [place] coronary artery with other forms of angina pectoris Home Medications ?Medication ?Instructions ?Recorded ?Last Taken ?Type cyclobenzaprine 10 mg tablet 10 mg PO BID muscle spasms 02/27/15 11/10/24 10:30 History aspirin 81 mg tablet,delayed 81 mg PO DAILY 01/14/18 11/09/24 History release (Adult Aspirin Regimen) lisinopril 20 mg tablet 20 mg PO DAILY bp 01/14/18 11/10/24 10:30 History pioglitazone 15 mg tablet (Actos) 15 mg PO DAILY 01/14/18 03/20/19 History glipizide 5 mg tablet 5 mg PO BID 08/25/18 03/20/19 History albuterol sulfate 90 mcg/actuation 2 puff inhalation BID PRN sob 03/20/19 03/20/19 History aerosol inhaler furosemide 20 mg tablet (Lasix) 20 mg PO BID 10/27/23 Unknown History pantoprazole 40 mg tablet,delayed 40 mg PO QDAY #60 tabs 09/08/24 Unknown Rx release atorvastatin 40 mg tablet 40 mg PO QHS 11/07/24 Unknown History sucralfate 1 gram tablet (Carafate) 1 g PO BID #30 tabs 11/11/24 Unknown Rx carvedilol 6.25 mg tablet 6.25 mg PO BID 1 month #60 tabs 01/02/25 Unknown Rx spironolactone 25 mg tablet 12.5 mg (1/2 x 25 mg) PO DAILY 1 01/02/25 Unknown Rx month #30 tabs diazepam 5 mg tablet (Valium) 5 mg PO TID PRN muscle spasm 5 03/02/25 Unknown Rx days #15 tabs morphine 15 mg tablet,extended 15 mg PO BID PRN pain 5 days #10 03/02/25 Unknown Rx release (MS Contin) tabs oxycodone-acetaminophen 5 mg-325 1 tab PO Q6H PRN pain 3 days #12 03/10/25 Unknown Rx mg tablet (Endocet) tabs Allergy/AdvReac Type Severity Reaction Status Date / Time bee pollen AdvReac Severe Anaphylaxis Verified 03/10/25 12:44 hornet venom AdvReac Severe Anaphylaxis Verified 03/10/25 12:44 venom-wasp (wasp venom) AdvReac Severe Anaphylaxis Verified 03/10/25 12:44 adhesive tape AdvReac Intermediate Rash Verified 03/10/25 12:44 Family History Mother Diabetes Hypertension Father Diabetes Hypertension Brother Hypertension Heart disease Surgical History History of carpal tunnel surgery of right wrist S/P right knee arthroscopy H/O repair of rotator cuff Social History household members: spouse current occupational status: disabled Smoking Status: Current every day smoker tobacco type: cigarettes alcohol intake: never caffeine: Yes Type: carbonated beverages Number of servings: 6 what type of physical activity do you participate in: none ROS <GORDON Alvarado - Last Filed: 03/10/25 15:45> ROS ED Constitutional Constitutional ED: Denies chills or fever(s) Cardiovascular Cardiovascular: Denies chest pain Respiratory/Chest Respiratory/Chest: Denies dyspnea Gastrointestinal Gastrointestinal: Denies abdominal pain, nausea or vomiting Genitourinary Genitourinary ED: Denies dysuria, hematuria or urinary urgency Musculoskeletal Musculoskeletal: Reports back pain Integumentary Denies Abrasions Neurologic Neurologic: Denies paresthesias EXAM <GORDON Alvarado - Last Filed: 03/10/25 15:45> Physical Exam Const Vital Signs: 03/10/25 12:43 03/10/25 15:35 Temperature 98 F 97.6 F L Temperature Source Oral Pulse Rate 82 77 Respiratory Rate 18 18 Blood Pressure 129/52 H 116/57 L Blood Pressure Mean 77 76 Pulse Ox 98 100 Oxygen Delivery Method Room Air Positive well nourished, well developed and no apparent distress General Appearance ED: well developed HEENT Reports normocephalic and head/scalp atraumatic Mouth ED: Yes moist mucous membranes normal Eyes PERRL and EOMs intact bilaterally Neck full ROM and supple Chest Wall inspection of chest normal Resp normal respiratory effort and clear to auscultation bilaterally Cardio regular rate and regular rhythm GI soft to palpation, non-tender, non-distended and no masses Back/Spine normal ROM and normal to inspection Back/Spine Narrative: No cervical spine tenderness, midline tenderness to the lower thoracic and lumbar spine, no step-offs Extremity normal to inspection and full ROM Neuro oriented x3, CN's II-XII intact bilaterally, moves all extremities, no focal motor deficits and no sensory deficits noted Sensorium / Orientation: awake and alert Motor Exam: strength 5/5 throughout Psych mental status grossly normal and thought process normal Skin no rashes or lesions noted and no wounds <Dr. Chino Rees DO - Last Filed: 03/10/25 14:07> Physical Exam Const Vital Signs: 03/10/25 12:43 03/10/25 15:35 Temperature 98 F 97.6 F L Temperature Source Oral Pulse Rate 82 77 Respiratory Rate 18 18 Blood Pressure 129/52 H 116/57 L Blood Pressure Mean 77 76 Pulse Ox 98 100 Oxygen Delivery Method Room Air MDM <GORDON Alvarado - Last Filed: 03/10/25 15:45> MDM MDM Narrative Medical decision making narrative: Patient presenting today due to low back pain he has had for a little over a week following 3 mechanical falls. He was evaluated here after the first fall and had an x-ray of his lumbar spine that was negative for fracture. He then had 2 additional falls prompting him to come in to be seen. He has no symptoms of cauda equina syndrome, low suspicion for spinal abscess. Given the injury, CT scan of the thoracic and lumbar spine will be obtained to assess for fracture. Patient given [place] for pain. Lumbar CT shows a compression deformity to L3 and L4, thoracic spine CT is negative. He did not have any cervical spine tenderness or neck pain to necessitate need for C-spine imaging. Given his recent falls, I did offer admission to the hospital with SNF placement. However, he would like to go home and is not interested in rehab at this time. He ambulated well with the nurse using his walker. I will give him prescription for Percocet and an orthospine referral. Also recommended he follow-up with his PCP. He will be discharged home in stable condition. Radiography Diagnostic Testing: Clinical Impression(s) from Imaging Studies Lumbar Spine CT 03/10/25 12:54 IMPRESSION: Age-indeterminate but possibly acute compression deformity of L3 and L4 without bony retropulsion. L4 fracture is oriented in the coronal plane. Reading [facility] Thoracic Spine CT 03/10/25 12:54 IMPRESSION: Negative for fracture Reading Location: [facility] <Dr. Chino Rees, DO - Last Filed: 03/10/25 14:07> [facility] Radiography Diagnostic Testing: Clinical Impression(s) from Imaging Studies Lumbar Spine CT 03/10/25 12:54 IMPRESSION: Age-indeterminate but possibly acute compression deformity of L3 and L4 without bony retropulsion. L4 fracture is oriented in the coronal plane. Reading Location: [facility] Thoracic Spine CT 03/10/25 12:54 IMPRESSION: Negative for fracture Reading Location: [facility] Treatment and Re-Evaluation Narrative: ED attending note: I evaluated the patient in conjunction with the LURDES. I agree with his/her statements and above findings. I have personally performed a face to face assessment of the patient and have reviewed the LURDES Note. I performed a substantive portion of the visit including all aspects of the following. I personally saw the patient performed chart review, physical exam, reviewed labs, imaging (if obtained), and formulated a treatment and management plan. History as above. Exam: Primary secondary trauma surveys with TTP of thoracolumbar junction. No obvious step-offs or deformities. MDM/plan: Give symptomatic pain control in the form of oral narcotics, IM Toradol and lidocaine patch. Perform CT scans of thoracic lumbar spine. We will determine final disposition based on results of imaging, tertiary trauma exam and shared decision making. This note was generated with [employer] dictation software. It may contain incorrect words, spelling, and punctuation that were not noted in review of the chart prior to signing. Discharge Plan Triage Chief Complaint: Back ED Midlevel Provider: Araceli Saldana ED Provider: Chino Rees Dx/Rx/DC Orders Clinical Impression: Closed compression fracture of L3 vertebra, Closed compression fracture of L4 vertebra, Fall Instructions: Compression Fx Prescriptions: New oxycodone-acetaminophen [Endocet] 5-325 mg tablet 1 tab PO Q6H PRN (Reason: pain) 3 Days Qty: 12 0RF No Action aspirin [Adult Aspirin Regimen] 81 mg tablet,delayed release (DR/EC) 81 mg PO DAILY lisinopril 20 mg tablet 20 mg PO DAILY pioglitazone [Actos] 15 mg tablet 15 mg PO DAILY furosemide [Lasix] 20 mg tablet 20 mg PO BID carvedilol 6.25 mg tablet 6.25 mg PO BID 30 Days Qty: 60 3RF Rx Instructions: must administer with a meal/food spironolactone 25 mg tablet 12.5 mg PO DAILY 30 Days Qty: 30 3RF Rx Instructions: Hold for serum potassium more than 5.0 cyclobenzaprine 10 MG tablet 10 mg PO BID glipizide 5 mg tablet 5 mg PO BID albuterol sulfate 18 GM HFA aerosol inhaler 2 puff inhalation BID PRN (Reason: sob) Patient Comments: INHALE 2 PUFFS EVERY 4 HOURS NEEDED atorvastatin 40 mg tablet 40 mg PO QHS sucralfate [Carafate] 1 gram tablet 1 g PO BID Qty: 30 0RF diazepam [Valium] 5 mg tablet 5 mg PO TID PRN (Reason: muscle spasm) 5 Days Qty: 15 0RF morphine [MS Contin] 15 mg tablet extended release 15 mg PO BID PRN (Reason: pain) 5 Days Qty: 10 0RF pantoprazole 40 mg tablet,delayed release (DR/EC) 40 mg PO QDAY Qty: 60 1RF Primary Care Provider: Edilia Remy Referrals: Quinten Mcwilliams MD [Med Staff - Active Staff] - 5-7 Days Edilia Remy MD [Primary Care Provider] - Activity Restrictions/Additional Instructions: Follow-up with your PCP and orthopedics, return for any other concerns or worsening symptoms. Print Language: Slovak Disposition Disposition: Home, Self Care Discharge Date/Time: 03/10/25 15:41
[2025-03-10] MEDS: HYDROcodone Bitartrate/Apap 5/325 Tablet PO (13:02)
--- NOTE | 2025-03-10 13:08 | ED.RN ---
pt reports falling on 03/02, AND . denies hitting his head or LOC
--- OUTSIDE RECORDS SUMMARY | 2025-03-10 13:11 | XMS RPT_ITS | CCD ---
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 Dang DO [place] Former: Signed Normal [facility] Abdomen Limitedon 01-17-2025 Abdomen Limited [facility] Imaging Services [address] [place] [address] Abdomen Limited MR#: [id number] Acct: [id number] Name: JEANNE RIVERS Rep #: [id number] : 1960 M 64 From: Edi Villanueva PCP: Dr. Edilia Remy MD Status: REG CLI Study: Abdomen Limited Date of Exam: 01/17/25 Exam# [id number] Ordering Dr: Brennen Hickey MD PROCEDURE: ABDOMEN LIMITED 01/17/2025 REASON FOR EXAM: TO R/O ASCITS OR CAUSE OF DITENSION TECHNIQUE: Targeted abdominal imaging to assess for ascites. Grayscale images. COMPARISON: None US/Abdomen Limited IMPRESSION: No significant fluid within the 4 abdominal quadrants. Reading Location: [facility] CC: Dr. Edilia Remy MD; Dr. Brennen Hickey MD [place] Former: Signed Normal [facility] Gastroenterology Visit Repor ton 01-02-2025 Gastroenterology Visit Report [facility] Gastroenterology [address] [place] [address] OFFICE VISIT Date of Service: 01/02/25 MR#: [id number] Acct: [id number] Name: JEANNE RIVERS Rep #: [id number] : 1960 Provider: Dr. 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 Diverticulosis. Liver elastography 1.; 1. Liver stiffness measures 10.5 kPa compatible with F2-F3 (Mild to moderate liver fibrosis) Metavir score. Biochemical work up .; ESR H 23, Sodium 134 L, A1C 8.2 H, AMA 57.8 H, acute hepatitis panel wnl, copper wnl, Liver biopsy 09.14.24; Predominant pattern steatotic both macro and micro. Lymphocytic inflammation in portal tracts with very little interface hepatitis. Bridging fibrosis, occasional bile duct proliferation is present. no hepatocyte necrosis or malignancy. DD MAJOR, drug induced hepatitis or Stanley-'-s EGD .; - No gross lesions in the entire esophagus. - Erosive gastropathy with no stigmata of recent bleeding. Biopsied. - Portal hypertensive gastropathy. - No gross lesions in the third portion of the duodenum. [facility] ED 11.11.24 with abd pain after EGD CT abd/pelvis .. (more content not included)... Normal [facility] Abdomen W/WO IV Contraston 0 12-11-2024 Abdomen W/WO IV Contrast [facility] Imaging Services [address] [place] [address] Abdomen W/WO IV Contrast MR#: [id number] Acct: [id number] Name: JEANNE RIVERS Rep #: [id number] : 1960 M 64 From: Felipe Martinez MD PCP: Dr. Edilia Remy MD Status: REG CLI Study: Abdomen W/WO IV Contrast Date of Exam: 5 Exam# [id number] Ordering Dr: Marjorie Marti PROCEDURE: ABDOMEN W/WO [...] 3. Additional description as above. Reading Location: [id number] CC: Dr. Edilia Remy MD; GORDON Vieira [place] Former: Signed Normal [facility] AFP, Tumor Markeron 11-18-19 25 AFP TUMOR FELIPE < 1.8 Normal 0.0-8.[address] [facility] Comment on above: Order Comment: N Result Comment: [facility] Electrochemiluminescence Immunoassay (ECLIA) Values obtained with different assay methods or kits cannot be used interchangeably. Results cannot be interpreted as absolute evidence of the presence or absence of malignant disease. This test is not interpretable in females. Performed at: [facility] [address] [id number] Human Resources Technician: Americo Bradford PhD, Phone: [phone] Performed By: #### L 500.3400, L100.0100, L501.2450, L500.2500 #### [facility] Laboratory [address] [place], [place], [id number] Alpha fetoprotein measuremen t as tumor markerOrdered By: Marjorie Marti on 11-15-2024 Tumor Marker Alpha Fetoprotein < 1.8 ng/mL 0.0-8.[address] [facility] Comment on above: [facility] El ectrochemiluminescence Immunoassay(ECLIA)Values obtained with different assay methods or kits cannotbe used interchangeably. Results cannot be interpreted asabsolute evidence of the presence or absence of malignantdisease.This test is not interpretable in females.Performed at: [facility] [address] [id number] Director: Americo Bradford PhD, Phone: [phone] Gastroenterology Visit Repor ton 11-15-2024 Gastroenterology Visit Report [facility] Gastroenterology [address] [place] [address] OFFICE VISIT Date of Service: 11/15/24 MR#: [id number] Acct: [id number] Name: JEANNE RIVERS Rep #: [id number] : 1960 Provider: GORDON Vieira Age/Sex: 64/M Location: [facility] Status: Signed Intake Vital Signs 10/27/23 [...] for f/u. Continues taking pantoprazole, and Carafate. 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 [facility] established .10.10 with abd pain after getting into his truck. Pain is worse with certain movements and not assocaited with eating. He has blating and weight gain depsire not dietary changes. Hx of alcholism but no longer drinks. CT abd/pelvis 06.29.24;heterogeneous hypoattenuated left hepatic 1.7 cm nodule. Correlate with ultrasound if needed. Diverticulosis. Liver elastography .; 1. Liver stiffness measures 10.5 kPa compatible [...] in the third portion of the duodenum. [facility] ED 11.11.24 with abd pain after EGD [...] to interstitial edema or fibrotic change. OV 4..25 Pt continues to have abd pain. It [...] heartburn, dif (more content not included)... Normal [facility] Abdomen/Pelvis W IV Cont ONL Yon 11-11-2024 Abdomen/Pelvis W IV Cont ONLY [facility] Imaging Services [address] [place], [place] [address] Abdomen/Pelvis W IV Cont ONLY MR#: [id number] Acct: [id number] Name: JEANNE RIVERS Rep #: [id number] : 1960 M 64 From: Fauzia Tomas MD PCP: Dr. Edilia Remy MD Status: REG ER Study: Abdomen/Pelvis W IV Cont ONLY Date of Exam: Exam# [id number] Ordering Dr: Ortega Diana DO PROCEDURE: ABDOMEN/PELVIS [...] Edilia Remy MD; Dr. Ortega Diana DO [place] Former: Signed Normal [facility] Absolute lymphocyte countOrd ered By: Ortega Diana on 11-11-2024 Lymphocytes Auto (Unsp spec) [#/Vol] 2.66 10*3/uL 0.83-4.[address] [facility] Absolute neutrophil countOrd ered By: Ortega Diana on 11-11-2024 Neutrophils (Bld) [#/Vol] 6.0 10*3/uL 2.0-7.[address] [facility] Anion gap in Serum or Plasma Ordered By: Ortega Diana on 11-11-2024 Anion gap [Moles/Vol] 12 mmol/L -15 [facility] Automated lymphocyte count a s percentage of total leukocytesOrdered By: Ortega Diana on 11-11-2024 Lymphocytes/100 WBC Auto (Unsp spec) 27.9 % - [facility] BUN/creatinine ratioOrdered By: Ortega Diana on 11-11-2024 Urea nitrogen/Creatinine [Mass ratio] 12.7 mg/mg - [facility] Basic Metabolic Profile (BMP )on 11-11-2024 BUN/CRE 12.7 RATIO Normal - [facility] Comment on above: Performed By: #### L 500.3400, L100.0100, L501.2450, L500.2500 #### [facility] Laboratory [address] [place], [address] Calcium [Mass/Vol] 8.4 mg/dL Normal 7.6-11.0 [facility] Comment on above: Performed By: #### L 500.3400, L100.0100, L501.2450, L500.2500 #### [facility] Laboratory [address] [place], [address] Chloride [Moles/Vol] 96 mmol/L Low 98-108 [facility] Comment on above: Performed By: #### L 500.3400, L100.0100, L501.2450, L500.2500 #### [facility] Laboratory [address] [place], [address] CO2 [Moles/Vol] 28.4 mmol/L Normal 21.0-32.[address] [facility] Comment on above: Performed By: #### L 500.3400, L100.0100, L501.2450, L500.2500 #### [facility] Laboratory [address] [place], [address] Creatinine [Mass/Vol] 0.97 mg/dL Normal 0.70-1.20 [facility] Comment on above: Performed By: #### L 500.3400, L100.0100, L501.2450, L500.2500 #### [facility] Laboratory [address] [place], [address] ECRCL 101.19 ml/min Normal 50-[address] [facility] Comment on above: Performed By: #### L 500.3400, L100.0100, L501.2450, L500.2500 #### [facility] Laboratory [address] [place], [address] GAP 12 Normal 5-[address] [facility] Comment on above: Performed By: #### L 500.3400, L100.0100, L501.2450, L500.2500 #### [facility] Laboratory [address] [place], [address] GFR/1.73 sq M.predicted among non-blacks MDRD (S/P/Bld) [Vol rate/Area] 87 mL/min/{1.73_m2} Normal >[address] [facility] Comment on above: Result Comment: mL/m in/1.73m2 CKD-EPI Creatinine Equation (2020) Performed By: #### L 500.3400, L100.0100, L501.2450, L500.2500 #### [facility] Laboratory [address] [place], [address] Glucose [Mass/Vol] 205 mg/dL High 70-99 [facility] Comment on above: Performed By: #### L 500.3400, L100.0100, L501.2450, L500.2500 #### [facility] [address] [place], [address] Potassium [Moles/Vol] 4.2 mmol/L Normal 3.3-5.1 [facility] Comment on above: Performed By: #### L 500.3400, L100.0100, L501.2450, L500.2500 #### [facility] [address] [place], [address] Sodium [Moles/Vol] 136 mmol/L Normal 133-145 [facility] Comment on above: Performed By: #### L 500.3400, L100.0100, L501.2450, L500.2500 #### [facility] [address] [place], [address] Urea nitrogen [Mass/Vol] 12 mg/dL Normal 4-[address] [facility] Comment on above: Performed By: #### L 500.3400, L100.0100, L501.2450, L500.2500 #### [facility] [address] [place], [address] Basophil percentageOrdered B y: Ortega Diana on 11-11-2024 Basophils/100 WBC (Bld) 0.4 % 0-[address] [facility] Bilirubin directOrdered By: Ortega Diana on 11-11-2024 Bilirubin.direct [Mass/Vol] 0.21 mg/dL 0.00-0.[address] [facility] Bilirubin, totalOrdered By: Ortega Diana on 11-11-2024 Bilirubin [Mass/Vol] 0.41 mg/dL 0.00-1.30 [facility] CBC W/Diff, Automatedon 10-15 Absolute Lymph 2.66 X10 3/uL Normal 0.83-4.[address] [facility] Comment on above: Performed By: #### L 500.3400, L100.0100, L501.2450, L500.2500 #### [facility] Laboratory [address] [place], [address] Absolute Neut 6.0 X10 3/uL Normal 2.0-7.[address] [facility] Comment on above: Performed By: #### L 500.3400, L100.0100, L501.2450, L500.2500 #### [facility] [address] [place], [address] Basophils/100 WBC (Bld) 0.4 % Normal 0-[address] [facility] Comment on above: Performed By: #### L 500.3400, L100.0100, L501.2450, L500.2500 #### [facility] [address] [place], [address] Eosinophils/100 WBC (Bld) 2.7 % Normal 0-[address] [facility] Comment on above: Performed By: #### L 500.3400, L100.0100, L501.2450, L500.2500 #### [facility] [address] [place], [address] Erythrocyte distribution width (RBC) [Ratio] 15.0 % High 11.6-14.[address] [facility] Comment on above: Performed By: #### L 500.3400, L100.0100, L501.2450, L500.2500 #### [facility] [address] [place], [address] Hematocrit (Bld) [Volume fraction] 41.3 % Normal 40-[address] [facility] Comment on above: Performed By: #### L 500.3400, L100.0100, L501.2450, L500.2500 #### [facility] [address] [place], [address] Hemoglobin (Bld) [Mass/Vol] 14.0 g/dL Normal 13.0-16.[address] [facility] Comment on above: Performed By: #### L 500.3400, L100.0100, L501.2450, L500.2500 #### [facility] [address] [place], [address] IG% 0.700 Normal 0.0-0.[address] [facility] Comment on above: Result Comment: IG% - Immature Granulocytes (promyelocytes, myelocytes and metamyelocytes) > 1% indicates that a LEFT SHIFT is Present. Performed By: #### L 500.3400, L100.0100, L501.2450, L500.2500 #### [facility] [address] [place], [address] Lymphocytes/100 WBC (Bld) 27.9 % Normal 19-[address] [facility] Comment on above: Performed By: #### L 500.3400, L100.0100, L501.2450, L500.2500 #### [facility] [address] [place], [address] MCH (RBC) [Entitic mass] 31.1 pg Normal 27.0-32.[address] [facility] Comment on above: Performed By: #### L 500.3400, L100.0100, L501.2450, L500.2500 #### [facility] [address] [place], [address] MCHC (RBC) [Mass/Vol] 33.9 g/dL Normal 32-36 [facility] Comment on above: Performed By: #### L 500.3400, L100.0100, L501.2450, L500.2500 #### [facility] [address] [place], [address] MCV (RBC) [Entitic vol] 91.8 fL Normal 80-[address] [facility] Comment on above: Performed By: #### L 500.3400, L100.0100, L501.2450, L500.2500 #### [facility] [address] [place], [address] Monocytes/100 WBC (Bld) 5.5 % Normal 0-[address] [facility] Comment on above: Performed By: #### L 500.3400, L100.0100, L501.2450, L500.2500 #### [facility] Laboratory [address] [place], [address] Neutrophils/100 WBC (Bld) 62.8 % Normal 47-[address] [facility] Comment on above: Performed By: #### L 500.3400, L100.0100, L501.2450, L500.2500 #### [facility] [address] [place], [address] Nucleated RBC (Bld) [#/Vol] 0 10*3/uL Normal 0-[address] [facility] Comment on above: Performed By: #### L 500.3400, L100.0100, L501.2450, L500.2500 #### [facility] [address] [place], [address] Platelet mean volume (Bld) [Entitic vol] 10.6 fL Normal 6.2-12.[address] [facility] Comment on above: Performed By: #### L 500.3400, L100.0100, L501.2450, L500.2500 #### [facility] [address] [place], [address] Platelets (Bld) [#/Vol] 173 10*3/uL Normal 150-[address] [facility] Comment on above: Performed By: #### L 500.3400, L100.0100, L501.2450, L500.2500 #### [facility] [address] [place], [address] RBC (Bld) [#/Vol] 4.50 10*6/uL Low 4.6-6.2 [facility] Comment on above: Performed By: #### L 500.3400, L100.0100, L501.2450, L500.2500 #### [facility] [address] [place], [address] RDW SD 50.2 fl High 35.1-43.[address] [facility] Comment on above: Performed By: #### L 500.3400, L100.0100, L501.2450, L500.2500 #### [facility] [address] [place], [address] WBC (Bld) [#/Vol] 9.6 10*3/uL Normal 4.4-11.0 [facility] Comment on above: Performed By: #### L 500.3400, L100.0100, L501.2450, L500.2500 #### [facility] [address] [place], [address] Carbon dioxide, total [Moles /volume] in Central venous bloodOrdered By: Ortega Diana on 11-11-2024 CO2 [Moles/Vol] 28.4 mmol/L 21.0-32.[address] [facility] Chloride assayOrdered By: Ad Diana on 11-11-2024 Chloride [Moles/Vol] 96 mmol/L Low 98-108 [facility] Emergency Department Summary on 11-11-2024 Emergency Department Summary [facility] Medical Records Department [address] [place] [address] Emergency Department Summary 11/11/24 MR#: [id number] Acct: [id number] Name: JEANNE RIVERS Rep #: [id number] : 1960 64 From: Ortega Goldman PCP: [...] started on any medications post his procedure. [facility] Medical History Loss of hearing Diabetes Ambulates with cane Arthritis Fatty liver Easy bruising Back pain Migraine headache Dietary restriction History of diverticulitis Gastric reflux COPD (chronic obstructive pulmonary disease) Shortness of breath on exertion Smoker History of pain when walking History of edema Cellulitis Cardiology follow-up encounter RUQ abdominal pain penitentiary use of drug Nicotine abuse HLD (hyperlipidemia) Essential (primary) hypertension Atherosclerotic heart disease of [place] coronary artery with other forms of angina pectoris Home Medications ???Medication ???Instructions ???Recorded ???Last Taken ???Type cyclobenzaprine 10 mg tablet 10 mg PO BID muscle spasms 5 11/10/24 10:30 History aspirin 81 mg tablet,delayed 81 mg PO DAILY 01/14/18 11/09/24 H istory release (Adult Aspirin Regimen) lisinopril 20 mg tablet 20 mg PO DAILY bp 01/14/1811/10/2 5 10:30 History pioglitazone 15 mg tablet [...] air mov (more content not included)... Normal [facility] Eosinophil percentageOrdered By: Ortega Diana on 11-11-2024 Eosinophils/100 WBC (Bld) 2.7 % 0-[address] [facility] Erythrocyte distribution wid th ratioOrdered By: Ortega Diana on 11-11-2024 Erythrocyte distribution width (RBC) [Ratio] 15.0 % High 11.6-14.[address] [facility] Erythrocyte distribution wid th standard deviationOrdered By: Ortega Diana on 11-11-2024 Erythrocyte distribution width (RBC) [Entitic vol] 50.2 fL High 35.1-43.[address] [facility] Erythrocyte distribution width (RBC) [Ratio] 50.2 fl High 35.1-43.[address] [facility] Estimation of creatinine titi aranceOrdered By: Ortega Diana on 11-11-2024 Estimated Creatinine Clearance Calc 101.19 ml/min 50-[address] [facility] GFR/1.73 sq M.predicted bebo g non-blacks MDRD (S/P/Bld) [Vol rate/Area]Ordered By: Ortega Diana on 11-11-2024 Estimated GFR (MDRD) Non-Af Amer 87 >[address] [facility] Comment on above: mL/min/1.73m2 CKD-EP I Creatinine Equation (2020) Glomerular filtration rate ( GFR) estimation/1.73 sq m using serum, plasma, or whole bOrdered By: Ortega Diana on 11-11-2024 GFR/1.73 sq M.predicted among non-blacks MDRD (S/P/Bld) [Vol rate/Area] 87 mL/min/{1.73_m2} >60 [facility] Comment on above: mL/min/1.73m2 CKD-EP I Creatinine Equation (2020) Hematocrit Auto (Bld) [Volum e fraction]Ordered By: Ortega Diana on 11-11-2024 Hematocrit (Bld) [Volume fraction] 41.3 % 40-[address] [facility] Hemoglobin measurementOrdere d By: Ortega Diana on 11-11-2024 Hemoglobin (Bld) [Mass/Vol] 14.0 g/dL 13.0-16.[address] [facility] Immature granulocytes/100 WB C Auto (Bld)Ordered By: Ortega Diana on 11-11-2024 Immature granulocytes/100 WBC (Bld) 0.700 % 0.0-0.[address] [facility] Comment on above: IG% - Immature Granu locytes (promyelocytes, myelocytes and metamyelocytes) > 1% indicates that a LEFT SHIFT is Present. Laboratory - Chemistry and C hemistry - challengeOrdered By: Ortega Diana on 11-11-2024 AST [Catalytic activity/Vol] 27 U/L <[address] [facility] Lipaseon 11-11-2024 Lipase [Catalytic activity/Vol] 32 U/L Normal 13-[address] [facility] Comment on above: Result Comment: Pleshawn pratt note: LIPASE revised reference range effective 22. New Lipase methodology. Expected to produce lower values than the previous assay method. NEW Reference Range: 13 - 75 U/L Performed By: #### L 500.3400, L100.0100, L501.2450, L500.2500 #### [facility] [address] [place], [place], [address] Lipase measurementOrdered By : Ortega Diana on 11-11-2024 Lipase [Catalytic activity/Vol] 32 U/L 13-[address] [facility] Comment on above: Please note:LIPASE r evised reference range effective 22. New Lipase methodology. Expected to produce lower values than the previous assay method. NEW Reference Range: 13 - 75 U/L Liver Profileon 11-11-2024 Albumin [Mass/Vol] 3.7 g/dL Normal 3.4-4.8 [facility] Comment on above: Performed By: #### L 500.3400, L100.0100, L501.2450, L500.2500 #### [facility] [address] [place], [address] ALK PHOS 109 U/L Normal 40-[address] [facility] Comment on above: Performed By: #### L 500.3400, L100.0100, L501.2450, L500.2500 #### [facility] [address] [place], [address] ALT [Catalytic activity/Vol] 21 U/L Normal <=[address] [facility] Comment on above: Performed By: #### L 500.3400, L100.0100, L501.2450, L500.2500 #### [facility] [address] [place], [address] AST [Catalytic activity/Vol] 27 U/L Normal <=[address] [facility] Comment on above: Performed By: #### L 500.3400, L100.0100, L501.2450, L500.2500 #### [facility] [address] [place], [address] Bilirubin [Mass/Vol] 0.41 mg/dL Normal 0.00-1.30 [facility] Comment on above: Performed By: #### L 500.3400, L100.0100, L501.2450, L500.2500 #### [facility] [address] [place], [address] Bilirubin.direct [Mass/Vol] 0.21 mg/dL Normal 0.00-0.[address] [facility] Comment on above: Performed By: #### L 500.3400, L100.0100, L501.2450, L500.2500 #### [facility] [address] [place], [address] Globulin (S) [Mass/Vol] 3.6 g/dL Normal 2.2-4.[address] [facility] Comment on above: Performed By: #### L 500.3400, L100.0100, L501.2450, L500.2500 #### [facility] [address] [place], [address] T PROT 7.3 g/dL Normal 5.9-8.[address] [facility] Comment on above: Performed By: #### L 500.3400, L100.0100, L501.2450, L500.2500 #### [facility] [address] [place], [address] Lymphocytes Auto (Unsp spec) [#/Vol]Ordered By: Ortega Diana on 11-11-2024 Lymphocytes (Bld) [#/Vol] 2.66 10*3/uL 0.83-4.[address] [facility] Lymphocytes/100 WBC Auto (Un sp spec)Ordered By: Ortega Diana on 11-11-2024 Lymphocytes/100 WBC (Bld) 27.9 % 19-[address] [facility] MCV (mean corpuscular volume ) determinationOrdered By: Ortega Diana on 11-11-2024 MCV (RBC) [Entitic vol] 91.8 fL 80-[address] [facility] Mean corpuscular hemoglobin (MCH) determinationOrdered By: Ortega Diana on 11-11-2024 MCH (RBC) [Entitic mass] 31.1 pg 27.0-32.[address] [facility] Mean corpuscular hemoglobin concentration (MCHC) determinationOrdered By: Ortega Diana on 11-11-2024 MCHC (RBC) [Mass/Vol] 33.9 g/dL 32-36 [facility] Mean platelet volume determi nationOrdered By: Ortega Diana on 11-11-2024 Platelet mean volume (Bld) [Entitic vol] 10.6 fL 6.2-12.[address] [facility] Monocyte percentageOrdered B y: Ortega Diana on 11-11-2024 Monocytes/100 WBC (Bld) 5.5 % 0-[address] [facility] Neutrophil percentageOrdered By: Ortega Diana on 11-11-2024 Neutrophils/100 WBC (Bld) 62.8 % 47-[address] [facility] Nucleated red blood cell per centageOrdered By: Ortega Diana on 11-11-2024 Nucleated RBC/100 WBC (Bld) [Ratio] 0 % 0-[address] [facility] Platelet countOrdered By: Ad louise Adalgisa on 11-11-2024 Platelets (Bld) [#/Vol] 173 10*3/uL 150-[address] [facility] Potassium (Unsp spec) [Mass/ Vol]Ordered By: Ortega Diana on 11-11-2024 Potassium [Moles/Vol] 4.2 mmol/L 3.3-5.1 [facility] Potassium measurement (mass/ volume)Ordered By: Ortega Diana on 11-11-2024 Potassium (Unsp spec) [Mass/Vol] 4.2 mmol/L 3.3-5.[address] [facility] RBC Auto (Bld) [#/Vol]Ordere d By: Ortega Diana on 11-11-2024 RBC (Bld) [#/Vol] 4.50 10*6/uL Low 4.6-6.2 [facility] Serum creatinine measurement (mass/volume)Ordered By: Ortega Diana on 11-11-2024 Creatinine [Mass/Vol] 0.97 mg/dL 0.70-1.20 [facility] Serum globulin measurementOr dered By: Ortega Diana on 11-11-2024 Globulin (S) [Mass/Vol] 3.6 g/dL 2.2-4.[address] [facility] Serum glucose measurement (m ass/volume)Ordered By: Ortega Diana on 11-11-2024 Glucose [Mass/Vol] 205 mg/dL High 70-99 [facility] Serum or plasma alanine cardoso otransferase (ALT) measurementOrdered By: Ortega Diana on 11-11-2024 ALT [Catalytic activity/Vol] 21 U/L <[address] [facility] Serum or plasma albumin theresa urement (mass/volume)Ordered By: Ortega Diana on 11-11-2024 Albumin [Mass/Vol] 3.7 g/dL 3.4-4.8 [facility] Serum or plasma alkaline mackenzie sphatase measurementOrdered By: Ortega Diana on 11-11-2024 ALP [Catalytic activity/Vol] 109 U/L 40-[address] [facility] Serum or plasma calcium theresa urement (mass/volume)Ordered By: Ortega Diana on 11-11-2024 Calcium [Mass/Vol] 8.4 mg/dL 7.6-11.0 [facility] Serum or plasma urea nitroge n measurement (mass/volume)Ordered By: Ortega Diana on 11-11-2024 Urea nitrogen [Mass/Vol] 12 mg/dL 4-[address] [facility] Sodium levelOrdered By: Ortega Diana on 11-11-2024 Sodium [Moles/Vol] 136 mmol/L 133-145 [facility] Total proteinOrdered By: Roge Diana on 11-11-2024 Protein [Mass/Vol] 7.3 g/dL 5.9-8.4 [facility] White blood cell (WBC) count Ordered By: Ortega Diana on 11-11-2024 WBC (Bld) [#/Vol] 9.6 10*3/uL 4.4-11.0 [facility] Bedside Glucoseon 11-10-2024 FINGERSTICK GLU 215 mg/dL High 74-[address] [facility] Comment on above: Result Comment: MARYCHUY NOEL OF PATIENT CARE PER NURSING PROTOCOL Performed By: #### L 500.3400, L100.0100, L501.2450, L500.2500 #### [facility] [address] [facility] [place], [address] EGD Reporton 11-10-2024 EGD Report [facility] Medical Records Department [address] [place] [address] EGD Report MR#: [id number] Acct: [id number] Name: JEANNE RIVERS Rep #: [id number] : 1960 64 From: Marty Paz DO PCP: Dr. Edilia Remy MD Status:[facility] Patient Name: Jeanne Rivers Procedure Date: [...] pathology results. Procedure Code(s): --- Professional --- 26454, Small intestinal endoscopy, enteroscopy beyond second portion of duodenum, not including ileum; with biopsy, single or multiple CPT copyright 2021 [employer] [place] [employer]. All rights reserved. The codes documented in this report are preliminary and upon physical meteorologist review may be revised to meet current compliance requirements. Marty Paz DO 11/10/2024 2:23:08 PM This report has been signed electronically. Number of Addenda: 0 Note Initiated On: 11/10/2024 1:54 PM 11/10/24 1423 Date Marty Paz DO Cosigner Signature: Date (if indicated) CC: Dr. Edilia Remy MD; Marty Paz DO Date Dictated: 11/10/24 1354 Date Transcribed: Machine [place] Former: MARY Signed Normal [facility] deOrdered By: Marty Paz on 11-10-2024 Bedside Glucose (Misc Panel) 215 mg/dL High 74-[address] [facility] Comment on above: MANAGEMENT OF PATIEN T CARE PER NURSING PROTOCOL Glucose [Mass/Vol] 215 mg/dL High 74-106 [facility] Comment on above: MANAGEMENT OF PATIEN T CARE PER NURSING PROTOCOL MR/POSTOP.ANEon 11-10-2024 MR/POSTOP.[facility] Medical Records Department [address] [place] [address] Anesthesia Postop Eval I 11/10/24 1427 MR#: [id number] Acct: [id number] Name: JEANNE RIVERS Rep #: [id number] : 1960 64 From: Enoch Tirado PCP: Dr. Edilia Remy MD Status:REG [facility] Y Race: C Location: [place] [address] Anesthesia: Postop Eval I Current Vital Signs [...] 1 completed: Yes 11/10/24 1428 Date Enoch Jimenez Signature: Date CC: Signed Normal [facility] MR/[id number] 11-10-2024 [facility] Medical Records Department [address] [place] [address] Anesthesia Postop Eval II 11/10/24 1436 MR#: [id number] Acct: [id number] Name: JEANNE RIVERS Rep #: [id number] : 1960 64 From: Shira Akbar PCP: Dr. Edilia Remy MD Status:REG [facility] Y Race: C Location: [place] [address] Anesthesia Postop Eval I Sum Postop Eval [...] No Vomiting: No 11/10/24 1437 Date Shira Jimenez Signature: Date CC: Signed Normal [facility] Surgery Specimen Level Sandhya 11-10-2024 Surgery Specimen Level IV Patient Age/Sex Location Account Attending Physician JEANNE RIVERS/Kristie EN [id number] Marty Paz DO Specimen: [id number] Received: 11/10/24 Status: DAWN Francois Num: [id number] Spec Type: EGD BIOPSY Subm Dr: Marty Paz DO HEADER OPERATION: EGD with biopsy PRE-OP DIAGNOSIS: [...] x 0.2 cm. Entirely submitted in A1. [facility] 11-13-2024 CPT:30974 Patient Age/Sex Location Account Attending Physician JEANNE RIVERS 64/M EN [id number] Marty Paz DO Signed (signature on file) Dr. Radha Castellanos MD 11/16/24 [address] [facility] Comment on above: Performed By: #### P PARAS #### [facility] [address] [place], [address] MR/PAT.Eloy 11-07-2024 MR/PAT.ANE [facility] Medical Records Department [address] [place] [address] PAT - Anesthesia 11/07/24 1257 MR#: [id number] Acct: [id number] Name: JEANNE RIVERS Rep #: [id number] : 1960 64 From: Pradeep Sifuentes MD PCP: Dr. 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 recycler Female No 11/07/24 12:35 HX of Motion Sickness No 11/07/24 12:35 HX of N/V After Surgery No 11/07/24 12:35 Non-Smoker No 11/07/24 12:35 Duration of Surgery greater No 11/07/24 12:35 than 60 minutes Number of Risk Factors PONV Score Height Weight Height Weight: Anesthesia: Height Weight Height 5 ft 11.5 in 09/21/24 12:28 Respiratory Assessment Respiratory Assessment - materials recycler: Respiratory Tract Infection Hx - materials recycler Hx Respiratory Tract Infection No 11/07/24 12:35 STOP Sleep Apnea STOP Sleep Apnea - materials recycler: STOP Sleep Apnea - materials recycler Hx Hypertension Yes: CONTROLLED WITH MED 11/07/24 [...] Tobacco Use History Tobacco Use History - materials recycler: Tobacco Use History - materials recycler Tobacco Use Smoking Status Current every day smoker 11/07/24 12:35 Hx Tobacco Use Yes 11/07/24 12:35 Years Smoking Packs Smoked per Day Smoking Cessation Date was within the last 15 years Hx Smoking Cessation Date Hx Smoking Cessation Counseling Hematologic Medial History Hematologic 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 Hx of Blood Transfusion No 11/07/24 12:35 [...] confused, unrespo /Reproduction History /Reproductive History - materials recycler: /Reproductive Hx- materials recycler Hx Now No 11/07/24 12:35 Gestational Age (in weeks): EDC: Hx Hx Para Hx Section SAB No 11/07/24 12:35 PFSH Medical History (Updated 11/07/24 @ 12:45 by Ca Grimaldo) Loss of hearing Diabetes Ambulates with cane Arthritis Fatty liver Easy bruising Back pain Migraine headache Dietary restriction History of diverticulitis Gastric reflux COPD (chronic obstructive pulmonary disease) Shortness of breath on exertion Smoker History of pain when walking History of edema Cellulitis Cardiology follow-up encounter RUQ abdominal pain 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 Normal [facility] Abdomen/Pelvis W IV Cont ONL Yon 09-21-2024 Abdomen/Pelvis W IV Cont ONLY [facility] Imaging Services [address] [place], [place] [address] Abdomen/Pelvis W IV Cont ONLY MR#: [id number] Acct: [id number] Name: JEANNE RIVERS Rep #: [id number] : 1960 M 64 From: Felipe Diana MD PCP: Dr. Edilia Remy MD Status: REG ER Study: Abdomen/Pelvis W IV Cont ONLY Date of Exam: Exam# [id number] Ordering Dr: Dunia Swenson DO EXAM: CT [...] Colonic diverticulosis without acute diverticulitis. Reading Location: [facility] CC: Dr. Dunia Swenson DO; Dr. Edilia Remy MD [place] Former: Signed Normal [facility] Absolute lymphocyte countOrd ered By: Dunia Swenson on 09-21-2024 Lymphocytes Auto (Unsp spec) [#/Vol] 2.45 10*3/uL 0.83-4.[address] [facility] Absolute neutrophil countOrd ered By: Dunia Swenson on 09-21-2024 Neutrophils (Bld) [#/Vol] 5.6 10*3/uL 2.0-7.[address] [facility] Automated lymphocyte count a s percentage of total leukocytesOrdered By: Dunia Swenson on 09-21-2024 Lymphocytes/100 WBC Auto (Unsp spec) 28.2 % 19-[address] [facility] Basic Metabolic Profile (BMP )on 09-21-2024 BUN/CRE 11.1 RATIO Normal 10-[address] [facility] Comment on above: Performed By: #### L 500.2500, L500.3400, L100.0100, L501.2450 #### [facility] [address] [place], [address] CA,Total 9.1 mg/dL Normal 8.5-10.[address] [facility] Comment on above: Performed By: #### L 500.2500, L500.3400, L100.0100, L501.2450 #### [facility] [address] [place], [address] Chloride [Moles/Vol] 95 mmol/L Low 98-107 [facility] Comment on above: Performed By: #### L 500.2500, L500.3400, L100.0100, L501.2450 #### [facility] [address] [place], [address] CO2 [Moles/Vol] 33.0 mmol/L High 21.0-32.[address] [facility] Comment on above: Performed By: #### L 500.2500, L500.3400, L100.0100, L501.2450 #### [facility] [address] [place], [address] Creatinine [Mass/Vol] 1.08 mg/dL Normal 0.70-1.30 [facility] Comment on above: Result Comment: The validity of the calculated GFR GFRAA in patients over 70 years has not been determined. Clinical correlation is essential. Performed By: #### L 500.2500, L500.3400, L100.0100, L501.2450 #### [facility] [address] [place], [address] ECRCL 91.52 ml/min Normal [facility] Comment on above: Performed By: #### L 500.2500, L500.3400, L100.0100, L501.2450 #### [facility] [address] [place], [address] EST GFR - AA 88 mL/min Normal >[address] [facility] Comment on above: Result Comment: Afri can [place] GFR Calc Performed By: #### L 500.2500, L500.3400, L100.0100, L501.2450 #### [facility] [address] [place], [address] GAP 7 Normal 5-[address] [facility] Comment on above: Performed By: #### L 500.2500, L500.3400, L100.0100, L501.2450 #### [facility] [address] [place], [address] GFR/1.73 sq M.predicted among non-blacks MDRD (S/P/Bld) [Vol rate/Area] 73 mL/min/{1.73_m2} Normal >[address] [facility] Comment on above: Result Comment: Non- GFR Calc Performed By: #### L 500.2500, L500.3400, L100.0100, L501.2450 #### [facility] [address] [place], [address] Glucose [Mass/Vol] 236 mg/dL High 74-106 [facility] Comment on above: Result Comment: Gluc ose result greater than or equal to 200 mg/dL suggests DIABETES MELLITUS per A.D.A. criteria. Performed By: #### L 500.2500, L500.3400, L100.0100, L501.2450 #### [facility] [address] [place], [address] Potassium [Moles/Vol] 4.5 mmol/L Normal 3.5-5.1 [facility] Comment on above: Performed By: #### L 500.2500, L500.3400, L100.0100, L501.2450 #### [facility] [address] [place], [address] Sodium [Moles/Vol] 135 mmol/L Low 136-145 [facility] Comment on above: Performed By: #### L 500.2500, L500.3400, L100.0100, L501.2450 #### [facility] [address] [place], [address] Urea nitrogen [Mass/Vol] 12 mg/dL Normal 7-[address] [facility] Comment on above: Performed By: #### L 500.2500, L500.3400, L100.0100, L501.2450 #### [facility] [address] [place], [address] Basophil percentageOrdered B y: Dunia Swenson on 09-21-2024 Basophils/100 WBC (Bld) 0.3 % 0-[address] [facility] Bilirubin Test strip Ql (U)O rdered By: Dunia Swenson on 09-21-2024 Bilirubin Ql (U) Negative Negative [facility] Bilirubin directOrdered By: Dunia Swenson on 09-21-2024 Bilirubin.direct [Mass/Vol] 0.14 mg/dL 0.00-0.[address] [facility] Bilirubin, totalOrdered By: Dunia Swenson on 09-21-2024 Bilirubin [Mass/Vol] 0.40 mg/dL 0.20-1.00 [facility] Comment on above: For patients on eltr ombopag therapy, use of Dimension [place] TBIL is not recommended. Blood urea nitrogen (BUN)/cr eatinine ratioOrdered By: Dunia Swenson on 09-21-2024 Urea nitrogen/Creatinine [Mass ratio] 11.1 mg/mg 10-[address] [facility] CBC W/Diff, Automatedon Absolute Lymph 2.45 X10 3/uL Normal 0.83-4.[address] [facility] Comment on above: Performed By: #### L 500.2500, L500.3400, L100.0100, L501.2450 #### [facility] [address] [place], [address] Absolute Neut 5.6 X10 3/uL Normal 2.0-7.[address] [facility] Comment on above: Performed By: #### L 500.2500, L500.3400, L100.0100, L501.2450 #### [facility] [address] [place], [address] Basophils/100 WBC (Bld) 0.3 % Normal 0-[address] [facility] Comment on above: Performed By: #### L 500.2500, L500.3400, L100.0100, L501.2450 #### [facility] [address] [place], [address] Eosinophils/100 WBC (Bld) 1.8 % Normal 0-[address] [facility] Comment on above: Performed By: #### L 500.2500, L500.3400, L100.0100, L501.2450 #### [facility] [address] [place], [address] Erythrocyte distribution width (RBC) [Ratio] 15.1 % High 11.6-14.[address] [facility] Comment on above: Performed By: #### L 500.2500, L500.3400, L100.0100, L501.2450 #### [facility] [address] [place], [address] Hematocrit (Bld) [Volume fraction] 47.1 % Normal 40-[address] [facility] Comment on above: Performed By: #### L 500.2500, L500.3400, L100.0100, L501.2450 #### [facility] [address] [place], [address] Hemoglobin (Bld) [Mass/Vol] 15.1 g/dL Normal 13.0-16.[address] [facility] Comment on above: Performed By: #### L 500.2500, L500.3400, L100.0100, L501.2450 #### [facility] [address] [place], [address] IG% 0.200 Normal 0.0-0.[address] [facility] Comment on above: Result Comment: IG% - Immature Granulocytes (promyelocytes, myelocytes and metamyelocytes) > 1% indicates that a LEFT SHIFT is Present. Performed By: #### L 500.2500, L500.3400, L100.0100, L501.2450 #### [facility] [address] [place], [address] Lymphocytes/100 WBC (Bld) 28.2 % Normal 19-[address] [facility] Comment on above: Performed By: #### L 500.2500, L500.3400, L100.0100, L501.2450 #### [facility] [address] [place], [address] MCH (RBC) [Entitic mass] 30.2 pg Normal 27.0-32.[address] [facility] Comment on above: Performed By: #### L 500.2500, L500.3400, L100.0100, L501.2450 #### [facility] [address] [place], [address] MCHC (RBC) [Mass/Vol] 32.1 g/dL Normal 32-36 [facility] Comment on above: Performed By: #### L 500.2500, L500.3400, L100.0100, L501.2450 #### [facility] [address] [place], [address] MCV (RBC) [Entitic vol] 94.2 fL High 80-[address] [facility] Comment on above: Performed By: #### L 500.2500, L500.3400, L100.0100, L501.2450 #### [facility] [address] [place], [address] Monocytes/100 WBC (Bld) 5.2 % Normal 0-[address] [facility] Comment on above: Performed By: #### L 500.2500, L500.3400, L100.0100, L501.2450 #### [facility] [address] [place], [address] Neutrophils/100 WBC (Bld) 64.3 % Normal 47-[address] [facility] Comment on above: Performed By: #### L 500.2500, L500.3400, L100.0100, L501.2450 #### [facility] [address] [place], [address] Nucleated RBC (Bld) [#/Vol] 0 10*3/uL Normal 0-[address] [facility] Comment on above: Performed By: #### L 500.2500, L500.3400, L100.0100, L501.2450 #### [facility] [address] [place], [address] Platelet mean volume (Bld) [Entitic vol] 10.7 fL Normal 6.2-12.[address] [facility] Comment on above: Performed By: #### L 500.2500, L500.3400, L100.0100, L501.2450 #### [facility] [address] [place], [address] Platelets (Bld) [#/Vol] 175 10*3/uL Normal 150-[address] [facility] Comment on above: Performed By: #### L 500.2500, L500.3400, L100.0100, L501.2450 #### [facility] [address] [place], [address] RBC (Bld) [#/Vol] 5.00 10*6/uL Normal 4.6-6.2 [facility] Comment on above: Performed By: #### L 500.2500, L500.3400, L100.0100, L501.2450 #### [facility] [address] [place], [address] RDW SD 52.6 fl High 35.1-43.[address] [facility] Comment on above: Performed By: #### L 500.2500, L500.3400, L100.0100, L501.2450 #### [facility] [address] [place], [address] WBC (Bld) [#/Vol] 8.7 10*3/uL Normal 4.4-11.0 [facility] Comment on above: Performed By: #### L 500.2500, L500.3400, L100.0100, L501.2450 #### [facility] [address] [place], [address] Carbon dioxide measurementOr dered By: Dunia Swenson on 09-21-2024 CO2 [Moles/Vol] 33.0 mmol/L High 21.0-32.[address] [facility] Chloride measurementOrdered By: Dunia Swenson on 09-21-2024 Chloride [Moles/Vol] 95 mmol/L Low 98-107 [facility] Emergency Department Summary on 09-21-2024 Emergency Department Summary [facility] Medical Records Department [address] [place] [address] Emergency Department Summary 09/21/24 MR#: [id number] Acct: [id number] Name: JEANNE RIVERS Rep #: [id number] : 1960 64 From: Dunia Swenson DO [...] report any association of pain with eating. 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 Normal [facility] Eosinophil percentageOrdered By: Dunia Swenson on 09-21-2024 Eosinophils/100 WBC (Bld) 1.8 % 0-[address] [facility] Epithelial cells.squamous LM Ql (Urine sed)Ordered By: Dunia Swenson on 09-21-2024 Epithelial cells.squamous LM.HPF (Urine sed) [#/Area] 0 /[HPF] 0-[address] [facility] Erythrocyte distribution wid th ratioOrdered By: Dunia Swenson on 09-21-2024 Erythrocyte distribution width (RBC) [Ratio] 15.1 % High 11.6-14.[address] [facility] [facility] Erythrocyte distribution wid th standard deviationOrdered By: Dunia Swenson on 09-21-2024 Erythrocyte distribution width (RBC) [Entitic vol] 52.6 fL High 35.1-43.[address] [facility] Erythrocyte distribution width (RBC) [Ratio] 52.6 fl High 35.1-43.[address] [facility] Estimated glomerular filtrat ion rate (GFR) AmericanOrdered By: Dunia Swenson on 09-21-2024 Estimated GFR (MDRD) Amer 88 mL/min >[address] [facility] Comment on above: GFR Calc Estimation of creatinine titi aranceOrdered By: Duina Swenson on 09-21-2024 Estimated Creatinine Clearance Calc 91.52 ml/min [facility] Glomerular filtration rate ( GFR) estimationOrdered By: Dunia Swenson on 09-21-2024 Estimated GFR (MDRD) Non-Af Amer 73 mL/min >[address] [facility] Comment on above: Non- GFR Calc GFR/1.73 sq M.predicted among non-blacks MDRD (S/P/Bld) [Vol rate/Area] 73 mL/min/{1.73_m2} >[address] [facility] Comment on above: Non- GFR Calc Glucose Ql (U)Ordered By: Merlin Swenson on 09-21-2024 Urine Glucose (UA) Normal mg/dl [facility] Glucose measurementOrdered B y: Dunia Swenson on 09-21-2024 Glucose [Mass/Vol] 236 mg/dL High 74-106 [facility] Comment on above: Glucose result great er than or equal to 200 mg/dLsuggests DIABETES MELLITUS per A.D.A. criteria. Hematocrit Auto (Bld) [Volum e fraction]Ordered By: Dunia Swenson on 09-21-2024 Hematocrit (Bld) [Volume fraction] 47.1 % 40-[address] [facility] Hemoglobin measurementOrdere d By: Dunia Swenson on 09-21-2024 Hemoglobin (Bld) [Mass/Vol] 15.1 g/dL 13.0-16.[address] [facility] Immature granulocytes/100 WB C Auto (Bld)Ordered By: Dunia Swenson on 09-21-2024 Immature granulocytes/100 WBC (Bld) 0.200 % 0.0-0.[address] [facility] Comment on above: IG% - Immature Granu locytes (promyelocytes, myelocytes and metamyelocytes) > 1% indicates that a LEFT SHIFT is Present. Ketones Test strip Ql (U)Ord ered By: Dunia Swenson on 09-21-2024 Ketones Ql (U) Negative Negative [facility] Laboratory - Chemistry and C hemistry - challengeOrdered By: Duina Swenson on 09-21-2024 AST [Catalytic activity/Vol] 21 U/L 15-[address] [facility] Lipaseon 09-21-2024 Lipase [Catalytic activity/Vol] 42 U/L Low 73-[address] [facility] Comment on above: Performed By: #### P SUIV #### [facility] Laboratory [facility] [place] [address] [place], [address] Lipase measurementOrdered By : Dunia Swenson on 02-06-2025 Lipase [Catalytic activity/Vol] 42 U/L Low 73-[address] [facility] Liver Profileon 09-21-2024 Albumin [Mass/Vol] 3.4 g/dL Normal 3.2-5.0 [facility] Comment on above: Performed By: #### P SUIV #### [facility] Laboratory [address] [place], [address] ALK P 108 U/L Normal 45-[address] [facility] Comment on above: Performed By: #### P SUIV #### [facility] Laboratory [address] [place], [address] ALT [Catalytic activity/Vol] 31 U/L Normal 16-[address] [facility] Comment on above: Performed By: #### P SUIV #### [facility] Laboratory [address] [place], [address] AST [Catalytic activity/Vol] 21 U/L Normal 15-[address] [facility] Comment on above: Performed By: #### P SUIV #### [facility] Laboratory [address] [place], [address] Bilirubin [Mass/Vol] 0.40 mg/dL Normal 0.20-1.00 [facility] Comment on above: Result Comment: For patients on eltrombopag therapy, use of Dimension [place] TBIL is not recommended. Performed By: #### P SUIV #### [facility] Laboratory [address] [place], [address] Bilirubin.direct [Mass/Vol] 0.14 mg/dL Normal 0.00-0.[address] [facility] Comment on above: Performed By: #### P SUIV #### [facility] Laboratory [address] [place], [address] Globulin (S) [Mass/Vol] 4.7 g/dL High 2.2-4.[address] [facility] Comment on above: Performed By: #### P SUIV #### [facility] Laboratory [address] [place], [place], [address] T PROT 8.1 g/dL Normal 6.4-8.[address] [facility] Comment on above: Performed By: #### P SUIV #### [facility] Laboratory [address] [place], [place], [address] Lymphocytes Auto (Unsp spec) [#/Vol]Ordered By: Dunia Swenson on 09-21-2024 Lymphocytes (Bld) [#/Vol] 2.45 10*3/uL 0.83-4.[address] [facility] Lymphocytes/100 WBC Auto (Un sp spec)Ordered By: Dunia Swenson on 09-21-2024 Lymphocytes/100 WBC (Bld) 28.2 % 19-[address] [facility] MCV (mean corpuscular volume ) determinationOrdered By: Dunia Swenson on 09-21-2024 MCV (RBC) [Entitic vol] 94.2 fL High 80-[address] [facility] Mean corpuscular hemoglobin (MCH) determinationOrdered By: Dunia Swenson on 09-21-2024 MCH (RBC) [Entitic mass] 30.2 pg 27.0-32.[address] [facility] Mean corpuscular hemoglobin concentration (MCHC) determinationOrdered By: Dunia Swenson on 09-21-2024 MCHC (RBC) [Mass/Vol] 32.1 g/dL 32-36 [facility] Mean platelet volume determi nationOrdered By: Dunia Swenson on 09-21-2024 Platelet mean volume (Bld) [Entitic vol] 10.7 fL 6.2-12.[address] [facility] Microscopic analysis of urin e for red blood cells (RBC)Ordered By: Dunia Swenson on 09-21-2024 Microscopic analysis of urine for red blood cells (RBC) 0 SEEN /hpf 0-[address] [facility] Urine RBC 0 SEEN /hpf 0-[address] [facility] Monocyte percentageOrdered B y: Dunia Swenson on 09-21-2024 Monocytes/100 WBC (Bld) 5.2 % 0-[address] [facility] Mucus LM Ql (Urine sed)Order ed By: Dunia Swenson on 09-21-2024 Mucus Ql (Urine sed) 0 SEEN /hpf [facility] Neutrophil percentageOrdered By: Dunia Swenson on 09-21-2024 Neutrophils/100 WBC (Bld) 64.3 % 47-[address] [facility] Nitrite Test strip Ql (U)Ord ered By: Dunia Swenson on 09-21-2024 Nitrite Ql (U) Negative Negative [facility] Nucleated red blood cell per centageOrdered By: Dunia Swenson on 09-21-2024 Nucleated RBC/100 WBC (Bld) [Ratio] 0 % 0-[address] [facility] Platelet countOrdered By: Merlin Swenson on 09-21-2024 Platelets (Bld) [#/Vol] 175 10*3/uL 150-[address] [facility] Potassium measurementOrdered By: Dunia Swenson on 09-21-2024 Potassium [Moles/Vol] 4.5 mmol/L 3.5-5.1 [facility] Protein Test strip Ql (U)Ord ered By: Dunia Swenson on 09-21-2024 Protein Ql (U) 15 mg/dl High Negative [facility] RBC Auto (Bld) [#/Vol]Ordere d By: Dunia Swenson on 09-21-2024 RBC (Bld) [#/Vol] 5.00 10*6/uL 4.6-6.2 [facility] Serum anion gap measurementO rdered By: Dunia Swenson on 09-21-2024 Anion gap [Moles/Vol] 7 mmol/L 5-15 [facility] Serum globulin measurementOr dered By: Dunia Swenson on 09-21-2024 Globulin (S) [Mass/Vol] 4.7 g/dL High 2.2-4.[address] [facility] Serum or plasma alanine cardoso otransferase (ALT) measurementOrdered By: Dunia Swenson on 09-21-2024 ALT [Catalytic activity/Vol] 31 U/L 16-[address] [facility] Serum or plasma albumin theresa urement (mass/volume)Ordered By: Dunia Swenson on 09-21-2024 Albumin [Mass/Vol] 3.4 g/dL 3.2-5.0 [facility] Serum or plasma alkaline mackenzie sphatase measurementOrdered By: Dunia Swenson on 09-21-2024 ALP [Catalytic activity/Vol] 108 U/L 45-[address] [facility] Serum or plasma calcium theresa urement (mass/volume)Ordered By: Dunia Swenson on 09-21-2024 Calcium [Mass/Vol] 9.1 mg/dL 8.5-10.1 [facility] Serum or plasma creatinine m easurement (mass/volume)Ordered By: Dunia Swenson on 09-21-2024 Creatinine [Mass/Vol] 1.08 mg/dL 0.70-1.30 [facility] Comment on above: The validity of the calculated GFR & GFRAA in patients over 70 years has not been determined. Clinical correlation is essential. Serum or plasma urea nitroge n measurement (mass/volume)Ordered By: Dunia Swenson on 09-21-2024 Urea nitrogen [Mass/Vol] 12 mg/dL 7-[address] [facility] Sodium levelOrdered By: Kane Swenson on 09-21-2024 Sodium [Moles/Vol] 135 mmol/L Low 136-145 [facility] Squamous epithelial cells de tection in urine sediment by light microscopyOrdered By: Dunia Swenson on 09-21-2024 Epithelial cells.squamous LM Ql (Urine sed) 0 SEEN /hpf 0-[address] [facility] Total proteinOrdered By: Richa Swenson on 09-21-2024 Protein [Mass/Vol] 8.1 g/dL 6.4-8.2 [facility] Urinalysis, Completeon 09-21 WBC 0-5 SEEN Normal 0-[address] [facility] Comment on above: Order Comment: CLEAN CATCH Performed By: #### L 400.0001 #### [facility] Laboratory [address] [place], [place], [address] BACTERIA 0 SEEN Normal None Seen [facility] Comment on above: Order Comment: CLEAN CATCH Performed By: #### L 400.0001 #### [facility] Laboratory [address] [place], [place], [address] EPI,SQUAMOUS 0 SEEN Normal 0-[address] [facility] Comment on above: Order Comment: CLEAN CATCH Performed By: #### L 400.0001 #### [facility] Laboratory [address] [place], [place], [address] Mucus Ql (Urine sed) 0 SEEN [facility] Comment on above: Order Comment: CLEAN CATCH Performed By: #### L 400.0001 #### [facility] Laboratory [address] [place], [place], [address] RBC 0 SEEN Normal 0-[address] [facility] Comment on above: Order Comment: CLEAN CATCH Performed By: #### L 400.0001 #### [facility] Laboratory [address] [place], [place], [address] Urine blood detectionOrdered By: Dunia Swenson on 09-21-2024 Urine Occult Blood Negative Negative [facility] Urine clarityOrdered By: Richa Swenson on 09-21-2024 Clarity (U) Clear Clear [facility] Urine color determinationOrd ered By: Dunia Swenson on 09-21-2024 Color (U) Yellow Yellow [facility] Urine glucose detectionOrder ed By: Dunia Swenson on 09-21-2024 Glucose Ql (U) Normal mg/dl Normal [facility] Urine leukocyte esterase det ection by dipstickOrdered By: Dunia Swenson on 09-21-2024 Leukocyte esterase Test strip Ql (U) 25 /ul High Negative [facility] Urine pHOrdered By: Dunia tan on 09-21-2024 pH (U) 7.0 [pH] 5.0 - 8.[address] [facility] Urine sediment bacteria coun t by microscopy (number/high power field)Ordered By: Dunia Swenson on 09-21-2024 Bacteria LM.HPF (Urine sed) [#/Area] 0 /[HPF] None Seen [facility] Urine specific gravity measu rementOrdered By: Dunia Swenson on 09-21-2024 Specific gravity (U) [Rel density] 1.005 1.002-1.[address] [facility] Urine urobilinogen measureme ntOrdered By: Dunia Swenson on 09-21-2024 Urobilinogen Ql (U) Normal mg/dl Normal [facility] Urobilinogen Ql (U)Ordered B y: Dunia Swenson on 09-21-2024 Urine Urobilinogen Normal mg/dl [facility] White blood cell (WBC) count Ordered By: Dunia Swenson on 09-21-2024 WBC (Bld) [#/Vol] 8.7 10*3/uL 4.4-11.0 [facility] White blood cell countOrdere d By: Dunia Swenson on 09-21-2024 Urine WBC 0-5 SEEN /hpf 0-[address] [facility] White blood cell count 0-5 SEEN /hpf 0-[address] [facility] Activated partial thrombopla stin time (aPTT) in platelet poor plasma by coagulation aOrdered By: Taylor Mclaughlin on 09-14-2024 aPTT Coag (PPP) [Time] 31.4 s 24.1-36.2 [facility] normalized rat io (INR) calculationOrdered By: Taylor Mclaughlin on 09-14-2024 INR Coag (Bld) [Relative time] 1.0 {INR} [facility] Operative Reporton Operative Report 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 Edilia Remy MD Status:REG CLI Location: CT Problems Associated Problem List Diagnoses (1) Fatty liver: Multi [facility] C[facility] Radiology Radiology CT Procedures: 87048 Biopsy Liver and [address]643-03 CT guidance parenchymal tissue Operative Report (Standard) Operative Information Date of Procedure: 09/14/24 Pre-Operative Diagnosis: Fatty liver Post-Operative Diagnosis: Fatty liver Surgery/Procedure Performed: CT-guided liver biopsy cna pct: No Type of Anesthesia: IV Sedation and [...] Edilia Remy MD; GORDON Vieira Signed Normal [facility] Partial Thromboplast Timeon 09-14-2024 aPTT Coag (Bld) [Time] 31.4 s Normal 24.1-36.2 [facility] Comment on above: Performed By: #### L 500.3400, L100.0100, L501.2450, L500.2500 #### [facility] Laboratory [address] [place], [address] Platelet Counton 09-14-2024 Platelets (Bld) [#/Vol] 171 10*3/uL Normal 150-[address] [facility] Comment on above: Performed By: #### L 500.3400, L100.0100, L501.2450, L500.2500 #### [facility] Laboratory [address] [place], [address] Platelet countOrdered By: Marilyn Mclaughlin on 09-14-2024 Platelets (Bld) [#/Vol] 171 10*3/uL 150-[address] [facility] Prothrombin Time w/INRon INR Coag (PPP) [Relative time] 1.0 {INR} Normal [facility] Comment on above: Performed By: #### L 500.3400, L100.0100, L501.2450, L500.2500 #### [facility] Laboratory [address] [place], [address] PT Coag (PPP) [Time] 13.3 s Normal 11.7-14.9 [facility] Comment on above: Performed By: #### L 500.3400, L100.0100, L501.2450, L500.2500 #### [facility] Laboratory [address] [place], [address] Prothrombin timeOrdered By: Taylor Mclaughlin on 09-14-2024 PT Coag (PPP) [Time] 13.3 s 11.7-14.9 [facility] Surgery Specimen Level Von 0 09-14-2024 Surgery Specimen Level V Patient Age/Sex Location Account Attending Physician JEANNE RIVERS 64/M CT [id number] GORDON Vieira Specimen: [id number] Received: 09/14/24-1110 Status: DAWN Francois Num: [id number] Spec Type: LIVER BX Subm Dr: GORDON [...] is submitted in two cassettes. 09/14/2024 TC:3 CPT:98305 Patient Age/Sex Location Account Attending Physician JEANNE RIVERS 64/M CT [id number] [place]ira Signed (signature on file) Dr. Josh Martino MD 09/18/24 [address] [facility] Comment on above: Performed By: #### L 500.3400, L100.0100, L501.2450, L500.2500 #### [facility] Laboratory [address] [place], [place], [address] aPTT Coag (PPP) [Time]Ordere d By: Taylor Mclaughlin on 09-14-2024 aPTT Coag (Bld) [Time] 31.4 s 24.1-36.2 [facility] ABD Limited w/ Elastographyo n 08-29-2024 ABD Limited w/ Elastography [facility] Imaging Services [address] [place], [place] [address] ABD Limited w/ Elastography MR#: [id number] Acct: [id number] Name: JEANNE RIVERS Rep #: [id number] : 1960 M 64 From: Yosi edwards MD PCP: Dr. Edilia Remy MD Status: [facility] Study: ABD Limited w/ Elastography Date of Exam: 08/16 12/08 Exam# [id number] Ordering Dr: Marjorie Marti [id number] STUDY: ABDOMINAL ULTRASOUND - RIGHT UPPER QUADRANT; ELASTOGRAPHY REASON FOR VISIT: Male, 64 years old. Fatty infiltration of the liver. TECHNIQUE: Ultrasound evaluation of the right upper quadrant was performed with real-time and static garcia-scale imaging. Point quantification shear wave elastography was performed ([employer]). TECHNICAL QUALITY: Adequate. COMPARISON: Comparison is made [...] Signed: Yosi Calderon MD at 14:35 EST Reading Location ID and State: [facility] / ID , Service support , CC: Dr. Edilia Remy MD; GORDON Vieira [employer] Former: Signed Normal [facility] ANCAon 08-23-2024 Atypical pANCA <1:20 Normal Neg:<1:[address] [facility] Comment on above: Order Comment: Test( s) 635058-Tyrxhf, Serum or Plasmawas developed and its performance characteristicsdetermined by [facility]. It has not been cleared or approvedby the Food and Drug Administration. Result Comment: The atypical pANCA pattern has been observed in a significant percentage of patients with ulcerative colitis, primary sclerosing cholangitis and autoimmune hepatitis. Performed By: #### L 500.3400, L100.0100, L501.2450, L500.2500 #### [facility] Laboratory [address] [place], [place], [address] Cytoplasmic Ab <1:20 Normal Neg:<1:[address] [facility] Comment on above: Order Comment: Test( s) 456917-Hdybyg, Serum or Plasmawas developed and its performance characteristicsdetermined by [facility]. It has not been cleared or approvedby the Food and Drug Administration. Performed By: #### L 500.3400, L100.0100, L501.2450, L500.2500 #### [facility] Laboratory [address] [place], [place], [address] Perinuclear Ab. <1:20 Normal Neg:<1:[address] [facility] Comment on above: Order Comment: Test( s) 980997-Jbjyup, Serum or Plasmawas developed and its performance characteristicsdetermined by [facility]. It has not been cleared or approvedby [...] up testing of positive sera with both WA- 3 and MPO-ANCA enzyme immunoassays. As many as 5% serum samples are positive only by EIA. Ref. AM J Clin Pathol 1999;111:507-513. Performed By: #### L 500.3400, L100.0100, L501.2450, L500.2500 #### [facility] Laboratory [address] [place], [place], [address] Angiotensin Convert Enzymeon 08-23-2024 ANGIOT-CONV.ENZ < 15 Normal 14-[address] [facility] Comment on above: Order Comment: Test( s) 225726-Yujotn, Serum or Plasmawas developed and its performance characteristicsdetermined by [facility]. It has not been cleared or approvedby the Food and Drug Administration. Performed By: #### P SUIV #### [facility] Laboratory [address] [place], [place], [address] Anti-Smooth Muscle ABSon ANTISMOOTH MUSC 4 Units Normal 0-[address] [facility] Comment on above: Order Comment: Test( s) 312844-Cjctht, Serum or Plasmawas developed and its performance characteristicsdetermined by [facility]. It has not been cleared or approvedby the Food and Drug Administration. Result Comment: Nega tive 0 - 19 Weak positive 20 - 30 Moderate to strong positive >30 Actin Antibodies are found in 52-85% of patients with autoimmune hepatitis or chronic active hepatitis and in 22% of patients with primary biliary cirrhosis. Performed By: #### P SUIV #### [facility] Laboratory [address] [place], [place], [address] Ceruloplasminon 08-23-2024 CERULOPLASMIN 29.5 mg/dL Normal 16.0-31.[address] [facility] Comment on above: Order Comment: Test( s) 288894-Zazerf, Serum or Plasmawas developed and its performance characteristicsdetermined by [facility]. It has not been cleared or approvedby the Food and Drug Administration. Performed By: #### L 500.3400, L100.0100, L501.2450, L500.2500 #### [facility] Laboratory [address] [place], [place], [address] Copper, Serum or Plasmaon COPPER, SERUM 100 ug/dL Normal 69-[address] [facility] Comment on above: Order Comment: Test( s) 379363-Unbfbt, Serum or Plasmawas developed and its performance characteristicsdetermined by [facility]. It has not been cleared or approvedby the Food and Drug Administration. Result Comment: Dete ction Limit = 5 Performed By: #### P SUIV #### [facility] Laboratory [address] [place], [place], [address] Haptoglobinon 08-23-2024 HAPTOGLOBIN 266 mg/dL Normal 32-[address] [facility] Comment on above: Order Comment: Test( s) 930610-Melbiw, Serum or Plasmawas developed and its performance characteristicsdetermined by [facility]. It has not been cleared or approvedby the Food and Drug Administration. Performed By: #### P SUIV #### [facility] Laboratory [address] [place], [place], [address] Hepatitis Panel Acuteon COMMENT Comment Normal . [facility] Comment on above: Order Comment: Test( s) 839644-Rinhng, Serum or Plasmawas developed and its performance characteristicsdetermined by [facility]. It has not been cleared or approvedby the Food and Drug Administration. Result Comment: Not infected with HCV unless early or acute infection is suspected (which may be delayed in an immunocompromised individual), or other evidence exists to indicate HCV infection. Performed By: #### P SUIV #### [facility] Laboratory [address] [place], [place], [address] HEP B CORE,IgM Negative Normal Negative [facility] Comment on above: Order Comment: Test( s) 705751-Ajmixz, Serum or Plasmawas developed and its performance characteristicsdetermined by [facility] It has not been cleared or approvedby the Food and Drug Administration. Performed By: #### P SUIV #### [facility] Laboratory [address] [place], [place], [address] HEP B SURF AG Negative Normal Negative [facility] Comment on above: Order Comment: Test( s) 576925-Gmjybl, Serum or Plasmawas developed and its performance characteristicsdetermined by [facility]. It has not been cleared or approvedby the Food and Drug Administration. Performed By: #### P SUIV #### [facility] Laboratory [address] [place], [place], [address] HEP C VIRUS AB Non-Reactive Normal Non Reactive [facility] Comment on above: Order Comment: Test( s) 133032-Scnwys, Serum or Plasmawas developed and its performance characteristicsdetermined by [facility]. It has not been cleared or approvedby the Food and Drug Administration. Performed By: #### P SUIV #### [facility] Laboratory [address] [place], [place], [address] HEPATITIS A-IgM Negative Normal Negative [facility] Comment on above: Order Comment: Test( s) 354787-Zszrgq, Serum or Plasmawas developed and its performance characteristicsdetermined by [facility]. It has not been cleared or approvedby the Food and Drug Administration. Result Comment: A ne gative anti-HAV IgM result suggests no recent or current HAV infection. Performed By: #### P SUIV #### [facility] [address] [place], [place], [id number] Transferrinon 08-23-2024 Transferrin [Mass/Vol] 307 mg/dL Normal 177-329 [facility] Comment on above: Order Comment: Test( s) 868853-[id number], Serum or Plasmawas developed and its performance characteristicsdetermined by [facility]. It has not been cleared or approvedby the Food and Drug Administration. Result Comment: Perf ormed at: [address] [id number] Human Resources Technician: Americo Bradford PhD, Phone: [phone] Performed at: [address] [id number] Human Resources Technician: Leland Byrne MD, Phone: [phone] Performed By: #### L 723.1507, W479.6803, H924.3547, [id number] #### [facility] [place], [address] DIDI Comprehensive Panelon DIDI TABLE Comment Normal . [facility] Comment on above: Result Comment: Auto antibody [...] Sm (anti-Sanchez) SLE 15 - 30% --------- RAIMANN MACHINE OPERATOR Mixed Connective Tissue Disease 95% (U1 nRNP, SLE 30 - 50% anti-ribonucleoprotein) Polymyositis and/or Dermatomyositis 20% --------- Scl-70 (antiDNA Scleroderma (diffuse) 20 - 35% topoisomerase) Crest 13% --------- Pham-1 Polymyositis and/or Dermatomyositis 20 - 40% --------- Centromere B Scleroderma - Crest variant 80% Performed By: #### P SUIV #### [facility] [address] [place] [address], [address] Anti-Mitochondrial ABon 01-0 ANTIMITOCHON AB 57.8 Units Abnormal 0.0-20.[address] [facility] Comment on above: Result Comment: Nega tive 0.0 - 20.0 Equivocal 20.1 - 24.9 Positive >24.9 Mitochondrial (M2) Antibodies are found in 90-96% of patients with primary biliary cirrhosis. Performed at: [address] [id number] Human Resources Technician: Americo Bradford PhD, Phone: [phone] Performed By: #### P SUIV #### [facility] [address] [place], [address] Absolute neutrophil countOrd ered By: Marjorie Marti on 08-17-2024 Neutrophils (Bld) [#/Vol] 6.3 10*3/uL 2.0-7.[address] [facility] Actin IgG QnOrdered By: Og Marti on 08-17-2024 Anti-Smooth Muscle Antibody 4 Units 0-[address] [facility] Comment on above: Negative 0 - 19 Weak positive 20 - 30 Moderate to strong positive >30 Actin Antibodies are found in 52-85% of patients with autoimmune hepatitis or chronic active hepatitis and in 22% of patients with primary biliary cirrhosis. Albumin to globulin ratioOrd ered By: Marjorie Marti on 08-17-2024 Albumin/Globulin [Mass ratio] 0.7 {ratio} Low 0.9-2.[address] [facility] Ammoniaon 08-17-2024 Ammonia (P) [Moles/Vol] 31.0 umol/L Normal 11-[address] [facility] Comment on above: Performed By: #### P SUIV #### [facility] [address] [facility] [place], [address] Atypical perinuclear antineu trophil cytoplasmic antibodies measurementOrdered By: Marjorie Marti on 08-17-2024 Atypical p-ANCA <1:20 titer Neg:<1:[address] [facility] Comment on above: The atypical pANCA p attern has been observed in asignificant percentage of patients with ulcerative colitis,primary sclerosing cholangitis and autoimmune hepatitis. Basophil percentageOrdered B y: Marjorie Marti on 08-17-2024 Basophils/100 WBC (Bld) 0.5 % 0-[address] [facility] Bilirubin, totalOrdered By: Marjorie Marti on 08-17-2024 Bilirubin [Mass/Vol] 0.50 mg/dL 0.20-1.00 [facility] Comment on above: For patients on eltr ombopag therapy, use of Dimension [place] TBIL is not recommended. Blood urea nitrogen (BUN)/cr eatinine ratioOrdered By: Marjorie Marti on 08-17-2024 Urea nitrogen/Creatinine [Mass ratio] 11.9 mg/mg 10-[address] [facility] C-reactive protein measureme nt by high sensitivity methodOrdered By: Marjorie Marti on 08-17-2024 C-Reactive Protein Extended Range < 2.90 mg/L 0.0-3.[address] [facility] Comment on above: C-Reactive Protein ( CRP) provides useful information for thediagnosis, therapy and monitoring of inflammatory processesand associated diseases. For the evaluation of Relative Riskfor Cardiovascular Disease, a High Sensitivity CRP (HSCRP)should be ordered. CBC W/Diff, Automatedon Absolute Lymph 2.69 X10 3/uL Normal 0.83-4.[address] [facility] Comment on above: Performed By: #### P SUIV #### [facility] [address] [place], [address] Absolute Neut 6.3 X10 3/uL Normal 2.0-7.[address] [facility] Comment on above: Performed By: #### P SUIV #### [facility] [address] [place], [address] Basophils/100 WBC (Bld) 0.5 % Normal 0-[address] [facility] Comment on above: Performed By: #### P SUIV #### [facility] [address] [place], [address] Eosinophils/100 WBC (Bld) 2.0 % Normal 0-[address] [facility] Comment on above: Performed By: #### P SUIV #### [facility] [address] [place], [address] Erythrocyte distribution width (RBC) [Ratio] 15.7 % High 11.6-14.[address] [facility] Comment on above: Performed By: #### P SUIV #### [facility] [address] [place], [address] Hematocrit (Bld) [Volume fraction] 48.3 % Normal 40-[address] [facility] Comment on above: Performed By: #### P SUIV #### [facility] [address] [place], [address] Hemoglobin (Bld) [Mass/Vol] 15.5 g/dL Normal 13.0-16.[address] [facility] Comment on above: Performed By: #### P SUIV #### [facility] [address] [place], [address] IG% 0.200 Normal 0.0-0.[address] [facility] Comment on above: Result Comment: IG% - Immature Granulocytes (promyelocytes, myelocytes and metamyelocytes) > 1% indicates that a LEFT SHIFT is Present. Performed By: #### P SUIV #### [facility] [address] [place], [address] Lymphocytes/100 WBC (Bld) 27.9 % Normal 19-[address] [facility] Comment on above: Performed By: #### P SUIV #### [facility] [address] [place], [address] MCH (RBC) [Entitic mass] 29.9 pg Normal 27.0-32.[address] [facility] Comment on above: Performed By: #### P SUIV #### [facility] [address] [place], [address] MCHC (RBC) [Mass/Vol] 32.1 g/dL Normal 32-36 [facility] Comment on above: Performed By: #### P SUIV #### [facility] [address] [place], [address] MCV (RBC) [Entitic vol] 93.2 fL Normal 80-[address] [facility] Comment on above: Performed By: #### P SUIV #### [facility] [address] [place], [address] Monocytes/100 WBC (Bld) 4.5 % Normal 0-[address] [facility] Comment on above: Performed By: #### P SUIV #### [facility] [address] [place], [address] Neutrophils/100 WBC (Bld) 64.9 % Normal 47-[address] [facility] Comment on above: Performed By: #### P SUIV #### [facility] [address] [place], [address] Nucleated RBC (Bld) [#/Vol] 0 10*3/uL Normal 0-[address] [facility] Comment on above: Performed By: #### P SUIV #### [facility] [address] [place], [address] Platelet mean volume (Bld) [Entitic vol] 10.2 fL Normal 6.2-12.[address] [facility] Comment on above: Performed By: #### P SUIV #### [facility] [address] [place], [address] Platelets (Bld) [#/Vol] 216 10*3/uL Normal 150-[address] [facility] Comment on above: Performed By: #### P SUIV #### [facility] [address] [place], [address] RBC (Bld) [#/Vol] 5.18 10*6/uL Normal 4.6-6.2 [facility] Comment on above: Performed By: #### P SUIV #### [facility] [address] [place], [address] RDW SD 53.5 fl High 35.1-43.[address] [facility] Comment on above: Performed By: #### P SUIV #### [facility] [address] [place], [address] WBC (Bld) [#/Vol] 9.7 10*3/uL Normal 4.4-11.0 [facility] Comment on above: Performed By: #### P SUIV #### [facility] [address] [place], [place], [address] CRPon 08-17-2024 C-REACTIVE PROT < 2.90 Normal 0.0-3.[address] [facility] Comment on above: Order Comment: 1 Result Comment: C-Re active Protein (CRP) provides useful information for the diagnosis, therapy and monitoring of inflammatory processes and associated diseases. For the evaluation of Relative Risk for Cardiovascular Disease, a High Sensitivity CRP (HSCRP) should be ordered. Performed By: #### P SUIV #### [facility] [address] [place], [place], [id number] Carbon dioxide measurementOr dered By: Marjorie Marti on 08-17-2024 CO2 [Moles/Vol] 34.0 mmol/L High 21.0-32.[address] [facility] Centromere B antibody assayO rdered By: Marjorie Marti on 08-17-2024 Centromere B Antibody <0.2 AI 0.0-0.9 [facility] Comment on above: Previous reported re sult: TNP AIEdited by: DEVORAH on 08/21/24:1407 AMENDED REPORT 08/21/241406 ANTI-CENT B previously reported as: Test not performed CeruloplasminOrdered By: Christine Marti on 08-17-2024 Ceruloplasmin 29.5 mg/dL 16.0-31.[address] [facility] Chloride measurementOrdered By: Marjorie Marti on 08-17-2024 Chloride [Moles/Vol] 95 mmol/L Low 98-107 [facility] Chromatin antibody assayOrde red By: Marjorie Marti on 08-17-2024 Antichromatin Antibodies <0.2 AI 0.0-0.[address] [facility] Comment on above: Previous reported re sult: TNP AIEdited by: DEVORAH on 08/21/24:1407 AMENDED REPORT 08/21/24 140 ANTICHROMATIN previously reported as: Test not performed Comprehensive Metabolic Prof ilon 08-17-2024 Albumin [Mass/Vol] 3.5 g/dL Normal 3.2-5.0 [facility] Comment on above: Order Comment: 1 Performed By: #### P SUIV #### [facility] [address] [place], [address] Albumin/Globulin [Mass ratio] 0.7 {ratio} Low 0.9-2.[address] [facility] Comment on above: Order Comment: 1 Performed By: #### P SUIV #### [facility] [address] [place], [address] ALK P 104 U/L Normal 45-[address] [facility] Comment on above: Order Comment: 1 Performed By: #### P SUIV #### [facility] [address] [place], [address] ALT [Catalytic activity/Vol] 29 U/L Normal 16-[address] [facility] Comment on above: Order Comment: 1 Performed By: #### P SUIV #### [facility] [address] [place], [address] AST [Catalytic activity/Vol] 22 U/L Normal 15-[address] [facility] Comment on above: Order Comment: 1 Performed By: #### P SUIV #### [facility] [address] [place], [address] Bilirubin [Mass/Vol] 0.50 mg/dL Normal 0.20-1.00 [facility] Comment on above: Order Comment: 1 Result Comment: For patients on eltrombopag therapy, use of Dimension [place] TBIL is not recommended. Performed By: #### P SUIV #### [facility] [address] [place], [address] BUN/CRE 11.9 RATIO Normal 10-[address] [facility] Comment on above: Order Comment: 1 Performed By: #### P SUIV #### [facility] [address] [place], [address] CA,Total 8.9 mg/dL Normal 8.5-10.[address] [facility] Comment on above: Order Comment: 1 Performed By: #### P SUIV #### [facility] [address] [place], [id number] Chloride [Moles/Vol] 95 mmol/L Low 98-107 [facility] Comment on above: Order Comment: 1 Performed By: #### P SUIV #### [facility] [address] [place], [address] CO2 [Moles/Vol] 34.0 mmol/L High 21.0-32.[address] [facility] Comment on above: Order Comment: 1 Performed By: #### P SUIV #### [facility] [address] [place], [address] Creatinine [Mass/Vol] 1.09 mg/dL Normal 0.70-1.30 [facility] Comment on above: Order Comment: 1 Result Comment: The validity of the calculated GFR GFRAA in patients over 70 years has not been determined. Clinical correlation is essential. Performed By: #### P SUIV #### [facility] [address] [place], [address] EST GFR - AA 88 mL/min Normal >[address] [facility] Comment on above: Order Comment: 1 Result Comment: Afri can Citizen Of [place] GFR Calc Performed By: #### P SUIV #### [facility] [address] [place], [address] GAP 5 Normal 5-[address] [facility] Comment on above: Order Comment: 1 Performed By: #### P SUIV #### [facility] [address] [place], [address] GFR/1.73 sq M.predicted among non-blacks MDRD (S/P/Bld) [Vol rate/Area] 72 mL/min/{1.73_m2} Normal >[address] [facility] Comment on above: Order Comment: 1 Result Comment: Non- GFR Calc Performed By: #### P SUIV #### [facility] [address] [place], [id number] Globulin (S) [Mass/Vol] 4.9 g/dL High 2.2-4.[address] [facility] Comment on above: Order Comment: 1 Performed By: #### P SUIV #### [facility] [address] [place], [address] Glucose [Mass/Vol] 225 mg/dL High 74-106 [facility] Comment on above: Order Comment: 1 Result Comment: Gluc ose result greater than or equal to 200 mg/dL suggests DIABETES MELLITUS per A.D.A. criteria. Performed By: #### P SUIV #### [facility] [address] [place], [address] Potassium [Moles/Vol] 3.7 mmol/L Normal 3.5-5.1 [facility] Comment on above: Order Comment: 1 Performed By: #### P SUIV #### [facility] [address] [place], [address] Sodium [Moles/Vol] 134 mmol/L Low 136-145 [facility] Comment on above: Order Comment: 1 Performed By: #### P SUIV #### [facility] [address] [place], [address] T PROT 8.4 g/dL High 6.4-8.[address] [facility] Comment on above: Order Comment: 1 Performed By: #### P SUIV #### [facility] [address] [place], [address] Urea nitrogen [Mass/Vol] 13 mg/dL Normal 7-[address] [facility] Comment on above: Order Comment: 1 Performed By: #### P SUIV #### [facility] [address] [place], [place], [id number] Copper, serumOrdered By: Christine Marti on 08-17-2024 Serum Copper 100 ug/dL 69-[address] [facility] Comment on above: Detection Limit = 5 DNA double strand Ab Qn (S)O rdered By: Marjorie Marti on 08-17-2024 Anti-Double Strand DNA Antibody <1 IU/mL 0-[address] [facility] Comment on above: Negative <5 Equivoca l 5 - 9 Positive >9Previous reported result: TNP IU/mLEdited by: DEVORAH on 08/21/24:1407 AMENDED REPORT 08/21/24 1407 dsDNA AB previously reported as: Test not performed Eosinophil percentageOrdered By: Marjorie Marti on 08-17-2024 Eosinophils/100 WBC (Bld) 2.0 % 0-[address] [facility] Erythrocyte Sed Rateon 08-17 SED RATE 23 mm/hr High 0-[address] [facility] Comment on above: Performed By: #### P SUIV #### [facility] [address] [place], [place], [id number] Erythrocyte distribution wid th ratioOrdered By: Marjorie Marti on 08-17-2024 Erythrocyte distribution width (RBC) [Ratio] 15.7 % High 11.6-14.[address] [facility] Erythrocyte distribution wid th standard deviationOrdered By: Marjorie Marti on 08-17-2024 Erythrocyte distribution width (RBC) [Entitic vol] 53.5 fL High 35.1-43.[address] [facility] Erythrocyte sedimentation ra teOrdered By: Marjorie Marti on 08-17-2024 ESR (Bld) [Velocity] 23 mm/h High 0-20 [facility] Estimated glomerular filtrat ion rate (GFR) AmericanOrdered By: Marjorie Marti on 08-17-2024 Estimated GFR (MDRD) Amer 88 mL/min >[address] [facility] Comment on above: GFR Calc Ferritinon 08-17-2024 Ferritin [Mass/Vol] 51 ng/mL Normal 26-388 [facility] Comment on above: Order Comment: 1 Performed By: #### P SUIV #### [facility] [address] [place], [address] Ferritin measurementOrdered By: Marjorie Marti on 08-17-2024 Ferritin [Mass/Vol] 51 ng/mL 26-388 [facility] Gastroenterology Visit Repor ton 08-17-2024 Gastroenterology Visit Report [facility] [address] [place] [address] OFFICE VISIT Date of Service: 08/17/24 MR#: [id number] Acct: [id number] Name: JEANNE RIVERS Rep #: [id number] 6 : 1960 Provider: GORDON Vieira Age/Sex: 64/M Location: [facility] Status: Signed Intake Vital Signs 10/27/23 14:23 [...] 06/18/23 08/14/24 History aerosol inhaler (Ventolin HFA) [id number] 3.5 1 drp ophthalmic (eye) Q12H 06/18/23 [...] Right carpal tunnel syndrome Right wrist pain 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 Pt has had abd pain for [...] leg wandy (more content not included)... Normal [facility] Glomerular filtration rate ( GFR) estimationOrdered By: Marjorie Marti on 08-17-2024 Estimated GFR (MDRD) Non-Af Amer 72 mL/min >[address] [facility] Comment on above: Non- GFR Calc Glucose measurementOrdered B y: Marjorie Marti on 08-17-2024 Glucose [Mass/Vol] 225 mg/dL High 74-106 [facility] Comment on above: Glucose result great er than or equal to 200 mg/dLsuggests DIABETES MELLITUS per A.D.A. criteria. HBV surface Ag IA QlOrdered By: Marjorie Marti on 08-17-2024 Hepatitis B Surface Antigen Negative Negative [facility] HaptoglobinOrdered By: Codi Marti on 08-17-2024 Haptoglobin 266 mg/dL 32-[address] [facility] Hematocrit Auto (Bld) [Volum e fraction]Ordered By: Marjorie Marti on 08-17-2024 Hematocrit (Bld) [Volume fraction] 48.3 % 40-[address] [facility] Hemoglobin A1con 08-17-2024 HbA1c (Bld) [Mass fraction] 8.2 % High 3.8-5.[address] [facility] Comment on above: Result Comment: Norm al < 5.7 % Prediabetic 5.7 - 6.4 % Diabetic >or= 6.5 % Please note range changes. Performed By: #### P SUIV #### [facility] [address] [place], [place], [id number] Hemoglobin A1c percentageOrd ered By: Marjorie Marti on 08-17-2024 HbA1c (Bld) [Mass fraction] 8.2 % High 3.8-5.[address] [facility] Comment on above: Normal < 5.7 % Predi abetic 5.7 - 6.4 % Diabetic >or= 6.5 % Please note range changes. Hemoglobin measurementOrdere d By: Marjorie Marti on 08-17-2024 Hemoglobin (Bld) [Mass/Vol] 15.5 g/dL 13.0-16.[address] [facility] Hepatitis A virus IgM antibo dy assayOrdered By: Marjorie Marti on 08-17-2024 Hepatitis A IgM Antibody Negative Negative [facility] Comment on above: A negative anti-HAV IgM result suggests no recent orcurrent HAV infection. Hepatitis B virus core IgM a ntibody assayOrdered By: Marjorie Marti on 08-17-2024 Hepatitis B Core IgM Antibody Negative Negative [facility] Hepatitis C virus antibody a ssayOrdered By: Marjorie Marti on 08-17-2024 Hepatitis C Antibody (EIA) Non-Reactive Non Reactive [facility] High density lipoprotein (HD L) measurementOrdered By: Marjorie Marti on 08-17-2024 Cholesterol in HDL [Mass/Vol] 38 mg/dL Low >[address] [facility] Comment on above: The drugs N-Acetylcy steine and Metamizole may falsely depress this assay. Reference Range HDL <40 mg/dL Low HDL Cholesterol HDL >or= 60 mg/dL High HDL Cholesterol Immature granulocytes/100 WB C Auto (Bld)Ordered By: Marjorie Marti on 08-17-2024 Immature granulocytes/100 WBC (Bld) 0.200 % 0.0-0.[address] [facility] Comment on above: IG% - Immature Granu locytes (promyelocytes, myelocytes and metamyelocytes) > 1% indicates that a LEFT SHIFT is Present. International normalized rat io (INR) calculationOrdered By: Marjorie Marti on 08-17-2024 INR Coag (Bld) [Relative time] 1.0 {INR} [facility] Iron Binding Capacity,Totalo n 08-17-2024 TIBC 394 ug/dL Normal 250-[address] [facility] Comment on above: Order Comment: 1 Performed By: #### P SUIV #### [facility] [address] [facility] [place], [address] Pham-1 antibody assayOrdered B y: Marjorie Marti on 08-17-2024 PHAM-1 Antibody <0.2 AI 0.0-0.[address] [facility] Comment on above: Previous reported re sult: TNP AIEdited by: DEVORAH on 08/21/24:1407 AMENDED REPORT 08/21/24 1407 ANTI-PHAM previously reported as: Test not performed LDHon 08-17-2024 LDH 247 U/L High 87-[address] [facility] Comment on above: Order Comment: 1 Performed By: #### P SUIV #### [facility] [address] [facility] [place], [address] Laboratory - Chemistry and C hemistry - challengeOrdered By: Marjorie Marti on 08-17-2024 AST [Catalytic activity/Vol] 22 U/L 15-[address] [facility] Lactate dehydrogenase (LDH) measurementOrdered By: Marjorie Marti on 08-17-2024 LDH [Catalytic activity/Vol] 247 U/L High 87-[address] [facility] Lipid Profileon 08-17-2024 Cholesterol [Mass/Vol] 109 mg/dL Normal 200 [facility] Comment on above: Order Comment: 1 Result Comment: <200 mg/dL Desirable 200-240 mg/dL Borderline >240 mg/dL High Risk Performed By: #### P SUIV #### [facility] [address] [place], [address] Cholesterol in HDL [Mass/Vol] 38 mg/dL Low [facility] Comment on above: Order Comment: 1 Result Comment: The drugs N-Acetylcysteine and Metamizole may falsely depress this assay. Reference Range HDL <40 mg/dL Low HDL Cholesterol HDL >or= 60 mg/dL High HDL Cholesterol Performed By: #### P SUIV #### [facility] [address] [place], [address] Cholesterol in LDL [Mass/Vol] 23 mg/dL Normal 0-[address] [facility] Comment on above: Order Comment: 1 Performed By: #### P SUIV #### [facility] [address] [place], [address] Cholesterol in VLDL [Mass/Vol] 48 mg/dL High 5-[address] [facility] Comment on above: Order Comment: 1 Performed By: #### P SUIV #### [facility] [address] [place], [address] Triglyceride [Mass/Vol] 242 mg/dL High [facility] Comment on above: Order Comment: 1 Result Comment: The drugs N-Acetylcysteine and Metamizole may falsely depress this assay. Serum Triglycerides Reference Interval Normal <150 mg/dL Borderline high 150 - 199 mg/dL High 200 - 499 mg/dL Very High > or = 500 mg/dL Performed By: #### P SUIV #### [facility] [address] [place], [address] Low density lipoprotein (LDL ) cholesterol measurementOrdered By: Marjorie Marti on 08-17-2024 Cholesterol in LDL [Mass/Vol] 23 mg/dL 0-[address] [facility] Lymphocytes Auto (Unsp spec) [#/Vol]Ordered By: Marjorie Marti on 08-17-2024 Lymphocytes (Bld) [#/Vol] 2.69 10*3/uL 0.83-4.[address] [facility] Lymphocytes/100 WBC Auto (Un sp spec)Ordered By: Marjorie Marti on 08-17-2024 Lymphocytes/100 WBC (Bld) 27.9 % 19-[address] [facility] MCV (mean corpuscular volume ) determinationOrdered By: Marjorie Marti on 08-17-2024 MCV (RBC) [Entitic vol] 93.2 fL 80-[address] [facility] Mean corpuscular hemoglobin (MCH) determinationOrdered By: Marjorietootie Marti on 08-17-2024 MCH (RBC) [Entitic mass] 29.9 pg 27.0-32.[address] [facility] Mean corpuscular hemoglobin concentration (MCHC) determinationOrdered By: Marjorietootie Marti on 08-17-2024 MCHC (RBC) [Mass/Vol] 32.1 g/dL 32-36 [facility] Mean platelet volume determi nationOrdered By: Marjorie Marti on 08-17-2024 Platelet mean volume (Bld) [Entitic vol] 10.2 fL 6.2-12.[address] [facility] Mitochondria Ab Ql (S)Ordere d By: Marjorie Marti on 08-17-2024 Anti-Mitochondrial Antibody 57.8 Units High 0.0-20.[address] [facility] Comment on above: Negative 0.0 - 20.0 Equivocal 20.1 - 24.9 Positive >24.9Mitochondrial (M2) Antibodies are found in 90-96% ofpatients with primary biliary cirrhosis.Performed at: [facility] [id number] [place], [place] [id number] Director: Americo Bradford PhD, Phone: [phone] Monocyte percentageOrdered B y: Marjorie Marti on 08-17-2024 Monocytes/100 WBC (Bld) 4.5 % 0-[address] [facility] Neutrophil cytoplasmic Ab.cl assic Qn (S)Ordered By: Marjorie Marti on 08-17-2024 Cytoplasmic ANCA (c-ANCA) Antibody <1:20 titer Neg:<1:[address] [facility] Neutrophil cytoplasmic Ab.pe rinuclear IF (S) [Titer]Ordered By: Marjorie Marti on 08-17-2024 Perinuclear ANCA (p-ANCA) Antibody <1:20 titer Neg:<1:[address] [facility] Comment on above: The presence of posi tive fluorescence exhibiting P-ANCA orC-ANCA patterns alone is not specific for the diagnosis ofWegener's Granulomatosis (WG) or microscopic polyangiitis.Decisions about treatment should not be based solely onANCA IFA results. The [employer] ANCA Group Consensusrecommends follow up testing of positive sera with both WA-3 and MPO-ANCA enzyme immunoassays. As many as 5% serumsamples are positive only by EIA. Ref. AM J Clin Rkvehr7374;111:507-513. Neutrophil percentageOrdered By: Marjorie Marti on 08-17-2024 Neutrophils/100 WBC (Bld) 64.9 % 47-[address] [facility] No Panel InformationOrdered By: Marjorie Marti on 08-17-2024 Hepatitis C Antibody Comment Comment . [facility] Comment on above: Not infected with HC V unless early or acute infection issuspected (which may be delayed in an immunocompromisedindividual), or other evidence exists to indicate HCVinfection. Nucleated red blood cell per centageOrdered By: Marjorie Marti on 08-17-2024 Nucleated RBC/100 WBC (Bld) [Ratio] 0 % 0-[address] [facility] Platelet countOrdered By: Vanessa Marti on 08-17-2024 Platelets (Bld) [#/Vol] 216 10*3/uL 150-[address] [facility] Potassium measurementOrdered By: Marjorie Marti on 08-17-2024 Potassium [Moles/Vol] 3.7 mmol/L 3.5-5.1 [facility] Prothrombin Time w/INRon INR Coag (PPP) [Relative time] 1.0 {INR} Normal [facility] Comment on above: Performed By: #### P SUIV #### [facility] [address] [place] [address]. [place], [address] PT Coag (PPP) [Time] 13.8 s Normal 11.7-14.9 [facility] Comment on above: Performed By: #### P SUIV #### [facility] [place], [address] Prothrombin timeOrdered By: Marjorie Marti on 08-17-2024 PT Coag (PPP) [Time] 13.8 s 11.7-14.9 [facility] RBC Auto (Bld) [#/Vol]Ordere d By: Marjorie Marti on 08-17-2024 RBC (Bld) [#/Vol] 5.18 10*6/uL 4.6-6.2 [facility] RAIMANN MACHINE OPERATOR abOrdered By: [facility]ie [facility] on 08-17-2024 RAIMANN MACHINE OPERATOR Antibody 0.2 AI 0.0-0.[address] [facility] Comment on above: Previous reported re sult: TNP AIEdited by: DEVORAH on 08/21/24:1407 AMENDED REPORT 08/21/24 140 RAIMANN MACHINE OPERATOR Ab previously reported as: Test not performed SCL-70 extractable nuclear A b Qn (S)Ordered By: Marjorie Marti on 08-17-2024 Scl-70 (Scleroderma) Antibody <0.2 AI 0.0-0.[address] [facility] Comment on above: Previous reported re sult: TNP AIEdited by: DEVORAH on 08/21/24:1407 AMENDED REPORT 08/21/24 140 ANTISCLER previously reported as: Test not performed SS-A IgG antibody assayOrder ed By: Marjorie Marti on 08-17-2024 SS-A/Ro IgG Antibody < 0.2 AI 0.0-0.9 [facility] Comment on above: Previous reported re sult: TNP AIEdited by: DEVORAH on 08/21/24:1407 AMENDED REPORT 08/21/24 1407 Anti-SS-A previously reported as: Test not performed SS-B IgG antibody assayOrder ed By: Marjorie Marti on 08-17-2024 SS-B/La IgG Antibody < 0.2 AI 0.0-0.9 [facility] Comment on above: Previous reported re sult: TNP AIEdited by: DEVORAH on 08/21/24:1407 AMENDED REPORT 08/21/24 1407 Anti-SS-B previously reported as: Test not performed Serum anion gap measurementO rdered By: Marjorie Marti on 08-17-2024 Anion gap [Moles/Vol] 5 mmol/L 5-15 [facility] Serum globulin measurementOr dered By: Marjorie Marti on 08-17-2024 Globulin (S) [Mass/Vol] 4.9 g/dL High 2.2-4.[address] [facility] Serum or plasma alanine cardoso otransferase (ALT) measurementOrdered By: Marjorie Marti on 08-17-2024 ALT [Catalytic activity/Vol] 29 U/L 16-[address] [facility] Serum or plasma albumin theresa urement (mass/volume)Ordered By: Marjorie Marti on 08-17-2024 Albumin [Mass/Vol] 3.5 g/dL 3.2-5.0 [facility] Serum or plasma alkaline mackenzie sphatase measurementOrdered By: Marjorie Marti on 08-17-2024 ALP [Catalytic activity/Vol] 104 U/L 45-[address] [facility] Serum or plasma angiotensin converting enzyme measurement (enzymatic activity/volume)Ordered By: Marjorie Marti on 08-17-2024 Angiotensin converting enzyme [Catalytic activity/Vol] U/L 14-[address] [facility] Serum or plasma calcium theresa urement (mass/volume)Ordered By: Marjorie Marti on 08-17-2024 Calcium [Mass/Vol] 8.9 mg/dL 8.5-10.1 [facility] Serum or plasma cholesterol measurement (mass/volume)Ordered By: Marjorie Marti on 08-17-2024 Cholesterol [Mass/Vol] 109 mg/dL <200 [facility] Comment on above: <200 mg/dL Desirable 200-240 mg/dL Borderline >240 mg/dL High Risk Serum or plasma creatinine m easurement (mass/volume)Ordered By: Marjorie Marti on 08-17-2024 Creatinine [Mass/Vol] 1.09 mg/dL 0.70-1.30 [facility] Comment on above: The validity of the calculated GFR & GFRAA in patients over 70 years has not been determined. Clinical correlation is essential. Serum or plasma urea nitroge n measurement (mass/volume)Ordered By: Marjorie Marti on 08-17-2024 Urea nitrogen [Mass/Vol] 13 mg/dL 7-[address] [facility] Daniel antibody assayOrdered By: Marjorie Marti on 08-17-2024 SM Antibody <0.2 AI 0.0-0.[address] [facility] Comment on above: Previous reported re sult: TNP AIEdited by: DEVORAH on 08/21/24:1407 AMENDED REPORT 08/21/24 1407 DANIEL Ab previously reported as: Test not performed Sodium levelOrdered By: Og Marti on 08-17-2024 Sodium [Moles/Vol] 134 mmol/L Low 136-145 [facility] TIBCOrdered By: Marjorie Bustamante asov on 08-17-2024 Total Iron Binding Capacity 394 ug/dL 250-[address] [facility] Total proteinOrdered By: Christine Marti on 08-17-2024 Protein [Mass/Vol] 8.4 g/dL High 6.4-8.2 [facility] TransferrinOrdered By: Codi Marti on 08-17-2024 Transferrin [Mass/Vol] 307 mg/dL 177-329 [facility] Comment on above: Performed at: [facility] [address] [id number] Director: Americo Bradford PhD, Phone: [phone] at: [facility] [id number] Director: Leland Byrne MD, Phone: [phone] Triglycerides measurementOrd ered By: Marjorie Marti on 08-17-2024 Triglyceride [Mass/Vol] 242 mg/dL High <[address] [facility] Comment on above: The drugs N-Acetylcy steine and Metamizole may falsely depress this assay.Serum Triglycerides Reference Interval Normal <150 mg/dL Borderline high 150 - 199 mg/dL High 200 - 499 mg/dL Very High > or = 500 mg/dL Venous blood ammonia measure mentOrdered By: Marjorie Marti on 08-17-2024 Ammonia (P) [Moles/Vol] 31.0 umol/L [facility] Very low density lipoprotein (VLDL) cholesterol measurementOrdered By: Marjorie Marti on 08-17-2024 VLDL Cholesterol 48 mg/dL High [facility] White blood cell (WBC) count Ordered By: Marjorie Marti on 08-17-2024 WBC (Bld) [#/Vol] 9.7 10*3/uL 4.4-11.0 [facility] Abdomen/Pelvis without Conto n 06-29-2024 Abdomen/Pelvis without Cont [facility] Imaging Services [address] [place], [place] [id number] Abdomen/Pelvis without Cont MR#: [id number] Acct: [id number] Name: JEANNE RIVERS Rep #: [id number] : 1960 M 64 From: Santos Morse DO PCP: Dr. Edilia Remy MD Status: [facility] CLI Study: Abdomen/Pelvis without Cont Date of Exam: 06/16 12/07 Exam# [id number] Ordering Dr: Edilia Remy MD [id number] STUDY: CT ABDOMEN AND PELVIS WITHOUT CONTRAST [...] Signed: Santos Morse DO at 9:52 EST , CC: Dr. Edilia Remy MD [employer] Former: Signed Normal [facility] CBC W/Diff, Automatedon 11-0 Absolute Lymph 2.37 X10 3/uL Normal 0.83-4.[address] [facility] Comment on above: Performed By: #### L 500.3400, L100.0100, L501.2450, L500.2500 #### [facility] [address] [place], [address] Absolute Neut 6.2 X10 3/uL Normal 2.0-7.[address] [facility] Comment on above: Performed By: #### L 500.3400, L100.0100, L501.2450, L500.2500 #### [facility] [address] [place], [address] Basophils/100 WBC (Bld) 0.2 % Normal 0-[address] [facility] Comment on above: Performed By: #### L 500.3400, L100.0100, L501.2450, L500.2500 #### [facility] [address] [place], [address] Eosinophils/100 WBC (Bld) 1.3 % Normal 0-[address] [facility] Comment on above: Performed By: #### L 500.3400, L100.0100, L501.2450, L500.2500 #### [facility] [address] [place], [address] Erythrocyte distribution width (RBC) [Ratio] 15.5 % High 11.6-14.[address] [facility] Comment on above: Performed By: #### L 500.3400, L100.0100, L501.2450, L500.2500 #### [facility] [address] [place], [address] Hematocrit (Bld) [Volume fraction] 44.1 % Normal 40-[address] [facility] Comment on above: Performed By: #### L 500.3400, L100.0100, L501.2450, L500.2500 #### [facility] [address] [place], [address] Hemoglobin (Bld) [Mass/Vol] 14.3 g/dL Normal 13.0-16.[address] [facility] Comment on above: Performed By: #### L 500.3400, L100.0100, L501.2450, L500.2500 #### [facility] [address] [place], [address] IG% 0.400 Normal 0.0-0.[address] [facility] Comment on above: Result Comment: IG% - Immature Granulocytes (promyelocytes, myelocytes and metamyelocytes) > 1% indicates that a LEFT SHIFT is Present. Performed By: #### L 500.3400, L100.0100, L501.2450, L500.2500 #### [facility] [address] [place], [address] Lymphocytes/100 WBC (Bld) 25.6 % Normal 19-[address] [facility] Comment on above: Performed By: #### L 500.3400, L100.0100, L501.2450, L500.2500 #### [facility] [address] [place], [address] MCH (RBC) [Entitic mass] 30.3 pg Normal 27.0-32.[address] [facility] Comment on above: Performed By: #### L 500.3400, L100.0100, L501.2450, L500.2500 #### [facility] [address] [place], [address] MCHC (RBC) [Mass/Vol] 32.4 g/dL Normal 32-36 [facility] Comment on above: Performed By: #### L 500.3400, L100.0100, L501.2450, L500.2500 #### [facility] [address] [place], [address] MCV (RBC) [Entitic vol] 93.4 fL Normal 80-[address] [facility] Comment on above: Performed By: #### L 500.3400, L100.0100, L501.2450, L500.2500 #### [facility] [address] [place], [address] Monocytes/100 WBC (Bld) 5.6 % Normal 0-[address] [facility] Comment on above: Performed By: #### L 500.3400, L100.0100, L501.2450, L500.2500 #### [facility] [address] [place], [address] Neutrophils/100 WBC (Bld) 66.9 % Normal 47-[address] [facility] Comment on above: Performed By: #### L 500.3400, L100.0100, L501.2450, L500.2500 #### [facility] [address] [place], [address] Nucleated RBC (Bld) [#/Vol] 0 10*3/uL Normal 0-[address] [facility] Comment on above: Performed By: #### L 500.3400, L100.0100, L501.2450, L500.2500 #### [facility] [address] [place], [address] Platelet mean volume (Bld) [Entitic vol] 11.0 fL Normal 6.2-12.[address] [facility] Comment on above: Performed By: #### L 500.3400, L100.0100, L501.2450, L500.2500 #### [facility] [address] [place], [address] Platelets (Bld) [#/Vol] 196 10*3/uL Normal 150-[address] [facility] Comment on above: Performed By: #### L 500.3400, L100.0100, L501.2450, L500.2500 #### [facility] [address] [place], [address] RBC (Bld) [#/Vol] 4.72 10*6/uL Normal 4.6-6.2 [facility] Comment on above: Performed By: #### L 500.3400, L100.0100, L501.2450, L500.2500 #### [facility] [address] [place], [address] RDW SD 53.5 fl High 35.1-43.[address] [facility] Comment on above: Performed By: #### L 500.3400, L100.0100, L501.2450, L500.2500 #### [facility] [address] [place], [address] WBC (Bld) [#/Vol] 9.3 10*3/uL Normal 4.4-11.0 [facility] Comment on above: Performed By: #### L 500.3400, L100.0100, L501.2450, L500.2500 #### [facility] [address] [place], [address] Comprehensive Metabolic Prof ilon 06-23-2024 Albumin [Mass/Vol] 3.2 g/dL Normal 3.2-5.0 [facility] Comment on above: Performed By: #### L 500.3400, L100.0100, L501.2450, L500.2500 #### [facility] [address] [place], [address] Albumin/Globulin [Mass ratio] 0.7 {ratio} Low 0.9-2.[address] [facility] Comment on above: Performed By: #### L 500.3400, L100.0100, L501.2450, L500.2500 #### [facility] [address] [place], [address] ALK P 106 U/L Normal 45-[address] [facility] Comment on above: Performed By: #### L 500.3400, L100.0100, L501.2450, L500.2500 #### [facility] [address] [place], [address] ALT [Catalytic activity/Vol] 27 U/L Normal 16-[address] [facility] Comment on above: Performed By: #### L 500.3400, L100.0100, L501.2450, L500.2500 #### [facility] [address] [place], [address] AST [Catalytic activity/Vol] 21 U/L Normal 15-[address] [facility] Comment on above: Performed By: #### L 500.3400, L100.0100, L501.2450, L500.2500 #### [facility] [address] [place], [address] Bilirubin [Mass/Vol] 0.50 mg/dL Normal 0.20-1.00 [facility] Comment on above: Result Comment: For patients on eltrombopag therapy, use of Dimension [place] TBIL is not recommended. Performed By: #### L 500.3400, L100.0100, L501.2450, L500.2500 #### [facility] [address] [place], [address] BUN/CRE 13.4 RATIO Normal 10-[address] [facility] Comment on above: Performed By: #### L 500.3400, L100.0100, L501.2450, L500.2500 #### [facility] [address] [place], [address] CA,Total 8.6 mg/dL Normal 8.5-10.[address] [facility] Comment on above: Performed By: #### L 500.3400, L100.0100, L501.2450, L500.2500 #### [facility] [address] [place], [address] Chloride [Moles/Vol] 98 mmol/L Normal 98-107 [facility] Comment on above: Performed By: #### L 500.3400, L100.0100, L501.2450, L500.2500 #### [facility] [address] [place], [address] CO2 [Moles/Vol] 29.0 mmol/L Normal 21.0-32.[address] [facility] Comment on above: Performed By: #### L 500.3400, L100.0100, L501.2450, L500.2500 #### [facility] [address] [place], [address] Creatinine [Mass/Vol] 0.97 mg/dL Normal 0.70-1.30 [facility] Comment on above: Result Comment: The validity of the calculated GFR GFRAA in patients over 70 years has not been determined. Clinical correlation is essential. Performed By: #### L 500.3400, L100.0100, L501.2450, L500.2500 #### [facility] [address] [place], [address] EST GFR - AA 100 mL/min Normal >[address] [facility] Comment on above: Result Comment: Afri can Citizen Of [place] GFR Calc Performed By: #### L 500.3400, L100.0100, L501.2450, L500.2500 #### [facility] [address] [place], [address] GAP 5 Normal 5-[address] [facility] Comment on above: Performed By: #### L 500.3400, L100.0100, L501.2450, L500.2500 #### [facility] [address] [place], [address] GFR/1.73 sq M.predicted among non-blacks MDRD (S/P/Bld) [Vol rate/Area] 83 mL/min/{1.73_m2} Normal >[address] [facility] Comment on above: Result Comment: Non- GFR Calc Performed By: #### L 500.3400, L100.0100, L501.2450, L500.2500 #### [facility] [address] [place], [address] Globulin (S) [Mass/Vol] 4.4 g/dL High 2.2-4.[address] [facility] Comment on above: Performed By: #### L 500.3400, L100.0100, L501.2450, L500.2500 #### [facility] [address] [place], [address] Glucose [Mass/Vol] 201 mg/dL High 74-106 [facility] Comment on above: Result Comment: Gluc ose result greater than or equal to 200 mg/dL suggests DIABETES MELLITUS per A.D.A. criteria. Performed By: #### L 500.3400, L100.0100, L501.2450, L500.2500 #### [facility] [address] [place], [address] Potassium [Moles/Vol] 3.8 mmol/L Normal 3.5-5.1 [facility] Comment on above: Performed By: #### L 500.3400, L100.0100, L501.2450, L500.2500 #### [facility] [address] [place], [address] Sodium [Moles/Vol] 132 mmol/L Low 136-145 [facility] Comment on above: Performed By: #### L 500.3400, L100.0100, L501.2450, L500.2500 #### [facility] [address] [place], [address] T PROT 7.6 g/dL Normal 6.4-8.[address] [facility] Comment on above: Performed By: #### L 500.3400, L100.0100, L501.2450, L500.2500 #### [facility] [address] [place], [address] Urea nitrogen [Mass/Vol] 13 mg/dL Normal 7-[address] [facility] Comment on above: Performed By: #### L 500.3400, L100.0100, L501.2450, L500.2500 #### [facility] [address] [place], [address] Hemoglobin A1con 06-23-2024 HbA1c (Bld) [Mass fraction] 8.2 % High 3.8-5.[address] [facility] Comment on above: Result Comment: Norm al < 5.7 % Prediabetic 5.7 - 6.4 % Diabetic >or= 6.5 % Please note range changes. Performed By: #### L 500.3400, L100.0100, L501.2450, L500.2500 #### [facility] [address] [place], [address] Lipaseon 06-23-2024 Lipase [Catalytic activity/Vol] 38 U/L Normal 13-[address] [facility] Comment on above: Result Comment: Plea se note: LIPASE revised reference range effective 22. New Lipase methodology. Expected to produce lower values than the previous assay method. NEW Reference Range: 13 - 75 U/L Performed By: #### L 500.3400, L100.0100, L501.2450, L500.2500 #### [facility] [place], [address] Surgery Specimen Level Sandhya 03-29-2024 Surgery Specimen Level IV Patient Age/Sex Location Account Attending Physician JEANNE RIVERS 63/M [facility] [id number] Dr. Edilia Remy MD Specimen: [id number] Received: 03/30/24 Status: DAWN Francois Num: [id number] Spec Type: Lesion Subm Dr: Dr. Edilia [...] sectioned and submitted entirely in one cassette. . 03/31/2024 TC:3 [facility]:[id number] Patient Age/Sex Location Account Attending Physician JEANNE RIVERS 63/M LABSPEC [id number] Dr. Edilia Remy MD Signed (signature on file) Dr. Haroon Harrison MD 04/03/24 [address] [facility] Comment on above: Performed By: #### P SUIV #### [facility] [address] [place] [address], [id number] BMP with eGFRon 08-22-2023 AGE 63 years Normal [facility] Comment on above: Performed By: #### 2 73410 #### [address] [address] Anion gap [Moles/Vol] 11 mmol/L Normal 10 - 20 [facility] Comment on above: Performed By: #### 2 61721 #### [facility],[address] [place] [address] BMP with eGFR Normal [facility] Comment on above: Result Comment: BASI C METABOLIC PANEL Performed By: #### 2 74848 #### [address] [address] Calcium [Mass/Vol] 8.8 mg/dL Normal 8.5 - 10.1 [facility] Comment on above: Performed By: #### 2 72250 #### [address] [address] Chloride [Moles/Vol] 97 mmol/L Low 98 - 107 [facility] Comment on above: Performed By: #### 2 57304 #### [facility],[address] [place] [address] CO2 [Moles/Vol] 35.2 mmol/L High 21.0 - 32.0 [facility] Comment on above: Performed By: #### 2 80516 #### [facility],[address] [place], [place] [address] Creatinine [Mass/Vol] 0.96 mg/dL Normal 0.70 - 1.30 [facility] Comment on above: Performed By: #### 2 17863 #### [facility],[address] [place], [place] [address] GFR/1.73 sq M.predicted among non-blacks MDRD (S/P/Bld) [Vol rate/Area] mL/min/{1.73_m2} Normal 60 - 999 [facility] Comment on above: Performed By: #### 2 42639 #### [facility],[address] [place], [place] [address] Result Comment: ACCO RDING TO THE NATIONAL KIDNEY DISEASE EDUCATION PROGRAM(NKDE), A NORMAL eGFR IS A VALUE GREATER THAN OR EQUAL TO 60 ML/MIN/1.73 SQ METERS. CHRONIC KIDNEY DISEASE: <60mL/MIN/1.73 SQ METERS KIDNEY FAILURE: <15mL/MIN/1.73 SQ METERS THIS TEST SHOULD ONLY BE USED FOR PATIENTS 18 YEARS OF AGE AND OLDER. Glucose [Mass/Vol] 157 mg/dL High 74 - 106 [facility] Comment on above: Performed By: #### 2 22442 #### [facility],[address] [place] [address] Potassium [Moles/Vol] 3.2 mmol/L Low 3.5 - 5.1 [facility] Comment on above: Performed By: #### 2 23701 #### [facility],[address] [place], [place] [address] Sodium [Moles/Vol] 140 mmol/L Normal 136 - 145 [facility] Comment on above: Performed By: #### 2 94927 #### [facility],[address] [place] [address] Urea nitrogen [Mass/Vol] 5 mg/dL Low 7 - 18 [facility] Comment on above: Performed By: #### 2 14081 #### [facility],[address] [place], [place] [address] CBC (NO DIFF)on 08-22-2023 CBC panel Auto (Bld) Normal [facility] Comment on above: Result Comment: CBC( WITHOUT DIFFERENTIAL) Performed By: #### 2 56128 #### [facility],[address] [place] [address] Erythrocyte distribution width (RBC) [Ratio] 16.8 % High 12.0 - 15.6 [facility] Comment on above: Performed By: #### 2 40660 #### [facility],[address] [place], [place] [address] Hematocrit (Bld) [Volume fraction] 39.6 % Low 40.0 - 52.0 [facility] Comment on above: Performed By: #### 2 17650 #### [facility],[address] [place], [place] [address] Hemoglobin (Bld) [Mass/Vol] 13.1 g/dL Normal 13.0 - 17.5 [facility] Comment on above: Performed By: #### 2 26253 #### [facility],[address] [place], [place] [address] MCH (RBC) [Entitic mass] 28 pg Normal 27 - 33 [facility] Comment on above: Performed By: #### 2 92426 #### [facility],[address] [place] [address] MCHC 33 X10 3 Normal 32 - 36 [facility] Comment on above: Performed By: #### 2 71079 #### [facility],[address] [place] [address] MCV (RBC) [Entitic vol] 85 fL Normal 81 - 98 [facility] Comment on above: Performed By: #### 2 70811 #### [facility],[address] [place] [address] PLATELET 191 x10EE3/UL Normal 150 - 450 [facility] Comment on above: Performed By: #### 2 18193 #### [facility],[address] [place] [address] Platelet mean volume (Bld) [Entitic vol] 8.5 fL Normal 6.4 - 10.5 [facility] Comment on above: Result Comment: {CB] Performed By: #### 2 93268 #### [facility],[address] [place] [address] RBC 4.66 x 10EE6/UL Normal 4.50 - 6.00 [facility] Comment on above: Performed By: #### 2 43654 #### [facility],[address] [place] [address] WBC 6.9 x 10EE3/UL Normal 4.5 - 10.8 [facility] Comment on above: Performed By: #### 2 64807 #### [facility],[address] [place] [address] CHEST 1 VIEWon 08-22-2023 CHEST 1 VIEW [place] [address] Patient: JEANNE RIVERS Phone#: : 1960 Age: 63 Gender: M Pt. Type: ER Account: [id number] Location: [facility] Ordering: DR. CIERRA BOLTON Exam Date: 08/22/2023/2:12 Family Phys: EDILIA REMY Charge Code: 687049 Physician: [place] Order #: [id number] Dose#: PROCEDURE: X-RAY CHEST 1 VIEW COMPARISON: [facility], XR, CHEST 2 VIEWS, 03/22/2021, 19:34. [...] King MD on 08/22/2023 at 16:21 Normal [facility] NT-proBNPon 08-22-2023 Natriuretic peptide B (Bld) [Mass/Vol] 1931 pg/mL High 0 - 125 [facility] Comment on above: Performed By: #### 2 54439 #### [facility],[address] [place] [address] Basic metabolic 2000 panelon 06-05-2023 Anion gap [Moles/Vol] 9 mmol/L Normal 9-18 [facility] Comment on above: Order Comment: Hannah kirkland Type: BLOOD SPECIMEN Ordering Facility: [facility] Address: [address] [place] [address] Performed By: #### 2 4321-2, 19797-9 #### [facility] CLIA [id number] [address] [place] [address] [place] Calcium [Mass/Vol] 9.1 mg/dL Normal 8.5-10.2 [facility] Comment on above: Order Comment: Speci marita Type: BLOOD SPECIMEN Ordering Facility: [facility] Address: [address] [place] [address] Performed By: #### 2 4321-2, 32288-2 #### [facility] CLIA [id number] [address] [place] [address] [place] Chloride [Moles/Vol] 96 mmol/L Low 97-105 [facility] Comment on above: Order Comment: Speci men Type: BLOOD SPECIMEN Ordering Facility: [facility] Address: [address] [place] [address] Performed By: #### 2 4321-2, 75500-1 #### [facility] CLIA [id number] [address] [place] [address] [place] CO2 [Moles/Vol] 30 mmol/L Normal 22-30 [facility] Comment on above: Order Comment: Speci men Type: BLOOD SPECIMEN Ordering Facility: [facility] Address: [address] [place] [address] Performed By: #### 2 4321-2, 78071-4 #### [facility] CLIA [id number] [address] [place] [address] [place] Creatinine [Mass/Vol] 0.74 mg/dL Normal 0.73-1.22 [facility] Comment on above: Order Comment: Speci men Type: BLOOD SPECIMEN Ordering Facility: [facility] Address: [address] [place] [address] Performed By: #### 2 4321-2, 64176-3 #### [facility] CLIA [id number] [address] [place] [address] [place] Creatinine and Glomerular filtration rate.predicted panel (S/P/Bld) 102 mL/min/1.73m??? Normal >=60 [facility] Comment on above: Order Comment: Speci men Type: BLOOD SPECIMEN Ordering Facility: [facility] Address: [address] [place] [address] Result Comment: Marti mated Glomerular Filtration Rate [...] actual GFR. Performed By: #### 2 4321-2, 44378-2 #### [facility] CLIA [id number] [address] [place] [address] [place] Glucose [Mass/Vol] 143 mg/dL High 74-99 [facility] Comment on above: Order Comment: Hannah kirkland Type: BLOOD SPECIMEN Ordering Facility: [facility] Address: [place] [address] Result Comment: The [place] Diabetes Association (ADA) provides guidance for cutoff [...] Standards of Medical Care in Diabetes 2016, [place] Diabetes Association. Diabetes Care. 2016.39(Suppl 1). Performed By: #### 2 4321-2, 73971-9 #### [facility] CLIA [id number] [address] [place] [address] [place] Potassium [Moles/Vol] 4.0 mmol/L Normal 3.7-5.1 [facility] Comment on above: Order Comment: Hannah kirkland Type: BLOOD SPECIMEN Ordering Facility: [facility] Address: [place] [address] Performed By: #### 2 4321-2, 53821-0 #### [facility] CLIA [id number] [address] [place] [address] [place] Sodium [Moles/Vol] 135 mmol/L Low 136-144 [facility] Comment on above: Order Comment: Hannah kirkland Type: BLOOD SPECIMEN Ordering Facility: [facility] Address: [address] [place] [address] Performed By: #### 2 4321-2, 45668-7 #### [facility] CLIA [id number] [address] [place] [address] [place] Urea nitrogen [Mass/Vol] 7 mg/dL Low 9-24 [facility] Comment on above: Order Comment: Speci men Type: BLOOD SPECIMEN Ordering Facility: [facility] Address: [address] [place] [address] Performed By: #### 2 4321-2, 95387-0 #### [facility] CLIA [id number] [address] [place] [address] [place] CBC W Auto Differential pane l (Bld)on 06-05-2023 Basophils (Bld) [#/Vol] 10*3/uL Normal <0.11 [facility] Comment on above: Order Comment: Speci men Type: BLOOD SPECIMEN Ordering Facility: [facility] Address: [address] [place] [address] Performed By: #### 5 7021-8 #### [facility] CLIA [id number] [address] [place] [address] [place] Basophils/100 WBC (Bld) 0.3 % Normal [facility] Comment on above: Order Comment: Speci men Type: BLOOD SPECIMEN Ordering Facility: [facility] Address: [address] [place] [address] Performed By: #### 5 7021-8 #### [facility] CLIA [id number] [address] [place] [address] [place] Differential cell count method Nom (Bld) Auto Normal [facility] Comment on above: Order Comment: Speci men Type: BLOOD SPECIMEN Ordering Facility: [facility] Address: [address] [place] [address] Performed By: #### 5 7021-8 #### [facility] CLIA [id number] [address] [place] [address] [place] Eosinophils (Bld) [#/Vol] 0.12 10*3/uL Normal <0.46 [facility] Comment on above: Order Comment: Speci men Type: BLOOD SPECIMEN Ordering Facility: [facility] Address: [address] [place] [address] Performed By: #### 5 7021-8 #### [facility] CLIA [id number] [address] [place] [address] [place] Eosinophils/100 WBC (Bld) 1.6 % Normal [facility] Comment on above: Order Comment: Speci men Type: BLOOD SPECIMEN Ordering Facility: [facility] Address: [address] [place] [address] Performed By: #### 5 7021-8 #### [facility] CLIA [id number] [address] [place] [address] [place] Erythrocyte distribution width (RBC) [Ratio] 14.6 % Normal 11.5-15.0 [facility] Comment on above: Order Comment: Speci men Type: BLOOD SPECIMEN Ordering Facility: [facility] Address: [address] [place] [address] Performed By: #### 5 7021-8 #### [facility] CLIA [id number] [address] [place] [address] [place] Hematocrit (Bld) [Volume fraction] 40.8 % Normal 39.0-51.0 [facility] Comment on above: Order Comment: Speci men Type: BLOOD SPECIMEN Ordering Facility: [facility] Address: [address] [place] [address] Performed By: #### 5 7021-8 #### [facility] CLIA [id number] [address] [place] [address] [place] Hemoglobin (Bld) [Mass/Vol] 12.9 g/dL Low 13.0-17.0 [facility] Comment on above: Order Comment: Speci men Type: BLOOD SPECIMEN Ordering Facility: [facility] Address: [address] [place] [address] Performed By: #### 5 7021-8 #### [facility] CLIA [id number] [address] [place] [address] [place] Immature granulocytes (Bld) [#/Vol] 10*3/uL Normal <0.10 [facility] Comment on above: Order Comment: Speci men Type: BLOOD SPECIMEN Ordering Facility: [facility] Address: [address] [place] [address] Performed By: #### 5 7021-8 #### [facility] CLIA [id number] [address] [place] [address] [place] Immature granulocytes/100 WBC (Bld) 0.3 % Normal [facility] Comment on above: Order Comment: Speci men Type: BLOOD SPECIMEN Ordering Facility: [facility] Address: [address] [place] [address] Performed By: #### 5 7021-8 #### [facility] CLIA [id number] [address] [place] [address] [place] Lymphocytes (Bld) [#/Vol] 2.23 10*3/uL Normal 1.00-4.00 [facility] Comment on above: Order Comment: Speci men Type: BLOOD SPECIMEN Ordering Facility: [facility] Address: [address] [place] [address] Performed By: #### 5 7021-8 #### [facility] CLIA [id number] [address] [place] [address] [place] Lymphocytes/100 WBC (Bld) 29.1 % Normal [facility] Comment on above: Order Comment: Speci men Type: BLOOD SPECIMEN Ordering Facility: [facility] Address: [address] [place] [address] Performed By: #### 5 7021-8 #### [facility] CLIA [id number] [address] [place] [address] [place] MCH (RBC) [Entitic mass] 28.1 pg Normal 26.0-34.0 [facility] Comment on above: Order Comment: Speci men Type: BLOOD SPECIMEN Ordering Facility: [facility] Address: [address] [place] [address] Performed By: #### 5 7021-8 #### [facility] CLIA [id number] [address] [place] [address] [place] MCHC (RBC) [Mass/Vol] 31.6 g/dL Normal 30.5-36.0 [facility] Comment on above: Order Comment: Speci men Type: BLOOD SPECIMEN Ordering Facility: [facility] Address: [address] [place] [address] Performed By: #### 5 7021-8 #### [facility] CLIA [id number] [address] [place] [address] [place] MCV (RBC) [Entitic vol] 88.9 fL Normal 80.0-100.0 [facility] Comment on above: Order Comment: Speci men Type: BLOOD SPECIMEN Ordering Facility: [facility] Address: [address] [place] [address] Performed By: #### 5 7021-8 #### [facility] CLIA [id number] [address] [place] [address] [place] Monocytes (Bld) [#/Vol] 0.49 10*3/uL Normal <0.87 [facility] Comment on above: Order Comment: Speci men Type: BLOOD SPECIMEN Ordering Facility: [facility] Address: [address] [place] [address] Performed By: #### 5 7021-8 #### [facility] CLIA [id number] [address] [place] [address] [place] Monocytes/100 WBC (Bld) 6.4 % Normal [facility] Comment on above: Order Comment: Speci men Type: BLOOD SPECIMEN Ordering Facility: [facility] Address: [address] [place] [address] Performed By: #### 5 7021-8 #### [facility] CLIA [id number] [address] [place] [address] [place] Neutrophils (Bld) [#/Vol] 4.79 10*3/uL Normal 1.45-7.50 [facility] Comment on above: Order Comment: Speci men Type: BLOOD SPECIMEN Ordering Facility: [facility] Address: [address] [place] [address] Performed By: #### 5 7021-8 #### [facility] CLIA [id number] [address] [place] [address] [place] Neutrophils/100 WBC (Bld) 62.3 % Normal [facility] Comment on above: Order Comment: Speci men Type: BLOOD SPECIMEN Ordering Facility: [facility] Address: [address] [place] [address] Performed By: #### 5 7021-8 #### [facility] CLIA [id number] [address] [place] [address] [place] Nucleated RBC (Bld) [#/Vol] 10*3/uL Normal <0.01 [facility] Comment on above: Order Comment: Speci men Type: BLOOD SPECIMEN Ordering Facility: [facility] Address: [address] [place] [address] Performed By: #### 5 7021-8 #### [facility] CLIA [id number] [address] [place] [address] [place] Nucleated RBC/100 WBC (Bld) [Ratio] 0.0 /100 WBC Normal [facility] Comment on above: Order Comment: Speci men Type: BLOOD SPECIMEN Ordering Facility: [facility] Address: [address] [place] [address] Performed By: #### 5 7021-8 #### [facility] CLIA [id number] [address] [place] [address] [place] Platelet mean volume (Bld) [Entitic vol] 11.4 fL Normal 9.0-12.7 [facility] Comment on above: Order Comment: Speci men Type: BLOOD SPECIMEN Ordering Facility: [facility] Address: [address] [place] [address] Performed By: #### 5 7021-8 #### [facility] CLIA [id number] [address] [place] [address] [place] Platelets (Bld) [#/Vol] 160 10*3/uL Normal 150-400 [facility] Comment on above: Order Comment: Speci men Type: BLOOD SPECIMEN Ordering Facility: [facility] Address: [address] [place] [address] Performed By: #### 5 7021-8 #### [facility] CLIA [id number] [address] [place] [address] [place] RBC (Bld) [#/Vol] 4.59 10*6/uL Normal 4.20-6.00 [facility] Comment on above: Order Comment: Speci men Type: BLOOD SPECIMEN Ordering Facility: [facility] Address: [address] [place], [place] [address], [place] [address] Performed By: #### 5 7021-8 #### [facility] CLIA [id number] [address] [place] [address] WBC (Bld) [#/Vol] 7.67 10*3/uL Normal 3.70-11.00 [facility] Comment on above: Order Comment: Speci men Type: BLOOD SPECIMEN Ordering Facility: [facility] Address: [place] [address] Performed By: #### 5 7021-8 #### [facility] CLIA [id number] [address] [place], [place] [address] [facility] ED PROV NOTEon 06-05-2023 ED PROV NOTE HNO ID: [id number] Author: Yoselyn Aguilar APRN.ROMARIO Service: Pulmonary Disease Author Type: Nurse Practitioner [...] Testing was reported to been done at [facility]. He does have bilateral lower extremity [...] 06/05/23 155 (more content not included)... Normal [facility] Lactate (Bld) [Moles/Vol]on 06-05-2023 Lactate [Moles/Vol] 1.1 mmol/L Normal 0.5-2.2 [facility] Comment on above: Order Comment: Hannah kirkland Type: BLOOD SPECIMEN Ordering Facility: [facility] Address: [address] [place] [address] Performed By: #### 3 2693-4 #### [facility] CLIA [id number] [address] [place] [address] [place] NT-[facility]05 Natriuretic peptide.B prohormone N-Terminal [Mass/Vol] 2208 pg/mL High <125 [facility] Comment on above: Order Comment: Hannah kirkland Type: BLOOD SPECIMEN Ordering Facility: [facility] Address: [address] [place] [address] Performed By: #### 2 4321-2, 14440-6 #### [facility] CLIA [id number] [address] [place] [address] [place] XR ANKLE 3V AP/LAT/OBL LTon [...] 06/05/2023 11:48:44 AM EST Workstation ID : [id number] [employer] Former: [employer] Transcribe Date/Time: Jun 05 2023 11:48A Dictated by : NATE FAGAN, This examination was interpreted and the report reviewed and electronically signed by: NATE FAGAN, on Jun 05 2023 11:48AM EST [id number] [facility] XR ELBOW 2V AP/LAT LTon 05-17 XR [...] 12:07:13 PM EST Workstation ID : [id number] [employer] Former: [employer] Transcribe Date/Time: Jun 05 2023 12:07P Dictated by : RUSTY BARTLETT MD This examination was interpreted and the report reviewed and electronically signed by: RUSTY BARTLETT MD on Jun 05 2023 12:07PM EST [id number] [facility] Absolute lymphocyte countOrd ered By: Joss Pam on 05-29-2023 Lymphocytes Auto (Unsp spec) [#/Vol] 1.76 10*3/uL 0.83-4.[address] [facility] Basophil percentageOrdered B y: Joss Pam on 05-29-2023 Basophil percentage 0 SEEN /hpf 0-5 [facility] Basophils/100 WBC (Bld) 0.5 % 0-[address] [facility] Bilirubin [Mass/Vol] 0.50 mg/dL 0.20-1.00 [facility] Comment on above: For patients on eltr ombopag therapy, use of Dimension [place] TBIL is not recommended. Chloride [Moles/Vol] 98 mmol/L 98-107 [facility] Eosinophils/100 WBC (Bld) 1.4 % 0-[address] [facility] Glucose [Mass/Vol] 203 mg/dL 74-106 [facility] Comment on above: Glucose result great er than or equal to 200 mg/dLsuggests DIABETES MELLITUS per A.D.A. criteria. Neutrophils (Bld) [#/Vol] 4.0 10*3/uL 2.0-7.[address] [facility] Neutrophils/100 WBC (Bld) 63.1 % 47-[address] [facility] Potassium [Moles/Vol] 2.9 mmol/L 3.5-5.1 [facility] Protein [Mass/Vol] 8.2 g/dL 6.4-8.2 [facility] Sodium [Moles/Vol] 136 mmol/L 136-145 [facility] WBC (Bld) [#/Vol] 6.4 10*3/uL 4.4-11.0 [facility] Bilirubin Test strip Ql (U)O rdered By: Joss Orozco on 05-29-2023 Bilirubin Ql (U) Negative Negative [facility] Blood erythrocytes count (nu mber/volume)Ordered By: Joss Orozco on 05-29-2023 RBC (Bld) [#/Vol] 4.88 10*6/uL 4.6-6.2 [facility] Blood hemoglobin measurement (mass/volume)Ordered By: Joss Orozco on 05-29-2023 Hemoglobin (Bld) [Mass/Vol] 13.8 g/dL 13.0-16.[address] [facility] Blood lymphocytes/100 leukoc ytesOrdered By: Joss Orozco on 05-29-2023 Lymphocytes/100 WBC (Bld) 27.5 % 19-[address] [facility] Blood monocytes/100 leukocyt esOrdered By: Joss Orozco on 05-29-2023 Monocytes/100 WBC (Bld) 7.3 % 0-[address] [facility] Blood platelet mean volumeOr dered By: Joss Orozco on 05-29-2023 Platelet mean volume (Bld) [Entitic vol] 11.5 fL 6.2-12.[address] [facility] Determination of erythrocyte mean corpuscular volume (MCV)Ordered By: Joss Orozco on 05-29-2023 MCV (RBC) [Entitic vol] 90.8 fL 80-[address] [facility] Hematocrit Auto (Bld) [Volum e fraction]Ordered By: Joss Orozco on 05-29-2023 Hematocrit (Bld) [Volume fraction] 44.3 % 40-[address] [facility] Ketones Test strip Ql (U)Ord ered By: Joss Orozco on 05-29-2023 Ketones Ql (U) Negative Negative [facility] Laboratory - Chemistry and C hemistry - challengeOrdered By: Joss Orozco on 05-29-2023 ALP [Catalytic activity/Vol] 125 U/L 45-[address] [facility] ALT [Catalytic activity/Vol] 17 U/L 16-[address] [facility] CO2 [Moles/Vol] 32.0 mmol/L 21.0-32.[address] [facility] Globulin (S) [Mass/Vol] 5.0 g/dL 2.2-4.[address] [facility] Urea nitrogen/Creatinine [Mass ratio] 3.8 mg/mg 10-[address] [facility] Laboratory - Hematology and Cell countsOrdered By: Joss Orozco on 05-29-2023 Erythrocyte distribution width (RBC) [Entitic vol] 48.9 fL 35.1-43.[address] [facility] Erythrocyte distribution width (RBC) [Ratio] 14.6 % 11.6-14.[address] [facility] Immature granulocytes/100 WBC (Bld) 0.200 % 0.0-0.[address] [facility] Comment on above: IG% - Immature Granu locytes (promyelocytes, myelocytes and metamyelocytes) > 1% indicates that a LEFT SHIFT is Present. MCH (RBC) [Entitic mass] 28.3 pg 27.0-32.[address] [facility] Nucleated RBC/100 WBC (Bld) [Ratio] 0 % 0-[address] [facility] MCHC Auto (RBC) [Mass/Vol]Or dered By: Joss Orozco on 05-29-2023 MCHC (RBC) [Mass/Vol] 31.2 g/dL 32-36 [facility] Mucus LM Ql (Urine sed)Order ed By: Joss Orozco on 05-29-2023 Mucus Ql (Urine sed) 0 SEEN /hpf [facility] Nitrite Test strip Ql (U)Ord ered By: Joss Orozco on 05-29-2023 Nitrite Ql (U) Negative Negative [facility] No Panel InformationOrdered By: Joss Orozco on 05-29-2023 Estimated Creatinine Clearance Calc 101.94 ml/min [facility] Estimated GFR (MDRD) Amer 127 mL/min >[address] [facility] Comment on above: GFR Calc Estimated GFR (MDRD) Non-Af Amer 105 mL/min >[address] [facility] Comment on above: Non- GFR Calc Platelets bldOrdered By: Cuong Orozco on 05-29-2023 Platelets (Bld) [#/Vol] 172 10*3/uL 150-[address] [facility] Protein Test strip Ql (U)Ord ered By: Joss Orozco on 05-29-2023 Protein Ql (U) 30 mg/dl Negative [facility] Serum or plasma albumin theresa urement (mass/volume)Ordered By: Joss Orozco on 05-29-2023 Albumin [Mass/Vol] 3.2 g/dL 3.2-5.0 [facility] Serum or plasma albumin/glob ulin mass ratioOrdered By: Joss Orozco on 05-29-2023 Albumin/Globulin [Mass ratio] 0.6 {ratio} 0.9-2.[address] [facility] Serum or plasma calcium theresa urement (mass/volume)Ordered By: Joss Orozco on 05-29-2023 Calcium [Mass/Vol] 8.7 mg/dL 8.5-10.1 [facility] Serum or plasma creatinine m easurement (mass/volume)Ordered By: Joss Orozco on 05-29-2023 Creatinine [Mass/Vol] 0.79 mg/dL 0.70-1.30 [facility] Comment on above: The validity of the calculated GFR & GFRAA in patients over 70 years has not been determined. Clinical correlation is essential. Serum or plasma urea nitroge n measurement (mass/volume)Ordered By: Joss Orozco on 05-29-2023 Urea nitrogen [Mass/Vol] 3 mg/dL 7-[address] [facility] Squamous epithelial cells de tection in urine sediment by light microscopyOrdered By: Joss Orozco on 05-29-2023 Epithelial cells.squamous LM Ql (Urine sed) 0 SEEN /hpf 0-[address] [facility] Thin prep Papanicolaou smear with manual screeningOrdered By: Joss Orozco on 05-29-2023 Thin prep Papanicolaou smear with manual screening 14 U/L 15-[address] [facility] Thin prep Papanicolaou smear with manual screening 6 5-[address] [facility] Urine blood detectionOrdered By: Joss Orozco on 05-29-2023 RBC Ql (U) 10 /ul Negative [facility] RBC Ql (U) 0 SEEN /hpf 0-[address] [facility] Urine clarityOrdered By: Cuong Orozco on 05-29-2023 Clarity (U) Clear Clear [facility] Urine color determinationOrd ered By: Joss Orozco on 05-29-2023 Color (U) Yellow Yellow [facility] Urine glucose detectionOrder ed By: Joss Orozco on 05-29-2023 Glucose Ql (U) Normal mg/dl Normal [facility] Urine leukocyte esterase det ection by dipstickOrdered By: Joss Orozco on 05-29-2023 Leukocyte esterase Test strip Ql (U) Negative Negative [facility] Urine pHOrdered By: Joss cunningham on 05-29-2023 pH (U) 7.0 [pH] 5.0 - 8.[address] [facility] Urine sediment bacteria coun t by microscopy (number/high power field)Ordered By: Joss Orozco on 05-29-2023 Bacteria LM.HPF (Urine sed) [#/Area] 0 /[HPF] None Seen [facility] Urine specific gravity measu rementOrdered By: Joss Orozco on 05-29-2023 Specific gravity (U) [Rel density] 1.005 1.002-1.[address] [facility] Urobilinogen Auto test strip Ql (U)Ordered By: Joss Orozco on 05-29-2023 Urobilinogen Ql (U) Normal mg/dl Normal [facility] Absolute lymphocyte countOrd ered By: Ortega Diana on 05-14-2023 Lymphocytes Auto (Unsp spec) [#/Vol] 2.88 10*3/uL 0.83-4.[address] [facility] Basophil percentageOrdered B y: Ortega Diana on 05-14-2023 Basophils/100 WBC (Bld) 0.3 % 0-[address] [facility] Bilirubin [Mass/Vol] 0.50 mg/dL 0.20-1.00 [facility] Comment on above: For patients on eltr ombopag therapy, use of Dimension [place] TBIL is not recommended. Chloride [Moles/Vol] 99 mmol/L 98-107 [facility] Eosinophils/100 WBC (Bld) 1.4 % 0-[address] [facility] Glucose [Mass/Vol] 218 mg/dL 74-106 [facility] Comment on above: Glucose result great er than or equal to 200 mg/dLsuggests DIABETES MELLITUS per A.D.A. criteria. Neutrophils (Bld) [#/Vol] 5.5 10*3/uL 2.0-7.[address] [facility] Neutrophils/100 WBC (Bld) 60.2 % 47-[address] [facility] Potassium [Moles/Vol] 3.2 mmol/L 3.5-5.1 [facility] Protein [Mass/Vol] 7.8 g/dL 6.4-8.2 [facility] Sodium [Moles/Vol] 135 mmol/L 136-145 [facility] WBC (Bld) [#/Vol] 9.1 10*3/uL 4.4-11.0 [facility] Basophil percentage 0-5 SEEN /hpf 0-5 [facility] Bilirubin Test strip Ql (U)O rdered By: Ortega Diana on 05-14-2023 Bilirubin Ql (U) Negative Negative [facility] Blood erythrocytes count (nu mber/volume)Ordered By: Ortega Diana on 05-14-2023 RBC (Bld) [#/Vol] 4.61 10*6/uL 4.6-6.2 [facility] Blood hemoglobin measurement (mass/volume)Ordered By: Ortega Diana on 05-14-2023 Hemoglobin (Bld) [Mass/Vol] 13.2 g/dL 13.0-16.[address] [facility] Blood lymphocytes/100 leukoc ytesOrdered By: Ortega Diana on 05-14-2023 Lymphocytes/100 WBC (Bld) 31.8 % 19-[address] [facility] Blood monocytes/100 leukocyt esOrdered By: Ortega Diana on 05-14-2023 Monocytes/100 WBC (Bld) 6.0 % 0-[address] [facility] Blood platelet mean volumeOr dered By: Ortega Diana on 05-14-2023 Platelet mean volume (Bld) [Entitic vol] 11.3 fL 6.2-12.[address] [facility] Determination of erythrocyte mean corpuscular volume (MCV)Ordered By: Ortega Diana on 05-14-2023 MCV (RBC) [Entitic vol] 91.8 fL 80-[address] [facility] Hematocrit Auto (Bld) [Volum e fraction]Ordered By: Ortega Diana on 05-14-2023 Hematocrit (Bld) [Volume fraction] 42.3 % 40-[address] [facility] Ketones Test strip Ql (U)Ord ered By: Ortega Diana on 05-14-2023 Ketones Ql (U) Negative Negative [facility] Laboratory - Chemistry and C hemistry - challengeOrdered By: Ortega Diana on 05-14-2023 ALP [Catalytic activity/Vol] 121 U/L 45-[address] [facility] ALT [Catalytic activity/Vol] 17 U/L 16-[address] [facility] CO2 [Moles/Vol] 32.0 mmol/L 21.0-32.[address] [facility] Globulin (S) [Mass/Vol] 4.7 g/dL 2.2-4.[address] [facility] Lipase [Catalytic activity/Vol] 45 U/L 13-[address] [facility] Comment on above: Please note:LIPASE r evised reference range effective 22. New Lipase methodology. Expected to produce lower values than the previous assay method. NEW Reference Range: 13 - 75 U/L Urea nitrogen/Creatinine [Mass ratio] 13.2 mg/mg 10-[address] [facility] Laboratory - Hematology and Cell countsOrdered By: Ortega Diana on 05-14-2023 Erythrocyte distribution width (RBC) [Entitic vol] 50.4 fL 35.1-43.[address] [facility] Erythrocyte distribution width (RBC) [Ratio] 15.0 % 11.6-14.[address] [facility] Immature granulocytes/100 WBC (Bld) 0.300 % 0.0-0.[address] [facility] Comment on above: IG% - Immature Granu locytes (promyelocytes, myelocytes and metamyelocytes) > 1% indicates that a LEFT SHIFT is Present. MCH (RBC) [Entitic mass] 28.6 pg 27.0-32.[address] [facility] Nucleated RBC/100 WBC (Bld) [Ratio] 0 % 0-[address] [facility] MCHC Auto (RBC) [Mass/Vol]Or dered By: Ortega Diana on 05-14-2023 MCHC (RBC) [Mass/Vol] 31.2 g/dL 32-36 [facility] Mucus LM Ql (Urine sed)Order ed By: Ortega Diana on 05-14-2023 Mucus Ql (Urine sed) 0 SEEN /hpf [facility] Nitrite Test strip Ql (U)Ord ered By: Ortega Diana on 05-14-2023 Nitrite Ql (U) Negative Negative [facility] No Panel InformationOrdered By: Ortega Diana on 05-14-2023 Estimated Creatinine Clearance Calc 97.02 ml/min [facility] Estimated GFR (MDRD) Amer 120 mL/min >[address] [facility] Comment on above: GFR Calc Estimated GFR (MDRD) Non-Af Amer 99 mL/min >[address] [facility] Comment on above: Non- GFR Calc Platelets bldOrdered By: Roge Diana on 05-14-2023 Platelets (Bld) [#/Vol] 182 10*3/uL 150-[address] [facility] Protein Test strip Ql (U)Ord ered By: Ortega Diana on 05-14-2023 Protein Ql (U) 30 mg/dl Negative [facility] Serum or plasma albumin theresa urement (mass/volume)Ordered By: Ortega Diana on 05-14-2023 Albumin [Mass/Vol] 3.1 g/dL 3.2-5.0 [facility] Serum or plasma albumin/glob ulin mass ratioOrdered By: Ortega Diana on 05-14-2023 Albumin/Globulin [Mass ratio] 0.7 {ratio} 0.9-2.[address] [facility] Serum or plasma calcium theresa urement (mass/volume)Ordered By: Ortega Diana on 05-14-2023 Calcium [Mass/Vol] 8.5 mg/dL 8.5-10.1 [facility] Serum or plasma creatinine m easurement (mass/volume)Ordered By: Ortega Diana on 05-14-2023 Creatinine [Mass/Vol] 0.83 mg/dL 0.70-1.30 [facility] Comment on above: The validity of the calculated GFR & GFRAA in patients over 70 years has not been determined. Clinical correlation is essential. Serum or plasma urea nitroge n measurement (mass/volume)Ordered By: Ortega Diana on 05-14-2023 Urea nitrogen [Mass/Vol] 11 mg/dL 7-[address] [facility] Squamous epithelial cells de tection in urine sediment by light microscopyOrdered By: Ortega Diana on 05-14-2023 Epithelial cells.squamous LM Ql (Urine sed) 0 SEEN /hpf 0-[address] [facility] Thin prep Papanicolaou smear with manual screeningOrdered By: Ortega Diana on 05-14-2023 Thin prep Papanicolaou smear with manual screening 16 U/L 15-[address] [facility] Thin prep Papanicolaou smear with manual screening 4 5-[address] [facility] Urine blood detectionOrdered By: Ortega Diana on 05-14-2023 RBC Ql (U) 10 /ul Negative [facility] RBC Ql (U) 0 SEEN /hpf 0-[address] [facility] Urine clarityOrdered By: Roge Diana on 05-14-2023 Clarity (U) Clear Clear [facility] Urine color determinationOrd ered By: Ortega Diana on 05-14-2023 Color (U) Yellow Yellow [facility] Urine glucose detectionOrder ed By: Ortega Diana on 05-14-2023 Glucose Ql (U) Normal mg/dl Normal [facility] Urine leukocyte esterase det ection by dipstickOrdered By: Ortega Diana on 05-14-2023 Leukocyte esterase Test strip Ql (U) 100 /ul Negative [facility] Urine pHOrdered By: Ortega Diana on 05-14-2023 pH (U) 6.5 [pH] 5.0 - 8.[address] [facility] Urine sediment bacteria coun t by microscopy (number/high power field)Ordered By: Ortega Diana on 05-14-2023 Bacteria LM.HPF (Urine sed) [#/Area] 0 /[HPF] None Seen [facility] Urine specific gravity measu rementOrdered By: Ortega Diana on 05-14-2023 Specific gravity (U) [Rel density] 1.015 1.002-1.[address] [facility] Urobilinogen Auto test strip Ql (U)Ordered By: Ortega Diana on 05-14-2023 Urobilinogen Ql (U) 4 mg/dl Normal [facility] CBC + DIFFon 05-13-2023 Baso # 0.00 x10EE3/UL Normal 0.00 - 0.10 [facility] Comment on above: Performed By: #### 2 [id number] #### [facility],[address] [place] [address] Basophils/100 WBC (Bld) 0.4 % Normal 0.0 - 2.0 [facility] Comment on above: Performed By: #### 2 30877 #### [facility],[address] [place] [address] CBC + DIFF Normal [facility] Comment on above: Result Comment: CBC- COMPLETE BLOOD COUNT Performed By: #### 2 [id number] #### [facility],[address] [place] [address] EO # 0.10 x10EE3/UL Normal 0.00 - 0.50 [facility] Comment on above: Performed By: #### 2 41286 #### [facility],[address] [place] [address] Eosinophils/100 WBC (Bld) 1.0 % Normal 0.0 - 7.0 [facility] Comment on above: Performed By: #### 2 17697 #### [facility],[address] [place] [address] Erythrocyte distribution width (RBC) [Ratio] 15.1 % Normal 12.0 - 15.6 [facility] Comment on above: Performed By: #### 2 04153 #### [facility],[address] [place] [address] Hematocrit (Bld) [Volume fraction] 38.4 % Low 40.0 - 52.0 [facility] Comment on above: Performed By: #### 2 53488 #### [facility],[address] [place] [address] Hemoglobin (Bld) [Mass/Vol] 12.5 g/dL Low 13.0 - 17.5 [facility] Comment on above: Performed By: #### 2 00200 #### [facility],[address] [place] [address] Lymph # 2.10 x10EE3/UL Normal 0.80 - 2.80 [facility] Comment on above: Performed By: #### 2 45608 #### [facility],[address] [place] [address] Lymphocytes/100 WBC (Bld) 25.4 % Normal 20.0 - 45.0 [facility] Comment on above: Performed By: #### 2 88467 #### [facility],[address] [place] [address] MANUAL DIFF N/A Normal [facility] Comment on above: Performed By: #### 2 35144 #### [facility],[address] [place] [address] MCH (RBC) [Entitic mass] 28 pg Normal 27 - 33 [facility] Comment on above: Performed By: #### 2 61910 #### [facility],[address] [place] [address] MCHC 33 X10 3 Normal 32 - 36 [facility] Comment on above: Performed By: #### 2 17433 #### [facility],[address] [place], [place] [id number] MCV (RBC) [Entitic vol] 87 fL Normal 81 - 98 [facility] Comment on above: Performed By: #### 2 27974 #### [facility],[address] [place] [address] Grant # 0.60 x10EE3/UL Normal 0.20 - 1.00 [facility] Comment on above: Performed By: #### 2 51218 #### [facility],[address] [place] [address]22 MONOS % 7.7 % Normal 0.0 - 10.0 [facility] Comment on above: Performed By: #### 2 88255 #### [facility],[address] [place] [address] 26194 Morphology Joshua (Bld) [Interp] N/A Normal [facility] Comment on above: Result Comment: {CD] Performed By: #### 2 01739 #### [facility],[address] [place] [address]63 Neut # 5.50 x10EE3/UL Normal 1.50 - 7.10 [facility] Comment on above: Performed By: #### 2 80828 #### [facility],[address] [place] [address] 15593 Neutrophils/100 WBC (Bld) 65.5 % Normal 46.0 - 76.0 [facility] Comment on above: Performed By: #### 2 82091 #### [facility],[address] [place] [address] 79370 PLATELET 180 x10EE3/UL Normal 150 - 450 [facility] Comment on above: Performed By: #### 2 44249 #### [facility],[address] [place] [address]36 Platelet mean volume (Bld) [Entitic vol] 9.1 fL Normal 6.4 - 10.5 [facility] Comment on above: Result Comment: AUTO MATED DIFFERENTIAL Performed By: #### 2 30891 #### [facility],[address] [place] [address] 04813 RBC 4.40 x 10EE6/UL Low 4.50 - 6.00 [facility] Comment on above: Performed By: #### 2 81268 #### [facility],[address] [place] [address] 13883 WBC 8.3 x 10EE3/UL Normal 4.5 - 10.8 [facility] Comment on above: Performed By: #### 2 58970 #### [facility],[address] [place] [address] 15515 CMP with eGFRon 05-13-2023 AGE 63 years Normal [facility] Comment on above: Performed By: #### 2 00385 #### [facility],[address] [place] [address] 13531 Albumin [Mass/Vol] 3.1 g/dL Low 3.4 - 5.0 [facility] Comment on above: Performed By: #### 2 92547 #### [facility],[address] [place] [address] 31426 Albumin/Globulin [Mass ratio] 0.7 {ratio} Low 0.9 - 1.6 [facility] Comment on above: Performed By: #### 2 39156 #### [facility],[address] [place] [address] 54989 ALK PHOS 114 U/L Normal 46 - 116 [facility] Comment on above: Performed By: #### 2 55621 #### [facility],[address] [place] [address] 67348 ALT [Catalytic activity/Vol] 13 U/L Low 16 - 63 [facility] Comment on above: Performed By: #### 2 62946 #### [facility],[address] [place] [address] 98280 Anion gap [Moles/Vol] 11 mmol/L Normal 10 - 20 [facility] Comment on above: Performed By: #### 2 61001 #### [facility],[address] [place] [address] 25506 AST [Catalytic activity/Vol] 13 U/L Low 15 - 37 [facility] Comment on above: Performed By: #### 2 64915 #### [facility],[address] [place] [address] 25109 B/C RATIO 7 ratio Normal 0 - 30 [facility] Comment on above: Performed By: #### 2 36476 #### [facility],[address] [place] [address] 56358 Bilirubin [Mass/Vol] 0.6 mg/dL Normal 0.2 - 1.0 [facility] Comment on above: Performed By: #### 2 81672 #### [facility],[address] [place] [address]80 Calcium [Mass/Vol] 8.6 mg/dL Normal 8.5 - 10.1 [facility] Comment on above: Performed By: #### 2 53214 #### [facility],[address] [place], [place] [id number] Chloride [Moles/Vol] 96 mmol/L Low 98 - 107 [facility] Comment on above: Performed By: #### 2 77338 #### [facility],[address] [place], [place] [id number] CMP with eGFR Normal [facility] Comment on above: Result Comment: COMP REHENSIVE METABOLIC PANEL Performed By: #### 2 56605 #### [facility],[address] [place] [address] 36367 CO2 [Moles/Vol] 31.5 mmol/L Normal 21.0 - 32.0 [facility] Comment on above: Performed By: #### 2 11695 #### [facility],[address] [place] [address] 77528 Creatinine [Mass/Vol] 0.88 mg/dL Normal 0.70 - 1.30 [facility] Comment on above: Performed By: #### 2 24333 #### [facility],[address] [place] [address] 81605 GFR/1.73 sq M.predicted among non-blacks MDRD (S/P/Bld) [Vol rate/Area] mL/min/{1.73_m2} Normal 60 - 999 [facility] Comment on above: Performed By: #### 2 23452 #### [facility],[address] [place], [place] [id number] Result Comment: ACCO RDING TO THE NATIONAL KIDNEY DISEASE EDUCATION PROGRAM(NKDE), A NORMAL eGFR IS A VALUE GREATER THAN OR EQUAL TO 60 ML/MIN/1.73 SQ METERS. CHRONIC KIDNEY DISEASE: <60mL/MIN/1.73 SQ METERS KIDNEY FAILURE: <15mL/MIN/1.73 SQ METERS THIS TEST SHOULD ONLY BE USED FOR PATIENTS 18 YEARS OF AGE AND OLDER. Globulin (S) [Mass/Vol] 4.3 g/dL High 1.5 - 3.8 [facility] Comment on above: Performed By: #### 2 67497 #### [facility],[address] [place] [address] 02046 Glucose [Mass/Vol] 236 mg/dL High 74 - 106 [facility] Comment on above: Performed By: #### 2 49824 #### [facility],[address] [place] [address] 12347 Potassium [Moles/Vol] 2.6 mmol/L Critically low 3.5 - 5.1 [facility] Comment on above: Result Comment: { CA LLED TO ER AT 0508 { READ BACK BY ADIEL TO AEL AT 0508 Performed By: #### 2 91320 #### [facility],[address] [place] [address] 02257 Protein [Mass/Vol] 7.4 g/dL Normal 6.4 - 8.2 [facility] Comment on above: Performed By: #### 2 36464 #### [facility],[address] [place] [address] 35689 Sodium [Moles/Vol] 136 mmol/L Normal 136 - 145 [facility] Comment on above: Performed By: #### 2 49896 #### [facility],[address] [place] [address] 23374 Urea nitrogen [Mass/Vol] 6 mg/dL Low 7 - 18 [facility] Comment on above: Performed By: #### 2 92144 #### [facility],[address] [place] [address] ABDOMEN/PELVIS [facility] 2022 CT ABDOMEN/PELVIS [address] [address] Patient: JEANNE RIVERS Phone#: : 1960 Age: 63 Gender: M Pt. Type: ER Account: [id number] Location: 2 Ordering: DR. WENDY ASIF Exam Date: 05/13/2023/5:20 Family Phys: EDILIA REMY Charge Code: 524291 Physician: [place] Order #: [id number] Dose#: [id number] PROCEDURE: CT ABDOMEN/PELVIS WITH CONTRAST [...] 63 Gender: M Pt. Type: ER Account: [id number] Location: 052 Ordering: DR. WENDY ASIF Exam Date: 05/13/2023/5:20 Family Phys: EDILIA REMY Charge Code: 968408 Physician: [place] Order #: [id number] Dose#: [id number] LUNG BASES: Small pericardial effusion is present. Coronary artery calcifications present. Small bilateral pleural effusions are present. OTHER: Negative. CONCLUSION: 1. There is trace pericholecystic fluid. 2. Small pericardial effusion. 3. No other acute abdominal or pelvic abnormality is identified. Dictated by: Waqar King MD on 05/13/2023 at 9:48 Approved by: Waqar King MD on 05/13/2023 at 10:08 Normal [facility] EMERGENCY REPORTon 3 EMERGENCY REPORT [facility] EMERGENCY ROOM REPORT NAME ACCOUNT SEX AGE ADMIT DISCHARGE PT MED. RECORD# NUMBER DATE DATE TYPE JEANNE RIVERS [id number] M 63 05/13/23 05/13/23 3 A [id number] ROOM: ER DATE OF : 1960 DICTATING [...] problem. He is diabetic. No history of HI. No history of stroke. He states that [...] symmetric. 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 NECK: There are no anterior, posterior [...] Wendy Asif DO 05/13/23 06:34 JOB #: [id number] Transcribed By: jodee 05/13/23 13:23 Electronically signed by: E-SIGN WENDY ASIF DO 05/13/23 20:33 Page 2 of 2 JEANNE RIVERS Emergency Room Report Normal [facility] LACTATEon 05-13-2023 Lactate [Moles/Vol] 0.5 mmol/L Normal 0.4 - 2.0 [facility] Comment on above: Performed By: #### 2 69722 #### [address] [address] Lactate [Moles/Vol] 2.1 mmol/L High 0.4 - 2.0 [facility] Comment on above: Result Comment: LACT ATE 3 HR NOTIFIED TO: _SHELLY_AT_[id number] 05/13/23.AEL. LACTATE 3 HR NOTIFIED BY: _AEL 05/13/23.AEL. Performed By: #### 2 44292 #### [address] [address] LIPASEon 05-13-2023 Lipase [Catalytic activity/Vol] 70.0 U/L Low 73.0 - 393 [facility] Comment on above: Performed By: #### 2 92663 #### [facility],[address] [place] [address] NT-proBNPon 05-13-2023 Natriuretic peptide B (Bld) [Mass/Vol] 1735 pg/mL High 0 - 125 [facility] Comment on above: Performed By: #### 2 72613 #### [facility],[address] [place] [address] POTASSIUMon 05-13-2023 Potassium [Moles/Vol] 3.6 mmol/L Normal 3.5 - 5.1 [facility] Comment on above: Performed By: #### 2 11734 #### [facility],[address] [place] [address] TROPONIN I, HIGH SENSITIVITY on 05-13-2023 HS TROPONIN 48.5 pg/mL Normal 0.0 - 76.2 [facility] Comment on above: Performed By: #### 2 69104 #### [facility],[address] [place] [address] URINALYSISon 05-13-2023 Amorphous NONE Normal [facility] Comment on above: Performed By: #### 2 32127 #### [facility],[address] [place] [address] Bacteria 4+ Normal [facility] Comment on above: Performed By: #### 2 05859 #### [facility],[address] [place] [address] Bilirubin Ql (U) Negative Normal NORMAL: NEGATIVE [facility] Comment on above: Performed By: #### 2 38867 #### [facility],[address] [place] [address] Casts NONE Normal [facility] Comment on above: Performed By: #### 2 28627 #### [facility],[address] [place] [address] Clarity (U) sl.cloudy Normal NORMAL: CLEAR [facility] Comment on above: Performed By: #### 2 48418 #### [facility],[address] [place] [address] Color (U) yellow Normal NORMAL: YELLOW [facility] Comment on above: Performed By: #### 2 43717 #### [facility],[address] [place] [address]9 Crystals LM Nom (Urine sed) NONE Normal [facility] Comment on above: Performed By: #### 2 46999 #### [facility],[address] [place] [address] Epi Cells FEW Normal [facility] Comment on above: Performed By: #### 2 25374 #### [facility],[address] [place] [address] Glucose Ql (U) NORM Normal NORMAL: NORMAL [facility] Comment on above: Performed By: #### 2 19885 #### [facility],[address] [place] [address] Hemoglobin Ql (U) 25 Abnormal NORMAL: NEGATIVE [facility] Comment on above: Performed By: #### 2 32438 #### [facility],[address] [place] [address] Ketone Negative Normal NORMAL: NEGATIVE [facility] Comment on above: Performed By: #### 2 27369 #### [facility],[address] [place] [address] Leukocytes 100 Abnormal NORMAL: NEGATIVE [facility] Comment on above: Performed By: #### 2 76740 #### [facility],[address] [place] [address] Mucous NONE Normal [facility] Comment on above: Performed By: #### 2 08934 #### [facility],[address] [place] [address] Nitrite Ql (U) Positive Normal NORMAL: NEGATIVE [facility] Comment on above: Performed By: #### 2 68376 #### [facility],[address] [place] [address] pH (U) 6.5 [pH] Normal NORMAL: 5.0-8.0 [facility] Comment on above: Performed By: #### 2 32170 #### [facility],[address] [place] [address] Protein Ql (U) 30 Abnormal NORMAL: NEGATIVE [facility] Comment on above: Performed By: #### 2 89911 #### [facility],[address] [place] [address] Rbc 0-5 Normal 0-3/hpf [facility] Comment on above: Performed By: #### 2 43229 #### [facility],[address] [place] [address] Sp [place] 1.010 Normal NORMAL: 1.010-1.03 0 [facility] Comment on above: Performed By: #### 2 44330 #### [facility],[address] [place] [address] Specimen Type Void Normal [facility] Comment on above: Performed By: #### 2 11558 #### [facility],[address] [place] [address] Urinalysis dipstick W Reflex Microscopic panel (U) SEE BELOW Normal [facility] Comment on above: Result Comment: MICR OSCOPIC Performed By: #### 2 04242 #### [facility],[address] [place] [address] Urobilinog 1 Abnormal NORMAL: NORMAL [facility] Comment on above: Performed By: #### 2 17705 #### [facility],[address] [place] [address] Wbc 6-10 Normal 0-5/hpf [facility] Comment on above: Performed By: #### 2 55100 #### [facility],[address] [place] [address] Yeast NONE Normal [facility] Comment on above: Performed By: #### 2 66168 #### [facility],[address] [place], [place] [id number] US RUQ (GB/PANCREAS)on 05-13 US RUQ (GB/PANCREAS) [place] [id number] Patient: JEANNE RIVERS Phone#: : 1960 Age: 63 Gender: M Pt. Type: ER Account: [id number] Location: 052 Ordering: DR. WENDY ASIF Exam Date: 05/13/2023/8:26 Family Phys: EDILIA REMY Charge Code: 507189 Physician: [facility] Order #: [id number] Dose#: PROCEDURE: RUQ (GB) ULTRASOUND COMPARISON: None. [...] KING MD ON 05/13/2023 AT 9:15 Normal [facility] ELBOW COMPLETE LTon 03-05-20 23 ELBOW COMPLETE LT [place] [address] Patient: JEANNE RIVERS Phone#: : 1960 Age: 62 Gender: M Pt. Type: ER Account: [id number] Location: 052 Ordering: LORETTA ALVARADO Exam Date: 03/05/2023/15:37 Family Phys: EDILIA REMY Charge Code: 859638 Physician: [facility] Order #: [id number] Dose#: PROCEDURE: X-RAY ELBOW LT MIN 3 VIEWS COMPARISON: [facility], XR, ELBOW COMPLETE LT, 01/01/2019, 1:28. INDICATIONS: Trauma. FINDINGS: BONES: No fracture or dislocation. 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 SOFT TISSUES: Negative. No visible soft tissue swelling. EFFUSION: None visible. OTHER: Negative. CONCLUSION: 1. No acute osseous abnormality. Dictated by: Jennifer Zepeda MD on 03/05/2023 at 15:57 Approved by: Jennifer Zepeda MD on 03/05/2023 at 16:00 Normal [facility] [address] [facility] Patient: JEANNE RIVERS [id number] : 60 Status: REG CLI Date of [...] MSIR twice a day. Report#: Dict ID [id number] / Int ID [id number] 09/20/2027 * 09/20/20 0937 _ IRVIN ALLEN C.N.P., CHARLES V D.O. cc: << Signature on File>> Reported By: IRVIN ALLEN C.N.P. Signed By: IRVIN ALLEN C.N.P. Tests performed at: [address] [address] Normal [facility] [place], [place] [id number] [place] [address] INFORMATION [facility]EMENT [facility] Patient: JEANNE RIVERS [id number] : 60 Status: REG CLI Date of [...] MSIR twice a day. Report#: Dict ID [id number] / Int ID [id number] 05/15/20 1558 * 06/05/20 1647 _ IRVIN ALLEN C.N.P., CHARLES V D.O. cc: << Signature on File>> Reported By: IRVIN ALLEN C.N.P. Signed By: IRVIN ALLEN C.N.P. Tests performed at: [place] [address] [place], [place] [address] Normal [facility] [place] [address] [facility] Patient: JEANNE RIVERS [id number] : 60 Status: REG CLI Date of [...] months. OARRS was reviewed. Report#: Dict ID [id number] / Int ID [id number] 02/23/20 0850 * 02/23/20 1228 _ IRVIN ALLEN C.N.P., CHARLES V D.O. cc: << Signature on File>> Reported By: IRVIN ALLEN C.N.P. Signed By: IRVIN ALLEN C.N.P. Tests performed at: [place] [address] [place], [place] [address] Normal [facility] [place] [address] HEALTH INFORMATION [facility] PA[facility] MANAGEMENT CENTER Patient: JEANNE RIVERS [id number] : 60 Status: REG CLI Date of [...] need a surgical exposure. Report#: Dict ID [id number] / Int ID [id number] cc: Mariella Wilson MD 11/22/19 1434 _ MARIANNA PATEL D.O. cc: MARIELLA WILSON M.D. << Signature on File>> Reported By: MARIANNA PATEL D.O. Signed By: MARIANNA PATEL D.O. Tests performed at: [place] [address] Normal [facility] MRI SPINE LUMBAR W/O CONTRAS Ton 03-10-2019 MRI SPINE LUMBAR W/O CONTRAST ORIGINAL MRI SPINE LUMBAR W/O CONTRAST PATIENT: JEANNE RIVERS. TECHNIQUE: Multiplanar multisequence imaging of the lumbar spine without the administration of IV contrast. COMPARISON: None. FINDINGS: For purposes of this dictation, it is assumed that there are 5 vfn-cab-fzvyove, lumbar-type vertebrae, and the most caudal fully [...] facet arthropathy and ligament flavum thickening cause aahvcate-fl-kolwai spinal canal stenosis and narrow the RIGHT [...] PM Sign Date: 03/10/2019 1:28:48 PM Normal [facility] ([place]) .GFRon 03-09-2019 GFR >60 Normal [facility] ([place]) Comment on above: Result Comment: GFR Population [...] 15 mL/min/1.73 square meters Performed By: #### G , BMP #### [place] [address] GFR Non- >60 Normal [facility] ([place]) Comment on above: Result Comment: GFR Population [...] Performed By: #### Vanesa ANDERSON, BMP #### [address] [address] [facility] Potassium [Moles/Vol] 4.3 mmol/L Normal 3.5-5.0 [facility] ([place]) Comment on above: Result Comment: Spec imen slightly hemolyzed. Results may be falsely elevated. Performed By: #### Vanesa ANDERSON, BMP #### [address] [address] Urea nitrogen [Mass/Vol] 11.0 mg/dL Normal 8.0-22.0 [facility] ([place]) Comment on above: Performed By: #### Vanesa ANDERSON, BMP #### [address] [address] Urea nitrogen/Creatinine [Mass ratio] 20.0 ratio Normal 10.0-22.0 [facility] ([place]) Comment on above: Performed By: #### Vanesa ANDERSON, BMP #### [address] [address] Calcium [Mass/Vol] 8.5 mg/dL Normal 8.4-10.1 [facility] ([place]) Comment on above: Performed By: #### Vanesa ANDERSON, BMP #### [address] [address] Chloride [Moles/Vol] 103 mmol/L Normal 98-110 [facility] ([place]) Comment on above: Performed By: #### Vanesa ANDERSON, BMP #### [address] [address] CO2 [Moles/Vol] 32 mmol/L Normal 22-32 [facility] ([place]) Comment on above: Performed By: #### Vanesa ANDERSON, BMP #### [address] [address] Creatinine [Mass/Vol] 0.55 mg/dL Low 0.60-1.40 [facility] ([place]) Comment on above: Performed By: #### G FR, BMP #### [address] [address] Electrolyte Balance 5.0 mEq/L Normal 4.0-15.0 [facility] ([place]) Comment on above: Performed By: #### G FR, BMP #### [address] [address] Glucose [Mass/Vol] 165 mg/dL High 70-110 [facility] ([place]) Comment on above: Performed By: #### G , BMP #### [address] [address] Sodium [Moles/Vol] 140 mmol/L Normal 136-145 [facility] ([place]) Comment on above: Performed By: #### Vanesa ANDERSON, BMP #### [address] [address] Office Visiton 07-14-2017 Dietary management education, guidance, and counseling (procedure) yes Invalid Interpretation Code [facility] Work Phone: [phone] Documentation of current medications (procedure) Done Invalid Interpretation Code [facility] Work Phone: [phone] Fall risk assessment Yes Invalid Interpretation Code [facility] Work Phone: [phone] Smoking cessation education (procedure) yes Invalid Interpretation Code [facility] Work Phone: [phone] Tobacco use [facility] Current every day smoker Invali d Interpretation Code [facility] Work Phone: [phone] Clinical Lists 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: 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 07-07-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 Left ventricular Ejection fraction 55 % Invalid Interpretation Code [facility] Work Phone: [phone] Tobacco use CP Current every day smoker Invali d Interpretation Code [facility] Work Phone: Office Visiton 02-11-2017 Dietary management education, guidance, and counseling (procedure) yes Invalid Interpretation Code [facility] Work Phone: [phone] Documentation of current medications (procedure) Done Invalid Interpretation Code [facility] Work Phone: [phone] Smoking cessation education (procedure) yes Invalid Interpretation Code [facility] Work Phone: [phone] Lab Report: Bedside Glucoseo n 10-23-2014 BEDSIDE GLU 207 mg/dL Critically high 70-110 [facility] Work Phone: [phone] Lab Report: BMPon 04-12-2014 Anion gap 6 mmol/L Normal 5-15 [facility] Work Phone: [phone] BUN/Creatinine Ratio 10.0 RATIO Normal 10-20 [employer] [facility] [employer] Work Phone: [phone] Calcium 8.6 mg/dL Normal 8.5-10.1 [facility] Work Phone: [phone] Chloride 102 mmol/L Normal 98-107 [facility] Work Phone: [phone] CO2 25.0 mmol/L Normal 21.0-32.0 [facility] Work Phone: [phone] Creatinine 0.7 mg/dL Low 0.8-1.3 [facility] Work Phone: [phone] eGFR (non-black) 125 mL/min/{1.73_m2} Normal >60 [facility] Work Phone: [phone] eGFR (non-black) 152 mL/min/{1.73_m2} Normal >60 [facility] Work Phone: [phone] Glucose mass conc 265 mg/dL High 70-110 [facility] Work Phone: [phone] Potassium molar conc 3.9 mmol/L Normal 3.5-5.1 [employer] [facility] [employer] Work Phone: [phone] Sodium 133 mmol/L Low 136-145 [facility] Work Phone: [phone] Urea nitrogen 7 mg/dL Normal 7-18 [facility] Work Phone: [phone] Lab Report: CBCDon 4 ANC 6.3 X10 3/UL Normal 2.0-7.7 [facility] Work Phone: [phone] Basophils/100 WBC Auto (Bld) 0.4 % Normal 0-1 [facility] Work Phone: [phone] Eosinophils/100 leukocytes 3.1 % Normal 0-5 [facility] Work Phone: [phone] Erythrocytes (RBC) 5.04 10*6/uL Normal 4.6-6.[address] [facility] [address] [facility] Work Phone: [phone] Hematocrit (HCT) 42.9 % Normal 40-54 [facility] Work [phone] Hemoglobin mass conc (Bld) 15.0 g/dL Normal 13.0-16.5 [facility] Work Phone: [phone] Lymphocytes/100 leukocytes 29.0 % Normal 19-41 [facility] Work Phone: [phone] MCH 29.8 pg Normal 27.0-32.0 [facility] Work Phone: [phone] MCHC mass conc (RBC) 35.0 G/GL Normal 32-[address] [facility] [address] [facility] Work Phone: [phone] MCV 85.1 fL Normal 80-94 [facility] Work Phone: [phone] Monocytes/100 leukocytes 4.2 % Normal 0-10 [facility] Work Phone: [phone] Neutrophils/100 WBC Auto (Bld) 63.0 % Normal 47-70 [facility] Work Phone: [phone] Platelets 205 10*3/mm3 Normal 150-450 [facility] Work Phone: [phone] PMV by Julia 11.5 fL Normal 6.2-12.0 [facility] Work Phone: [phone] WBC (Leukocytes) 10.0 10*3/uL Normal 4.4-11.[address] [facility] Work Phone: [phone] Vital Signs Date Time Vital Sign Value Performing Clinician Faci romyy 03-06-2025 19:34-0400 Body height 180.[address] Edilia Remy MD Work Phone: [facility] 03-06-2025 19:34-0400 Body temperature 98.5 [degF] Dr. Edilia Remy MD Work Phone: [facility] 03-06-2025 19:34-0400 Diastolic blood pressure 60 mm[Hg] Dr. Edilia Remy MD Work Phone: [facility] 03-06-2025 19:34-0400 Heart rate 90 /min Dr. Edilia Remy MD Work Phone: [facility] 03-06-2025 19:34-0400 Respiratory rate 18 /min Dr. Edilia Remy MD Work Phone: [facility] 03-06-2025 19:34-0400 SaO2% (BldA) [Mass fraction] 94 % Dr. Edilia Remy MD Work Phone: [facility] 03-06-2025 19:34-0400 Systolic blood pressure 142 mm[Hg] Dr. Edilia Remy MD Work Phone: [facility] 03-02-2025 02:36-0400 Body temperature 98.5 [degF] Dr. Edilia Remy MD Work Phone: [facility] 03-02-2025 02:36-0400 Diastolic blood pressure 71 mm[Hg] Dr. Edilia Remy MD Work Phone: [facility] 03-02-2025 02:36-0400 Heart rate 84 /min Dr. Edilia Remy MD Work Phone: [facility] 03-02-2025 02:36-0400 Respiratory rate 19 /min Dr. Edilia Remy MD Work Phone: [facility] 03-02-2025 02:36-0400 SaO2% (BldA) [Mass fraction] 94 % Dr. Edilia Remy MD Work Phone: [facility] 03-02-2025 02:36-0400 Systolic blood pressure 152 mm[Hg] Dr. Edilia Remy MD Work Phone: [facility] 03-02-2025 01:04-0400 Body height 180.[address] Edilia Remy MD Work Phone: [facility] 03-02-2025 01:04-0400 Body mass index (BMI) [Ratio] 34.3 kg/m2 Dr. Edilia Remy MD Work Phone: [facility] 03-02-2025 01:04-0400 Body weight 111.[address] Edilia Remy MD Work Phone: [facility] 01-02-2025 09:36-0400 Body height 180.[address] Edilia Remy MD Work Phone: [facility] 01-02-2025 09:36-0400 Body mass index (BMI) [Ratio] 37.3 kg/m2 Dr. Edilia Remy MD Work Phone: [facility] 01-02-2025 09:36-0400 Body weight 121.[address] Edilia Remy MD Work Phone: [facility] 01-02-2025 09:36-0400 Diastolic blood pressure 82 mm[Hg] Dr. Edilia Remy MD Work Phone: [facility] 01-02-2025 09:36-0400 Heart rate 93 /min Dr. Edilia Remy MD Work Phone: [facility] 01-02-2025 09:36-0400 SaO2% (BldA) [Mass fraction] 90 % Dr. Edilia Remy MD Work Phone: [facility] 01-02-2025 09:36-0400 Systolic blood pressure 148 mm[Hg] Dr. Edilia Remy MD Work Phone: [facility] 11-11-2024 20:10-0400 Body temperature 98 [degF] Dr. Edilia Remy MD Work Phone: [facility] 11-11-2024 20:10-0400 Diastolic blood pressure 87 mm[Hg] Dr. Edilia Remy MD Work Phone: [facility] 11-11-2024 20:10-0400 Heart rate 89 /min Dr. Edilia Remy MD Work Phone: [facility] 11-11-2024 20:10-0400 Respiratory rate 18 /min Dr. Edilia Remy MD Work Phone: [facility] 11-11-2024 20:10-0400 SaO2% (BldA) [Mass fraction] 95 % Dr. Edilia Remy MD Work Phone: [facility] 11-11-2024 20:10-0400 Systolic blood pressure 149 mm[Hg] Dr. Edilia Remy MD Work Phone: [facility] 11-11-2024 17:19-0400 Body height 180.[address] Edilia Remy MD Work Phone: [facility] 11-11-2024 17:19-0400 Body mass index (BMI) [Ratio] 36.7 kg/m2 Dr. Edilia Remy MD Work Phone: [facility] 11-11-2024 17:19-0400 Body weight 119.[address] Edilia Remy MD Work Phone: [facility] 11-10-2024 14:30-0400 Body temperature 98.1 [degF] Dr. Edilia Remy MD Work Phone: [facility] 11-10-2024 14:30-0400 Diastolic blood pressure 76 mm[Hg] Dr. Edilia Remy MD Work Phone: [facility] 11-10-2024 14:30-0400 Heart rate 96 /min Dr. Edilia Remy MD Work Phone: [facility] 11-10-2024 14:30-0400 Respiratory rate 16 /min Dr. Edilia Remy MD Work Phone: [facility] 11-10-2024 14:30-0400 SaO2% (BldA) [Mass fraction] 95 % Dr. Edilia Remy MD Work Phone: [facility] 11-10-2024 14:30-0400 Systolic blood pressure 123 mm[Hg] Dr. Edilia Remy MD Work Phone: [facility] 11-10-2024 14:20-0400 Inhaled oxygen flow rate 3 L/min Dr. Edilia Remy MD Work Phone: [facility] 11-10-2024 12:44-0400 Body height 180.[address] Edilia Remy MD Work Phone: [facility] 11-10-2024 12:44-0400 Body mass index (BMI) [Ratio] 36.1 kg/m2 Dr. Edilia Remy MD Work Phone: [facility] 11-10-2024 12:44-0400 Body weight 117.[address] Edilia Remy MD Work Phone: [facility] 09-21-2024 17:04-0500 Body temperature 97.8 [degF] Dr. Edilia Remy MD Work Phone: [facility] 09-21-2024 17:04-0500 Diastolic blood pressure 85 mm[Hg] Dr. Edilia Remy MD Work Phone: [facility] 09-21-2024 17:04-0500 Heart rate 78 /min Dr. Edilia Remy MD Work Phone: [facility] 09-21-2024 17:04-0500 Respiratory rate 14 /min Dr. Edilia Remy MD Work Phone: [facility] 09-21-2024 17:04-0500 SaO2% (BldA) [Mass fraction] 97 % Dr. Edilia Rmey MD Work Phone: [facility] 09-21-2024 17:04-0500 Systolic blood pressure 133 mm[Hg] Dr. Edilia Remy MD Work Phone: [facility] 09-21-2024 12:28-0500 Body mass index (BMI) [Ratio] 36.7 kg/m2 Dr. Edilia Remy MD Work Phone: [facility] 09-21-2024 12:28-0500 Body weight 121.[address] Edilia Remy MD Work Phone: [facility] 09-14-2024 12:00-0500 Diastolic blood pressure 77 mm[Hg] Dr. Edilia Remy MD Work Phone: [facility] 09-14-2024 12:00-0500 Heart rate 93 /min Dr. Edilia Remy MD Work Phone: [facility] 09-14-2024 12:00-0500 Respiratory rate 14 /min Dr. Edilia Remy MD Work Phone: [facility] 09-14-2024 12:00-0500 SaO2% (BldA) [Mass fraction] 95 % Dr. Edilia Remy MD Work Phone: [facility] 09-14-2024 12:00-0500 Systolic blood pressure 138 mm[Hg] Dr. Edilia Remy MD Work Phone: [facility] 09-14-2024 11:10-0500 Inhaled oxygen flow rate 2 L/min Dr. Edilia Remy MD Work Phone: [facility] 09-14-2024 09:31-0500 Body mass index (BMI) [Ratio] 36.4 kg/m2 Dr. Edilia Remy MD Work Phone: [facility] 09-14-2024 09:31-0500 Body temperature 97.5 [degF] Dr. Edilia Remy MD Work Phone: [facility] 09-14-2024 09:31-0500 Body weight 120.[address] Edilia Remy MD Work Phone: [facility] 10-27-2023 14:23-0400 Body height 180.[address] Edilia Remy Work Phone: [facility] [facility] 10-27-2023 14:23-0400 Body mass index (BMI) [Ratio] 31.8 kg/m2 Dr. Edilia Remy Work Phone: [facility] 10-27-2023 14:23-0400 Body weight 103.[address] Edilia Remy Work Phone: [facility] 10-27-2023 14:23-0400 Diastolic blood pressure 7 mm[Hg] Dr. Edilia Remy Work Phone: [facility] 10-27-2023 14:23-0400 Heart rate 101 /min Dr. Edilia Remy Work Phone: [facility] 10-27-2023 14:23-0400 Respiratory rate 17 /min Dr. Edilia Remy Work Phone: [facility] 10-27-2023 14:23-0400 SaO2% (BldA) [Mass fraction] 96 % Dr. Edilia Remy Work Phone: [facility] 10-27-2023 14:23-0400 Systolic blood pressure 121 mm[Hg] Dr. Edilia Remy Work Phone: [facility] 05-29-2023 11:57-0400 Diastolic blood pressure 87 mm[Hg] [facility] 05-29-2023 11:57-0400 Heart rate 92 /min [facility] 05-29-2023 11:57-0400 Respiratory rate 14 /min [facility] 05-29-2023 11:57-0400 SaO2% (BldA) [Mass fraction] 97 % [facility] 05-29-2023 11:57-0400 Systolic blood pressure 147 mm[Hg] [facility] 05-29-2023 09:21-0400 Body mass index (BMI) [Ratio] 33.4 kg/m2 [facility] 05-29-2023 09:21-0400 Body weight 108.7 kg [facility] 05-29-2023 09:10-0400 Body height 180.34 cm [facility] 05-29-2023 09:10-0400 Body temperature 97.6 [degF] [facility] 05-15-2023 00:53-0400 Body temperature 98.5 [degF] [facility] 05-15-2023 00:53-0400 Diastolic blood pressure 89 mm[Hg] [facility] 05-15-2023 00:53-0400 Heart rate 92 /min [facility] 05-15-2023 00:53-0400 Respiratory rate 18 /min [facility] 05-15-2023 00:53-0400 SaO2% (BldA) [Mass fraction] 92 % [facility] 05-15-2023 00:53-0400 Systolic blood pressure 140 mm[Hg] [facility] 05-14-2023 22:40-0400 Body mass index (BMI) [Ratio] 34 kg/m2 [facility] 05-14-2023 22:40-0400 Body weight 110.58 kg [facility] 11-10-2022 12:08-0400 Body height 182.[address] Edilia Remy Work Phone: [facility] 07-14-2017 08:47-0500 BMI (Body Mass Index) 30.4 kg/m2 [facility] Work Phone: 07-14-2017 08:47-0500 BP Diastolic 72 mm[Hg] [facility] Work Phone: 07-14-2017 08:47-0500 BP Systolic 126 mm[Hg] [facility] Work Phone: 07-14-2017 08:47-0500 Height 180.34 cm Samaria Sanchez [facility] Work Phone: 07-14-2017 08:47-0500 Pulse (Heart Rate) 88 /min Samaria Sanchez [facility] Work Phone: 07-14-2017 08:47-0500 Respiratory Rate 18 /min Samaria Sanchez [facility] Work Phone: 07-14-2017 08:47-0500 Weight 98.88 kg Samaria Sanchez [facility] Work Phone: 11-07-2014 16:01-0400 BMI (Body Mass Index) 31.46 kg/m2 Helean Pena RN [facility] Work Phone: 11-07-2014 16:01-0400 Weight 105.24 kg Helena Pena RN [facility] Work Phone: 04-04-2014 13:54-0400 BP Diastolic 65 mm[Hg] Helena Pena RN [facility] Work Phone: 04-04-2014 13:54-0400 BP Systolic 132 mm[Hg] Helena Pena RN [facility] Work Phone: 04-04-2014 13:54-0400 Height 182.88 cm Helena Pena RN [facility] Work Phone: 04-04-2014 13:54-0400 Pulse (Heart Rate) 70 /min Helena Pena RN [facility] Work Phone: Encounters Encounter Date Encounter Type Care Provider Facility Start: 03-06-2025 End: 03-06-2025 Emergency department patient visit Dr. Edilia Remy MD Work Phone: -Emergency Department Work Phone: Start: 03-02-2025 End: 03-02-2025 Emergency department patient visit Dr. Edilia Remy MD Work Phone: -Emergency Department Work Phone: Start: 02-12-2025 ambulatory Edilia Remy Facility: [facility] Start: 01-17-2025 End: 01-17-[address] Edilia Remy MD Work Phone: [facility] Work Phone: Start: 01-17-2025 End: 01-17-[address] Brennen Hickey MD -Ultrasound [facility] Work Phone: Start: 01-17-2025 End: 01-17-2025 ambulatory Edilia Remy Facility:[facility] Start: 01-02-2025 End: 01-02-[address] Brennen Hickey MD -[facility] Work Phone: Start: 01-02-2025 End: 01-02-[address] Edilia Remy MD Work Phone: [facility] Work Phone: Start: 12-11-2024 End: 12-11-2024 Patient encounter procedure Marjorie LEYVA -Cat Scan [facility] Work Phone: Start: 12-11-2024 End: 12-11-2024 ambulatory Marjorie Marti Facility:[facility] Start: 11-15-2024 End: 11-15-2024 Patient encounter procedure Marjorie LEYVA -[facility] Work Phone: Start: 11-15-2024 End: 11-15-[address] Edilia Remy MD Work Phone: [facility] Work Phone: Start: 11-15-2024 End: 11-15-2024 ambulatory Marjorie Marti Facility:[facility] Start: 11-11-2024 End: 11-11-2024 Emergency department patient visit Dr. Edilia Remy MD Work Phone: -Emergency Department Work Phone: Start: 11-10-2024 ambulatory [facility] Facility: [facility] Start: 11-10-2024 Non-patient / Non-visit Marty Jose nd DO -[facility] Start: 11-10-2024 End: 11-10-2024 Admission to same day surgery center Marty Brandi DO -Endoscopy Work Phone: Start: 11-10-2024 End: 11-10-[address] Edilia Remy MD Work Phone: [facility] Work Phone: Start: 10-04-2024 Encounter for other preprocedural examination Leydi Moncada INSTRUMENT TECHNICIAN [facility] Start: 09-21-2024 End: 09-21-2024 Emergency department patient visit Dr. Dunia Swenson DO -Emergency Department Work Phone: Start: 09-14-2024 ambulatory [facility] Facility: [facility] Start: 09-14-2024 Non-patient / Non-visit Wilfred Moncada INSTRUMENT TECHNICIAN-C -[facility] Start: 09-14-2024 End: 09-14-2024 Patient encounter procedure Marjorie LEYVA -Cat Scan, [facility] Work Phone: Start: 09-14-2024 ambulatory aMrjorie Marti Facili ty:[facility] Start: 09-14-2024 End: 09-14-[facility] Start: 08-29-2024 End: 08-29-2024 Patient encounter procedure Marjorie LEYVA -Ultrasound, [facility] Work Phone: Start: 08-29-2024 End: 08-29-2024 ambulatory [facility] Facility:[facility] Start: 08-17-2024 End: 08-17-2024 Patient encounter procedure Marjorie LEYVA -[facility] Work Phone: Start: 08-17-2024 End: 08-17-2024 ambulatory [facility] Facility:[facility] Start: 08-17-2024 End: 08-17-2024 ambulatory Marjorie Kaia Facility:[facility] Start: 06-29-2024 End: 06-29-2024 ambulatory Edilia Remy Facility:[facility] Start: 06-23-2024 End: 06-23-2024 ambulatory Edilia Remy Facility:[facility] Start: 03-30-2024 End: 03-30-2024 ambulatory Edilia Remy Facility:[facility] Start: 11-17-2023 End: 11-17-[address] Edilia Remy Work Phone: [facility] Work Phone: Start: 11-17-2023 End: 11-17-[address] Edilia Remy Work Phone: [facility]-Nuclear Medicine, [facility] Work Phone: Start: 11-02-2023 End: 11-02-[address] Edilia Remy Work Phone: [facility] Work Phone: Start: 11-02-2023 End: 11-02-[address] Edilia Remy Work Phone: [facility], [facility] Work Phone: Start: 10-27-2023 End: 10-27-[address] Edilia Remy Work Phone: [facility] Work Phone: Start: 08-22-2023 End: 08-22-2023 Emergency department patient visit EDILIA REMY [facility] Start: 06-05-2023 End: 06-05-2023 Emergency department patient visit EDILIA REMY Facility:[id number] Start: 06-03-2023 Non-patient / Non-visit Dr. Ethan Remy Work Phone: [facility] Start: 06-03-2023 End: 06-03-[address] Edilia Remy Work Phone: [facility] Work Phone: Start: 06-03-2023 End: 06-03-[address] Edilia Remy Work Phone: [facility]-Cardiovascular Services Work Phone: Start: 05-29-2023 End: 05-29-2023 Emergency department patient visit [facility]-Emergency Department Work Phone: Start: 05-14-2023 End: 05-15-2023 Emergency department patient visit [facility]-Emergency Department Work Phone: Start: 05-13-2023 End: 05-13-2023 Emergency department patient visit WENDY BECKY [facility] Start: 03-05-2023 End: 03-05-2023 Emergency department patient visit EDILIAADONAY REMY [facility] Start: 12-17-2022 End: 12-17-[address] Edilia Remy Work Phone: [facility] Work Phone: Start: 12-17-2022 End: 12-17-[address] Edilia Remy Work Phone: [facility]-Occupational Therapy Start: 11-18-2022 End: 11-18-[address] Edilia Remy Work Phone: [facility] Start: 11-12-2022 End: 11-12-[address] Edilia Remy Work Phone: [facility] Start: 07-10-2017 End: 07-10-2017 Emergency department patient visit EDILIA REMY Facility: Procedures Date Procedure Procedure Detail Performing Clinician Start: 03-02-2025 Plain x-ray of pelvis and lower extremity Dr. Edilia Remy MD Work Phone: Start: 03-02-2025 X-ray of lumbar spine, two or three views Dr. Edilia Remy MD Work Phone: Start: 01-17-[address] Edilia eldridge MD Work Phone: Start: 12-11-2024 CT of abdomen with contrast Dr. Edilia stuart MD Work Phone: Start: 11-15-2024 Ihdii-6-Ybnepjjjify measurement Dr. Corina Remy MD Work Phone: Comment on above: RVE.SOL - [employer] Electrochemiluminescen ce Immunoassay(ECLIA)Values obtained with different assay methods or kits cannotbe used interchangeably. Results cannot be interpreted asabsolute evidence of the presence or absence of malignantdisease.This test is not interpretable in females.Performed at: [address] [id number] Director: Americo Bradford PhD, Phone: [phone] Start: 11-11-[address] Domenica [...] Result Comment: URINALYSIS Performed By: #### 2 [id number] #### [facility],[address] [place] [address] Start: 11-18-[address] Edilia Remy Work Phone: Start: 11-12-2022 Plain x-ray of wrist Dr. Edilia Remy Work Phone: Start: 07-14-2017 End: 07-14-2017 Follow Up Appt 6 months Kristie Enriquez Start: 07-14-2017 End: 07-14-2017 [facility] Emmanuel Lu MD Start: 10-15-2014 End: 10-24-2014 Radex spine cervical 2 or 3 views Jaja Ingram Work Phone: Start: 10-15-2014 End: 10-16-2014 Smoking cessation education Sarika Alvarez Start: 08-30-2014 End: 10-24-2014 Mri any jt [...] Treatment Date Care Activity Detail Author Start: 03-02-[address] [facility] Start: 11-11-[address] [facility] Start: 11-10-2024 Egd transoral biopsy single/multiple EGD BIOPSY SINGLE/MULTIPLE [facility] Start: 11-10-2024 Patient discharge [facility] Start: 09-21-[address] [facility] Start: 09-14-2024 Biopsy liver needle percutaneous NEEDLE BIOPSY OF LIVER PERQ [facility] Start: 09-14-2024 Following clinical pathway protocol [facility] Start: 09-14-2024 Catheterization of vein [facility] Start: 09-14-2024 Oxygen therapy [facility] Start: 09-14-2024 Patient discharge [facility] Start: 09-14-2024 Vital signs measurements [facility] Start: 05-29-[address] [facility] Start: 11-12-2022 Patient referral [facility] Work Phone: Start: 01-14-2018 End: 01-14-2018 Appointment Appointment [facility] Work Phone: Start: 07-14-2017 End: 07-14-2017 Follow Up Appt 6 months Follow Up Appt 6 months [facility] Work Phone: Start: 07-14-2017 End: 07-14-2017 JHR JHR [facility] Work Phone: Start: 07-14-2017 End: 07-14-2017 Appointment Appointment [facility] Work Phone: Start: 02-11-2017 End: 02-11-2017 Radiologic exam knee complete 4/more views X-Ray, Knee [facility] Work Phone: Start: 10-16-2015 End: 10-16-2015 Physical Therapy General Physical Therapy [facility], [address] [place] [address], [id number] [facility] Work Phone: Start: 09-16-2015 End: 09-16-2015 Radex shoulder complete minimum 2 views X-Ray, Shoulder [facility] Work Phone: Start: 10-15-2014 End: 10-24-2014 Radex spine cervical 2 or 3 views X-Ray, Spine, Cervical [facility] Work Phone: Start: 08-30-2014 End: 10-24-2014 Mri any jt lower extrem w/o contrast matrl MRI Joint Lower Extremity [facility] Work Phone: Start: 08-30-2014 End: 10-24-2014 Radex spine lumbscrl compl w/bending views min 6 X-Ray, Spine, Lumbar, complete with bending views [facility] Work Phone: Start: 04-04-2014 End: 10-24-2014 Radex shoulder complete minimum 2 views X-Ray, Shoulder [facility] Work Phone: C reactive protein [Mass/volume] in Serum or Plasma [facility] CBC W Auto Different ial panel - Blood [facility] Ceruloplasmin [Mass/volume] in Serum or Plasma [facility] Cobalamin (Vitamin B 12) [Mass/volume] in Serum or Plasma [facility] Comprehensive metabo lic 2000 panel - Serum or Plasma [facility] Copper [Moles/volume ] in Serum or Plasma [facility] CT Abdomen WO and W contrast IV [facility] Cytoplasmic ANCA Screen [facility] Ferritin [Mass/volum e] in Serum or Plasma [facility] Folate [Moles/volume ] in Serum or Plasma [facility] Hemoglobin A1c/Hemoglobin.total in Blood [facility] Hepatitis B virus summers rface Ab [Presence] in Serum [facility] Iron and Iron bindin g capacity panel - Serum or Plasma [facility] Lipid 1996 panel - S gage or Plasma [facility] Mitochondria Ab [Pre sence] in Serum [facility] Patient Education [facility] Work Phone: Patient referral [facility] Work Phone: Prothrombin time [facility] Serum immunofixation [facility] Smooth muscle Ab [Presence] in Serum [facility] T4 free measurement [facility] Thyroid stimulating hormone measurement [facility] Vitamin B12 measurement [facility] Payers Date Payer Category Payer Self-pay 2021 Medicare [id number] 2013 Medicare MEDICARE PART A B [id number] 1960 Unknown [id number] 2.16.8 [id number] 1960 Unknown [id number] 2.16.8 40.1.668987.3.579.2.651 1960 Unknown [id number] 2.16.8 40.1.865255.3.579.2.651 Medicaid [id number] Medicare [id number] Self-pay SELF PAY INSURANCE [id number] Unknown [id number] Unknown [id number] 2.16.8 40.1.530392.3.579.2.528 Unknown [id number] 2.16.8 40.1.936177.3.579.2.462 Unknown [id number] 2.16.8 40.1.473761.3.579.2.462 Unknown [id number] 2.16.8 40.1.415297.3.579.2.462 Unknown [id number] 2.16.8 40.1.330433.3.579.2.462 Unknown [id number] 2.16.8 40.1.585273.3.579.2.462 Unknown [id number] 2.16.8 40.1.957663.3.579.2.462 Unknown [id number] 2.16.8 40.1.829987.3.579.2.462 Unknown [id number] 2.16.8 40.1.508225.3.579.2.462 Unknown [id number] 2.16.8 40.1.712666.3.579.2.462 Unknown [id number] 2.16.8 40.1.051660.3.579.2.462 Unknown [id number] 2.16.8 40.1.181380.3.579.2.462 Unknown [id number] 2.16.8 40.1.695287.3.579.2.462 Unknown [id number] 2.16.8 40.1.370235.3.579.2.462 Unknown [id number] 2.16.8 40.1.805593.3.579.2.462 Unknown [id number] 2.16.8 40.1.921924.3.579.2.462 Unknown [id number] 2.16.8 40.1.387625.3.579.2.462 Unknown [id number] 2.16.8 40.1.316000.3.579.2.462 Unknown [id number] 2.16.8 40.1.457832.3.579.2.462 Unknown [id number] 2.16.8 40.1.664549.3.579.2.462 Unknown [id number] 2.16.8 40.1.206074.3.579.2.462 Unknown [id number] 2.16.8 40.1.988447.3.579.2.462 Social History Date Type Detail Facility Start: 11-12-2022 End: 10-27-2023 Tobacco smoking status MNIS Unknown if ever smoked [facility] Start: 03-20-2019 Spouse/ Signif icant Other [facility] Start: 1960 Sex Assigned At Male [facility] Start: 11-07-2024 End: 03-02-2025 Tobacco smoking status NHIS Smokes tobacco daily (finding) [facility] Start: 11-10-2024 End: 11-21-2024 Sex Male (finding) [facility] Goals Date Patient Goal Desired Activity /State Mental Status Date Assessment Result Facility 11-10-2024 Cognitive function Level Of Consciousness Sedated [facility] Work Phone: 11-10-2024 Cognitive function Arousable To Voice/Nam e [facility] Work Phone: 09-14-2024 Cognitive function Voice/Name [facility] Work Phone: 05-29-2023 Cognitive function Level Of Cons ciousness Awake;Alert;Appropriate [facility] Work Phone: Clinical Notes 12-17-2022 to 03-02-2025 Note Date & Type Note Facility 03-02-2025 Radiology Diagnostic study note [facility] Imaging Services [address] [place] [address] HIP, UNI W/ Pelvis 2-3 Views MR#: [id number] Acct: [id number] Name: JEANNE RIVERS Rep #: [id number] : 1960 M 64 From: Kayla Mckeon MD PCP: Dr. Edilia Remy MD Status: REG ER Study:HIP, UNI W/ Pelvis 2-3 Views Date of Ex am: 03/02/25 Exam# [id number] Ordering Dr: Marilyn Dang DO PROCEDURE: HIP, UNI W/ PELVIS 2-3 VIEWS 03/02/2025 REASON FOR EXAM: PAIN TECHNIQUE: HIP, UNI W/ PELVIS 2-3 VIEWS COMPARISON: No FINDINGS: Mild bilateral hip osteoarthritis. Intact pelvic ring. No acute bone or soft tissue pathology. RAD/HIP, UNI W/ Pelvis 2-3 Views IMPRESSION: Mild right hip osteoarthritis. Reading Location: [facility] CC: Dr. Edilia Remy MD; Terry Dang DO ~ [place] Former: Signed [facility] 03-02-2025 Radiology Diagnostic study note [facility] Imaging Services [address] [place] [address] Lumbar Spine 2 or 3 Views MR#: [id number] Acct: [id number] Name: JEANNE RIVERS Rep #: [id number] : 1960 M 64 From: Kayla Mckeon MD PCP: Dr. Edilia Remy MD Status: REG ER Study:Lumbar Spine 2 or 3 Views Date of Exam: 03/02/25 Exam# [id number] Ordering Dr: Marilyn Dang DO PROCEDURE: LUMBAR SPINE 2 OR 3 VIEWS 03/02/2025 REASON FOR EXAM: PAIN TECHNIQUE: LUMBAR SPINE 2 OR 3 VIEWS COMPARISON: No FINDINGS: Diffuse facet arthritis. Multilevel anterior osteophyte formation. At L4, mildsuperior endplate deformity with no evidence of acuity. At L5-S1, mild disc space narrowing and grade 1 retrolisthesis. No acute bone or soft tissue pathology. Extensive aortoiliac calcifications. RAD/Lumbar Spine 2 or 3 Views IMPRESSION: Lumbar spine degeneration. Reading Location: [facility]- CC: Dr. Edilia Remy MD; Terry Dang DO ~ [place] Former: Signed [facility] 01-17-2025 Radiology Diagnostic study note [facility] Imaging Services [address] [place] [id number] Abdomen Limited MR#: [id number] Acct: [id number] Name: JEANNE RIVERS Rep #: [id number] : 1960 M 64 From: Lisa Schreiber MD PCP: Dr. Edilia Remy MD Status: REG CLI Study:Abdomen Limited Date of Exam: 12/08 Exam# [id number] Ordering Dr: Michael Hickey MD PROCEDURE: ABDOMEN LIMITED 01/17/2025 REASON FOR EXAM: TO R/O ASCITS OR CAUSE OF DITENSION TECHNIQUE: Targeted abdominal imaging to assess for ascites. Grayscale images. COMPARISON: None US/Abdomen Limited IMPRESSION: No significant fluid within the 4 abdominal quadrants. Reading Location: [facility] CC: Dr. Edilia Remy MD; Dr. Brennen Hickey MD ~ [place] Former: Signed [facility] 11-11-2024 Discharge summary [facility] 11-11-2024 Radiology Diagnostic study note [facility] Imaging Services [address] [place] [id number] Abdomen/Pelvis W IV Cont ONLY MR#: [id number] Acct: [id number] Name: JEANNE RIVERS Rep #: [id number] : 1960 M 64 From: April Tomas MD PCP: Dr. Edilia Remy MD Status: REG ER Study:Abdomen/Pelvis W IV Cont ONLY Date of E xam: 11/11/24 Exam# [id number] Ordering Dr: Ortega Diana DO PROCEDURE: ABDOMEN/PELVIS [...] Remy MD; Dr. Ortega Diana DO ~ [place] Former: Signed [facility] 11-11-2024 Discharge summary Note Date/Time November 11, 2024 7:48pm [facility] Medical Records Department [address] [place] [id number] Emergency Department Summary 11/11/24 MR#: [id number] Acct: [id number] Name: JEANNE RIVERS Rep #:[id number] : [...] started on any medications post his procedure. [facility] Medical History Loss of hearing Diabetes Ambulates with cane Arthritis Fatty liver Easy bruising Back pain Migraine headache Dietary restriction History of diverticulitis Gastric reflux COPD (chronic obstructive pulmonary disease) Shortness of breath on exertion Smoker History of pain when walking History of edema Cellulitis Cardiology follow-up encounter RUQ abdominal pain penitentiary use of drug Nicotine abuse HLD (hyperlipidemia) Essential (primary) hypertension Atherosclerotic heart disease of [place] coronary artery with other forms of angina [...] IV fluids given. Patient declines any medications. 193: Abdominal labs were normal. Normal lipase and [...] clinician: Gastroenterology This note was generated with [employer] dictation software. It may contain incorrectwords, spelling, [...] % (Auto) 62.8 Lymph % (Auto) 27.9 Grant % (Auto) 5.5 Eos % (Auto) 2.7 [...] interstitial edema or fibrotic change. [facility] Triage Chief Complaint: Abd Pain [...] Edilia Remy MD [Primary Care Provider] - Brandi,DO Marty [Med Staff - Active Staff] - 1-2 Weeks Activity Restrictions/Additional Instructions: Abdominal labs normal CT scan negative for any complications from your upper endoscopy. Fatty liver with signs of cirrhosis and liver cyst. This chest withDr. Friend in the ED, and follow-up with him in the office. Take Carafate as prescribed continue your pantoprazole. Print Language: Swedish Disposition Disposition: Home, Self Care What to do if you have Problems For any increased pain, shortness of breath, bleeding, nausea or vomiting, chestpain, or any unexpected problems, contact your Primary Care Provider. Call [facility] ([phone]) or report to the closest Emergency Room. Call 911 if necessary. 11/11/241947 <Electronically signed by Ortega Goldman> Cosigner Signature (if applicable): CC: Dr. Edilia Remy MD; Marty Paz DO ~ Signed [facility] Work Phone: 1(103) 307-764203-28-[address] [facility] Medical Records Department [address] [place] [address] Anesthesia Postop Eval II 11/10/24 1436 MR#: [id number] Acct: [id number] Name: JEANNE RIVERS Rep #:[id number] : 1960 64 From: Shira Akbar PCP: Dr. Edilia Remy MD Status:REG [facility] Y Race: C Location: [place] [address] Anesthesia Postop Eval I Sum Postop Eval [...] volume administered (ml) Total IV fluid infused 11/10/24 14:28 [email or web address] Anesthesia Postop Eval I: Summary Notes Anesthesia Complication No 11/10/24 14:28 [email or web address] Anesthesia Complication Comment: Post-operative progress note Anesthesia: Postop Eval II Evaluation Mental status: Awake Pain Level: 0 nausea: No Vomiting: No 11/10/24 1437 a> Date _ Shira Jimenez Signature: Date CC: ~ Signed [facility]03-28-2025 Consult note Author Nii Hutchinson [facility] Note Date/Time November 10, 2024 12: 29pm [facility] Medical Records Department [address] [place] [address] Pre-Anesthesia Evaluation 11/10/24 1228 MR#: [id number] Acct: [id number] Name: JEANNE RIVERS Rep #:[id number] : 1960 64 From: Nii Hutchinson MD PCP: Dr. 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 Hx Hospitalization No 11/07/24 12:35 Any Problems [...] take am of surgery PONV PONV - materials recycler: PONV - materials recycler Female No 11/07/24 12:35 HX of Motion Sickness No 11/07/24 12:35 HX of N/V After Surgery No 11/07/24 12:35 Non-Smoker No 11/07/24 12:35 Duration of Surgery greater No 11/07/24 12:35 than 60 minutes Number of Risk Factors PONV Score Height & Weight Height & Weight: Anesthesia: Height & Weight Height 5 ft 11.5 in 09/21/24 12:28 Respiratory Assessment Respiratory Assessment - materials recycler: Respiratory Tract Infection Hx - materials recycler Hx Respiratory Tract Infection No 11/07/24 12:35 STOP Sleep Apnea STOP Sleep Apnea - materials recycler: STOP Sleep Apnea - materials recycler Hx Hypertension Yes: CONTROLLED WITH MED 11/07/24 [...] Tobacco Use History Tobacco Use History - materials recycler: Tobacco Use History - materials recycler Tobacco Use Smoking Status Current every day smoker 11/07/24 12:35 Hx Tobacco Use Yes 11/07/24 12:35 Years Smoking Packs Smoked per Day Smoking Cessation Date was within the last 15 years Hx Smoking Cessation Date Hx Smoking Cessation Counseling Hematologic Medial History Hematologic 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 Hx of Blood Transfusion No 11/07/24 12:35 [...] confused, unrespo /Reproduction History /Reproductive History - materials recycler: /Reproductive Hx- materials recycler Hx Now No 11/07/24 12:35 Gestational Age (in weeks): EDC: Hx Hx Para Hx Section SAB No 11/07/24 12:35 [facility] Medical History Loss of hearing Diabetes Ambulates with cane Arthritis Fatty liver Easy bruising Back pain Migraine headache Dietary restriction History of diverticulitis Gastric reflux COPD (chronic obstructive pulmonary disease) Shortness of breath on exertion Smoker History of pain when walking History of edema Cellulitis Cardiology follow-up encounter RUQ abdominal pain penitentiary use of drug Nicotine abuse HLD (hyperlipidemia) Essential (primary) hypertension Atherosclerotic heart disease of [place] coronary artery with other forms of angina [...] MD Cosigner Signature: Date CC: ~ Signed [facility] Work Phone: 1(963) 842-611803-28-[address] [facility] Medical Records Department [address] [place] [address] Anesthesia Postop Eval I 11/10/24 1427 MR#: [id number] Acct: [id number] Name: JEANNE RIVERS Rep #:[id number] : 1960 64 From: Enoch Tirado PCP: Dr. Edilia Remy MD Status:REG SDC Y Race: C Location: [place] [address] Anesthesia: Postop Eval I Current Vital Signs [...] Postop Eval 1 completed: Yes 11/10/24 1428 > Date _ Enoch Jimenez Signature: Date CC: ~ Signed [facility]03-28-[address] [facility] Medical Records Department [address] [place] [address] EGD Report MR#: [id number] Acct: [id number] Name: JEANNE RIVERS Rep #:[id number] : 1960 64 From: Marty Paz DO PCP: Dr. Edilia Remy MD Status:REG [facility] Patient Name: Jeanne Rivers Procedure Date: 11/10/2024 [...] pathology results. Procedure Code(s): --- Professional --- 14072, Small intestinal endoscopy, enteroscopy beyond second portion of duodenum, not including ileum; with biopsy, single or multiple CPT copyright 2021 [employer] [place] [employer]. All rights reserved. The codes documented in this report are preliminary and upon physical meteorologist review may be revised to meet current compliance requirements. Marty Paz DO 11/10/2024 2:23:08 PM This report has been signed electronically. Number of Addenda: 0 Note Initiated On: 11/10/2024 1:54 PM 11/10/241422 Date _ Marty Pateligner Signature: Date (if indicated) CC: Dr. Edilia Remy MD; Marty Paz DO ~ Date Dictated: 11/10/24 1354 Date Transcribed: Machine Spring Former: RF Signed [facility]03-28-[address] [facility] Medical Records Department [address] [place] [address] Operative Report - CC Letter MR#: [id number] Acct: [id number] Name: JEANNE RIVERS Rep #:[id number] : 1960 64 From: Marty Paz DO PCP: Dr. Edilia Remy MD Status:REG [facility] 11/10/[address] [place] [address] Re : Upper GI endoscopy procedure for [...] PM This report has been signed electronically. 03/28/25 1423 Date _ Marty Paz Catrinaigner Signature: Date (if indicated) CC: Dr. Edilia Remy MD; Marty Paz DO ~ Date Dictated: 11/10/24 1354 Date Transcribed: Machine [place] Former: RF Signed [facility]03-28-2025 Evaluation note* Diagnosis Onset Date Resolution Status [...] 8:53am Liver lesion chronic January 02 8:53am [facility] Work Phone: 1(815) 367-614303-28-2025 History and physical note [facility] Medical Records Department [address] [place] [address] History & Physical Exam 11/10/24 1352 MR#: [id number] Acct: [id number] Name: JEANNE RIVERS Rep #:[id number] : 1960 64 From: Marty Paz DO PCP: Dr. Edilia Remy MD Status:[facility] Location: [place] [address] HPI - General General Date of Admission: [...] Cellulitis Cardiology follow-up encounter RUQ abdominal pain penitentiary use of drug Nicotine abuse HLD (hyperlipidemia) Essential (primary) hypertension Atherosclerotic heart disease of [place] coronary artery with other forms of angina [...] Edilia Remy MD; Marty Paz DO~ Signed [facility]03-28-2025 [facility] Medical Records Department [address] [place] [address] History Physical Exam 11/10/24 1352 MR#: [id number] Acct: [id number] Name: JEANNE RIVERS Rep #: [id number] : 1960 64 From: Marty Paz DO PCP: Dr. Edilia Remy MD Status:[facility] Location: [place] [address] HPI - General General Date of Admission: [...] Cellulitis Cardiology follow-up encounter RUQ abdominal pain penitentiary use of drug Nicotine abuse HLD (hyperlipidemia) Essential (primary) hypertension Atherosclerotic heart disease of [place] coronary artery with other forms of angina [...] Allergy/AdvReac Type Severity Reaction (more content not included)...[facility]03-28-[address] [facility] Medical Records Department [address] [place] [address] Pre-Anesthesia Evaluation 11/10/24 1228 MR#: [id number] Acct: [id number] Name: JEANNE RIVERS Rep #:[id number] : 1960 64 From: Nii Hutchinson MD PCP: Dr. 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 Hx Hospitalization No 11/07/24 12:35 Any Problems [...] take am of surgery PONV PONV - materials recycler: PONV - materials recycler Female No 11/07/24 12:35 HX of Motion Sickness No 11/07/24 12:35 HX of N/V After Surgery No 11/07/24 12:35 Non-Smoker No 11/07/24 12:35 Duration of Surgery greater No 11/07/24 12:35 than 60 minutes Number of Risk Factors PONV Score Height & Weight Height & Weight: Anesthesia: Height & Weight Height 5 ft 11.5 in 09/21/24 12:28 Respiratory Assessment Respiratory Assessment - materials recycler: Respiratory Tract Infection Hx - materials recycler Hx Respiratory Tract Infection No 11/07/24 12:35 STOP Sleep Apnea STOP Sleep Apnea - materials recycler: STOP Sleep Apnea - materials recycler Hx Hypertension Yes: CONTROLLED WITH MED 11/07/24 [...] Tobacco Use History Tobacco Use History - materials recycler: Tobacco Use History - materials recycler Tobacco Use Smoking Status Current every day smoker 11/07/24 12:35 Hx Tobacco Use Yes 11/07/24 12:35 Years Smoking Packs Smoked per Day Smoking Cessation Date was within the last 15 years Hx Smoking Cessation Date Hx Smoking Cessation Counseling Hematologic Medial History 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01-30-2025 Evaluation note* Diagnosis Onset Date Resolution Status [...] 8:53am Liver lesion chronic January 02 8:53am [facility] Work Phone: 1(307) 701-298301-02-2025 Evaluation note* Diagnosis Onset Date Resolution Status Admit Date Fatty liver acute August 17, 2024 2:52pm RUQ abdominal pain acute 2024 2:52pm Fatty liver acute September 14, 2024 8:47am Abdominal pain acute October 12:07pm Fatty liver acute November 10, 2 025 12:07pm Hernia acute November 10 12:07pm RUQ abdominal pain acute November 10, 2024 12:07pm [facility] Work Phone: 1([phone]) 579-860701-02-2025 Evaluation note* Diagnosis Onset Date Resolution Status [...] cyst inactive November 15, 2 025 2:05pm [facility] Work Phone: 1(798) 775-371810-21-2023 NoteHNO ID: [id number] Author: Svitlana Montano RT(R) Service: Radiology Author [...] BY: RT Yvonne(R) June 05, 2023 11:54 AMWabash Valley [id number] Discharge summary Author Sirisha Khan [facility] December 17, 2022 9:23am Note Date/Time December 17, 2022 9:23am [facility] Occupational Therapy [facility] [address] [place] [address] [address] [place] [address] / REHABILITATION SERVICES DISCHARGE SUMMARY MR#: [id number] Acct: [id number] Name: JEANNE RIVERS Rep #: [id number] : 1960 62 From: Sirisha Khan OTR/L, CHT Referring Dr.: Dr. Que Turcios MD [...] demo full forearm supination/pronation (not pain). right waiter/waitress second class strength did go up from 25# to 40# left is 75#. pt has pain on ulnar side. pt states wrist pain does continue to stop him with all his ADLs and IADLs. pt has been ed. on ad. eq. to decrease stress on joints. therapist ed. pt on use of steering knob, wrist brace and decrease prolonged waiter/waitress second class on objects. Patient Goals: Decrease Pain, Use Hand/Wrist/Arm Normally Again, Be More Independent in ADLS Goal:: pt will demo a increase in right waiter/waitress second class strength to 40# or greater by d.c [...] please fell free to call me at [phone]. Thank you for the referral of this patient. Sincerely, PAULINA Avendaño CHT <Electronically signed by Sirisha GALLARDO CHT> 12/17/22922 CC: Dr. Edilia Remy MD; Dr. Que Turcios MD ~ MK Signed [facility] Work Phone: Consult note Author Enoch Tirado [facility] Note Date/Time November 10, 2024 2:[address] [facility] Medical Records Department [address] [address] [place] [address] Anesthesia Postop Eval I 11/10/24 1427 MR#: [id number] Acct: [id number] Name: JEANNE RIVERS Rep #:[id number] : 1960 64 From: Enoch Tirado PCP: Dr. Edilia Remy MD Status:REG [facility] Y Race: C Location: [place] [address] Anesthesia: Postop Eval I Current Vital Signs [...] Postop Eval 1 completed: Yes 11/10/24 1428 <Electronically signed by Enoch Tirado > Date _ Enoch Jimenez Signature: Date CC: ~ Signed [facility] Work Phone: Consult note Author [facility] Note Date/Time November 10, 2024 2:[address] [facility] Medical Records Department [address] [place] [address] Anesthesia Postop Eval II 11/10/24 1436 MR#: [id number] Acct: [id number] Name: JEANNE RIVERS Rep #:[id number] : 1960 64 From: Shira Akbar PCP: Dr. Edilia Remy MD Status:REG [facility] Y Race: C Location: [place] [address] Anesthesia Postop Eval I Sum Postop Eval [...] Shira Jimenez Signature: Date CC: ~ Signed [facility] Work Phone: Evaluation note* Diagnosis Onset Date Resolution Status Right carpal tunnel syndrome acute Right wrist pain acute [facility] Work Phone: Evaluation noteNo assessment information available [facility] Work Phone: Evaluation note* Diagnosis Onset Date Resolution Status RUQ abdominal pain acute [facility] Work Phone: History and physical note Author Marty Friend [facility] Note Date/Time November 10, 2024 1:[address] [facility] Medical Records Department [address] [place] [address] History & Physical Exam 11/10/24 1352 MR#: [id number] Acct: [id number] Name: JEANNE RIVERS Rep #:[id number] : 1960 64 From: Marty Friend DO PCP: Dr. 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 Edilia Remy MD; Marty Paz DO~ Signed [facility] Work Phone: Hospital Discharge instructions Additional Instructions Abdominal labs normal CT scan negative for any complications from your upper endoscopy. Fatty liver with signs of cirrhosis and liver cyst. This chest with Dr. Paz in the ED, and follow-up with him in the office. Take Carafate as prescribed continue your pantoprazole. [facility] Work Phone: Hospital Discharge instructionsAdditional Instructions Please continue to stretch and ice the area to help reduce pain and speed healing. Please stop using the Flexeril/cyclobenzaprine if you still have that at home and begin using the Valium for improved muscle spasm control. Your x-rays did not show any signs of broken bone or dislocation. It would typically take 1 to 2 weeks for your symptoms to completely heal. Return to the ER should you have any further concernsWNationwide Children's Hospital Work Phone: Reason for referral (narrative)No reason for referral information availableWNationwide Children's Hospital Work Phone: Summary Purpose Family History [...] Yes March 20, 2019 6:48pm Power of Protective Signal Operations Supervisor Yes March 20 6:48pm Advance Directive Response Recorded Date/ Time Name of Medical Power of Protective Signal Operations Supervisor May 29, 2023 9:21am Advance Directives No February 13 9:35am Living Will Yes May 29 9:21am Power of Protective Signal Operations Supervisor Yes May 29, 2023 9:21am Advance Directive Response Recorded Date/ Time Advance Directives No February 13 9:35am Living Will Yes May 29 9:21am Power of Protective Signal Operations Supervisor Yes May 29, 2023 9:21am Advance Directive Response Recorded Date/ Time Living Will Yes November 07, 2024 12:35pm Do you have a Healthcare Power of Protective Signal Operations Supervisor? Yes November 07, 2024 12:35pm Name of Medical Power of Protective Signal Operations Supervisor SPOUSE November 07, 2024 12:35pm Living Will No September 21 2:38pm Do you have a Healthcare Power of Protective Signal Operations Supervisor? No September 21, 2024 2:38pm Advance Directives No February 13 9:35am Advance Directive Response Recorded Date/ Time Living Will Yes November 07, 2024 12:35pm Do you have a Healthcare Power of Protective Signal Operations Supervisor? Yes November 07, 2024 12:35pm Name of Medical Power of Protective Signal Operations Supervisor SPOUSE November 07, 2024 12:35pm Living Will Yes November 11, 2024 5:35pm Do you have a Healthcare Power of Protective Signal Operations Supervisor? Yes November 11, 2024 5:35pm Name of Medical Power of Protective Signal Operations Supervisor rogelio November 11, 2024 5:35pm Living Will No September 21 2:38pm Do you have a Healthcare Power of Protective Signal Operations Supervisor? No September 21, 2024 2:38pm Advance Directives No February 13 9:35am Advance Directive Response Recorded Date/ Time Living Will Yes November 07, 2024 12:35pm Do you have a Healthcare Power of Protective Signal Operations Supervisor? Yes November 07, 2024 12:35pm Name of Medical Power of Protective Signal Operations Supervisor SPOUSE November 07, 2024 12:35pm Living Will Yes November 11, 2024 5:35pm Do you have a Healthcare Power of Protective Signal Operations Supervisor? Yes November 11, 2024 5:35pm Name of Medical Power of Protective Signal Operations Supervisor rogelio November 11, 2024 5:35pm Advance Directives No February 13 9:35am Advance Directive Response Recorded Date/ Time Living Will Yes November 07, 2024 12:35pm Do you have a Healthcare Power of Protective Signal Operations Supervisor? Yes November 07, 2024 12:35pm Name of Medical Power of Protective Signal Operations Supervisor SPOUSE November 07, 2024 12:35pm Living Will Yes November 11, 2024 5:35pm Do you have a Healthcare Power of Protective Signal Operations Supervisor? Yes November 11, 2024 5:35pm Name of Medical Power of Protective Signal Operations Supervisor rogelio November 11, 2024 5:35pm Do you have a Healthcare Power of Protective Signal Operations Supervisor? Yes March 02, 2025 1:11am Advance Directives No February 13 9:35am Chief [...] ABD PAIN January 17, 2025 8:29a m FALL March 02, 2025 1:04 am Chief Complaint Admit Date ABDOMINAL PAIN November 11, 2024 5:1 9pm 3 M FU November 15, 2024 2:05 pm LIVER LESION December 11, 2024 3:4 4pm liver issues January 02, 2025 8:53a m CIRRHOSIS, ABD PAIN January 17, 2025 8:29a m fallMarch 02, 2025 1:04 am fallMarch 06, 2025 7:33 pm Additional Source Comments (unrecognized sect ion and content) No Status Records FoundNo Status Records FoundNo Status Records FoundNo Status Records FoundNo Status Records FoundNo Status Records Found INFORMATION SOURCE (unrecogn ized section and content) DATE CREATED AUTHOR 09/08/2018 [facility] DATE CREATED AUTHOR AUTHOR'S ORGANIZ ATION 03/18/2019 [facility] ([place]) DATE CREATED AUTHOR AUTHOR'S ORGANIZ ATION 11/03/2020 [facility] DATE CREATED AUTHOR AUTHOR'S ORGANIZ ATION 06/06/2023 [facility] DATE CREATED AUTHOR AUTHOR'S ORGANIZ ATION 08/22/2023 [facility] DATE CREATED AUTHOR AUTHOR'S ORGANIZ ATION 03/08/2025 [facility] Care Teams (unrecognized sec tion and content) [...] Active Dr. Joss Orozco DO Attending Provider, Kurt murphy Active Team Status: Inactive Member Role Status [...] August 17, 2024 End: August 17, 2024 Marjorie Marti PA Referring Provider Active Start: August 17, 2024 End: August 17, 2024 Team Status: Inactive Member Role Status Dates Dr. Edilia Remy MD Primary Care Provider Active Start: August 29, 2024 End: August 29, 2024 GORDON Vieira Attending Provider Active Start: August 29, 2024 End: August 29, 2024 Marjorie Marti , PA Referring Provider Active Start: August 29, 2024 [...] Star t: September 14, 2024 Leydi Moncada INSTRUMENT TECHNICIAN, INSTRUMENT TECHNICIAN-C Attending Provider Active Start: September 14, 2024 [...] Inactive Member Role Status Dates Dr. Edilia Rmey MD Primary Care Provider Active Start: November [...] January 17, 2025 End: January 17, 2025 Team Status: Active Member Role/Relationship Status Dates Dr. Edilia Remy MD Primary Care Provider Active Team Status: Inactive Member Role/Relationship Status Dates Dr. Edilia Remy MD Primary Care Provider Active Start: November 10, 2024 End: November 10, 2024 Dr. Edilia Remy MD Referring Provider Active Start: November 10, 2024 End: November 10, 2024 Dr. Marty Paz DO Attending Provider Active Start: November 10, 2024 End: November 10, 2024 Team Status: Active Member Role/Relationship Status Dates Dr. Edilia Remy MD Primary Care Provider Active Start: November 10, 2024 Dr. Edilia Remy MD Referring Provider Active Start: November 10, 2024 Dr. Marty Paz DO Attending Provider Active Start: November 10, 2024 Dr. Marty Paz DO Other Provider Active St art: November 10, 2024 Team Status: Inactive Member Role/Relationship Status Dates Dr. Edilia Remy MD Primary Care Provider Active Start: November 11, 2024 End: November 11, 2024 Dr. Ortega Diana DO Attending Provider Active Start : November 11, 2024 End: November 11, 2024 Dr. Ortega Diana DO Emergency Provider Active Start : November 11, 2024 End: November 11, 2024 Team Status: Inactive Member Role/Relationship Status Dates Dr. Edilia Remy MD Primary Care Provider Active Start: November 15, 2024 End: November 15, 2024 Dr. Edilia Remy MD Referring Provider Active Start: November 15, 2024 End: November 15, 2024 GORDON Vieira Attending Provider Active Start: November 15, 2024 End: November 15, 2024 Team Status: Inactive Member Role/Relationship Status Dates Dr. Edilia Remy MD Primary Care Provider Active Start: November 15, 2024 End: November 15, 2024 GORDON Vieira Attending Provider Active Start: November 15, 2024 End: November 15, 2024 GORDON Vieira Referring Provider Active Start: November 15, 2024 End: November 15, 2024 Team Status: Inactive Member Role/Relationship Status Dates Dr. Edilia Remy MD Primary Care Provider Active Start: December 11, 2024 End: December 11, 2024 GORDON Vieira Attending Provider Active Start: December 11, 2024 End: December 11, 2024 GORDON Vieira Referring Provider Active Start: December 11, 2024 End: December 11, 2024 Team Status: Inactive Member Role/Relationship Status Dates Dr. Edilia Remy MD Primary Care Provider Active Start: January 02, 2025 End: January 02, 2025 Dr. Edilia Remy MD Referring Provider Active Start: January 02, 2025 End: January 02, 2025 Dr. Brennen Hickey MD Attending Provider Active Start: January 02, 2025 End: January 02, 2025 Team Status: Inactive Member Role/Relationship Status Dates Dr. Edilia Remy MD Primary Care Provider Active Start: January 17, 2025 End: January 17, 2025 Dr. Brennen Hickey MD Attending Provider Active Start: January 17, 2025 End: January 17, 2025 Dr. Brennen Hickey MD Referring Provider Active Start: January 17, 2025 End: January 17, 2025 Team Status: Inactive Member Role/Relationship Status Dates Dr. Edilia Remy MD Primary Care Provider Active Start: March 02, 2025 End: March 02, 2025 Dr. Terry Dang DO Emergency Provider Active Start: March 02, 2025 End: March 02, 2025 Team Status: Inactive Member Role/Relationship Status Dates Dr. Edilia Remy MD Primary Care Provider Active Start: March 06, 2025 End: March 06, 2025 Ed Physician Provider Emergency Provider Active Start: March 06, 2025 End: March 06, 2025 Goals (unrecognized section and content) Goals [...] BE BASED ON THE PRIMARY CLINICAL RECORDS. [facility] [email or web address] [facility]. provides no warranty or guarantee of the accuracy or completeness of information in this document.
[2025-03-10] MEDS: Ketorolac 30 MG/ML Syringe IM (14:16)
[2025-03-10] MEDS: Lidocaine 5% Patch 1 PATCH TOPICAL (14:20)
--- NOTE | 2025-03-10 15:00 | CM.ED ---
Social Work Date of referral: 03/10/25 Reason for referral: Advanced Care Directives (ACD's) not on file. Referred by: Social Work Identification Patient provided consent for Social Work Visit. [employer] requested a copy of patient's ACD's which patient agreed to bring in. Andra Connor, [employer], [employer]
[2025-03-10 15:35] VITALS: BP 116/57; PULSE 77; RESP 18; TEMP 36.4; O2SAT 100
== END 2025-03-10 15:41 | disposition home or self-care (01) ==
PROVIDERS: Emergency Provider Emergency Medicine; PCP Family Medicine; Visit Provider Emergency Medicine
DX: M54.50 Low back pain, unspecified (principal); S32.039A Unspecified fracture of third lumbar vertebra, initial encounter for closed fracture; S32.049A Unspecified fracture of fourth lumbar vertebra, initial encounter for closed fracture; J44.9 Chronic obstructive pulmonary disease, unspecified; E11.9 Type 2 diabetes mellitus without complications; F17.210 Nicotine dependence, cigarettes, uncomplicated; I10 Essential (primary) hypertension; I25.10 Atherosclerotic heart disease of native coronary artery without angina pectoris; E78.5 Hyperlipidemia, unspecified; W18.30XA Fall on same level, unspecified, initial encounter; Z79.899 Other long term (current) drug therapy; Z79.82 Long term (current) use of aspirin; Z79.84 Long term (current) use of oral hypoglycemic drugs; K21.9 Gastro-esophageal reflux disease without esophagitis
CPT/HCPCS: 72128; 72131; 96372; 99282

== ENCOUNTER → 2025-03-20 | Outpatient (CLI) | payer MEDICARE, SELFPAY ==
[2025-03-20 16:15] LABS: Hematocrit 44.7 % (40-54); Hemoglobin 14.6 g/dL (13.0-16.5); Immature Granulocytes Count 0.030 X10^3/uL (0.0-0.0); Mean Corp Hgb Conc 32.7 g/dL (32-36); Mean Corpuscular Volume 92.4 fL (80-94); Mean Platelet Vol. 11.5 fl (6.2-12.0); NRBC Flagged by Analyzer 0 % (0-5); Platelet Count 233 K/mm3 (150-450); RBC Distribution Width CV 15.2 % (11.6-14.6); RBC Distribution Width SD 51.6 fl (35.1-43.9); Red Blood Count 4.84 M/mm3 (4.6-6.2); White Blood Count 9.2 K/mm3 (4.4-11.0)
[2025-03-20 16:56] LABS: AST(SGOT) 32 U/L (<=37); Alanine Aminotransfer ALT/SGPT 33 U/L (<=46); Albumin, Serum 3.9 g/dL (3.4-4.8); Alkaline Phosphatase 325 U/L (40-129); Anion Gap 15 (5-15); BUN 10 mg/dL (4-19); BUN/Creat Ratio 11.8 RATIO (10-20); Calcium,Total 9.0 mg/dL (7.6-11.0); Carbon Dioxide 24.4 mmol/L (21.0-32.0); Chloride 91 mmol/L (98-108); Cholesterol 89 mg/dL (<=200); Ferritin 238 ng/mL (37-417); Globulin 4.3 g/dL (2.2-4.2); Glucose 258 mg/dL (70-99); Low Density Lipoprotein Calc. 26 mg/dL; Potassium 4.6 mmol/L (3.3-5.1); Triglycerides 185 mg/dL; Very Low Density Lipoprotein 37 mg/dL (5-40); Vitamin B12 658 pg/mL (180-914); cholesterol:hdl ratio screen 3.44
[2025-03-20 17:25] LABS: Prothrombin Time (Protime)PT. 14.0 SECONDS (11.7-14.9)
[2025-03-20 17:28] LABS: CRP 3.66 mg/L (0.0-3.0); Iron 86 ug/dL (65-175); Iron Binding Capacity,Total 307 ug/dL (250-450); Iron Binding Capacity,Unsat 221 ug/dL (228-428)
[2025-03-22 16:09] LABS: ANTINUCLEAR ANTIBODIES DIRECT Negative (Negative)
[2025-03-23 14:08] LABS: Albumin 3.3 g/dL (2.9-4.4); Anti-Smooth Muscle ABS 5 Units (0-19); Gamma Globulin 1.6 g/dL (0.4-1.8); Immunoglobulin A 887 mg/dL (61-437); Immunoglobulin G 1405 mg/dL (603-1613); Immunoglobulin M 66 mg/dL (20-172); PROEL- TOTAL PROTEIN 7.7 g/dL (6.0-8.5)
== END | disposition home or self-care (01) ==
LOC: LAB 14:42
PROVIDERS: PCP Family Medicine; Referring Provider Internal Medicine; Visit Provider Internal Medicine
DX: K74.60 Unspecified cirrhosis of liver (principal); E11.9 Type 2 diabetes mellitus without complications; R63.4 Abnormal weight loss; E03.9 Hypothyroidism, unspecified
CPT/HCPCS: 36415; 80053; 80061; 82390; 82525; 82607; 82728; 82784; 83036; 83516; 83540; 83550; 84165; 84439; 84443; 85025; 85610; 86038; 86140; 86225; 86334; 86706